=== PATIENT | female | born 1940 | race Caucasian/White ===

== ENCOUNTER 2020-11-13 22:28 | Inpatient (IN) ==
--- NOTE | 2020-11-14 00:34 | Emergency Department Note ---
HPI General Chief complaint: Weakness Stated complaint: Weakness Time Seen by Provider: 11/13/20 23:08 Source: patient and EMS Mode of arrival: EMS Limitations: no limitations History of Present Illness HPI Narrative: Narrative: Patient is a 80-year-old female who presented with chief complaint of weakness by EMS. Patient was very difficult to understand why she was here. She was unable to give me any specific reasons, that she just called 911 because she could not get out of her chair at home. She states that she was at [facility] yesterday for similar complaints but does not know what happened or why. She was discharged from the emergency department to the [place] [address] because she was refused at the retirement where she was, [facility]. Patient also states she does not want to go back there. At this time she has no other specific complaints such as fever, headache, cough, shortness of breath, chest p ain, nausea, vomiting, abdominal pain, changes in bowel movements or urinary symptoms. Patient has had issues with her incontinence, but she states this is normal for her. Due to the patient's inability to fully articulate why she is here or what issues she has been I was able to get a hold of the patient's son who was at [place] [address] as well. He states that he is concerned because she is declined s ignificantly since she was recently at [facility]. She had a cut on her leg that is being treated for chronic cellulitis, and he states that he is not confident with them taking care of her. He also states that they have kicked her out of the facility and will not take her back. Patient was brought to the [place] [address] yesterday evening by ambulance because that is where he was staying. He states that he also is homeless, and [facility]. Today he tried to get his mother up to move her since she had urinated herself and was unable to get her up. He states she has no strength in her legs and is unable to ambulate even a few steps. He is concerned that when he is homeless tomorrow he will be unable to care for her at all because she cannot ambulate or move anywhere. They called 911 this evening because he did not know what else to do and had no place to put her. Related Data Home Medications Medication Instructions Recorded Confirmed atorvastatin 40 mg tablet 40 mg PO QHS 10/02/19 05/16/20 gabapentin 100 mg capsule 100 mg PO BID 10/02/19 01/24/20 glipizide 5 mg tablet 5 mg PO QDAY 10/02/19 01/24/20 insulin lispro 100 unit/mL 10 unit SUB-Q .COMPLEX 10/02/19 05/16/20 subcutaneous solution ipratropium 0.5 mg-albuterol 3 mg 3 ml INHALATION Q6H PRN 10/02/19 05/16/20 (2.5 mg base)/3 mL nebulization soln lisinopril 10 mg tablet 10 mg PO QDAY 10/02/19 05/16/20 melatonin 3 mg tablet 3 mg PO HS PRN 10/02/19 05/16/20 metformin 1,000 mg tablet,extended 1,000 mg PO QDAY 10/02/19 05/16/20 release 24hr methadone 10 mg tablet 10 mg PO BID tab 10/02/19 01/24/20 potassium chloride 10 mEq 20 meq PO BID 10/02/19 05/16/20 capsule,extended release diphenhydramine HCl 25 mg capsule See Rx Instructions PO .COMPLEX 10/08/19 01/24/20 glipizide 10 mg tablet, extended See Rx Instructions PO .COMPLEX 10/08/19 01/24/20 release 24 hr loperamide 2 mg tablet See Rx Instructions PO .COMPLEX PRN 10/08/19 01/24/20 methadone 10 mg tablet See Rx Instructions PO Q6H 10/08/19 01/24/20 multivitamin 1 tab PO DAILY 10/08/19 05/16/20 naloxone 4 mg/actuation nasal spray See Rx Instructions INTRANASAL Q2M 10/08/19 01/24/20 oxygen 1 dose NOTAPPLIC PRN PRN 10/08/19 01/24/20 Jardiance 10 mg PO DAILY 10/30/19 01/24/20 docusate sodium 100 mg PO DAILY 10/30/19 05/16/20 acetaminophen 500 mg tablet PO Q6HP PRN 01/22/20 01/24/20 alprazolam 0.5 mg tablet 0.5 mg PO TID 01/22/20 01/24/20 aspirin 81 mg tablet,delayed 81 mg PO QDAY 01/22/20 05/16/20 release baclofen 10 mg tablet 10 mg PO TID tab 01/22/20 05/16/20 diphenoxylate-atropine 2.5 See Rx Instructions PO QID PRN 01/22/20 01/24/20 mg-0.025 mg tablet furosemide 40 mg tablet 40 mg PO QDAY 01/22/20 05/16/20 acetaminophen-codeine 1 tab PO Q4H PRN 05/16/20 05/16/20 empagliflozin 25 mg PO QAM 05/16/20 05/16/20 metoprolol succinate 25 mg PO QDAY 05/16/20 05/16/20 ondansetron HCl [Zofran] 8 mg PO Q6H PRN 05/16/20 05/16/20 pregabalin 50 mg PO QDAY 05/16/20 05/16/20 sertraline 125 mg PO QDAY 05/16/20 05/16/20 Previous Rx's Medication Instructions Recorded alprazolam 0.5 mg PO BIDP PRN #20 tab 08/28/19 nitrofurantoin monohyd/m-cryst 100 mg PO BID #14 cap 12/31/19 [Macrobid] apixaban 5 mg PO BID #60 tab 02/20/20 levetiracetam [Keppra] 250 mg PO BID #30 tab 05/16/20 Allergies Allergy/AdvReac Type Severity Reaction Status Date / Time iodine Allergy Severe coma, Verified 02/21/20 09:53 unconsciousness/Anaphylaxis cefuroxime [From Ceftin] Allergy Intermediate Unknown Verified 02/21/20 09:53 cephalexin Allergy Intermediate Unknown Verified 02/21/20 09:53 diazepam [From Valium] Allergy Intermediate "Itchy, Verified 02/21/20 09:53 dizzy, felt horrible all over" egg Allergy Intermediate Unknown Verified 02/21/20 09:53 Penicillins Allergy Intermediate dizziness, Verified 02/21/20 09:53 itching, rash/hives shellfish derived Allergy Intermediate coma, Verified 02/21/20 09:53 unconsciousness/nausea, rash, vomiting nitrofurantoin Allergy Mild Other Verified 02/21/20 09:53 [From Macrobid] Sulfa (Sulfonamide Allergy Mild Rash Verified 02/21/20 09:53 Antibiotics) Tetanus Vaccines and Toxoid Allergy Unknown Unknown Verified 02/21/20 09:53 Flu virus vaccine Allergy Intermediate Unknown Uncoded 01/22/20 15:39 Seafood Allergy Unknown Unknown Uncoded 10/23/19 14:54 Review of Systems ROS ROS Narrative: Narrative: All systems ED: reviewed and negative except as stated. PFS Narrative Patient History Narrative: Narrative: Medical/Surgical/Family History All Active Problems (Updated 11/14/20 @ 01:36 by Julien Berkowitz DO) Chest pain (Acute) CHF (congestive heart failure) (Acute) Atrial fibrillation with rapid ventricular response (Acute) Abdominal pain (Acute) Hypertension, essential (Acute) Localized edema (Acute) Complicated urinary tract infection (Acute) Dizziness (Acute) Falls frequently (Acute) Adult failure to thrive (Acute) Myoclonus (Acute) Weakness (Acute) Inability to walk (Acute) Homelessness (Acute) History of dilatation and curettage (Chronic) Obstructive sleep apnea (Chronic) Type 2 diabetes mellitus (Chronic) Retinitis pigmentosa (Chronic) Lymphedema (Chronic) Deep venous thrombosis (Chronic) Chronic back pain (Chronic) Acquired lymphedema of leg (Acute) Palpitations (Acute) Atrial fibrillation (Acute) Anxiety (Acute) Withdrawal complaint (Acute) Acute UTI (Acute) Chest pain (Acute) Atrial fibrillation with RVR (Acute) Chest pain (Acute) Anxiety (Acute) Pneumonia (Acute) Pneumonia, unspecified organism (Chronic) Acute respiratory failure with hypoxia (Chronic) Low back pain (Chronic) 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) Acute on chronic diastolic (congestive) heart failure (Chronic) Paroxysmal atrial fibrillation (Chronic) Type 2 diabetes mellitus without complication (Chronic) Acute embolism and thrombosis of unspecified deep veins of right lower extremity (Chronic) Lymphedema, not elsewhere classified (Chronic) Morbid (severe) obesity due to excess calories (Chronic) Legal blindness, 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) Generalized anxiety disorder (Chronic) Hyperlipidemia, unspecified (Chronic) Body mass index (BMI) 45.0-49.9, adult (Chronic) Tachycardia, unspecified (Chronic) correction (current) use of insulin (Chronic) Other muscle spasm (Chronic) SOB (shortness of breath) (Chronic) Deep vein thrombosis (DVT) of left lower extremity (Chronic) Bronchitis (Chronic) History of tobacco use (Chronic) Pigmentary retinal dystrophy (Chronic) COPD (chronic obstructive pulmonary disease) (Chronic) Other personal history of psychological trauma, not elsewhere classified (Chronic) Hypertension (Chronic) Unspecified asthma, uncomplicated (Chronic) Cardiac arrhythmia, unspecified (Chronic) Fibromyalgia (Chronic) 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) Congestive heart failure (Chronic) Personal history of other venous thrombosis and embolism (Chronic) Macular degeneration (Chronic) Chronic pain (Chronic) Medical History (Updated 11/14/20 @ 01:36 by Julien Berkowitz DO) Acute embolism and thrombosis of unspecified deep veins of right lower extremity Acute on chronic diastolic (congestive) heart failure Acute respiratory failure with hypoxia Body mass index (BMI) 45.0-49.9, adult Bronchitis Cardiac arrhythmia, unspecified Chronic back pain Chronic pain Congestive heart failure COPD (chronic obstructive pulmonary disease) Deep vein thrombosis (DVT) of left lower extremity Deep venous thrombosis Fibromyalgia Generalized anxiety disorder History of tobacco use Hyperlipidemia, unspecified Hypertension Hypertensive heart disease with heart failure Legal blindness, as defined in [place] correction (current) use of insulin Low back pain Lymphedema Lymphedema, not elsewhere classified Macular degeneration Morbid (severe) obesity due to excess calories Obstructive sleep apnea Other muscle spasm Other personal history of psychological trauma, not elsewhere classified Paroxysmal atrial fibrillation Personal history of other venous thrombosis and embolism Pigmentary retinal dystrophy Pneumonia, unspecified organism Retinitis pigmentosa SOB (shortness of breath) Tachycardia, unspecified Type 2 diabetes mellitus Type 2 diabetes mellitus with peripheral neuropathy Type 2 diabetes mellitus without complication Unspecified asthma, uncomplicated Surgical History History of appendectomy (~1966) History of cholecystectomy (~1968) History of dilatation and curettage 1965 and 1967 History of partial hysterectomy (~1969) Family History Father , age 76 Pancreatic cancer Son Alcoholism Uncle Seizures CVA (cerebral vascular accident) Family/Other Seizures Cousin Mother Alcoholism Grandfather CVA (cerebral vascular accident) Grandmother CVA (cerebral vascular accident) Social History Smoking Status: Never smoker Alcohol Intake Frequency: does not drink Substance Use: does not use Exam Narrative Narrative: Narrative: Patient is laying in bed, answering questions appropriately. She does not appear to be in acute discomfort or distress. She does not appear to be toxic or septic. 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.); Absent scleral icterus and conjunctival injection ENT ENT: Present normal oropharynx and mucous membranes moist Neck Neck: Present full ROM and trachea midline; Absent tenderness and lymphadenopathy Chest Chest: Present symmetric chest wall rise Respiratory Respiratory: Present normal lung sounds bilaterally; Absent respiratory distress, rales/crackles, wheezes, stridor and accessory muscle use Cardiovascular Cardiovascular: Present regular rate and normal rhythm; Absent systolic murmur and diastolic murmur Adbominal Abdominal: Present soft; Absent tenderness, guarding, rebound, rigidity and mass Extremities Extremities: Absent pedal edema, pretibial edema and calf tenderness Back Back: Absent CVA tenderness (R), CVA tenderness (L) and spinous process tenderness Neurological Neurological: Present alert, oriented X3, CN II-XII intact and motor sensory deficit (Chronic weakness noted to left side. Patient states this is unchanged.) Psychiatric Psychiatric: Present normal affect and normal mood Skin Skin: Present warm (WNL) and dry Course Vital Signs Vital signs: Vital Signs Temperature 97.7 F 11/13/20 22:29 Pulse Rate 108 H 11/13/20 22:29 Respiratory Rate 18 11/13/20 22:29 Blood Pressure 102/90 11/13/20 22:29 Pulse Oximetry (%) 93 11/13/20 22:29 Temperature 97.7 F 11/13/20 22:29 Pulse Rate 114 H 11/14/20 01:01 Respiratory Rate 18 11/13/20 22:29 Blood Pressure 104/92 11/14/20 01:31 Pulse Oximetry (%) 92 11/14/20 01:01 [facility] MDM Narrative Medical decision making narrative: Narrative: Patient is a 72-year-old female presented with chief complaint of weakness. At this time patient is very weak, and unable to get up at the bedside under her own power or without significant help. She obviously is unable to take care of her self, which is likely why she was at [facility] in the first place. Unfortunate this time it does not appear that she has a place that she can go her family members that can help take care of her. The long discussion with her son made it very clear that he was unable to care for her since he was also homeless and did not have a place that he could help put her to care for her. Given her weakness and inability to care for self, I do feel that she would be nefit from admission the hospital to likely have PT OT eval and case management work on potential placement for her. Patient is agreeable to the plan at this time and has no further concerns or questions Lab Data Result diagrams: 11/14/20 00:35 Labs: Lab Results 11/14/20 11/14/20 11/14/20 Range/Units 00:35 00:35 00:35 WBC 9.3 (4.5-11.0) K/mcL RBC 4.46 (4.00-5.20) M/mcL Hgb 13.0 (12.0-15.0) g/dL Hct 40.4 (36.0-48.0) % POC Hct 38 (36-48) % MCV 90.6 (80.0-100.0) fL MCH 29.1 (26.0-34.0) pg MCHC 32.2 (31.0-36.0) g/dL RDW 13.9 (11.5-14.5) % Plt Count 206 (140-440) K/mcL MPV 11.5 H (7.4-10.4) fL Neut % (Auto) 76.5 (38.0-78.0) % Lymph % (Auto) 16.3 (15.0-49.0) % [place] % (Auto) 6.6 (1.0-12.0) % Eos % (Auto) 0.3 (0.0-7.0) % Baso % (Auto) 0.3 (0.0-2.0) % Lymph # (Auto) 1.52 (1.50-4.80) K/mcL [place] # (Auto) 0.61 (0.10-0.90) K/mcL Eos # (Auto) 0.03 (0.00-0.70) K/mcL Baso # (Auto) 0.03 (0.00-0.20) K/mcL Absolute Neutrophils 7.12 (1.80-8.00) K/mcL POC Sodium 146 H (133-145) mEq/L POC Potassium 4.4 (3.3-5.1) mEql/L POC Chloride 101 (96-108) mEq/L POC Total CO2 31 H (22-30) mmol/L POC BUN 30 H (6-20) mg/dL POC Creatinine 1.1 (0.6-1.2) mg/dL POC Glucose 105 (70-105) mg/dL POC WB Ioniz Calcium 1.19 (1.16-1.32) mmEq/L Troponin T < 0.01 (<0.03) ng/mL Discharge Plan Patient/Caregiver Discharge Instructions Pt seen by ALIGNING INSPECTOR/PA only: No Clinical Impression: Weakness, Inability to walk, Homelessness Patient Disposition: Xfer As Inpt ([facility]) Follow up with: Cindy Quiroz PA-C [Primary Care Provider] - Prescriptions: No Action atorvastatin 40 mg tablet 40 mg PO QHS RF: 0 gabapentin 100 mg capsule 100 mg PO BID RF: 0 glipizide 5 mg tablet 5 mg PO QDAY RF: 0 ipratropium-albuterol 0.5 mg-3 mg(2.5 mg base)/3 mL solution for nebulization 3 ml INHALATION Q6H PRN (Reason: shortness of breath) RF: 0 lisinopril 10 mg tablet 10 mg PO QDAY RF: 0 melatonin 3 mg tablet 3 mg PO HS PRN (Reason: Sleep) RF: 0 metformin 1,000 mg tablet extended release 24hr 1,000 mg PO QDAY RF: 0 methadone 10 mg tablet 10 mg PO BID RF: 0 potassium chloride 10 mEq capsule, extended release 20 meq PO BID RF: 0 insulin lispro [Humalog U-100 Insulin] 100 unit/mL solution 10 unit SUB-Q .COMPLEX RF: 0 furosemide 40 mg tablet 40 mg PO QDAY RF: 0 diphenhydramine HCl 25 mg capsule See Rx Instructions PO .COMPLEX RF: 0 glipizide 10 mg tablet extended release 24hr See Rx Instructions PO .COMPLEX RF: 0 loperamide 2 mg tablet See Rx Instructions PO .COMPLEX PRN (Reason: Diarrhea) RF: 0 methadone 10 mg tablet See Rx Instructions PO Q6H RF: 0 multivitamin Tablet 1 tab PO DAILY RF: 0 Narcan 4 mg/actuation spray,non-aerosol See Rx Instructions INTRANASAL Q2M RF: 0 oxygen 1 dose NOTAPPLIC PRN PRN (Reason: Shortness Of Breath) RF: 0 baclofen 10 mg tablet 10 mg PO TID RF: 0 alprazolam 0.5 mg tablet 0.5 mg PO TID RF: 0 aspirin [Ecotrin Low Strength] 81 mg tablet,delayed release (DR/EC) 81 mg PO QDAY RF: 0 diphenoxylate-atropine [Lomotil] 2.5-0.025 mg tablet See Rx Instructions PO QID PRNRF: 0 acetaminophen [Tylenol Extra Strength] 500 mg tablet PO Q6HP PRN (Reason: Pain) RF: 0 alprazolam 0.5 MG tablet 0.5 mg PO BIDP PRN (Reason: Anxiety) Qty: 20 RF: 0 Jardiance 10 mg PO DAILY RF: 0 docusate sodium 100 MG capsule 100 mg PO DAILY RF: 0 nitrofurantoin monohyd/m-cryst [Macrobid] 100 mg capsule 100 mg PO BID Qty: 14 RF: 0 apixaban 5 mg tablet 5 mg PO BID Qty: 60 RF: 0 sertraline 100 mg Tablet 125 mg PO QDAY RF: 0 ondansetron HCl [Zofran] 4 mg Tablet 8 mg PO Q6H PRN (Reason: Nausea) RF: 0 acetaminophen-codeine 300-60 mg Tablet 1 tab PO Q4H PRN (Reason: Pain) RF: 0 pregabalin 50 mg Capsule 50 mg PO QDAY RF: 0 empagliflozin 25 mg Tablet 25 mg PO QAM RF: 0 metoprolol succinate 25 mg Capsule,Sprinkle,Er 24hr 25 mg PO QDAY RF: 0 levetiracetam [Keppra] 250 mg tablet 250 mg PO BID Qty: 30 RF: 0
[2020-11-14 00:52] LABS: POC Blood Urea Nitrogen 30 mg/dL (6-20); POC CO2 31 mmol/L (22-30); POC Calcium, Ionized 1.19 mmEq/L (1.16-1.32); POC Chloride 101 mEq/L (96-108); POC Creatinine 1.1 mg/dL (0.6-1.2); POC Glucose, Random 105 mg/dL (70-105); POC Hematocrit 38 % (36-48); POC Potassium 4.4 mEql/L (3.3-5.1); POC Sodium 146 mEq/L (133-145)
[2020-11-14 01:10] LABS: Basophils # (Auto) 0.03 K/mcL (0.00-0.20); Basophils % (Auto) 0.3 % (0.0-2.0); Eosinophils # (Auto) 0.03 K/mcL (0.00-0.70); Eosinophils % (Auto) 0.3 % (0.0-7.0); Hematocrit 40.4 % (36.0-48.0); Lymphocytes # (Auto) 1.52 K/mcL (1.50-4.80); Lymphocytes % (Auto) 16.3 % (15.0-49.0); Mean Cell Volume 90.6 fL (80.0-100.0); Mean Corpuscular HGB Conc 32.2 g/dL (31.0-36.0); Mean Platelet Volume 11.5 fL (7.4-10.4); Monocytes # (Auto) 0.61 K/mcL (0.10-0.90); Monocytes % (Auto) 6.6 % (1.0-12.0); Neutrophils % (Auto) 76.5 % (38.0-78.0); Platelet Count 206 K/mcL (140-440); RBC 4.46 M/mcL (4.00-5.20); Red Cell Distribution Width 13.9 % (11.5-14.5); WBC 9.3 K/mcL (4.5-11.0)
[2020-11-14] MEDS ORDERED: ACETAMINOPHEN 325 MG TABLET PO PRN (02:01)
[2020-11-14] MEDS ORDERED: ONDANSETRON 4 MG/2 ML VIAL IV PRN ×2 (02:01→11:04)
--- NOTE | 2020-11-14 04:57 | XRay Report ---
CLINICAL INFORMATION: weakness COMPARISON: 05/16/2020 FINDINGS: Moderate cardiomegaly is unchanged. Mediastinum and pulmonary vessels are normal. Mild bibasilar scarring and/or atelectasis show slight progression IMPRESSION: Stable cardiomegaly. Minor bibasilar scarring and/or atelectasis Interpreted and Authenticated by: Zak Mcnally 11/14/20
[2020-11-14] MEDS ORDERED: 0.9 % SODIUM CHLORIDE 10 ML SYRINGE IV SCH (06:00)
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
[2020-11-14] MEDS ORDERED: DEXTROSE 31 GM ORAL.SUSP PO PRN (11:04)
[2020-11-14] MEDS ORDERED: POTASSIUM CHLORIDE 20 MEQ TABLET PO PRN ×2 (11:04)
[2020-11-14] MEDS ORDERED: LACTULOSE 20 GM/30 ML ORAL.SOL PO PRN (11:04)
[2020-11-14] MEDS ORDERED: IPRATROPIUM/ALBUTEROL 3 ML AMPUL.NEB NEB PRN (11:04)
[2020-11-14] MEDS ORDERED: SENNOSIDES 1 TABLET PO PRN (11:04)
[2020-11-14] MEDS ORDERED: POTASSIUM CHLORIDE 40 MEQ in DEXTROSE 5% IN WATER 500 ML IV PRN (11:04)
[2020-11-14] MEDS ORDERED: METOCLOPRAMIDE 10 MG/2 ML VIAL IV PRN (11:04)
[2020-11-14] MEDS ORDERED: DEXTROSE 50% 50 ML VIAL IV PRN (11:04)
[2020-11-14] MEDS ORDERED: MAGNESIUM SULFATE 2 GM/50 ML BAG IV PRN (11:04)
[2020-11-14 11:26] LABS: ALT/SGPT 12 U/L (<40); AST/SGOT 21 U/L (<32); Albumin 3.5 gm/dL (3.2-5.2); Albumin/Globulin Ratio 1.1 (1.0-2.3); Alkaline Phosphatase 111 U/L (39-117); Bilirubin,Direct < 0.2 mg/dL (0-0.3); Bilirubin,Total 0.3 mg/dL (0.1-1.0); Blood Urea Nitrogen 31 mg/dL (8-23); Calcium 9.7 mg/dL (8.6-10.4); Carbon Dioxide 30 mmol/L (22-30); Chloride 104 mmol/L (96-108); Globulin 3.3 gm/dL (2.2-3.7); Glomerular Filtration Rate 61; Glucose 100 mg/dL (70-105); Lactate Dehydrogenase 185 U/L (135-225); Phosphorous 3.6 mg/dL (2.5-4.5); Triglycerides 67 mg/dL (<150); Uric Acid 8.9 mg/dL (2.5-8.0)
[2020-11-14 11:58] LABS: Appearance,Urine HAZY (Clear); Bacteria,Urine FEW /hpf (0); Bilirubin,Urine Negative (Negative); Color,Urine YELLOW; Culture Indicated,Urine yes; Glucose,Urine (UA) >=500 mg/dL (Negative); Ketones,Urine 5 mg/dL (Negative); Leukocyte Esterase,Urine 75 /ug (Negative); Mucus,Urine FEW /hpf; Nitrate,Urine POS (Negative); Protein,Urine Negative (Negative); Specific Gravity,Urine 1.021 (1.000-1.035); Urine Budding Yeast FEW /hpf; Urine Hyaline Cast 1 /lph (0-2); Urine RBC 3 /hpf (0-3); Urine Squamous Epithelial Cell < 1 /hpf (0-4); Urine WBC 50 /hpf (0-4); Urobilinogen,Urine Negative
[2020-11-14] MEDS ORDERED: cefTRIAXone 1 GM VIAL IV SCH (12:30)
[2020-11-14] MEDS: LEVOFLOXACIN 750 MG/150 ML BAG IV SCH (13:35)
[2020-11-14] MEDS: INSULIN LISPRO 1 UNIT/0.01 ML UNIT SQ SCH ×3 (13:35→20:58)
[2020-11-14] MEDS: 0.45 % SODIUM CHLORIDE 1,000 ML IV SCH (13:37)
[2020-11-14] MEDS: ACETAMINOPHEN 325 MG TABLET PO PRN (13:39)
[2020-11-14] MEDS: METOPROLOL TARTRATE 5 MG/5 ML VIAL IV PRN ×2 (17:05→22:10)
[2020-11-14] MEDS: 0.9 % SODIUM CHLORIDE 10 ML SYRINGE IV SCH ×2 (17:05→22:15)
--- NOTE | 2020-11-14 18:25 | EKG ---
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 Measurements Intervals [place] Rate: 115 P: RI: QRS: 32 QRSD: 71 T: QT: 327 QTc: 453 Interpretive Statements Atrial flutter with predominant 2:1 AV block Low voltage, extremity and precordial leads Anteroseptal infarct, old Repol abnrm suggests ischemia, diffuse leads NO PRIOR TRACING FOR COMPARISON ABNORMAL TRACING Electronically Signed On 11-14-2020 18:24:58 PDT by Fredi Calixto M.D. /store/[email or web address]/[id number]
--- NOTE | 2020-11-14 18:44 | EKG ---
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 Measurements Intervals [place] Rate: 115 P: 267 MN: 258 QRS: 21 QRSD: 70 T: QT: 340 QTc: 471 Interpretive Statements Sinus or ectopic atrial tachycardia Prolonged MN interval Low voltage, extremity leads Anteroseptal infarct, old ST depr, consider ischemia, inferior leads Since previous ECG of 11-14-2020, 0047, SUPRAVENTRICULAR TACHYCARDIA ABNORMAL ECG Electronically Signed On 11-14-2020 18:44:32 PDT by Fredi Calixto M.D. /store/[email or web address]/[id number]
[2020-11-14] MEDS ORDERED: DIPHENOXYLATE HCL/ATROPINE 1 TABLET PO PRN (19:48)
[2020-11-14] MEDS ORDERED: ALPRAZolam 0.5 MG TABLET PO PRN ×2 (19:48→21:00)
[2020-11-14] MEDS ORDERED: PROMETHAZINE 25 MG/ML VIAL IV PRN (20:08)
[2020-11-14] MEDS: METHADONE 5 MG TABLET PO SCH (20:15)
[2020-11-14] MEDS: PREGABALIN 25 MG CAPSULE PO SCH (20:50)
[2020-11-14] MEDS: BACLOFEN 10 MG TABLET PO SCH (20:50)
[2020-11-14] MEDS: APIXABAN 5 MG TABLET PO SCH (20:50)
[2020-11-14] MEDS: GABAPENTIN 100 MG CAPSULE PO SCH (20:51)
[2020-11-14] MEDS: levETIRAcetam 500 MG TABLET PO SCH (20:51)
[2020-11-14] MEDS ORDERED: traZODone HCL 50 MG TABLET PO SCH (21:00)
[2020-11-14] MEDS ORDERED: MELATONIN 3 MG TABLET PO PRN (21:00)
[2020-11-14] MEDS ORDERED: ATORVASTATIN 40 MG TABLET PO SCH (21:00)
[2020-11-14] MEDS: DOCUSATE SODIUM 100 MG CAPSULE PO SCH (21:03)
[2020-11-15] MEDS: 0.45 % SODIUM CHLORIDE 1,000 ML IV SCH (00:06)
[2020-11-15] MEDS: ACETAMINOPHEN 325 MG TABLET PO PRN (01:18)
[2020-11-15] MEDS: METOPROLOL TARTRATE 5 MG/5 ML VIAL IV PRN (04:50)
[2020-11-15 06:42] LABS: Basophils # (Auto) 0.03 K/mcL (0.00-0.20); Basophils % (Auto) 0.3 % (0.0-2.0); Eosinophils # (Auto) 0.13 K/mcL (0.00-0.70); Eosinophils % (Auto) 1.4 % (0.0-7.0); Hematocrit 33.4 % (36.0-48.0); Hemoglobin 10.7 g/dL (12.0-15.0); Lymphocytes # (Auto) 2.34 K/mcL (1.50-4.80); Lymphocytes % (Auto) 24.5 % (15.0-49.0); Mean Cell Volume 90.3 fL (80.0-100.0); Mean Platelet Volume 11.8 fL (7.4-10.4); Monocytes # (Auto) 0.86 K/mcL (0.10-0.90); Neutrophils % (Auto) 64.8 % (38.0-78.0); Platelet Count 186 K/mcL (140-440); Red Cell Distribution Width 14.1 % (11.5-14.5); WBC 9.5 K/mcL (4.5-11.0)
[2020-11-15 07:06] LABS: ALT/SGPT 13 U/L (<40); AST/SGOT 23 U/L (<32); Albumin/Globulin Ratio 1.2 (1.0-2.3); Alkaline Phosphatase 87 U/L (39-117); Bilirubin,Direct < 0.2 mg/dL (0-0.3); Bilirubin,Total 0.3 mg/dL (0.1-1.0); Blood Urea Nitrogen 28 mg/dL (8-23); Calcium 8.3 mg/dL (8.6-10.4); Carbon Dioxide 29 mmol/L (22-30); Chloride 103 mmol/L (96-108); Globulin 2.5 gm/dL (2.2-3.7); Glomerular Filtration Rate 61; Glucose 119 mg/dL (70-105); Lactate Dehydrogenase 133 U/L (135-225); Phosphorous 3.1 mg/dL (2.5-4.5); Triglycerides 87 mg/dL (<150); Uric Acid 7.9 mg/dL (2.5-8.0)
--- NOTE | 2020-11-15 07:25 | Internal Med Progress Note ---
SUBJECTIVE Subjective Patient information: Note initiated : 11/15/20 at 7:20 am Service Date, if different from initiated Date: [] Patient: Alexa Rai a 80 y/o F admitted on 11/14/20 for Weakness. Chief Complaint: [] Interval history: History of present illness: Ms. Rai is a 80 year old F patient was recently at [facility] for cellulitis to the leg discharged the beginning of October. She was at [facility] prior to that admission but [facility] efused her and patient was discharged to [facility] 6. Patient says she has been at [facility] since last February. She is essentially wheelchair-bound for the past couple years she states she can ambulate a little bit with a walker. She was in the motel with her son who is homeless who will be kicked out of the motel today and he was worried about his mother because she cannot get up she just sits in her own urine she cannot take care of her self. She is unable to care for herself and her son who is homeless has no place to care for her. Patient has some nausea but no other complaints. She does have history atrial fibrillation and in the ED she did go to heart rate of 115. Rwigb-qw-[id number] sodium was 146, chemistry showed volume depletion 11/15 Patient doing well. Feels better. Urine culture with gram-negative bacillus. Heart rate improved. Electrolytes improved. Vaginal nausea but no other complaints. Review of Systems: denies headache/fever/chills/vomiting/chest or abdominal pain/ cough/dyspnea/diarrhea. Otherwise see above. Constitutional Vitals: Vital Signs Temp Pulse Resp BP Pulse Ox 97.8 F 94 H 18 107/56 96 11/15/20 04:01 11/15/20 04:01 11/15/20 04:01 11/15/20 04:01 11/15/20 04:01 Period Temp Pulse Resp BP Sys/Jansen Pulse Ox Last 24 Hr 97.8 F-98.9 F 90-120 11-18 105-141/56-80 89-100 Intake and Output 11/14/20 11/15/20 11/15/20 21:59 05:59 13:59 Intake Total 150 1480 Output Total 0 275 Balance 150 1205 Weight 102.92 kg Intake & Output: Intake & Output 11/14/20 11/15/2021 21:59 05:59 13:59 Intake Total 150 1480 Output Total 0 275 Balance 150 1205 Weight 102.92 kg Intake: IV 150 1000 Sodium Chloride 0.45% 1,000 ml 1000 @ 100 mls/hr IV .Q10H ROMI Rx#: [id number] Oral 0 480 Output: Void Amount 0 275 Other: Meal Dinner Yoghurt, milk et tuna salad Percent of Meal Consumed Refused 100% Feeding Ability Assist with Tray Set Up Independent Urine Appearance Cloudy Clear Urine Color Tea Colored Dark Yellow Urine Odor Normal Stool Size Small Stool Color Brown Stool Consistency Loose # Voids 1 # Bowel Movements 1 Exam: General: Alert, Awake, No acute Distress, obese Eyes/N/T: EOMI, Head/Neck: neck supple, CV: RRR, No murmurs, Pulm: Clear b/l, no wheezing/rhonchi/rales Abd: soft, nontender, +BS x4 Ext: no clubbing/cyanosis, mild b/l LE edema Neuro: Alert, no focal deficits, moves all extremities, Skin: warm/dry OBJ DATA Labs CBC & Chem 7: 11/15/20 05:17 11/15/20 05:17 Labs: Abnormal Lab Results 11/15/20 11/15/20 11/14/20 05:17 05:17 11:07 RBC 3.70 L Hgb 10.7 L Hct 33.4 L MPV 11.8 H POC Sodium POC Total CO2 Anion Gap 6.0 L POC BUN BUN 28 H Glucose 119 H Uric Acid Calcium 8.3 L Lactate Dehydrogenase 133 L Total Protein 5.5 L Albumin 3.0 L Urine Appearance Hazy A Urine Glucose (UA) >=500 A Urine Ketones 5 A Urine Nitrate Pos A Ur Leukocyte Esterase 75 A Urine WBC 50 H Urine Bacteria Few A Urine Mucus Few A Urine Yeast (Budding) Few A 11/14/20 11/14/20 11/14/20 00:35 00:35 00:35 RBC Hgb Hct MPV 11.5 H POC Sodium 146 H POC Total CO2 31 H Anion Gap POC BUN 30 H BUN 31 H Glucose Uric Acid 8.9 H Calcium Lactate Dehydrogenase Total Protein Albumin Urine Appearance Urine Glucose (UA) Urine Ketones Urine Nitrate Ur Leukocyte Esterase Urine WBC Urine Bacteria Urine Mucus Urine Yeast (Budding) Meds: Medications Acetaminophen (Acetaminophen 325 Mg Tablet) 650 mg PO Q6HP PRN PRN Reason: PAIN/FEVER > 101 Last Admin: 11/15/20 01:18 Dose: 650 mg Documented by: Albuterol/Ipratropium (Ipratropium/Albuterol 3 Ml Ampul.Neb) 3 ml NEB Q4HP PRN PRN Reason: Shortness Of Breath Alprazolam (Alprazolam 0.5 Mg Tablet) 0.5 mg PO TIDP PRN PRN Reason: Anxiety Last Admin: 11/15/20 01:18 Dose: 0.5 mg Documented by: Apixaban (Apixaban 5 Mg Tablet) 5 mg PO BID [facility] Last Admin: 11/14/20 20:50 Dose: 5 mg Documented by: Aspirin (Aspirin 81 Mg Tab.Chew) 81 mg PO DAILY [facility] Atorvastatin Calcium (Atorvastatin 40 Mg Tablet) 40 mg PO QHS [facility] Last Admin: 11/14/20 20:51 Dose: 40 mg Documented by: Baclofen (Baclofen 10 Mg Tablet) 10 mg PO TID [facility] Last Admin: 11/14/20 20:50 Dose: 10 mg Documented by: Dextrose (Dextrose 50% 50 Ml Vial) 0 ml IV UD PRN PRN Reason: Hypoglycemia Diagnostic Test (Pha) (Accu-Chek 1 Each Strip) 1 each FS ACHS [facility] Last Admin: 11/14/20 20:55 Dose: 1 each Documented by: Diphenoxylate HCl/Atropine (Diphenoxylate Hcl/Atropine 1 Tablet) 1 tab PO QIDP PRN PRN Reason: Wheezing Docusate Sodium (Docusate Sodium 100 Mg Capsule) 100 mg PO BID [facility] Last Admin: 11/14/20 21:03 Dose: Not Given Documented by: Gabapentin (Gabapentin 100 Mg Capsule) 100 mg PO BID [facility] Last Admin: 11/14/20 20:51 Dose: 100 mg Documented by: Glucose (Dextrose 31 Gm Oral.Susp) 15 gm PO PRN PRN PRN Reason: Hypoglycemia Potassium Chloride 40 meq/ (Dextrose) 520 mls @ 130 mls/hr IV UD PRN PRN Reason: Potassium < 3 Magnesium Sulfate (Magnesium Sulfate) 2 gm in 50 mls @ 50 mls/hr IV UD PRN PRN Reason: Magnesium </= 1.6 Levofloxacin (Levaquin) 750 mg in 150 mls @ 100 mls/hr IV DAILY [facility] Last Infusion: 11/14/20 15:05 Dose: Infused Documented by: Insulin Human Lispro (Insulin Lispro 1 Unit/0.01 Ml Unit) [address] [facility]; Protocol Last Admin: 11/14/20 20:58 Dose: Not Given Documented by: Lactulose (Lactulose 20 Gm/30 Ml Oral.Stefany) 20 gm PO DAILYP PRN PRN Reason: Constipation Levetiracetam (Levetiracetam 500 Mg Tablet) 250 mg PO BID [facility] Last Admin: 11/14/20 20:51 Dose: 250 mg Documented by: Lisinopril (Lisinopril 10 Mg Tablet) 10 mg PO QDAY [facility] Meclizine HCl (Meclizine 25 Mg Tablet) 25 mg PO DAILY [facility] Melatonin (Melatonin 3 Mg Tablet) 3 mg PO HSP PRN PRN Reason: Sleep Last Admin: 11/14/20 22:10 Dose: 3 mg Documented by: Methadone HCl (Methadone 5 Mg Tablet) 10 mg PO BID [facility] Last Admin: 11/14/20 20:15 Dose: 10 mg Documented by: Metoclopramide HCl (Metoclopramide 10 Mg/2 Ml Vial) 10 mg IV Q6HP PRN PRN Reason: Nausea And Vomiting Last Admin: 11/14/20 17:05 Dose: 10 mg Documented by: Metoprolol Succinate (Metoprolol Succinate 25 Mg Tab.Xl.24h) 25 mg PO DAILY [facility] Metoprolol Tartrate (Metoprolol Tartrate 5 Mg/5 Ml Vial) 5 mg IV Q2HP PRN PRN Reason: Tachyarrhythmias HR>110 Last Admin: 11/15/20 04:50 Dose: 5 mg Documented by: (Empagliflozin 25 Mg (Tablet)) 1 dose PO DAILY [facility] Potassium Chloride (Potassium Chloride 20 Meq Tablet) 40 meq PO UD PRN PRN Reason: Potssium is 3-3.5 Potassium Chloride (Potassium Chloride 20 Meq Tablet) 40 meq PO UD PRN PRN Reason: Potassium < 3 Pregabalin (Pregabalin 25 Mg Capsule) 50 mg PO TID [facility] Last Admin: 11/14/20 20:50 Dose: 50 mg Documented by: Promethazine HCl (Promethazine 25 Mg/Ml Vial) 12.5 mg IV Q6HP PRN PRN Reason: Nausea And Vomiting Senna (Sennosides 1 Tablet) 2 tab PO DAILYP PRN PRN Reason: Constipation Sertraline HCl (Sertraline 50 Mg Tablet) 125 mg PO DAILY [facility] Sodium Chloride (0.9 % Sodium Chloride 10 Ml Syringe) 10 ml IV Q8 [facility] Last Admin: 11/14/20 22:15 Dose: Not Given Documented by: Tramadol HCl (Tramadol 50 Mg Tablet) 50 mg PO DAILYP PRN; Protocol PRN Reason: Pain Trazodone HCl (Trazodone Hcl 50 Mg Tablet) 25 mg PO HS [facility] Last Admin: 11/14/20 20:51 Dose: 25 mg Documented by: A/P Narrative A/P Narrative: A: *Generalized weakness/deconditioning/inability to care for self: -essentially wheelchair bound for past year *PAFib/flutter w/rvr: *Hypernatremia: resolved *Dehydration/Volume depletion: improved *UTI (GNB): *DM: *HTN: *LENARD: *Chronic lymphedema/venous stasis skin changes: *Anxiety/depression: *Obesity: *h/o Sz: on keppra *Recent LLE cellulitis treated at [facility]: P: -IVF today -Continue home BB(increased)/ACEI(decreased) -hold lasix for now -cont other home meds -Levaquin pending UC -PT/OT -Home CPAP -SSI -CM for placement -ppx: apixaban full code Time Spent With Patient Time: Total time spent is greater than 50% in coordination of care (as documented) at patient's floor/unit and/or counseling patient: QUALITY VTE Deep Vein Thrombosis/Pulmonary Embolism Present on Admission: No
[2020-11-15] MEDS ORDERED: 0.9 % SODIUM CHLORIDE 500 ML IV SCH (07:30)
[2020-11-15] MEDS: 0.9 % SODIUM CHLORIDE 10 ML SYRINGE IV SCH ×3 (08:57→20:00)
[2020-11-15] MEDS: INSULIN LISPRO 1 UNIT/0.01 ML UNIT SQ SCH ×4 (08:57→20:43)
[2020-11-15] MEDS: DOCUSATE SODIUM 100 MG CAPSULE PO SCH (08:58)
[2020-11-15] MEDS ORDERED: MECLIZINE 25 MG TABLET PO SCH (09:00)
[2020-11-15] MEDS ORDERED: LISINOPRIL 5 MG TABLET PO SCH (09:00)
[2020-11-15] MEDS ORDERED: traMADol 50 MG TABLET PO PRN (09:00)
[2020-11-15] MEDS ORDERED: METOPROLOL SUCCINATE 25 MG TAB.XL.24H PO SCH (09:00)
[2020-11-15] MEDS ORDERED: EMPAGLIFLOZIN 25 MG PO SCH (09:00)
[2020-11-15] MEDS ORDERED: LISINOPRIL 10 MG TABLET PO SCH (09:00)
[2020-11-15] MEDS ORDERED: METOPROLOL SUCCINATE 50 MG TAB.XL.24H PO SCH (09:00)
[2020-11-15] MEDS ORDERED: ASPIRIN 81 MG TAB.CHEW PO SCH (09:00)
[2020-11-15] MEDS ORDERED: SERTRALINE 50 MG TABLET PO SCH (09:00)
[2020-11-15] MEDS: LEVOFLOXACIN 750 MG/150 ML BAG IV SCH (09:09)
[2020-11-15] MEDS: GABAPENTIN 100 MG CAPSULE PO SCH ×2 (09:10→20:45)
[2020-11-15] MEDS: PREGABALIN 25 MG CAPSULE PO SCH ×3 (09:10→20:44)
[2020-11-15] MEDS: METHADONE 5 MG TABLET PO SCH ×2 (09:10→20:44)
[2020-11-15] MEDS: BACLOFEN 10 MG TABLET PO SCH ×3 (09:10→20:46)
[2020-11-15] MEDS: levETIRAcetam 500 MG TABLET PO SCH ×2 (09:11→20:46)
[2020-11-15] MEDS: APIXABAN 5 MG TABLET PO SCH ×2 (09:11→20:46)
--- NOTE | 2020-11-15 11:26 | Discharge Summary ---
Discharge Provider Provider Patient information: Note initiated : 11/15/20 at 11:25 am Service Date, if different from initiated Date: [] Patient: Alexa Rai 80 y/o F admitted on 11/14/20 for Weakness. Chief Complaint: [] Date of admission: 11/14/20 12:58 Primary care physician: Cindy Quiroz PA-C Consults: 11/14/20 Consult to Physician [CONS] Stat Comment: weakness, inability to walk Consulting Provider: Jarod Rapp Reason For Exam: Physician to Consult Discharge Meds Discharge Medications Home Medications atorvastatin 40 mg tablet 40 mg PO QHS 10/02/19 [History Confirmed 11/14/20 Last Taken Unknown] gabapentin 100 mg capsule 100 mg PO BID 10/02/19 [History Confirmed 11/14/20 Last Taken Unknown] glipizide 5 mg tablet 5 mg PO QDAY 10/02/19 [History Confirmed 11/14/20 Last Taken Unknown] insulin lispro 100 unit/mL subcutaneous solution 10 unit SUB-Q .COMPLEX 10/02/19 [History Confirmed 11/14/20 Last Taken Unknown] ipratropium 0.5 mg-albuterol 3 mg (2.5 mg base)/3 mL nebulization soln 3 ml INHALATION Q6H PRN 10/02/19 [History Confirmed 11/14/20 Last Taken Unknown] melatonin 3 mg tablet 3 mg PO HS PRN 10/02/19 [History Confirmed 11/14/20 Last Taken Unknown] metformin 1,000 mg tablet,extended release 24hr 1,000 mg PO QDAY 10/02/19 [History Confirmed 11/14/20 Last Taken Unknown] potassium chloride 10 mEq capsule,extended release 20 meq PO BID 10/02/19 [History Confirmed 11/14/20 Last Taken Unknown] loperamide 2 mg tablet See Rx Instructions PO .COMPLEX PRN 10/08/19 [History Confirmed 11/14/20 Last Taken Unknown] methadone 10 mg tablet See Rx Instructions PO Q6H 10/08/19 [History Confirmed 11/14/20 Last Taken Unknown] multivitamin 1 tab PO DAILY 10/08/19 [History Confirmed 11/14/20 Last Taken Unknown] naloxone 4 mg/actuation nasal spray See Rx Instructions INTRANASAL Q2M 10/08/19 [History Confirmed 11/14/20 Last Taken Unknown] oxygen 1 dose NOTAPPLIC PRN PRN 10/08/19 [History Confirmed 11/14/20 Last Taken Unknown] Jardiance 10 mg PO DAILY 10/30/19 [History Confirmed 11/14/20 Last Taken Unknown] docusate sodium 100 mg PO DAILY 10/30/19 [History Confirmed 11/14/20 Last Taken Unknown] acetaminophen 500 mg tablet 650 mg PO Q6HP PRN 01/22/20 [History Confirmed 11/14/20 Last Taken Unknown] aspirin 81 mg tablet,delayed release 81 mg PO QDAY 01/22/20 [History Confirmed 11/14/20 Last Taken Unknown] baclofen 10 mg tablet 10 mg PO TID tab 01/22/20 [History Confirmed 11/14/20 Last Taken Unknown] diphenoxylate-atropine 2.5 mg-0.025 mg tablet See Rx Instructions PO QID PRN 01/22/20 [History Confirmed 11/14/20 Last Taken Unknown] furosemide 40 mg tablet 40 mg PO QDAY 01/22/20 [History Confirmed 11/14/20 Last Taken Unknown] apixaban 5 mg PO BID #60 tab 02/20/20 [Rx Confirmed 11/14/20 Last Taken Unknown] acetaminophen-codeine 1 tab PO Q4H PRN 05/16/20 [History Confirmed 11/14/20 Last Taken Unknown] empagliflozin 25 mg PO QAM 05/16/20 [History Confirmed 11/14/20 Last Taken Unknown] levetiracetam [Keppra] 250 mg PO BID #30 tab 05/16/20 [Rx Confirmed 11/14/20 Last Taken Unknown] ondansetron HCl [Zofran] 8 mg PO Q6H PRN 05/16/20 [History Confirmed 11/14/20 Last Taken Unknown] pregabalin 50 mg PO TID 05/16/20 [History Confirmed 11/14/20 Last Taken Unknown] sertraline 125 mg PO QDAY 05/16/20 [History Confirmed 11/14/20 Last Taken Unknown] meclizine 25 mg PO DAILY 11/14/20 [History Confirmed 11/14/20 Last Taken Unknown] polyethylene glycol 3350 [Miralax] 17 g PO QDAY 11/14/20 [History Confirmed 11/14/20 Last Taken Unknown] tramadol 50 mg PO QDAY 11/14/20 [History Confirmed 11/14/20 Last Taken Unknown] trazodone 25 mg PO HS 11/14/20 [History Confirmed 11/14/20 Last Taken Unknown] alprazolam 0.5 mg PO TIDP PRN #1 tab 11/15/20 [Rx Last Taken Unknown] lisinopril 5 mg PO DAILY #1 tab 11/15/20 [Rx Last Taken Unknown] metoprolol succinate 50 mg PO DAILY #30 tab 11/15/20 [Rx Last Taken Unknown] COURSE Hospital Course Hospital course: Interval history: History of present illness: Ms. Rai is a 80 year old F patient was recently at [facility] for cellulitis to the leg discharged the beginning of October. She was at [facility] prior to that admission but [facility] refused her and [facility] was [facility]. [facility]. She is essentially wheelchair-bound for the past couple years she states she can ambulate a little bit with a walker. She was in the motel with her son who is homeless who will be kicked out of the motel today and he was worried about his mother because she cannot get up she just sits in her own urine she cannot take care of her self. She is unable to care for herself and her son who is homeless has no place to care for her. Patient has some nausea but no other complaints. She does have history atrial fibrillation and in the ED she did go to heart rate of 115. Kulon-yb-zslu sodium was 146, chemistry showed volume depletion 11/15 Patient doing well. Feels better. Urine culture with gram-negative bacillus. Heart rate improved. Electrolytes improved. Vaginal nausea but no other complaints. A: *Generalized weakness/deconditioning/inability to care for self: -essentially wheelchair bound for past year *PAFib/flutter w/rvr: *Hypernatremia: resolved *Dehydration/Volume depletion: improved *UTI (GNB): *DM: *HTN: *LENARD: *Chronic lymphedema/venous stasis skin changes: *Anxiety/depression: *Obesity: *h/o Sz: on keppra *Recent LLE cellulitis treated at [facility]: Discharge diagnosis: Generalized weakness deconditioning inability to care for self A. fib with Secondary discharge diagnosis: Hyponatremia dehydration UTI diabetes hypertension LENARD lymphedema anxiety depression obesity history of seizure disorder Time Spent with Patient Time attestation: Total time spent providing and/or coordinating discharge services: Time spent: Greater than 30 minutes EXAM Constitutional Vitals: Temp Pulse Resp BP Pulse Ox 97.4 F 79 16 132/68 97 11/15/20 08:11 11/15/20 08:11 11/15/20 08:11 11/15/20 08:11 11/15/20 08:11 Discharge Data Data Completed and Pending Labs on day of discharge: Labs from last 24 hours 11/15/20 11/15/20 11/14/20 05:17 05:17 11:07 WBC 9.5 RBC 3.70 L Hgb 10.7 L Hct 33.4 L MCV 90.3 MCH 28.9 MCHC 32.0 RDW 14.1 Plt Count 186 MPV 11.8 H Neut % (Auto) 64.8 Lymph % (Auto) 24.5 [place] % (Auto) 9.0 Eos % (Auto) 1.4 Baso % (Auto) 0.3 Lymph # (Auto) 2.34 [place] # (Auto) 0.86 Eos # (Auto) 0.13 Baso # (Auto) 0.03 Absolute Neutrophils 6.18 Sodium 138 Potassium 3.8 Chloride 103 Carbon Dioxide 29 Anion Gap 6.0 L BUN 28 H Creatinine 0.9 GFR Calculation 61 Glucose 119 H Uric Acid 7.9 Calcium 8.3 L Phosphorus 3.1 Magnesium 1.7 Total Bilirubin 0.3 Direct Bilirubin < 0.2 GGT 16 AST 23 ALT 13 Alkaline Phosphatase 87 Lactate Dehydrogenase 133 L Total Protein 5.5 L Albumin 3.0 L Globulin 2.5 Albumin/Globulin Ratio 1.2 Triglycerides 87 TSH Urine Color Yellow Urine Appearance Hazy A Urine pH 5.0 Ur Specific Star 1.021 Urine Protein Negative Urine Glucose (UA) >=500 A Urine Ketones 5 A Urine Occult Blood 0.20 Urine Nitrate Pos A Urine Bilirubin Negative Urine Urobilinogen Negative Ur Leukocyte Esterase 75 A Urine RBC 3 Urine WBC 50 H Ur Squamous Epith Cells < 1 Urine Bacteria Few A Hyaline Casts 1 Urine Mucus Few A Urine Yeast (Budding) Few A Ur Culture Indicated? yes 11/14/20 11/14/20 00:35 00:35 WBC RBC Hgb Hct MCV MCH MCHC RDW Plt Count MPV Neut % (Auto) Lymph % (Auto) [place] % (Auto) Eos % (Auto) Baso % (Auto) Lymph # (Auto) [place] # (Auto) Eos # (Auto) Baso # (Auto) Absolute Neutrophils Sodium 145 Potassium 4.4 Chloride 104 Carbon Dioxide 30 Anion Gap 11.0 BUN 31 H Creatinine 0.9 GFR Calculation 61 Glucose 100 Uric Acid 8.9 H Calcium 9.7 Phosphorus 3.6 Magnesium 2.2 Total Bilirubin 0.3 Direct Bilirubin < 0.2 GGT 20 AST 21 ALT 12 Alkaline Phosphatase 111 Lactate Dehydrogenase 185 Total Protein 6.8 Albumin 3.5 Globulin 3.3 Albumin/Globulin Ratio 1.1 Triglycerides 67 TSH 1.39 Urine Color Urine Appearance Urine pH Ur Specific Star Urine Protein Urine Glucose (UA) Urine Ketones Urine Occult Blood Urine Nitrate Urine Bilirubin Urine Urobilinogen Ur Leukocyte Esterase Urine RBC Urine WBC Ur Squamous Epith Cells Urine Bacteria Hyaline Casts Urine Mucus Urine Yeast (Budding) Ur Culture Indicated? Preliminary micro results at discharge 11/14/20 11:06 Urine Culture - Preliminary Urine - Random Gram negative bacillus Discharge Plan Patient/Caregiver Discharge Instructions Activity: increase activity as tolerated Diet: Consistent Carbohydrate Prescriptions: New metoprolol succinate 50 mg Tablet Extended Release 24 Hr 50 mg PO DAILY Qty: 30 RF: 0 lisinopril 5 mg Tablet 5 mg PO DAILY Qty: 1 RF: 0 Continued atorvastatin 40 mg tablet 40 mg PO QHS RF: 0 gabapentin 100 mg capsule 100 mg PO BID RF: 0 glipizide 5 mg tablet 5 mg PO QDAY RF: 0 ipratropium-albuterol 0.5 mg-3 mg(2.5 mg base)/3 mL solution for nebulization 3 ml INHALATION Q6H PRN (Reason: shortness of breath) RF: 0 melatonin 3 mg tablet 3 mg PO HS PRN (Reason: Sleep) RF: 0 metformin 1,000 mg tablet extended release 24hr 1,000 mg PO QDAY RF: 0 potassium chloride 10 mEq capsule, extended release 20 meq PO BID RF: 0 insulin lispro [Humalog U-100 Insulin] 100 unit/mL solution 10 unit SUB-Q .COMPLEX RF: 0 furosemide 40 mg tablet 40 mg PO QDAY RF: 0 loperamide 2 mg tablet See Rx Instructions PO .COMPLEX PRN (Reason: Diarrhea) RF: 0 methadone 10 mg tablet See Rx Instructions PO Q6H RF: 0 multivitamin Tablet 1 tab PO DAILY RF: 0 Narcan 4 mg/actuation spray,non-aerosol See Rx Instructions INTRANASAL Q2M RF: 0 oxygen 1 dose NOTAPPLIC PRN PRN (Reason: Shortness Of Breath) RF: 0 baclofen 10 mg tablet 10 mg PO TID RF: 0 aspirin [Ecotrin Low Strength] 81 mg tablet,delayed release (DR/EC) 81 mg PO QDAY RF: 0 diphenoxylate-atropine [Lomotil] 2.5-0.025 mg tablet See Rx Instructions PO QID PRN (Reason: Wheezing) RF: 0 acetaminophen [Tylenol Extra Strength] 500 mg tablet 650 mg PO Q6HP PRN (Reason: Pain) RF: 0 Jardiance 10 mg PO DAILY RF: 0 docusate sodium 100 MG capsule 100 mg PO DAILY RF: 0 apixaban 5 mg tablet 5 mg PO BID Qty: 60 RF: 0 sertraline 100 mg Tablet 125 mg PO QDAY RF: 0 ondansetron HCl [Zofran] 4 mg Tablet 8 mg PO Q6H PRN (Reason: Nausea) RF: 0 acetaminophen-codeine 300-60 mg Tablet 1 tab PO Q4H PRN (Reason: Pain) RF: 0 pregabalin 50 mg Capsule 50 mg PO TID RF: 0 empagliflozin 25 mg Tablet 25 mg PO QAM RF: 0 levetiracetam [Keppra] 250 mg tablet 250 mg PO BID Qty: 30 RF: 0 polyethylene glycol 3350 [Miralax] 17 gram Powder In Packet 17 g PO QDAY RF: 0 trazodone 50 mg tablet 25 mg PO HS RF: 0 meclizine 25 mg tablet 25 mg PO DAILY RF: 0 tramadol 50 mg Tablet 50 mg PO QDAY RF: 0 Changed alprazolam 0.5 mg tablet 0.5 mg PO TIDP PRN (Reason: anxiety) Qty: 1 RF: 0 Discontinued lisinopril 10 mg tablet 10 mg PO QDAY RF: 0 methadone 10 mg tablet 10 mg PO BID RF: 0 diphenhydramine HCl 25 mg capsule See Rx Instructions PO .COMPLEX RF: 0 glipizide 10 mg tablet extended release 24hr See Rx Instructions PO .COMPLEX RF: 0 alprazolam 0.5 MG tablet 0.5 mg PO BIDP PRN (Reason: Anxiety) Qty: 20 RF: 0 nitrofurantoin monohyd/m-cryst [Macrobid] 100 mg capsule 100 mg PO BID Qty: 14 RF: 0 metoprolol succinate 25 mg Capsule,Sprinkle,Er 24hr 25 mg PO QDAY RF: 0 Follow Up Plan Follow up with: Cindy Quiroz PA-C [Primary Care Provider] - Patient Disposition: Xfer SNF Prognosis: Undetermined Rehab Potential: Fair I certify that the patient requires SNF services: Yes Overall status at discharge: patient is progressing back to baseline QUALITY VTE Deep Vein Thrombosis/Pulmonary Embolism Present on Admission: No
[2020-11-15] MEDS ORDERED: METOPROLOL TARTRATE 5 MG/5 ML VIAL IV PRN (17:40)
[2020-11-15] MEDS ORDERED: POTASSIUM CHLORIDE 40 MEQ in DEXTROSE 5% IN WATER 500 ML IV PRN (17:40)
[2020-11-15] MEDS ORDERED: IPRATROPIUM/ALBUTEROL 3 ML AMPUL.NEB NEB PRN (17:40)
[2020-11-15] MEDS ORDERED: DEXTROSE 31 GM ORAL.SUSP PO PRN (17:40)
[2020-11-15] MEDS ORDERED: METOCLOPRAMIDE 10 MG/2 ML VIAL IV PRN (17:40)
[2020-11-15] MEDS ORDERED: PROMETHAZINE 25 MG/ML VIAL IV PRN (17:40)
[2020-11-15] MEDS ORDERED: MAGNESIUM SULFATE 2 GM/50 ML BAG IV PRN (17:40)
[2020-11-15] MEDS ORDERED: POTASSIUM CHLORIDE 20 MEQ TABLET PO PRN ×2 (17:40)
[2020-11-15] MEDS ORDERED: DIPHENOXYLATE HCL/ATROPINE 1 TABLET PO PRN (17:40)
[2020-11-15] MEDS: MELATONIN 3 MG TABLET PO SCH (20:44)
[2020-11-15] MEDS: ATORVASTATIN 40 MG TABLET PO SCH (20:45)
[2020-11-15] MEDS: diphenhydrAMINE 25 MG CAPSULE PO SCH (20:45)
[2020-11-15] MEDS: traZODone HCL 50 MG TABLET PO SCH (20:46)
[2020-11-15] MEDS ORDERED: MELATONIN 3 MG TABLET PO SCH (21:00)
[2020-11-15] MEDS ORDERED: DOCUSATE SODIUM 100 MG CAPSULE PO SCH (21:00)
[2020-11-15] MEDS ORDERED: diphenhydrAMINE 25 MG CAPSULE PO SCH (21:00)
[2020-11-16] MEDS: ACETAMINOPHEN 325 MG TABLET PO PRN ×2 (03:39→10:34)
[2020-11-16] MEDS: 0.9 % SODIUM CHLORIDE 10 ML SYRINGE IV SCH ×4 (03:46→21:15)
--- NOTE | 2020-11-16 07:07 | Internal Med Progress Note ---
SUBJECTIVE Subjective Patient information: Note initiated : 11/16/20 at 7:06 am Service Date, if different from initiated Date: [] Patient: Alexa Rai a 80 y/o F admitted on 11/14/20 for Weakness. Chief Complaint: [] Interval history: History of present illness: Ms. Rai is a 80 year old F patient was recently at [facility] for cellulitis to the leg discharged the beginning of October. She was at [email or web address] prior to that admission but [facility] efused her and patient was discharged to [facility]. Patient says she has been at [facility] since last February. She is essentially wheelchair-bound for the past couple years she states she can ambulate a little bit with a walker. She was in the motel with her son who is homeless who will be kicked out of the motel today and he was worried about his mother because she cannot get up she just sits in her own urine she cannot take care of her self. She is unable to care for herself and her son who is homeless has no place to care for her. Patient has some nausea but no other complaints. She does have history atrial fibrillation and in the ED she did go to heart rate of 115. Nnvje-xb-vxii sodium was 146, chemistry showed volume depletion 11/15 Patient doing well. Feels better. Urine culture with gram-negative bacillus. Heart rate improved. Electrolytes improved. Vaginal nausea but no other complaints. 11/16 No new complaints. Pending final urine culture. Placement being worked out with case management.. Review of Systems: denies headache/fever/chills/vomiting/chest or abdominal pain/cough/dyspnea/diarrhea. Otherwise see above. Constitutional Vitals: Vital Signs Temp Pulse Resp BP Pulse Ox 97.1 F 72 17 95/57 93 11/16/20 03:44 11/16/20 03:44 11/16/20 03:44 11/16/20 03:44 11/16/20 03:44 Period Temp Pulse Resp BP Sys/Jansen Pulse Ox Last 24 Hr 97.1 F-98.8 F 60-114 13- 95-132/47-112 91-99 Intake and Output 11/15/20 11/16/20 11/16/20 21:59 05:59 13:59 Intake Total 1370 240 Output Total 250 876 Balance 1120 -636 Weight 109.724 kg Intake & Output: Intake & Output 11/15/20 11/16/20 11/16/20 21:59 05:59 13:59 Intake Total 1370 240 Output Total 250 876 Balance 1120 -636 Weight 109.724 kg Intake: IV 650 Sodium Chloride 0.9% 500 ml @ 500 84 mls/hr IV .Q5H58M ROMI Rx#: [id number] Oral 720 240 Output: Void Amount 250 875 # of times incontinent of urine 1 Other: Meal Dinner Percent of Meal Consumed 100% Urine Appearance Clear Clear Urine Color Dark Yellow Bright Yellow # Voids 1 Exam: General: Alert, Awake, No acute Distress, obese Eyes/N/T: EOMI, Head/Neck: neck supple, CV: RRR, No murmurs, Pulm: Clear b/l, no wheezing/rhonchi/rales Abd: soft, nontender, +BS x4 Ext: no clubbing/cyanosis, mild b/l LE edema Neuro: Alert, no focal deficits, moves all extremities, Skin: warm/dry OBJ DATA Labs CBC & Chem 7: 11/15/20 05:17 11/15/20 05:17 Labs: Abnormal Lab Results 11/15/20 11/15/20 11/14/20 05:17 05:17 11:07 RBC 3.70 L Hgb 10.7 L Hct 33.4 L MPV 11.8 H POC Sodium POC Total CO2 Anion Gap 6.0 L POC BUN BUN 28 H Glucose 119 H Uric Acid Calcium 8.3 L Lactate Dehydrogenase 133 L Total Protein 5.5 L Albumin 3.0 L Urine Appearance Hazy A Urine Glucose (UA) >=500 A Urine Ketones 5 A Urine Nitrate Pos A Ur Leukocyte Esterase 75 A Urine WBC 50 H Urine Bacteria Few A Urine Mucus Few A Urine Yeast (Budding) Few A 11/14/20 11/14/20 11/14/20 00:35 00:35 00:35 RBC Hgb Hct MPV 11.5 H POC Sodium 146 H POC Total CO2 31 H Anion Gap POC BUN 30 H BUN 31 H Glucose Uric Acid 8.9 H Calcium Lactate Dehydrogenase Total Protein Albumin Urine Appearance Urine Glucose (UA) Urine Ketones Urine Nitrate Ur Leukocyte Esterase Urine WBC Urine Bacteria Urine Mucus Urine Yeast (Budding) Meds: Medications Acetaminophen (Acetaminophen 325 Mg Tablet) 650 mg PO Q6HP PRN PRN Reason: PAIN/FEVER > 101 Last Admin: 11/16/20 03:39 Dose: 650 mg Documented by: Albuterol/Ipratropium (Ipratropium/Albuterol 3 Ml Ampul.Neb) 3 ml NEB Q4HP PRN PRN Reason: Shortness Of Breath Alprazolam (Alprazolam 0.5 Mg Tablet) 0.5 mg PO TIDP PRN PRN Reason: Anxiety Apixaban (Apixaban 5 Mg Tablet) 5 mg PO BID [facility] Last Admin: 11/15/20 20:46 Dose: 5 mg Documented by: Aspirin (Aspirin 81 Mg Tab.Chew) 81 mg PO DAILY [facility] Atorvastatin Calcium (Atorvastatin 40 Mg Tablet) 40 mg PO QHS [facility] Last Admin: 11/15/20 20:45 Dose: 40 mg Documented by: Baclofen (Baclofen 10 Mg Tablet) 10 mg PO TID [facility] Last Admin: 11/15/20 20:46 Dose: 10 mg Documented by: Dextrose (Dextrose 50% 50 Ml Vial) 0 ml IV UD PRN PRN Reason: Hypoglycemia Diagnostic Test (Pha) (Accu-Chek 1 Each Strip) 1 each FS ACHS [facility] Last Admin: 11/15/20 20:20 Dose: 1 each Documented by: Diphenhydramine HCl (Diphenhydramine 25 Mg Capsule) 25 mg PO HS [facility] Last Admin: 11/15/20 20:45 Dose: 25 mg Documented by: Diphenoxylate HCl/Atropine (Diphenoxylate Hcl/Atropine 1 Tablet) 1 tab PO QIDP PRN PRN Reason: Wheezing Docusate Sodium (Docusate Sodium 100 Mg Capsule) 100 mg PO BID [facility] Last Admin: 11/15/20 20:53 Dose: Not Given Documented by: Gabapentin (Gabapentin 100 Mg Capsule) 100 mg PO BID [facility] Last Admin: 11/15/20 20:45 Dose: 100 mg Documented by: Glucose (Dextrose 31 Gm Oral.Susp) 15 gm PO PRN PRN PRN Reason: Hypoglycemia Levofloxacin (Levaquin) 750 mg in 150 mls @ 100 mls/hr IV DAILY [facility] Magnesium Sulfate (Magnesium Sulfate) 2 gm in 50 mls @ 50 mls/hr IV UD PRN PRN Reason: Magnesium </= 1.6 Potassium Chloride 40 meq/ (Dextrose) 520 mls @ 130 mls/hr IV UD PRN PRN Reason: Potassium < 3 Insulin Human Lispro (Insulin Lispro 1 Unit/0.01 Ml Unit) 0 unit SQ ACHS [facility]; Protocol Last Admin: 11/15/20 20:43 Dose: Not Given Documented by: Lactulose (Lactulose 20 Gm/30 Ml Oral.Stefany) 20 gm PO DAILYP PRN PRN Reason: Constipation Levetiracetam (Levetiracetam 500 Mg Tablet) 250 mg PO BID [facility] Last Admin: 11/15/20 20:46 Dose: 250 mg Documented by: Lisinopril (Lisinopril 5 Mg Tablet) 5 mg PO DAILY [facility] Meclizine HCl (Meclizine 25 Mg Tablet) 25 mg PO DAILY [facility] Melatonin (Melatonin 3 Mg Tablet) 3 mg PO QHS [facility] Last Admin: 11/15/20 20:44 Dose: 3 mg Documented by: Methadone HCl (Methadone 5 Mg Tablet) 10 mg PO BID [facility] Last Admin: 11/15/20 20:44 Dose: 10 mg Documented by: Metoclopramide HCl (Metoclopramide 10 Mg/2 Ml Vial) 10 mg IV Q6HP PRN PRN Reason: Nausea And Vomiting Metoprolol Succinate (Metoprolol Succinate 50 Mg Tab.Xl.24h) 50 mg PO DAILY [facility] Metoprolol Tartrate (Metoprolol Tartrate 5 Mg/5 Ml Vial) 5 mg IV Q2HP PRN PRN Reason: Tachyarrhythmias HR>110 Empagliflozin 25 Mg (Tablet) 1 dose PO DAILY [facility] Potassium Chloride (Potassium Chloride 20 Meq Tablet) 40 meq PO UD PRN PRN Reason: Potssium is 3-3.5 Potassium Chloride (Potassium Chloride 20 Meq Tablet) 40 meq PO UD PRN PRN Reason: Potassium < 3 Pregabalin (Pregabalin 25 Mg Capsule) 50 mg PO TID [facility] Last Admin: 11/15/20 20:44 Dose: 50 mg Documented by: Promethazine HCl (Promethazine 25 Mg/Ml Vial) 12.5 mg IV Q6HP PRN PRN Reason: Nausea And Vomiting Senna (Sennosides 1 Tablet) 2 tab PO DAILYP PRN PRN Reason: Constipation Sertraline HCl (Sertraline 50 Mg Tablet) 125 mg PO DAILY [facility] Sodium Chloride (0.9 % Sodium Chloride 10 Ml Syringe) 10 ml IV Q8 [facility] Last Admin: 11/16/20 03:46 Dose: 10 ml Documented by: Tramadol HCl (Tramadol 50 Mg Tablet) 50 mg PO DAILYP PRN; Protocol PRN Reason: Pain Trazodone HCl (Trazodone Hcl 50 Mg Tablet) 25 mg PO HS [facility] Last Admin: 11/15/20 20:46 Dose: 25 mg Documented by: A/P Narrative A/P Narrative: A: *Generalized weakness/deconditioning/inability to care for self: -essentially wheelchair bound for past year *PAFib/flutter w/rvr: controlled *Hypernatremia: resolved *Dehydration/Volume depletion: improved *UTI (GNB): *DM: *HTN: *LENARD: *Chronic lymphedema/venous stasis skin changes: *Anxiety/depression: *Obesity: *h/o Sz: on keppra *Recent LLE cellulitis treated at [facility]: P: -Levaquin pending UC -Continue home BB(increased)/ACEI(decreased) -hold lasix for now -cont other home meds -PT/OT -Home CPAP -SSI -CM for placement -ppx: apixaban full code Time Spent With Patient Time: Total time spent is greater than 50% in coordination of care (as documented) at patient's floor/unit and/or counseling patient: QUALITY VTE Deep Vein Thrombosis/Pulmonary Embolism Present on Admission: No
[2020-11-16] MEDS: INSULIN LISPRO 1 UNIT/0.01 ML UNIT SQ SCH ×4 (07:43→21:11)
[2020-11-16] MEDS: METOPROLOL SUCCINATE 50 MG TAB.XL.24H PO SCH (08:07)
[2020-11-16] MEDS: GABAPENTIN 100 MG CAPSULE PO SCH ×2 (08:07→21:01)
[2020-11-16] MEDS: MECLIZINE 25 MG TABLET PO SCH (08:07)
[2020-11-16] MEDS: ASPIRIN 81 MG TAB.CHEW PO SCH (08:07)
[2020-11-16] MEDS: SERTRALINE 50 MG TABLET PO SCH (08:07)
[2020-11-16] MEDS: METHADONE 5 MG TABLET PO SCH ×2 (08:08→21:00)
[2020-11-16] MEDS: BACLOFEN 10 MG TABLET PO SCH ×3 (08:09→21:01)
[2020-11-16] MEDS: levETIRAcetam 500 MG TABLET PO SCH ×2 (08:09→21:01)
[2020-11-16] MEDS: PREGABALIN 25 MG CAPSULE PO SCH ×3 (08:09→21:01)
[2020-11-16] MEDS: APIXABAN 5 MG TABLET PO SCH ×2 (08:10→21:00)
[2020-11-16] MEDS: LISINOPRIL 5 MG TABLET PO SCH (08:10)
[2020-11-16] MEDS: LEVOFLOXACIN 750 MG/150 ML BAG IV SCH (08:10)
[2020-11-16] MEDS: EMPAGLIFLOZIN 25 MG TABLET PO SCH (08:32)
[2020-11-16] MEDS: traMADol 50 MG TABLET PO PRN (11:34)
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
[2020-11-16] MEDS: ATORVASTATIN 40 MG TABLET PO SCH (21:00)
[2020-11-16] MEDS: MELATONIN 3 MG TABLET PO SCH (21:01)
[2020-11-16] MEDS: traZODone HCL 50 MG TABLET PO SCH (21:02)
[2020-11-16] MEDS: diphenhydrAMINE 25 MG CAPSULE PO SCH (21:03)
[2020-11-17] MEDS: ACETAMINOPHEN 325 MG TABLET PO PRN ×2 (01:28→17:22)
[2020-11-17] MEDS: ALPRAZolam 0.5 MG TABLET PO PRN ×2 (01:32→15:23)
[2020-11-17] MEDS: 0.9 % SODIUM CHLORIDE 10 ML SYRINGE IV SCH ×3 (04:25→21:00)
[2020-11-17] MEDS: INSULIN LISPRO 1 UNIT/0.01 ML UNIT SQ SCH ×4 (08:13→20:51)
[2020-11-17] MEDS: LEVOFLOXACIN 750 MG/150 ML BAG IV SCH (08:16)
[2020-11-17] MEDS: SERTRALINE 50 MG TABLET PO SCH (08:17)
[2020-11-17] MEDS: APIXABAN 5 MG TABLET PO SCH ×2 (08:19→20:51)
[2020-11-17] MEDS: METHADONE 5 MG TABLET PO SCH ×2 (08:19→20:49)
[2020-11-17] MEDS: GABAPENTIN 100 MG CAPSULE PO SCH ×2 (08:20→20:44)
[2020-11-17] MEDS: PREGABALIN 25 MG CAPSULE PO SCH ×3 (08:20→20:51)
[2020-11-17] MEDS: MECLIZINE 25 MG TABLET PO SCH (08:20)
[2020-11-17] MEDS: BACLOFEN 10 MG TABLET PO SCH ×3 (08:21→20:51)
[2020-11-17] MEDS: ASPIRIN 81 MG TAB.CHEW PO SCH (08:21)
[2020-11-17] MEDS: levETIRAcetam 500 MG TABLET PO SCH ×2 (08:21→20:48)
[2020-11-17] MEDS: LISINOPRIL 5 MG TABLET PO SCH (08:27)
[2020-11-17] MEDS: METOPROLOL SUCCINATE 50 MG TAB.XL.24H PO SCH (08:27)
[2020-11-17] MEDS: EMPAGLIFLOZIN 25 MG TABLET PO SCH (08:47)
[2020-11-17] MEDS: traMADol 50 MG TABLET PO PRN (10:25)
--- NOTE | 2020-11-17 15:15 | Internal Med Progress Note ---
SUBJECTIVE Subjective Patient information: Note initiated : 11/17/20 at 3:08 pm Service Date, if different from initiated Date: Patient: Alexa Rai 80 y/o F admitted on 11/14/20 for Weakness. Chief Complaint: Leg edema , Redness Interval history: Pt is feeling well. No overnight issues. Comfortable. Constitutional Vitals: Vital Signs Temp Pulse Resp BP Pulse Ox 97.4 F 86 14 96/64 93 11/17/20 12:14 11/17/20 08:26 11/17/20 12:29 11/17/20 12:14 11/17/20 12:00 Period Temp Pulse Resp BP Sys/Jansen Pulse Ox Last 24 Hr 96.0 F-97.6 F 54-113 9-18 71-114/47-86 93-99 Intake and Output 11/17/20 11/17/20 11/17/20 05:59 13:59 21:59 Intake Total 240 150 200 Output Total 0 1 Balance 240 149 200 Intake & Output: Intake & Output 11/17/20 11/17/20 11/17/20 05:59 13:59 21:59 Intake Total 240 150 200 Output Total 0 1 Balance 240 149 200 Intake: IV 150 Oral 240 200 Output: Void Amount 0 # of times incontinent of urine 1 Other: Meal Breakfast Lunch Percent of Meal Consumed 75% 75% Urine Odor Normal # Voids 0 Additional findings Additional findings: General: Morbidly obese female with BMI 43 in no distress. Eyes/N/T: EOMI, Head/Neck: neck supple, CV: RRR, No murmurs, 1+ LE Edema. Pulm: Clear b/l, no wheezing/rhonchi/rales Abd: soft, nontender, +BS x4 Ext: no clubbing/cyanosis, mild b/l LE edema Neuro: Alert, no focal deficits, moves all extremities, OBJ DATA Labs CBC & Chem 7: 11/15/20 05:17 11/15/20 05:17 Labs: Abnormal Lab Results 11/15/20 11/15/20 05:17 05:17 RBC 3.70 L Hgb 10.7 L Hct 33.4 L MPV 11.8 H Anion Gap 6.0 L BUN 28 H Glucose 119 H Calcium 8.3 L Lactate Dehydrogenase 133 L Total Protein 5.5 L Albumin 3.0 L Meds: Medications Acetaminophen (Acetaminophen 325 Mg Tablet) 650 mg PO Q6HP PRN PRN Reason: PAIN/FEVER > 101 Last Admin: 11/17/20 01:28 Dose: 650 mg Documented by: Albuterol/Ipratropium (Ipratropium/Albuterol 3 Ml Ampul.Neb) 3 ml NEB Q4HP PRN PRN Reason: Shortness Of Breath Alprazolam (Alprazolam 0.5 Mg Tablet) 0.5 mg PO TIDP PRN PRN Reason: Anxiety Last Admin: 11/17/20 01:32 Dose: 0.5 mg Documented by: Apixaban (Apixaban 5 Mg Tablet) 5 mg PO BID [facility] Last Admin: 11/17/20 08:19 Dose: 5 mg Documented by: Aspirin (Aspirin 81 Mg Tab.Chew) 81 mg PO DAILY [facility] Last Admin: 11/17/20 08:21 Dose: 81 mg Documented by: Atorvastatin Calcium (Atorvastatin 40 Mg Tablet) 40 mg PO QHS [facility] Last Admin: 11/16/20 21:00 Dose: 40 mg Documented by: Baclofen (Baclofen 10 Mg Tablet) 10 mg PO TID [facility] Last Admin: 11/17/20 08:21 Dose: 10 mg Documented by: Dextrose (Dextrose 50% 50 Ml Vial) 0 ml IV UD PRN PRN Reason: Hypoglycemia Diagnostic Test (Pha) (Accu-Chek 1 Each Strip) 1 each FS ACHS [facility] Last Admin: 11/17/20 11:39 Dose: 1 each Documented by: Diphenhydramine HCl (Diphenhydramine 25 Mg Capsule) 25 mg PO HS [facility] Last Admin: 11/16/20 21:03 Dose: 25 mg Documented by: Diphenoxylate HCl/Atropine (Diphenoxylate Hcl/Atropine 1 Tablet) 1 tab PO QIDP PRN PRN Reason: Wheezing Gabapentin (Gabapentin 100 Mg Capsule) 100 mg PO BID [facility] Last Admin: 11/17/20 08:20 Dose: 100 mg Documented by: Glucose (Dextrose 31 Gm Oral.Susp) 15 gm PO PRN PRN PRN Reason: Hypoglycemia Levofloxacin (Levaquin) 750 mg in 150 mls @ 100 mls/hr IV DAILY [facility] Last Infusion: 11/17/20 10:08 Dose: Infused Documented by: Magnesium Sulfate (Magnesium Sulfate) 2 gm in 50 mls @ 50 mls/hr IV UD PRN PRN Reason: Magnesium </= 1.6 Potassium Chloride 40 meq/ (Dextrose) 520 mls @ 130 mls/hr IV UD PRN PRN Reason: Potassium < 3 Insulin Human Lispro (Insulin Lispro 1 Unit/0.01 Ml Unit) 0 unit SQ ACHS ROMI; P rotocol Last Admin: 11/17/20 11:49 Dose: 2 units Documented by: Lactulose (Lactulose 20 Gm/30 Ml Oral.Stefany) 20 gm PO DAILYP PRN PRN Reason: Constipation Levetiracetam (Levetiracetam 500 Mg Tablet) 250 mg PO BID [facility] Last Admin: 11/17/20 08:21 Dose: 250 mg Documented by: Lisinopril (Lisinopril 5 Mg Tablet) 5 mg PO DAILY [facility] Last Admin: 11/17/20 08:27 Dose: 5 mg Documented by: Meclizine HCl (Meclizine 25 Mg Tablet) 25 mg PO DAILY [facility] Last Admin: 11/17/20 08:20 Dose: 25 mg Documented by: Melatonin (Melatonin 3 Mg Tablet) 3 mg PO QHS [facility] Last Admin: 11/16/20 21:01 Dose: 3 mg Documented by: Methadone HCl (Methadone 5 Mg Tablet) 10 mg PO BID [facility] Last Admin: 11/17/20 08:19 Dose: 10 mg Documented by: Metoclopramide HCl (Metoclopramide 10 Mg/2 Ml Vial) 10 mg IV Q6HP PRN PRN Reason: Nausea And Vomiting Metoprolol Succinate (Metoprolol Succinate 50 Mg Tab.Xl.24h) 50 mg PO DAILY [facility] Last Admin: 11/17/20 08:27 Dose: 50 mg Documented by: Metoprolol Tartrate (Metoprolol Tartrate 5 Mg/5 Ml Vial) 5 mg IV Q2HP PRN PRN Reason: Tachyarrhythmias HR>110 Empagliflozin 25 Mg (Tablet) 1 dose PO DAILY [facility] Last Admin: 11/17/20 08:47 Dose: Not Given Documented by: Potassium Chloride (Potassium Chloride 20 Meq Tablet) 40 meq PO UD PRN PRN Reason: Potssium is 3-3.5 Potassium Chloride (Potassium Chloride 20 Meq Tablet) 40 meq PO UD PRN PRN Reason: Potassium < 3 Pregabalin (Pregabalin 25 Mg Capsule) 50 mg PO TID [facility] Last Admin: 11/17/20 08:20 Dose: 50 mg Documented by: Promethazine HCl (Promethazine 25 Mg/Ml Vial) 12.5 mg IV Q6HP PRN PRN Reason: Nausea And Vomiting Senna (Sennosides 1 Tablet) 2 tab PO DAILYP PRN PRN Reason: Constipation Sertraline HCl (Sertraline 50 Mg Tablet) 125 mg PO DAILY [facility] Last Admin: 11/17/20 08:17 Dose: 125 mg Documented by: Sodium Chloride (0.9 % Sodium Chloride 10 Ml Syringe) 10 ml IV Q8 [facility] Last Admin: 11/17/20 04:25 Dose: 10 ml Documented by: Tramadol HCl (Tramadol 50 Mg Tablet) 50 mg PO DAILYP PRN; Protocol PRN Reason: Pain Last Admin: 11/17/20 10:25 Dose: 50 mg Documented by: Trazodone HCl (Trazodone Hcl 50 Mg Tablet) 25 mg PO HS [facility] Last Admin: 11/16/20 21:02 Dose: 25 mg Documented by: A/P Narrative A/P Narrative: 80 year old F patient was recently at [facility] for cellulitis to the leg discharged the beginning of October. She was at [facility] prior to that admission but [facility] refused her and patient was discharged to [place] [id number]. # Generalized weakness/deconditioning/inability to care for self: - Pt is wheelchair bound for past year # Hypernatremia: resolved # UTI with ESBL E.Coli - Dc Levaquin. Start Cefoxitin 1g IV q8h - Contact isolation. # DM: Cont SSI #HTN: -Continue home BB(increased)/ACEI(decreased) #LENARD: Home CPAP #Chronic lymphedema/venous stasis skin changes: #Anxiety/depression: #Obesity: # H/o Sz: on keppra # Recent LLE cellulitis treated at [facility]: Dispo. CM for placement - DVT PPX Apixaban full code Time Spent With Patient Time: Total time spent is greater than 50% in coordination of care (as documented) at patient's floor/unit and/or counseling patient: QUALITY VTE Deep Vein Thrombosis/Pulmonary Embolism Present on Admission: No
--- NOTE | 2020-11-17 15:36 | General Surgery Progress Note ---
SUBJECTIVE Subjective Patient information: Note initiated : 11/17/20 at 3:32 pm Service Date, if different from initiated Date: [] Patient: Alexa Rai 80 y/o F admitted on 11/14/20 for Weakness. Chief Complaint: [] Constitutional Vitals: Vital Signs Temp Pulse Resp BP Pulse Ox 97.4 F 86 14 96/64 93 11/17/20 12:14 11/17/20 08:26 11/17/20 12:29 11/17/20 12:14 11/17/20 12:00 Period Temp Pulse Resp BP Sys/Jansen Pulse Ox Last 24 Hr 96.0 F-97.6 F 54-113 9-18 71-114/47-86 93-99 Intake and Output 11/17/20 11/17/20 11/17/20 05:59 13:59 21:59 Intake Total 240 150 200 Output Total 0 1 Balance 240 149 200 Intake & Output: Intake & Output 11/17/20 11/17/20 11/17/20 05:59 13:59 21:59 Intake Total 240 150 200 Output Total 0 1 Balance 240 149 200 Intake: IV 150 Oral 240 200 Output: Void Amount 0 # of times incontinent of urine 1 Other: Meal Breakfast Lunch Percent of Meal Consumed 75% 75% Urine Odor Normal # Voids 0 Exam: AVSS No interval changes in clinical examination. No changes in wounds both feet and lymphedema of legs. Awaits placement . A/P Narrative A/P Narrative: Assessment: Status quo. Progress reviewed with Dr. Cesar Davila MD. Hospitalist Physician. Plan: Will check wound with Grace JARA In Patient wound care nurse in AM. Time Spent With Patient Time: Total time spent is greater than 50% in coordination of care (as documented) at patient's floor/unit and/or counseling patient: Total time spent with greater than 50% in coordination of care (as documented) at patient's floor/unit and/or counseling patient:: less than 15 minutes
[2020-11-17] MEDS: ERTAPENEM 1 GM in 0.9 % SODIUM CHLORIDE 50 ML IV SCH (16:40)
[2020-11-17] MEDS: ATORVASTATIN 40 MG TABLET PO SCH (20:44)
[2020-11-17] MEDS: diphenhydrAMINE 25 MG CAPSULE PO SCH (20:44)
[2020-11-17] MEDS: traZODone HCL 50 MG TABLET PO SCH (20:52)
[2020-11-17] MEDS: MELATONIN 3 MG TABLET PO SCH (20:52)
[2020-11-18] MEDS: 0.9 % SODIUM CHLORIDE 10 ML SYRINGE IV SCH ×3 (05:54→20:44)
[2020-11-18] MEDS: INSULIN LISPRO 1 UNIT/0.01 ML UNIT SQ SCH ×4 (07:18→20:44)
[2020-11-18 07:24] LABS: ALT/SGPT 11 U/L (<40); AST/SGOT 16 U/L (<32); Albumin 2.9 gm/dL (3.2-5.2); Albumin/Globulin Ratio 1.1 (1.0-2.3); Alkaline Phosphatase 78 U/L (39-117); Bilirubin,Total 0.2 mg/dL (0.1-1.0); Blood Urea Nitrogen 30 mg/dL (8-23); Calcium 8.6 mg/dL (8.6-10.4); Carbon Dioxide 26 mmol/L (22-30); Chloride 104 mmol/L (96-108); Globulin 2.6 gm/dL (2.2-3.7); Glomerular Filtration Rate 61; Glucose 125 mg/dL (70-105)
[2020-11-18] MEDS: ASPIRIN 81 MG TAB.CHEW PO SCH (09:30)
[2020-11-18] MEDS: METOPROLOL SUCCINATE 50 MG TAB.XL.24H PO SCH (09:30)
[2020-11-18] MEDS: GABAPENTIN 100 MG CAPSULE PO SCH ×2 (09:30→20:42)
[2020-11-18] MEDS: BACLOFEN 10 MG TABLET PO SCH ×3 (09:31→20:43)
[2020-11-18] MEDS: APIXABAN 5 MG TABLET PO SCH ×2 (09:31→20:42)
--- NOTE | 2020-11-18 09:31 | General Surgery Progress Note ---
SUBJECTIVE Subjective Patient information: Note initiated : 11/18/20 at 9:26 am Service Date, if different from initiated Date: [] Patient: Alexa Rai 80 y/o F admitted on 11/14/20 for Weakness. Chief Complaint: [] Additional PMFSH (Level 3 Only): Patient seen with Grace JARA. In Patient wound care nurse. Examined both legs and feet. Constitutional Vitals: Vital Signs Temp Pulse Resp BP Pulse Ox 96.9 F L 77 19 106/77 99 11/18/20 08:11 11/18/20 09:17 11/18/20 09:17 11/18/20 08:11 11/18/20 09:17 Period Temp Pulse Resp BP Sys/Jansen Pulse Ox Last 24 Hr 96.9 F-97.6 F 65-77 9-19 71-115/47-77 93-99 Intake and Output 11/17/20 11/18/20 11/18/20 21:59 05:59 13:59 Intake Total 930 0 Output Total 325 0 Balance 605 0 Weight 242 lb 4.8 oz Intake & Output: Intake & Output 11/17/20 11/18/20 11/18/20 21:59 05:59 13:59 Intake Total 930 0 Output Total 325 0 Balance 605 0 Weight 242 lb 4.8 oz Intake: IV 50 INVanz 1 GM In Sodium Chloride 50 0.9% 50 ml @ 100 mls/hr IV Q24H [facility] Rx#:[id number] Oral 880 0 Output: Void Amount 325 0 Other: Meal Dinner Percent of Meal Consumed 100% Feeding Ability Independent Urine Appearance Clear Urine Color Bright Yellow Urine Odor Normal Exam: No changes in ANY. Lymphedema of both LE Dry area of Dermatitis both dorsal feet over great toe. IMPROVED. Onychomycosis of toenails. A/P Narrative A/P Narrative: Assessment: Uneventful night. No interval changes / developments. Plan: Conservative management for Lymphedema ( Compression with Comperm ) Skin moisturization Awaits placement per CM or SW. Nothing more to add at this time. Will see again PRN, while she is still in hospital. F/U at wound care center in 2 weeks, . Time Spent With Patient Time: Total time spent is greater than 50% in coordination of care (as documented) at patient's floor/unit and/or counseling patient: Total time spent with greater than 50% in coordination of care (as documented) at patient's floor/unit and/or counseling patient:: 15 - 24 minutes
[2020-11-18] MEDS: LISINOPRIL 5 MG TABLET PO SCH (09:32)
[2020-11-18] MEDS: SERTRALINE 50 MG TABLET PO SCH (09:32)
[2020-11-18] MEDS: MECLIZINE 25 MG TABLET PO SCH (09:32)
[2020-11-18] MEDS: PREGABALIN 25 MG CAPSULE PO SCH ×3 (09:33→20:42)
[2020-11-18] MEDS: levETIRAcetam 500 MG TABLET PO SCH ×2 (09:33→20:41)
[2020-11-18] MEDS: METHADONE 5 MG TABLET PO SCH ×2 (09:33→20:41)
[2020-11-18] MEDS: EMPAGLIFLOZIN 25 MG TABLET PO SCH (09:34)
[2020-11-18] MEDS: ERTAPENEM 1 GM in 0.9 % SODIUM CHLORIDE 50 ML IV SCH (09:46)
--- NOTE | 2020-11-18 12:01 | Internal Med Progress Note ---
SUBJECTIVE Subjective Patient information: Note initiated : 11/18/20 at 11:59 am Service Date, if different from initiated Date: [] Patient: Alexa Rai 80 y/o F admitted on 11/14/20 for Weakness. Chief Complaint: Leg pain Interval history: Pt c/o back pain but seems comfortable and sleeping. No overnight issues. Comfortable. Constitutional Vitals: Vital Signs Temp Pulse Resp BP Pulse Ox 96.9 F L 77 19 106/77 99 11/18/20 08:11 11/18/20 09:17 11/18/20 09:17 11/18/20 08:11 11/18/20 09:17 Period Temp Pulse Resp BP Sys/Jansen Pulse Ox Last 24 Hr 96.9 F-97.6 F 65-77 9-19 71-115/47-77 93-99 Intake and Output 11/17/20 11/18/20 11/18/20 21:59 05:59 13:59 Intake Total 930 0 50 Output Total 325 0 1 Balance 605 0 49 Weight 109.905 kg Intake & Output: Intake & Output 11/17/20 11/18/20 11/18/20 21:59 05:59 13:59 Intake Total 930 0 50 Output Total 325 0 1 Balance 605 0 49 Weight 109.905 kg Intake: IV 50 50 INVanz 1 GM In Sodium Chloride 50 50 0.9% 50 ml @ 100 mls/hr IV Q24H [facility] Rx#:[id number] Oral 880 0 Output: Void Amount 325 0 # of times incontinent of urine 1 Other: Meal Dinner Percent of Meal Consumed 100% Feeding Ability Independent Urine Appearance Clear Urine Color Bright Yellow Urine Odor Normal # Voids 1 Exam: General: Alert, Awake, No acute Distress, obese, chronically ill appearing. BMI 43 Eyes/N/T: EOMI, Head/Neck: neck supple, No JVD CV: RRR, No murmurs, Pulm: Clear b/l, no wheezing/rhonchi/rales Abd: soft, nontender, +BS x4 Ext: no clubbing/cyanosis, 1+ B/L LE edema Neuro: Alert, no focal deficits, moves all extremities, Skin: warm/dry OBJ DATA Labs CBC & Chem 7: 11/15/20 05:17 11/18/20 05:13 Labs: Abnormal Lab Results 11/18/20 05:13 BUN 30 H Glucose 125 H Total Protein 5.5 L Albumin 2.9 L Meds: Medications Acetaminophen (Acetaminophen 325 Mg Tablet) 650 mg PO Q6HP PRN PRN Reason: PAIN/FEVER > 101 Last Admin: 11/17/20 17:22 Dose: 650 mg Documented by: Albuterol/Ipratropium (Ipratropium/Albuterol 3 Ml Ampul.Neb) 3 ml NEB Q4HP PRN PRN Reason: Shortness Of Breath Alprazolam (Alprazolam 0.5 Mg Tablet) 0.5 mg PO TIDP PRN PRN Reason: Anxiety Last Admin: 11/17/20 15:23 Dose: 0.5 mg Documented by: Apixaban (Apixaban 5 Mg Tablet) 5 mg PO BID [facility] Last Admin: 11/18/20 09:31 Dose: 5 mg Documented by: Aspirin (Aspirin 81 Mg Tab.Chew) 81 mg PO DAILY [facility] Last Admin: 11/18/20 09:30 Dose: 81 mg Documented by: Atorvastatin Calcium (Atorvastatin 40 Mg Tablet) 40 mg PO QHS [facility] Last Admin: 11/17/20 20:44 Dose: 40 mg Documented by: Baclofen (Baclofen 10 Mg Tablet) 10 mg PO TID [facility] Last Admin: 11/18/20 09:31 Dose: 10 mg Documented by: Dextrose (Dextrose 50% 50 Ml Vial) 0 ml IV UD PRN PRN Reason: Hypoglycemia Diagnostic Test (Pha) (Accu-Chek 1 Each Strip) 1 each FS ACHS [facility] Last Admin: 11/18/20 11:17 Dose: 1 each Documented by: Diphenhydramine HCl (Diphenhydramine 25 Mg Capsule) 25 mg PO HS [facility] Last Admin: 11/17/20 20:44 Dose: 25 mg Documented by: Diphenoxylate HCl/Atropine (Diphenoxylate Hcl/Atropine 1 Tablet) 1 tab PO QIDP PRN PRN Reason: Wheezing Gabapentin (Gabapentin 100 Mg Capsule) 100 mg PO BID [facility] Last Admin: 11/18/20 09:30 Dose: 100 mg Documented by: Glucose (Dextrose 31 Gm Oral.Susp) 15 gm PO PRN PRN PRN Reason: Hypoglycemia Magnesium Sulfate (Magnesium Sulfate) 2 gm in 50 mls @ 50 mls/hr IV UD PRN PRN Reason: Magnesium </= 1.6 Potassium Chloride 40 meq/ (Dextrose) 520 mls @ 130 mls/hr IV UD PRN PRN Reason: Potassium < 3 Ertapenem 1 gm/ Sodium (Chloride) 50 mls @ 100 mls/hr IV Q24H [facility]; Protocol Last Infusion: 11/18/20 10:16 Dose: Infused Documented by: Insulin Human Lispro (Insulin Lispro 1 Unit/0.01 Ml Unit) 0 unit SQ ACHS [facility]; Protocol Last Admin: 11/18/20 11:25 Dose: 2 units Documented by: Lactulose (Lactulose 20 Gm/30 Ml Oral.Stefany) 20 gm PO DAILYP PRN PRN Reason: Constipation Levetiracetam (Levetiracetam 500 Mg Tablet) 250 mg PO BID [facility] Last Admin: 11/18/20 09:33 Dose: 250 mg Documented by: Lisinopril (Lisinopril 5 Mg Tablet) 5 mg PO DAILY [facility] Last Admin: 11/18/20 09:32 Dose: 5 mg Documented by: Meclizine HCl (Meclizine 25 Mg Tablet) 25 mg PO DAILY [facility] Last Admin: 11/18/20 09:32 Dose: 25 mg Documented by: Melatonin (Melatonin 3 Mg Tablet) 3 mg PO QHS [facility] Last Admin: 11/17/20 20:52 Dose: Not Given Documented by: Methadone HCl (Methadone 5 Mg Tablet) 10 mg PO BID [facility] Last Admin: 11/18/20 09:33 Dose: 10 mg Documented by: Metoclopramide HCl (Metoclopramide 10 Mg/2 Ml Vial) 10 mg IV Q6HP PRN PRN Reason: Nausea And Vomiting Metoprolol Succinate (Metoprolol Succinate 50 Mg Tab.Xl.24h) 50 mg PO DAILY [facility] Last Admin: 11/18/20 09:30 Dose: 50 mg Documented by: Metoprolol Tartrate (Metoprolol Tartrate 5 Mg/5 Ml Vial) 5 mg IV Q2HP PRN PRN Reason: Tachyarrhythmias HR>110 Empagliflozin 25 Mg (Tablet) 1 dose PO DAILY [facility] Last Admin: 11/18/20 09:34 Dose: Not Given Documented by: Potassium Chloride (Potassium Chloride 20 Meq Tablet) 40 meq PO UD PRN PRN Reason: Potssium is 3-3.5 Potassium Chloride (Potassium Chloride 20 Meq Tablet) 40 meq PO UD PRN PRN Reason: Potassium < 3 Pregabalin (Pregabalin 25 Mg Capsule) 50 mg PO TID [facility] Last Admin: 11/18/20 09:33 Dose: 50 mg Documented by: Promethazine HCl (Promethazine 25 Mg/Ml Vial) 12.5 mg IV Q6HP PRN PRN Reason: Nausea And Vomiting Senna (Sennosides 1 Tablet) 2 tab PO DAILYP PRN PRN Reason: Constipation Sertraline HCl (Sertraline 50 Mg Tablet) 125 mg PO DAILY [facility] Last Admin: 11/18/20 09:32 Dose: 125 mg Documented by: Sodium Chloride (0.9 % Sodium Chloride 10 Ml Syringe) 10 ml IV Q8 [facility] Last Admin: 11/18/20 05:54 Dose: 10 ml Documented by: Tramadol HCl (Tramadol 50 Mg Tablet) 50 mg PO DAILYP PRN; Protocol PRN Reason: Pain Last Admin: 11/17/20 10:25 Dose: 50 mg Documented by: Trazodone HCl (Trazodone Hcl 50 Mg Tablet) 25 mg PO HS [facility] Last Admin: 11/17/20 20:52 Dose: Not Given Documented by: A/P Narrative A/P Narrative: 80 year old F patient was recently at [facility] for cellulitis to the leg discharged the beginning of October. She was at [facility] prior to that admission but crested refused her and patient was discharged to [facility] 6. # UTI with ESBL E.Coli - Dced Levaquin. Started Ertapenem 11/17. Rx total of 5 days. - Contact isolation. # Generalized weakness/deconditioning/inability to care for self: - Pt is wheelchair bound for past year # Hypernatremia: resolved # DM: Cont SSI, Metformin/Glipizide #HTN: -Continue home BB increased)/ACEI(decreased) #LENARD: Home CPAP #Chronic lymphedema/Venous stasis skin changes: #Anxiety/depression: #Obesity: BMI 43 # H/o Sz: on Keppra # Recent LLE cellulitis treated at [facility]: Dispo. CM for placement - DVT PPX Apixaban full code Dispo. Can Dc to SNF in am. Time Spent With Patient Time: Total time spent is greater than 50% in coordination of care (as documented) at patient's floor/unit and/or counseling patient: QUALITY VTE Deep Vein Thrombosis/Pulmonary Embolism Present on Admission: No
[2020-11-18] MEDS: ATORVASTATIN 40 MG TABLET PO SCH (20:43)
[2020-11-18] MEDS: diphenhydrAMINE 25 MG CAPSULE PO SCH (20:43)
[2020-11-18] MEDS: MELATONIN 3 MG TABLET PO SCH (20:43)
[2020-11-18] MEDS: traZODone HCL 50 MG TABLET PO SCH (20:44)
[2020-11-19] MEDS: 0.9 % SODIUM CHLORIDE 10 ML SYRINGE IV SCH ×3 (06:01→20:19)
[2020-11-19] MEDS: INSULIN LISPRO 1 UNIT/0.01 ML UNIT SQ SCH ×4 (07:46→20:23)
[2020-11-19] MEDS: MECLIZINE 25 MG TABLET PO SCH (09:11)
[2020-11-19] MEDS: SERTRALINE 50 MG TABLET PO SCH (09:11)
[2020-11-19] MEDS: LISINOPRIL 5 MG TABLET PO SCH (09:11)
[2020-11-19] MEDS: levETIRAcetam 500 MG TABLET PO SCH ×2 (09:11→20:17)
[2020-11-19] MEDS: APIXABAN 5 MG TABLET PO SCH ×2 (09:11→20:19)
[2020-11-19] MEDS: GABAPENTIN 100 MG CAPSULE PO SCH ×2 (09:11→20:19)
[2020-11-19] MEDS: METHADONE 5 MG TABLET PO SCH ×2 (09:12→20:18)
[2020-11-19] MEDS: PREGABALIN 25 MG CAPSULE PO SCH ×3 (09:12→20:18)
[2020-11-19] MEDS: BACLOFEN 10 MG TABLET PO SCH ×3 (09:12→20:16)
[2020-11-19] MEDS: ASPIRIN 81 MG TAB.CHEW PO SCH (09:12)
[2020-11-19] MEDS: METOPROLOL SUCCINATE 50 MG TAB.XL.24H PO SCH (09:12)
[2020-11-19] MEDS: EMPAGLIFLOZIN 25 MG TABLET PO SCH (09:13)
[2020-11-19] MEDS: ERTAPENEM 1 GM in 0.9 % SODIUM CHLORIDE 50 ML IV SCH (09:16)
--- NOTE | 2020-11-19 14:24 | Internal Med Progress Note ---
SUBJECTIVE Subjective Patient information: Note initiated : 11/19/20 at 2:21 pm Service Date, if different from initiated Date: [] Patient: Alexa Rai 80 y/o F admitted on 11/14/20 for Weakness. Chief Complaint: Principal diagnosis: ESBL E.Coli UTI Interval history: The patient remained hemodynamically stable. She denies nausea vomiting chest pain shortness of breath. She is still complaining of low back pain. Constitutional Vitals: Vital Signs Temp Pulse Resp BP Pulse Ox 98.0 F 75 12 113/63 99 11/19/20 11:45 11/19/20 11:45 11/19/20 11:45 11/19/20 11:45 11/19/20 12:00 Period Temp Pulse Resp BP Sys/Jansen Pulse Ox Last 24 Hr 96.8 F-98.4 F 74-81 12-18 111-142/55-74 92-99 Intake and Output 11/19/20 11/19/20 11/19/20 05:59 13:59 21:59 Intake Total 50 290 Output Total 250 600 Balance -200 -310 Intake & Output: Intake & Output 11/19/20 11/19/20 11/19/20 05:59 13:59 21:59 Intake Total 50 290 Output Total 250 600 Balance -200 -310 Intake: IV 50 INVanz 1 GM In Sodium Chloride 50 0.9% 50 ml @ 100 mls/hr IV Q24H [facility] Rx#:[id number] Oral 50 240 Output: Urine Catheter Amount 250 600 Void Amount 0 Other: Meal Breakfast Percent of Meal Consumed 75% Feeding Ability Assist with Tray Set Up Urine Appearance Clear Cloudy Urine Color Straw Bright Yellow Exam: General: Alert, Awake, No acute Distress, obese, chronically ill appearing. BMI 43 Eyes/N/T: EOMI, Head/Neck: neck supple, No JVD CV: RRR, No murmurs, no JVD Pulm: Clear b/l, no wheezing/rhonchi/rales Abd: soft, nontender, +BS x4 Ext: no clubbing/cyanosis, 1+ B/L LE edema Neuro: Alert, no focal deficits, moves all extremities, Skin: warm/dry OBJ DATA Labs CBC & Chem 7: 11/15/20 05:17 11/18/20 05:13 Labs: Abnormal Lab Results 11/18/20 05:13 BUN 30 H Glucose 125 H Total Protein 5.5 L Albumin 2.9 L Meds: Medications Acetaminophen (Acetaminophen 325 Mg Tablet) 650 mg PO Q6HP PRN PRN Reason: PAIN/FEVER > 101 Last Admin: 11/17/20 17:22 Dose: 650 mg Documented by: Albuterol/Ipratropium (Ipratropium/Albuterol 3 Ml Ampul.Neb) 3 ml NEB Q4HP PRN PRN Reason: Shortness Of Breath Alprazolam (Alprazolam 0.5 Mg Tablet) 0.5 mg PO TIDP PRN PRN Reason: Anxiety Last Admin: 11/17/20 15:23 Dose: 0.5 mg Documented by: Apixaban (Apixaban 5 Mg Tablet) 5 mg PO BID [facility] Last Admin: 11/19/20 09:11 Dose: 5 mg Documented by: Aspirin (Aspirin 81 Mg Tab.Chew) 81 mg PO DAILY [facility] Last Admin: 11/19/20 09:12 Dose: 81 mg Documented by: Atorvastatin Calcium (Atorvastatin 40 Mg Tablet) 40 mg PO QHS [facility] Last Admin: 11/18/20 20:43 Dose: 40 mg Documented by: Baclofen (Baclofen 10 Mg Tablet) 10 mg PO TID [facility] Last Admin: 11/19/20 09:12 Dose: 10 mg Documented by: Dextrose (Dextrose 50% 50 Ml Vial) 0 ml IV UD PRN PRN Reason: Hypoglycemia Diagnostic Test (Pha) (Accu-Chek 1 Each Strip) 1 each FS ACHS [facility] Last Admin: 11/19/20 11:53 Dose: 1 each Documented by: Diphenhydramine HCl (Diphenhydramine 25 Mg Capsule) 25 mg PO HS [facility] Last Admin: 11/18/20 20:43 Dose: 25 mg Documented by: Diphenoxylate HCl/Atropine (Diphenoxylate Hcl/Atropine 1 Tablet) 1 tab PO QIDP PRN PRN Reason: Wheezing Gabapentin (Gabapentin 100 Mg Capsule) 100 mg PO BID [facility] Last Admin: 11/19/20 09:11 Dose: 100 mg Documented by: Glucose (Dextrose 31 Gm Oral.Susp) 15 gm PO PRN PRN PRN Reason: Hypoglycemia Magnesium Sulfate (Magnesium Sulfate) 2 gm in 50 mls @ 50 mls/hr IV UD PRN PRN Reason: Magnesium </= 1.6 Potassium Chloride 40 meq/ (Dextrose) 520 mls @ 130 mls/hr IV UD PRN PRN Reason: Potassium < 3 Ertapenem 1 gm/ Sodium (Chloride) 50 mls @ 100 mls/hr IV Q24H [facility]; Protocol Last Infusion: 11/19/20 09:50 Dose: Infused Documented by: Insulin Human Lispro (Insulin Lispro 1 Unit/0.01 Ml Unit) 0 unit SQ ACHS [facility]; Protocol Last Admin: 11/19/20 11:53 Dose: Not Given Documented by: Lactulose (Lactulose 20 Gm/30 Ml Oral.Stefany) 20 gm PO DAILYP PRN PRN Reason: Constipation Levetiracetam (Levetiracetam 500 Mg Tablet) 250 mg PO BID [facility] Last Admin: 11/19/20 09:11 Dose: 250 mg Documented by: Lisinopril (Lisinopril 5 Mg Tablet) 5 mg PO DAILY [facility] Last Admin: 11/19/20 09:11 Dose: 5 mg Documented by: Meclizine HCl (Meclizine 25 Mg Tablet) 25 mg PO DAILY [facility] Last Admin: 11/19/20 09:11 Dose: 25 mg Documented by: Melatonin (Melatonin 3 Mg Tablet) 3 mg PO QHS [facility] Last Admin: 11/18/20 20:43 Dose: Not Given Documented by: Methadone HCl (Methadone 5 Mg Tablet) 10 mg PO BID [facility] Last Admin: 11/19/20 09:12 Dose: 10 mg Documented by: Metoclopramide HCl (Metoclopramide 10 Mg/2 Ml Vial) 10 mg IV Q6HP PRN PRN Reason: Nausea And Vomiting Metoprolol Succinate (Metoprolol Succinate 50 Mg Tab.Xl.24h) 50 mg PO DAILY [facility] Last Admin: 11/19/20 09:12 Dose: 50 mg Documented by: Metoprolol Tartrate (Metoprolol Tartrate 5 Mg/5 Ml Vial) 5 mg IV Q2HP PRN PRN Reason: Tachyarrhythmias HR>110 Empagliflozin 25 Mg (Tablet) 1 dose PO DAILY [facility] Last Admin: 11/19/20 09:13 Dose: Not Given Documented by: Potassium Chloride (Potassium Chloride 20 Meq Tablet) 40 meq PO UD PRN PRN Reason: Potssium is 3-3.5 Potassium Chloride (Potassium Chloride 20 Meq Tablet) 40 meq PO UD PRN PRN Reason: Potassium < 3 Pregabalin (Pregabalin 25 Mg Capsule) 50 mg PO TID [facility] Last Admin: 11/19/20 09:12 Dose: 50 mg Documented by: Promethazine HCl (Promethazine 25 Mg/Ml Vial) 12.5 mg IV Q6HP PRN PRN Reason: Nausea And Vomiting Senna (Sennosides 1 Tablet) 2 tab PO DAILYP PRN PRN Reason: Constipation Sertraline HCl (Sertraline 50 Mg Tablet) 125 mg PO DAILY [facility] Last Admin: 11/19/20 09:11 Dose: 125 mg Documented by: Sodium Chloride (0.9 % Sodium Chloride 10 Ml Syringe) 10 ml IV Q8 [facility] Last Admin: 11/19/20 06:01 Dose: Not Given Documented by: Tramadol HCl (Tramadol 50 Mg Tablet) 50 mg PO DAILYP PRN; Protocol PRN Reason: Pain Last Admin: 11/17/20 10:25 Dose: 50 mg Documented by: Trazodone HCl (Trazodone Hcl 50 Mg Tablet) 25 mg PO HS [facility] Last Admin: 11/18/20 20:44 Dose: Not Given Documented by: A/P Narrative A/P Narrative: 80 year old F patient was recently at [facility] for cellulitis to the leg discharged the beginning of October. She was at [facility] prior to that admission but crested refused her and patient was discharged to [facility] 6. # UTI with ESBL E.Coli - Dced Levaquin. Started Ertapenem 11/17. Rx total of 5 days. - Contact isolation. # Generalized weakness/deconditioning/inability to care for self: - Pt is wheelchair bound for past year # Hypernatremia: resolved # DM: Cont SSI, Metformin/Glipizide #HTN: -Continue home BB increased)/ACEI(decreased) #LENARD: Home CPAP #Chronic lymphedema/Venous stasis skin changes: #Anxiety/depression: #Obesity: BMI 43 # H/o Sz: on Keppra # Recent LLE cellulitis treated at [facility]: Dispo. CM for placement. Note that patient is wheelchair-bound. - DVT PPX Apixaban full code Dispo. Pending completion of IV antibiotic. Patient can be discharged to SNF if they can give IV Invanz.. Time Spent With Patient Time: Total time spent is greater than 50% in coordination of care (as documented) at patient's floor/unit and/or counseling patient: QUALITY VTE Deep Vein Thrombosis/Pulmonary Embolism Present on Admission: No
[2020-11-19] MEDS: diphenhydrAMINE 25 MG CAPSULE PO SCH (20:17)
[2020-11-19] MEDS: traZODone HCL 50 MG TABLET PO SCH (20:17)
[2020-11-19] MEDS: ATORVASTATIN 40 MG TABLET PO SCH (20:18)
[2020-11-19] MEDS: MELATONIN 3 MG TABLET PO SCH (20:19)
[2020-11-20] MEDS: 0.9 % SODIUM CHLORIDE 10 ML SYRINGE IV SCH ×3 (06:31→21:00)
[2020-11-20] MEDS: METHADONE 5 MG TABLET PO SCH ×2 (08:49→23:10)
[2020-11-20] MEDS: SERTRALINE 50 MG TABLET PO SCH (08:49)
[2020-11-20] MEDS: PREGABALIN 25 MG CAPSULE PO SCH ×3 (08:50→23:11)
[2020-11-20] MEDS: METOPROLOL SUCCINATE 50 MG TAB.XL.24H PO SCH (08:50)
[2020-11-20] MEDS: GABAPENTIN 100 MG CAPSULE PO SCH ×2 (08:51→23:11)
[2020-11-20] MEDS: APIXABAN 5 MG TABLET PO SCH ×2 (08:51→23:11)
[2020-11-20] MEDS: levETIRAcetam 500 MG TABLET PO SCH ×2 (08:51→23:12)
[2020-11-20] MEDS: MECLIZINE 25 MG TABLET PO SCH (08:51)
[2020-11-20] MEDS: BACLOFEN 10 MG TABLET PO SCH ×3 (08:51→23:11)
[2020-11-20] MEDS: LISINOPRIL 5 MG TABLET PO SCH (08:52)
[2020-11-20] MEDS: INSULIN LISPRO 1 UNIT/0.01 ML UNIT SQ SCH ×4 (08:52→23:12)
[2020-11-20] MEDS: EMPAGLIFLOZIN 25 MG TABLET PO SCH (08:52)
[2020-11-20] MEDS: ASPIRIN 81 MG TAB.CHEW PO SCH (09:45)
--- NOTE | 2020-11-20 11:12 | Internal Med Progress Note ---
SUBJECTIVE Subjective Patient information: Note initiated : 11/20/20 at 11:10 am Service Date, if different from initiated Date: Patient: Alexa Rai 80 y/o F admitted on 11/14/20 for Weakness. Chief Complaint: Leg Edema, Cellulitis. Principal diagnosis: ESBL E.Coli UTI Interval history: Patient is feeling well. She still complaining of pain even though she is sleeping comfortably. No overnight issues. Constitutional Vitals: Vital Signs Temp Pulse Resp BP Pulse Ox 97.4 F 75 14 96/54 97 11/20/20 07:20 11/20/20 07:20 11/20/20 07:20 11/20/20 07:20 11/20/20 07:20 Period Temp Pulse Resp BP Sys/Jansen Pulse Ox Last 24 Hr 96.6 F-98.4 F 75-92 12-18 81-123/54-68 90-99 Intake and Output 11/19/20 11/20/20 11/20/20 21:59 05:59 13:59 Intake Total 840 365 240 Output Total 76 400 Balance 764 -35 240 Weight 109.905 kg Intake & Output: Intake & Output 11/19/20 11/20/20 11/20/20 21:59 05:59 13:59 Intake Total 840 365 240 Output Total 76 400 Balance 764 -35 240 Weight 109.905 kg Intake: Oral 840 365 240 Output: Urine Catheter Amount 400 Void Amount 75 # of times incontinent of urine 1 Other: Meal Dinner Breakfast Percent of Meal Consumed 50% 75% Feeding Ability Assist with Tray Set Up Independent Urine Appearance Hematuria Sediment Small Blood Clots Urine Color Bright Yellow Dark Yellow Exam: General: Alert, Awake, No acute Distress, obese with BMI 43,, chronically ill appearing Eyes/N/T: EOMI, Head/Neck: neck supple, No JVD CV: RRR, No murmurs, no JVD Pulm: Clear b/l, no wheezing/rhonchi/rales Abd: soft, nontender, +BS x4 Ext: no clubbing/cyanosis, 1+ B/L LE edema Neuro: Alert, no focal deficits, moves all extremities, Skin: warm/dry OBJ DATA Labs CBC & Chem 7: 11/15/20 05:17 11/18/20 05:13 Labs: Abnormal Lab Results 11/18/20 05:13 BUN 30 H Glucose 125 H Total Protein 5.5 L Albumin 2.9 L Meds: Medications Acetaminophen (Acetaminophen 325 Mg Tablet) 650 mg PO Q6HP PRN PRN Reason: PAIN/FEVER > 101 Last Admin: 11/17/20 17:22 Dose: 650 mg Documented by: Albuterol/Ipratropium (Ipratropium/Albuterol 3 Ml Ampul.Neb) 3 ml NEB Q4HP PRN PRN Reason: Shortness Of Breath Alprazolam (Alprazolam 0.5 Mg Tablet) 0.5 mg PO TIDP PRN PRN Reason: Anxiety Last Admin: 11/17/20 15:23 Dose: 0.5 mg Documented by: Apixaban (Apixaban 5 Mg Tablet) 5 mg PO BID [facility] Last Admin: 11/20/20 08:51 Dose: 5 mg Documented by: Aspirin (Aspirin 81 Mg Tab.Chew) 81 mg PO DAILY [facility] Last Admin: 11/20/20 09:45 Dose: Not Given Documented by: Atorvastatin Calcium (Atorvastatin 40 Mg Tablet) 40 mg PO QHS [facility] Last Admin: 11/19/20 20:18 Dose: 40 mg Documented by: Baclofen (Baclofen 10 Mg Tablet) 10 mg PO TID [facility] Last Admin: 11/20/20 08:51 Dose: 10 mg Documented by: Dextrose (Dextrose 50% 50 Ml Vial) 0 ml IV UD PRN PRN Reason: Hypoglycemia Diagnostic Test (Pha) (Accu-Chek 1 Each Strip) 1 each FS ACHS [facility] Last Admin: 11/20/20 08:52 Dose: 1 each Documented by: Diphenhydramine HCl (Diphenhydramine 25 Mg Capsule) 25 mg PO HS [facility] Last Admin: 11/19/20 20:17 Dose: 25 mg Documented by: Diphenoxylate HCl/Atropine (Diphenoxylate Hcl/Atropine 1 Tablet) 1 tab PO QIDP PRN PRN Reason: Wheezing Gabapentin (Gabapentin 100 Mg Capsule) 100 mg PO BID [facility] Last Admin: 11/20/20 08:51 Dose: 100 mg Documented by: Glucose (Dextrose 31 Gm Oral.Susp) 15 gm PO PRN PRN PRN Reason: Hypoglycemia Magnesium Sulfate (Magnesium Sulfate) 2 gm in 50 mls @ 50 mls/hr IV UD PRN PRN Reason: Magnesium </= 1.6 Potassium Chloride 40 meq/ (Dextrose) 520 mls @ 130 mls/hr IV UD PRN PRN Reason: Potassium < 3 Ertapenem 1 gm/ Sodium (Chloride) 50 mls @ 100 mls/hr IV Q24H [facility]; Protocol Last Infusion: 11/19/20 09:50 Dose: Infused Documented by: Insulin Human Lispro (Insulin Lispro 1 Unit/0.01 Ml Unit) 0 unit SQ ACHS [facility]; Protocol Last Admin: 11/20/20 08:52 Dose: Not Given Documented by: Lactulose (Lactulose 20 Gm/30 Ml Oral.Stefany) 20 gm PO DAILYP PRN PRN Reason: Constipation Levetiracetam (Levetiracetam 500 Mg Tablet) 250 mg PO BID [facility] Last Admin: 11/20/20 08:51 Dose: 250 mg Documented by: Lisinopril (Lisinopril 5 Mg Tablet) 5 mg PO DAILY [facility] Last Admin: 11/20/20 08:52 Dose: 5 mg Documented by: Meclizine HCl (Meclizine 25 Mg Tablet) 25 mg PO DAILY [facility] Last Admin: 11/20/20 08:51 Dose: 25 mg Documented by: Melatonin (Melatonin 3 Mg Tablet) 3 mg PO QHS [facility] Last Admin: 11/19/20 20:19 Dose: 3 mg Documented by: Methadone HCl (Methadone 5 Mg Tablet) 10 mg PO BID [facility] Last Admin: 11/20/20 08:49 Dose: 10 mg Documented by: Metoclopramide HCl (Metoclopramide 10 Mg/2 Ml Vial) 10 mg IV Q6HP PRN PRN Reason: Nausea And Vomiting Metoprolol Succinate (Metoprolol Succinate 50 Mg Tab.Xl.24h) 50 mg PO DAILY [facility] Last Admin: 11/20/20 08:50 Dose: 50 mg Documented by: Metoprolol Tartrate (Metoprolol Tartrate 5 Mg/5 Ml Vial) 5 mg IV Q2HP PRN PRN Reason: Tachyarrhythmias HR>110 Empagliflozin 25 Mg (Tablet) 1 dose PO DAILY [facility] Last Admin: 11/20/20 08:52 Dose: Not Given Documented by: Potassium Chloride (Potassium Chloride 20 Meq Tablet) 40 meq PO UD PRN PRN Reason: Potssium is 3-3.5 Potassium Chloride (Potassium Chloride 20 Meq Tablet) 40 meq PO UD PRN PRN Reason: Potassium < 3 Pregabalin (Pregabalin 25 Mg Capsule) 50 mg PO TID [facility] Last Admin: 11/20/20 08:50 Dose: 50 mg Documented by: Promethazine HCl (Promethazine 25 Mg/Ml Vial) 12.5 mg IV Q6HP PRN PRN Reason: Nausea And Vomiting Senna (Sennosides 1 Tablet) 2 tab PO DAILYP PRN PRN Reason: Constipation Sertraline HCl (Sertraline 50 Mg Tablet) 125 mg PO DAILY [facility] Last Admin: 11/20/20 08:49 Dose: 125 mg Documented by: Sodium Chloride (0.9 % Sodium Chloride 10 Ml Syringe) 10 ml IV Q8 [facility] Last Admin: 11/20/20 06:31 Dose: Not Given Documented by: Tramadol HCl (Tramadol 50 Mg Tablet) 50 mg PO DAILYP PRN; Protocol PRN Reason: Pain Last Admin: 11/17/20 10:25 Dose: 50 mg Documented by: Trazodone HCl (Trazodone Hcl 50 Mg Tablet) 25 mg PO HS [facility] Last Admin: 11/19/20 20:17 Dose: 25 mg Documented by: A/P Narrative A/P Narrative: 80 year old F patient was recently at [facility] for cellulitis to the leg discharged the beginning of October. She was at [facility] prior to that admission but crested refused her and patient was discharged to [facility] 6. # UTI with ESBL E.Coli - Dced Levaquin. Started Ertapenem 11/17. Rx total of 5 days. - Contact isolation. # Generalized weakness/deconditioning/inability to care for self: - Pt is wheelchair bound for past year # Hypernatremia: resolved # DM: Cont SSI, resume home Metformin/Glipizide and Jardiance #HTN: -Continue home BB increased)/ACEI(decreased) #LENARD: Home CPAP #Chronic lymphedema/Venous stasis skin changes: Resume home Lasix/KCl #Anxiety/depression: #Obesity: BMI 43 # H/o Sz: on Keppra # Recent LLE cellulitis treated at [facility]: #Chronic pain. Resumed home methadone/tramadol Dispo. CM for placement. Note that patient is wheelchair-bound. - DVT PPX Apixaban full code Dispo. Pending completion of IV antibiotic. Patient can be discharged to SNF 11/21/20 when she completed 5 days of Invanz. Time Spent With Patient Time: Total time spent is greater than 50% in coordination of care (as documented) at patient's floor/unit and/or counseling patient: QUALITY VTE Deep Vein Thrombosis/Pulmonary Embolism Present on Admission: No
[2020-11-20] MEDS: ERTAPENEM 1 GM in 0.9 % SODIUM CHLORIDE 50 ML IV SCH (11:34)
[2020-11-20] MEDS: MELATONIN 3 MG TABLET PO SCH (21:00)
[2020-11-20] MEDS: diphenhydrAMINE 25 MG CAPSULE PO SCH (23:10)
[2020-11-20] MEDS: ATORVASTATIN 40 MG TABLET PO SCH (23:10)
[2020-11-20] MEDS: traZODone HCL 50 MG TABLET PO SCH (23:11)
[2020-11-21] MEDS: 0.9 % SODIUM CHLORIDE 10 ML SYRINGE IV SCH ×3 (05:33→22:58)
[2020-11-21] MEDS: INSULIN LISPRO 1 UNIT/0.01 ML UNIT SQ SCH ×4 (07:13→22:45)
[2020-11-21] MEDS: METHADONE 5 MG TABLET PO SCH ×2 (08:35→22:44)
[2020-11-21] MEDS: GABAPENTIN 100 MG CAPSULE PO SCH ×2 (08:35→21:50)
[2020-11-21] MEDS: POTASSIUM CHLORIDE 10 MEQ TABLET PO SCH (08:36)
[2020-11-21] MEDS: metFORMIN 500 MG TAB.XL.24H PO SCH (08:36)
[2020-11-21] MEDS: MECLIZINE 25 MG TABLET PO SCH (08:36)
[2020-11-21] MEDS: LISINOPRIL 5 MG TABLET PO SCH (08:36)
[2020-11-21] MEDS: levETIRAcetam 500 MG TABLET PO SCH ×2 (08:39→21:49)
[2020-11-21] MEDS: glipiZIDE 5 MG TABLET PO SCH (08:39)
[2020-11-21] MEDS: PREGABALIN 25 MG CAPSULE PO SCH ×3 (08:39→21:50)
[2020-11-21] MEDS: ASPIRIN 81 MG TAB.CHEW PO SCH (08:39)
[2020-11-21] MEDS: APIXABAN 5 MG TABLET PO SCH ×2 (08:39→21:50)
[2020-11-21] MEDS: BACLOFEN 10 MG TABLET PO SCH ×3 (08:39→23:12)
[2020-11-21] MEDS: METOPROLOL SUCCINATE 50 MG TAB.XL.24H PO SCH (08:39)
[2020-11-21] MEDS: SERTRALINE 50 MG TABLET PO SCH (08:40)
[2020-11-21] MEDS: ERTAPENEM 1 GM in 0.9 % SODIUM CHLORIDE 50 ML IV SCH (08:40)
[2020-11-21] MEDS: FUROSEMIDE 40 MG TABLET PO SCH (08:40)
[2020-11-21] MEDS: EMPAGLIFLOZIN 25 MG TABLET PO SCH (09:11)
--- NOTE | 2020-11-21 11:37 | Internal Med Progress Note ---
SUBJECTIVE Subjective Patient information: Note initiated : 11/21/20 at 11:34 am Service Date, if different from initiated Date: Patient: Alexa Rai 80 y/o F admitted on 11/14/20 for Weakness. Chief Complaint: Weakness, leg swelling Principal diagnosis: ESBL E.Coli UTI Interval history: No new issue. Patient is comfortable working with physical therapy Constitutional Vitals: Vital Signs Temp Pulse Resp BP Pulse Ox 96.5 F L 84 16 90/54 90 11/21/20 07:08 11/21/20 07:08 11/21/20 07:08 11/21/20 07:08 11/21/20 07:08 Period Temp Pulse Resp BP Sys/Jansen Pulse Ox Last 24 Hr 96.5 F-97.9 F 71-84 14-16 85-100/54-62 90-96 Intake and Output 11/20/20 11/21/20 11/21/20 21:59 05:59 13:59 Intake Total 480 100 50 Output Total 300 300 Balance 480 -200 -250 Weight 109.905 kg Intake & Output: Intake & Output 11/20/20 11/21/20 11/21/20 21:59 05:59 13:59 Intake Total 480 100 50 Output Total 300 300 Balance 480 -200 -250 Weight 109.905 kg Intake: IV 50 INVanz 1 GM In Sodium Chloride 50 0.9% 50 ml @ 100 mls/hr IV Q24H [facility] Rx#:[id number] Oral 480 100 0 Output: Urine Catheter Amount 300 Void Amount 300 Other: Meal Breakfast Percent of Meal Consumed 100% Feeding Ability Assist with Tray Set Up Urine Appearance Clear Clear Urine Color Dark Yellow Dark Yellow Dark Yellow # Voids 1 Exam: General: Alert, Awake, No acute Distress, obese with BMI 43,, chronically ill appearing Eyes/N/T: EOMI, Head/Neck: neck supple, No JVD CV: RRR, No murmurs, no JVD Pulm: Clear b/l, no wheezing/rhonchi/rales Abd: soft, nontender, +BS x4 Ext: no clubbing/cyanosis, 1+ B/L LE edema. Lower extremity weakness 2/5 symme tric bilaterally Neuro: Alert, no focal deficits, moves all extremities, Skin: warm/dry OBJ DATA Labs CBC & Chem 7: 11/15/20 05:17 06/30/21 05:13 Meds: Medications Acetaminophen (Acetaminophen 325 Mg Tablet) 650 mg PO Q6HP PRN PRN Reason: PAIN/FEVER > 101 Last Admin: 11/17/20 17:22 Dose: 650 mg Documented by: Albuterol/Ipratropium (Ipratropium/Albuterol 3 Ml Ampul.Neb) 3 ml NEB Q4HP PRN PRN Reason: Shortness Of Breath Alprazolam (Alprazolam 0.5 Mg Tablet) 0.5 mg PO TIDP PRN PRN Reason: Anxiety Last Admin: 11/17/20 15:23 Dose: 0.5 mg Documented by: Apixaban (Apixaban 5 Mg Tablet) 5 mg PO BID [facility] Last Admin: 11/21/20 08:39 Dose: 5 mg Documented by: Aspirin (Aspirin 81 Mg Tab.Chew) 81 mg PO DAILY [facility] Last Admin: 11/21/20 08:39 Dose: 81 mg Documented by: Atorvastatin Calcium (Atorvastatin 40 Mg Tablet) 40 mg PO QHS [facility] Last Admin: 11/20/20 23:10 Dose: 40 mg Documented by: Baclofen (Baclofen 10 Mg Tablet) 10 mg PO TID [facility] Last Admin: 11/21/20 08:39 Dose: 10 mg Documented by: Dextrose (Dextrose 50% 50 Ml Vial) 0 ml IV UD PRN PRN Reason: Hypoglycemia Diagnostic Test (Pha) (Accu-Chek 1 Each Strip) 1 each FS ACHS [facility] Last Admin: 11/21/20 11:11 Dose: 1 each Documented by: Diphenhydramine HCl (Diphenhydramine 25 Mg Capsule) 25 mg PO HS [facility] Last Admin: 11/20/20 23:10 Dose: 25 mg Documented by: Diphenoxylate HCl/Atropine (Diphenoxylate Hcl/Atropine 1 Tablet) 1 tab PO QIDP PRN PRN Reason: Wheezing Furosemide (Furosemide 40 Mg Tablet) 40 mg PO QDAY [facility] Last Admin: 11/21/20 08:40 Dose: 40 mg Documented by: Gabapentin (Gabapentin 100 Mg Capsule) 100 mg PO BID [facility] Last Admin: 11/21/20 08:35 Dose: 100 mg Documented by: Glipizide (Glipizide 5 Mg Tablet) 5 mg PO QDAY [facility] Last Admin: 11/21/20 08:39 Dose: 5 mg Documented by: Glucose (Dextrose 31 Gm Oral.Susp) 15 gm PO PRN PRN PRN Reason: Hypoglycemia Magnesium Sulfate (Magnesium Sulfate) 2 gm in 50 mls @ 50 mls/hr IV UD PRN PRN Reason: Magnesium </= 1.6 Potassium Chloride 40 meq/ (Dextrose) 520 mls @ 130 mls/hr IV UD PRN PRN Reason: Potassium < 3 Ertapenem 1 gm/ Sodium (Chloride) 50 mls @ 100 mls/hr IV Q24H [facility]; Protocol Last Infusion: 11/21/20 09:11 Dose: Infused Documented by: Insulin Human Lispro (Insulin Lispro 1 Unit/0.01 Ml Unit) 0 unit SQ ACHS [facility]; Protocol Last Admin: 11/21/20 11:14 Dose: Not Given Documented by: Lactulose (Lactulose 20 Gm/30 Ml Oral.Stefany) 20 gm PO DAILYP PRN PRN Reason: Constipation Levetiracetam (Levetiracetam 500 Mg Tablet) 250 mg PO BID [facility] Last Admin: 11/21/20 08:39 Dose: 250 mg Documented by: Lisinopril (Lisinopril 5 Mg Tablet) 2.5 mg PO DAILY [facility] Meclizine HCl (Meclizine 25 Mg Tablet) 25 mg PO DAILY [facility] Last Admin: 11/21/20 08:36 Dose: 25 mg Documented by: Melatonin (Melatonin 3 Mg Tablet) 3 mg PO QHS [facility] Last Admin: 11/20/20 21:00 Dose: Not Given Documented by: Metformin HCl (Metformin 500 Mg Tab.Xl.24h) 1,000 mg PO [facility] Last Admin: 11/21/20 08:36 Dose: 1,000 mg Documented by: Methadone HCl (Methadone 5 Mg Tablet) 10 mg PO BID [facility] Last Admin: 11/21/20 08:35 Dose: 10 mg Documented by: Metoclopramide HCl (Metoclopramide 10 Mg/2 Ml Vial) 10 mg IV Q6HP PRN PRN Reason: Nausea And Vomiting Metoprolol Succinate (Metoprolol Succinate 50 Mg Tab.Xl.24h) 25 mg PO DAILY [facility] Empagliflozin 25 Mg (Tablet) 1 dose PO DAILY [facility] Last Admin: 11/21/20 09:11 Dose: Not Given Documented by: Empagliflozin [ (Jardiance] 10 Mg Tab) 1 dose PO DAILY [facility] Last Admin: 11/21/20 09:11 Dose: Not Given Documented by: Potassium Chloride (Potassium Chloride 20 Meq Tablet) 40 meq PO UD PRN PRN Reason: Potssium is 3-3.5 Potassium Chloride (Potassium Chloride 20 Meq Tablet) 40 meq PO UD PRN PRN Reason: Potassium < 3 Potassium Chloride (Potassium Chloride 10 Meq Tablet) 20 meq PO QAMCC [facility] Last Admin: 11/21/20 08:36 Dose: 20 meq Documented by: Pregabalin (Pregabalin 25 Mg Capsule) 50 mg PO TID [facility] Last Admin: 11/21/20 08:39 Dose: 50 mg Documented by: Promethazine HCl (Promethazine 25 Mg/Ml Vial) 12.5 mg IV Q6HP PRN PRN Reason: Nausea And Vomiting Senna (Sennosides 1 Tablet) 2 tab PO DAILYP PRN PRN Reason: Constipation Sertraline HCl (Sertraline 50 Mg Tablet) 125 mg PO DAILY [facility] Last Admin: 11/21/20 08:40 Dose: 125 mg Documented by: Sodium Chloride (0.9 % Sodium Chloride 10 Ml Syringe) 10 ml IV Q8 [facility] Last Admin: 11/21/20 05:33 Dose: Not Given Documented by: Tramadol HCl (Tramadol 50 Mg Tablet) 50 mg PO DAILYP PRN; Protocol PRN Reason: Pain Last Admin: 11/17/20 10:25 Dose: 50 mg Documented by: Trazodone HCl (Trazodone Hcl 50 Mg Tablet) 25 mg PO HS [facility] Last Admin: 11/20/20 23:11 Dose: 25 mg Documented by: A/P Narrative A/P Narrative: 80 year old F patient was recently at [facility] for cellulitis to the leg discharged the beginning of October. She was at [facility] prior to that admission but [facility] refused her and patient was discharged to [facility]. # UTI with ESBL E.Coli - Dced Levaquin. Started Ertapenem 11/17-11/21. Rx total of 5 days. - Contact isolation. # Generalized weakness/deconditioning/inability to care for self: - Pt is wheelchair bound for past year # Hypernatremia: resolved # DM: Cont SSI, resume home Metformin/Glipizide and Jardiance #HTN: Decrease dose of Metoprolol 25mg from 50mg and Lisinopril 5mg from 2.5mg due to Low BP #LENARD: Home CPAP #Chronic lymphedema/Venous stasis skin changes: Resume home Lasix/KCl #Anxiety/depression: #Obesity: BMI 43 # H/o Sz: on Keppra # Recent LLE cellulitis treated at [facility]: #Chronic pain. Resumed home methadone/tramadol Dispo. CM for placement. Note that patient is wheelchair-bound. - DVT PPX Apixaban full code Dispo. Pending SNF. Ready. Time Spent With Patient Time: Total time spent is greater than 50% in coordination of care (as documented) at patient's floor/unit and/or counseling patient: QUALITY VTE Deep Vein Thrombosis/Pulmonary Embolism Present on Admission: No
[2020-11-21] MEDS: SENNOSIDES 1 TABLET PO PRN (17:44)
[2020-11-21] MEDS: ATORVASTATIN 40 MG TABLET PO SCH (21:50)
[2020-11-21] MEDS: diphenhydrAMINE 25 MG CAPSULE PO SCH (21:50)
[2020-11-21] MEDS: traZODone HCL 50 MG TABLET PO SCH (22:44)
[2020-11-21] MEDS: MELATONIN 3 MG TABLET PO SCH (22:45)
[2020-11-21] MEDS: DEXTROSE 50% 50 ML VIAL IV PRN (22:54)
[2020-11-22] MEDS: 0.9 % SODIUM CHLORIDE 10 ML SYRINGE IV SCH ×3 (06:42→21:24)
[2020-11-22 06:47] LABS: Basophils # (Auto) 0.02 K/mcL (0.00-0.20); Basophils % (Auto) 0.2 % (0.0-2.0); Eosinophils # (Auto) 0.28 K/mcL (0.00-0.70); Eosinophils % (Auto) 2.7 % (0.0-7.0); Hematocrit 34.9 % (36.0-48.0); Hemoglobin 10.9 g/dL (12.0-15.0); Lymphocytes # (Auto) 1.88 K/mcL (1.50-4.80); Lymphocytes % (Auto) 17.8 % (15.0-49.0); Mean Cell Volume 90.4 fL (80.0-100.0); Mean Corpuscular HGB Conc 31.2 g/dL (31.0-36.0); Mean Platelet Volume 11.8 fL (7.4-10.4); Monocytes # (Auto) 1.24 K/mcL (0.10-0.90); Monocytes % (Auto) 11.8 % (1.0-12.0); Neutrophils % (Auto) 67.5 % (38.0-78.0); Platelet Count 171 K/mcL (140-440); RBC 3.86 M/mcL (4.00-5.20); Red Cell Distribution Width 13.9 % (11.5-14.5); WBC 10.5 K/mcL (4.5-11.0)
[2020-11-22] MEDS: INSULIN LISPRO 1 UNIT/0.01 ML UNIT SQ SCH ×4 (07:19→21:11)
[2020-11-22 07:24] LABS: Blood Urea Nitrogen 17 mg/dL (8-23); Calcium 9.1 mg/dL (8.6-10.4); Carbon Dioxide 31 mmol/L (22-30); Chloride 100 mmol/L (96-108); Glomerular Filtration Rate 83; Glucose 103 mg/dL (70-105)
[2020-11-22] MEDS: FUROSEMIDE 40 MG TABLET PO SCH (08:36)
[2020-11-22] MEDS: MECLIZINE 25 MG TABLET PO SCH (08:36)
[2020-11-22] MEDS: APIXABAN 5 MG TABLET PO SCH ×2 (08:36→21:22)
[2020-11-22] MEDS: PREGABALIN 25 MG CAPSULE PO SCH ×3 (08:36→21:22)
[2020-11-22] MEDS: glipiZIDE 5 MG TABLET PO SCH (08:36)
[2020-11-22] MEDS: BACLOFEN 10 MG TABLET PO SCH ×3 (08:36→21:21)
[2020-11-22] MEDS: POTASSIUM CHLORIDE 10 MEQ TABLET PO SCH (08:36)
[2020-11-22] MEDS: ASPIRIN 81 MG TAB.CHEW PO SCH (08:36)
[2020-11-22] MEDS: metFORMIN 500 MG TAB.XL.24H PO SCH (08:36)
[2020-11-22] MEDS: levETIRAcetam 500 MG TABLET PO SCH ×2 (08:37→21:21)
[2020-11-22] MEDS: METHADONE 5 MG TABLET PO SCH ×2 (08:37→21:22)
[2020-11-22] MEDS: SERTRALINE 50 MG TABLET PO SCH (08:37)
[2020-11-22] MEDS: GABAPENTIN 100 MG CAPSULE PO SCH ×2 (08:37→21:22)
[2020-11-22] MEDS: EMPAGLIFLOZIN 25 MG TABLET PO SCH (08:49)
[2020-11-22] MEDS ORDERED: LISINOPRIL 5 MG TABLET PO SCH (09:00)
[2020-11-22] MEDS ORDERED: METOPROLOL SUCCINATE 25 MG TAB.XL.24H PO SCH (09:00)
[2020-11-22] MEDS: ERTAPENEM 1 GM in 0.9 % SODIUM CHLORIDE 50 ML IV SCH (11:27)
[2020-11-22] MEDS: SENNOSIDES 1 TABLET PO PRN (14:21)
[2020-11-22] MEDS: LACTULOSE 20 GM/30 ML ORAL.SOL PO PRN (14:21)
--- NOTE | 2020-11-22 15:46 | Internal Med Progress Note ---
SUBJECTIVE Subjective Patient information: Note initiated : 11/22/20 at 3:45 pm Service Date, if different from initiated Date: Patient: Alexa Rai 80 y/o F admitted on 11/14/20 for Weakness. Chief Complaint: Weakness Principal diagnosis: ESBL E.Coli UTI Interval history: No new issue. Patient is comfortable working with physical therapy Constitutional Vitals: Vital Signs Temp Pulse Resp BP Pulse Ox 96.9 F L 79 20 92/57 94 11/22/20 11:55 11/22/20 11:55 11/22/20 11:55 11/22/20 11:55 11/22/20 11:55 Period Temp Pulse Resp BP Sys/Jansen Pulse Ox Last 24 Hr 96.4 F-96.9 F 71-98 16-20 76-95/50-73 90-96 Intake and Output 11/22/20 11/22/20 11/22/20 05:59 13:59 21:59 Intake Total 400 Output Total 601 1 Balance -201 -1 Intake & Output: Intake & Output 11/22/20 11/22/20 11/22/20 05:59 13:59 21:59 Intake Total 400 Output Total 601 1 Balance -201 -1 Intake: Oral 400 Output: Void Amount 600 # of times incontinent of urine 1 1 Other: Meal fruit cup Breakfast Lunch Percent of Meal Consumed 100% 25% 75% Feeding Ability Needs Supervision Assist with Tray Set Up Independent Urine Appearance Clear Urine Color Dark Yellow Exam: General: Alert, Awake, No acute Distress, obese with BMI 43, chronically ill appearing Eyes/N/T: EOMI, Head/Neck: neck supple, No JVD CV: RRR, No murmurs, no JVD Pulm: Clear b/l, no wheezing/rhonchi/rales Abd: soft, nontender, +BS x4 Ext: no clubbing/cyanosis, 1+ B/L LE edema. Lower extremity weakness 2/5 sy mmetric bilaterally Neuro: Alert, no focal deficits, moves all extremities, Skin: warm/dry OBJ DATA Labs CBC & Chem 7: 11/22/20 05:25 11/22/20 05:25 Labs: Abnormal Lab Results 11/22/20 11/22/20 05:25 05:25 RBC 3.86 L Hgb 10.9 L Hct 34.9 L MPV 11.8 H [place] # (Auto) 1.24 H Carbon Dioxide 31 H Meds: Medications Acetaminophen (Acetaminophen 325 Mg Tablet) 650 mg PO Q6HP PRN PRN Reason: PAIN/FEVER > 101 Last Admin: 11/17/20 17:22 Dose: 650 mg Documented by: Albuterol/Ipratropium (Ipratropium/Albuterol 3 Ml Ampul.Neb) 3 ml NEB Q4HP PRN PRN Reason: Shortness Of Breath Alprazolam (Alprazolam 0.5 Mg Tablet) 0.5 mg PO TIDP PRN PRN Reason: Anxiety Last Admin: 11/17/20 15:23 Dose: 0.5 mg Documented by: Apixaban (Apixaban 5 Mg Tablet) 5 mg PO BID [facility] Last Admin: 11/22/20 08:36 Dose: 5 mg Documented by: Aspirin (Aspirin 81 Mg Tab.Chew) 81 mg PO DAILY [facility] Last Admin: 11/22/20 08:36 Dose: 81 mg Documented by: Atorvastatin Calcium (Atorvastatin 40 Mg Tablet) 40 mg PO QHS [facility] Last Admin: 11/21/20 21:50 Dose: 40 mg Documented by: Baclofen (Baclofen 10 Mg Tablet) 10 mg PO TID [facility] Last Admin: 11/22/20 14:36 Dose: Not Given Documented by: Dextrose (Dextrose 50% 50 Ml Vial) 0 ml IV UD PRN PRN Reason: Hypoglycemia Last Admin: 11/21/20 22:54 Dose: 25 ml Documented by: Diagnostic Test (Pha) (Accu-Chek 1 Each Strip) 1 each FS ACHS [facility] Last Admin: 11/22/20 12:02 Dose: 1 each Documented by: Diphenhydramine HCl (Diphenhydramine 25 Mg Capsule) 25 mg PO HS [facility] Last Admin: 11/21/20 21:50 Dose: 25 mg Documented by: Diphenoxylate HCl/Atropine (Diphenoxylate Hcl/Atropine 1 Tablet) 1 tab PO QIDP PRN PRN Reason: Wheezing Furosemide (Furosemide 40 Mg Tablet) 20 mg PO QDAY [facility] Gabapentin (Gabapentin 100 Mg Capsule) 100 mg PO BID [facility] Last Admin: 11/22/20 08:37 Dose: 100 mg Documented by: Glipizide (Glipizide 5 Mg Tablet) 5 mg PO QDAY [facility] Last Admin: 11/22/20 08:36 Dose: 5 mg Documented by: Glucose (Dextrose 31 Gm Oral.Susp) 15 gm PO PRN PRN PRN Reason: Hypoglycemia Magnesium Sulfate (Magnesium Sulfate) 2 gm in 50 mls @ 50 mls/hr IV UD PRN PRN Reason: Magnesium </= 1.6 Potassium Chloride 40 meq/ (Dextrose) 520 mls @ 130 mls/hr IV UD PRN PRN Reason: Potassium < 3 Insulin Human Lispro (Insulin Lispro 1 Unit/0.01 Ml Unit) 0 unit SQ ACHS [facility]; Protocol Last Admin: 11/22/20 12:03 Dose: Not Given Documented by: Lactulose (Lactulose 20 Gm/30 Ml Oral.Stefany) 20 gm PO DAILYP PRN PRN Reason: Constipation Last Admin: 11/22/20 14:21 Dose: 20 gm Documented by: Levetiracetam (Levetiracetam 500 Mg Tablet) 250 mg PO BID [facility] Last Admin: 11/22/20 08:37 Dose: 250 mg Documented by: Meclizine HCl (Meclizine 25 Mg Tablet) 25 mg PO DAILY [facility] Last Admin: 11/22/20 08:36 Dose: 25 mg Documented by: Melatonin (Melatonin 3 Mg Tablet) 3 mg PO QHS [facility] Last Admin: 11/21/20 22:45 Dose: Not Given Documented by: Metformin HCl (Metformin 500 Mg Tab.Xl.24h) 1,000 mg PO [facility] Last Admin: 11/22/20 08:36 Dose: 1,000 mg Documented by: Methadone HCl (Methadone 5 Mg Tablet) 10 mg PO BID [facility] Last Admin: 11/22/20 08:37 Dose: 10 mg Documented by: Metoclopramide HCl (Metoclopramide 10 Mg/2 Ml Vial) 10 mg IV Q6HP PRN PRN Reason: Nausea And Vomiting Metoprolol Succinate (Metoprolol Succinate 25 Mg Tab.Xl.24h) 12.5 mg PO DAILY [facility] Empagliflozin 25 Mg (Tablet) 1 dose PO DAILY [facility] Last Admin: 11/22/20 08:49 Dose: Not Given Documented by: Empagliflozin [ (Jardiance] 10 Mg Tab) 1 dose PO DAILY [facility] Last Admin: 11/22/20 08:49 Dose: Not Given Documented by: Potassium Chloride (Potassium Chloride 20 Meq Tablet) 40 meq PO UD PRN PRN Reason: Potssium is 3-3.5 Potassium Chloride (Potassium Chloride 20 Meq Tablet) 40 meq PO UD PRN PRN Reason: Potassium < 3 Potassium Chloride (Potassium Chloride 10 Meq Tablet) 20 meq PO QAMCC [facility] Last Admin: 11/22/20 08:36 Dose: 20 meq Documented by: Pregabalin (Pregabalin 25 Mg Capsule) 50 mg PO TID [facility] Last Admin: 11/22/20 14:37 Dose: Not Given Documented by: Promethazine HCl (Promethazine 25 Mg/Ml Vial) 12.5 mg IV Q6HP PRN PRN Reason: Nausea And Vomiting Senna (Sennosides 1 Tablet) 2 tab PO DAILYP PRN PRN Reason: Constipation Last Admin: 11/22/20 14:21 Dose: 2 tab Documented by: Sertraline HCl (Sertraline 50 Mg Tablet) 125 mg PO DAILY [facility] Last Admin: 11/22/20 08:37 Dose: 125 mg Documented by: Sodium Chloride (0.9 % Sodium Chloride 10 Ml Syringe) 10 ml IV Q8 [facility] Last Admin: 11/22/20 12:03 Dose: 10 ml Documented by: Tramadol HCl (Tramadol 50 Mg Tablet) 50 mg PO DAILYP PRN; Protocol PRN Reason: Pain Last Admin: 11/17/20 10:25 Dose: 50 mg Documented by: Trazodone HCl (Trazodone Hcl 50 Mg Tablet) 25 mg PO HS [facility] Last Admin: 11/21/20 22:44 Dose: Not Given Documented by: A/P Narrative A/P Narrative: 80 year old F patient was recently at [facility] for cellulitis to the leg discharged the beginning of October. She was at [facility] prior to that admission but [facility] refused her and patient was discharged to [facility] 6. # UTI with ESBL E.Coli - Dced Levaquin. Started Ertapenem 11/17-11/21. Rxed for total of 5 days. - Contact isolation. # Generalized weakness/deconditioning/inability to care for self: - Pt is wheelchair bound for past year # Hypernatremia: resolved # DM II. Low BS. Change Glipizid to 2.5 daily from 5mg. Cont SSI & home Metformin and Jardiance #HTN: Low BP. Decreased dose of Metoprolol 12.5 from from 50mg and Dced Lisinopril 5mg #LENARD: Home CPAP #Chronic lymphedema/Venous stasis skin changes: Resume home Lasix/KCl #Anxiety/depression: #Obesity: BMI 43 # H/o Sz: on Keppra # Recent LLE cellulitis treated at [facility]: #Chronic pain. Resumed home methadone/tramadol Dispo. CM for placement. Note that patient is wheelchair-bound. - DVT PPX Apixaban full code Dispo. Pending SNF. Ready. Time Spent With Patient Time: Total time spent is greater than 50% in coordination of care (as documented) at patient's floor/unit and/or counseling patient: QUALITY VTE Deep Vein Thrombosis/Pulmonary Embolism Present on Admission: No
[2020-11-22] MEDS: DEXTROSE 50% 50 ML VIAL IV PRN (16:57)
[2020-11-22] MEDS: ATORVASTATIN 40 MG TABLET PO SCH (21:21)
[2020-11-22] MEDS: traZODone HCL 50 MG TABLET PO SCH (21:24)
[2020-11-22] MEDS: MELATONIN 3 MG TABLET PO SCH (21:24)
[2020-11-22] MEDS: diphenhydrAMINE 25 MG CAPSULE PO SCH (21:24)
[2020-11-23] MEDS: 0.9 % SODIUM CHLORIDE 10 ML SYRINGE IV SCH ×3 (05:19→20:31)
[2020-11-23] MEDS: INSULIN LISPRO 1 UNIT/0.01 ML UNIT SQ SCH ×4 (07:21→20:28)
[2020-11-23] MEDS: BACLOFEN 10 MG TABLET PO SCH ×2 (08:36→20:28)
[2020-11-23] MEDS: SERTRALINE 50 MG TABLET PO SCH (08:36)
[2020-11-23] MEDS: APIXABAN 5 MG TABLET PO SCH ×2 (08:36→20:24)
[2020-11-23] MEDS: metFORMIN 500 MG TAB.XL.24H PO SCH (08:36)
[2020-11-23] MEDS: GABAPENTIN 100 MG CAPSULE PO SCH ×2 (08:37→20:27)
[2020-11-23] MEDS: FUROSEMIDE 20 MG TABLET PO SCH (08:37)
[2020-11-23] MEDS: POTASSIUM CHLORIDE 10 MEQ TABLET PO SCH (08:37)
[2020-11-23] MEDS: levETIRAcetam 500 MG TABLET PO SCH ×2 (08:37→20:26)
[2020-11-23] MEDS: MECLIZINE 25 MG TABLET PO SCH (08:37)
[2020-11-23] MEDS: glipiZIDE 5 MG TABLET PO SCH (08:37)
[2020-11-23] MEDS: PREGABALIN 25 MG CAPSULE PO SCH ×2 (08:37→20:25)
[2020-11-23] MEDS: METHADONE 5 MG TABLET PO SCH ×2 (08:38→20:25)
[2020-11-23] MEDS: ASPIRIN 81 MG TAB.CHEW PO SCH (08:38)
[2020-11-23] MEDS: EMPAGLIFLOZIN 25 MG TABLET PO SCH (08:45)
[2020-11-23] MEDS: METOPROLOL SUCCINATE 25 MG TAB.XL.24H PO SCH ×2 (08:54→15:02)
[2020-11-23] MEDS: SENNOSIDES 1 TABLET PO PRN (09:26)
[2020-11-23] MEDS: LACTULOSE 20 GM/30 ML ORAL.SOL PO PRN (09:27)
[2020-11-23] MEDS ORDERED: ALPRAZolam 0.5 MG TABLET PO PRN (09:47)
--- NOTE | 2020-11-23 09:50 | Internal Med Progress Note ---
SUBJECTIVE Subjective Patient information: Note initiated : 11/23/20 at 9:47 am Service Date, if different from initiated Date: Patient: Alexa Rai 80 y/o F admitted on 11/14/20 for Weakness. Chief Complaint: Weakness Principal diagnosis: ESBL E.Coli UTI Interval history: Patient is not feeling too good today. She complained of back pain. She seems comfortable. No overnight issues Constitutional Vitals: Vital Signs Temp Pulse Resp BP Pulse Ox 98.4 F 63 18 105/59 99 11/23/20 08:00 11/23/20 08:00 11/23/20 08:00 11/23/20 08:00 11/23/20 08:00 Period Temp Pulse Resp BP Sys/Jansen Pulse Ox Last 24 Hr 96.9 F-98.4 F 63-102 16-20 92-105/52-67 85-99 Intake and Output 11/22/20 11/23/20 11/23/20 21:59 05:59 13:59 Intake Total 337 Output Total 402 1 Balance -402 336 Weight 108.363 kg Intake & Output: Intake & Output 11/22/20 11/23/20 11/23/20 21:59 05:59 13:59 Intake Total 337 Output Total 402 1 Balance -402 336 Weight 108.363 kg Intake: Oral 337 Output: Void Amount 400 # of times incontinent of urine 2 1 Other: Meal Dinner Breakfast Percent of Meal Consumed 75% 75% Feeding Ability Independent Independent Urine Appearance Clear Urine Color Pale Exam: General: Alert, Awake, No acute Distress, obese with BMI 43, chronically ill appearing Eyes/N/T: EOMI, Head/Neck: neck supple, No JVD CV: RRR, No murmurs, no JVD Pulm: Clear b/l, no wheezing/rhonchi/rales Abd: soft, nontender, +BS x4 Ext: no clubbing/cyanosis, 1+ B/L LE edema. Lower extremity weakness 2/5 symmetric bilaterally Neuro: Alert, no focal deficits, moves all extremities, Skin: warm/dry OBJ DATA Labs CBC & Chem 7: 11/22/20 05:25 11/22/20 05:25 Labs: Abnormal Lab Results 11/22/20 11/22/20 05:25 05:25 RBC 3.86 L Hgb 10.9 L Hct 34.9 L MPV 11.8 H Sullivan # (Auto) 1.24 H Carbon Dioxide 31 H Meds: Medications Acetaminophen (Acetaminophen 325 Mg Tablet) 650 mg PO Q6HP PRN PRN Reason: PAIN/FEVER > 101 Last Admin: 11/17/20 17:22 Dose: 650 mg Documented by: Albuterol/Ipratropium (Ipratropium/Albuterol 3 Ml Ampul.Neb) 3 ml NEB Q4HP PRN PRN Reason: Shortness Of Breath Alprazolam (Alprazolam 0.5 Mg Tablet) 0.5 mg PO TIDP PRN PRN Reason: Anxiety Last Admin: 11/17/20 15:23 Dose: 0.5 mg Documented by: Apixaban (Apixaban 5 Mg Tablet) 5 mg PO BID [facility] Last Admin: 11/23/20 08:36 Dose: 5 mg Documented by: Aspirin (Aspirin 81 Mg Tab.Chew) 81 mg PO DAILY [facility] Last Admin: 11/23/20 08:38 Dose: 81 mg Documented by: Atorvastatin Calcium (Atorvastatin 40 Mg Tablet) 40 mg PO QHS [facility] Last Admin: 11/22/20 21:21 Dose: 40 mg Documented by: Dextrose (Dextrose 50% 50 Ml Vial) 0 ml IV UD PRN PRN Reason: Hypoglycemia Last Admin: 11/22/20 16:57 Dose: 25 ml Documented by: Diagnostic Test (Pha) (Accu-Chek 1 Each Strip) 1 each FS ACHS [facility] Last Admin: 11/23/20 07:19 Dose: 1 each Documented by: Diphenhydramine HCl (Diphenhydramine 25 Mg Capsule) 25 mg PO HS [facility] Last Admin: 11/22/20 21:24 Dose: Not Given Documented by: Diphenoxylate HCl/Atropine (Diphenoxylate Hcl/Atropine 1 Tablet) 1 tab PO QIDP PRN PRN Reason: Wheezing Furosemide (Furosemide 20 Mg Tablet) 20 mg PO DAILY [facility] Last Admin: 11/23/20 08:37 Dose: 20 mg Documented by: Gabapentin (Gabapentin 100 Mg Capsule) 100 mg PO BID [facility] Last Admin: 11/23/20 08:37 Dose: 100 mg Documented by: Glipizide (Glipizide 5 Mg Tablet) 2.5 mg PO QAMAC [facility] Last Admin: 11/23/20 08:37 Dose: 2.5 mg Documented by: Glucose (Dextrose 31 Gm Oral.Susp) 15 gm PO PRN PRN PRN Reason: Hypoglycemia Magnesium Sulfate (Magnesium Sulfate) 2 gm in 50 mls @ 50 mls/hr IV UD PRN PRN Reason: Magnesium </= 1.6 Potassium Chloride 40 meq/ (Dextrose) 520 mls @ 130 mls/hr IV UD PRN PRN Reason: Potassium < 3 Insulin Human Lispro (Insulin Lispro 1 Unit/0.01 Ml Unit) 0 unit SQ ACHS [facility]; Protocol Last Admin: 11/23/20 07:21 Dose: Not Given Documented by: Lactulose (Lactulose 20 Gm/30 Ml Oral.Stefany) 20 gm PO DAILYP PRN PRN Reason: Constipation Last Admin: 11/23/20 09:27 Dose: 20 gm Documented by: Levetiracetam (Levetiracetam 500 Mg Tablet) 250 mg PO BID [facility] Last Admin: 11/23/20 08:37 Dose: 250 mg Documented by: Meclizine HCl (Meclizine 25 Mg Tablet) 25 mg PO DAILY [facility] Last Admin: 11/23/20 08:37 Dose: 25 mg Documented by: Melatonin (Melatonin 3 Mg Tablet) 3 mg PO QHS [facility] Last Admin: 11/22/20 21:24 Dose: Not Given Documented by: Metformin HCl (Metformin 500 Mg Tab.Xl.24h) 1,000 mg PO [facility] Last Admin: 11/23/20 08:36 Dose: 1,000 mg Documented by: Methadone HCl (Methadone 5 Mg Tablet) 10 mg PO BID [facility] Last Admin: 11/23/20 08:38 Dose: 10 mg Documented by: Metoclopramide HCl (Metoclopramide 10 Mg/2 Ml Vial) 10 mg IV Q6HP PRN PRN Reason: Nausea And Vomiting Metoprolol Succinate (Metoprolol Succinate 25 Mg Tab.Xl.24h) 12.5 mg PO DAILY [facility] Last Admin: 11/23/20 08:54 Dose: Not Given Documented by: Empagliflozin 25 Mg (Tablet) 1 dose PO DAILY [facility] Last Admin: 11/23/20 08:45 Dose: Not Given Documented by: Empagliflozin [ (Jardiance] 10 Mg Tab) 1 dose PO DAILY [facility] Last Admin: 11/23/20 08:45 Dose: Not Given Documented by: Potassium Chloride (Potassium Chloride 20 Meq Tablet) 40 meq PO UD PRN PRN Reason: Potssium is 3-3.5 Potassium Chloride (Potassium Chloride 20 Meq Tablet) 40 meq PO UD PRN PRN Reason: Potassium < 3 Potassium Chloride (Potassium Chloride 10 Meq Tablet) 20 meq PO QAMCC [facility] Last Admin: 11/23/20 08:37 Dose: 20 meq Documented by: Pregabalin (Pregabalin 25 Mg Capsule) 50 mg PO TID [facility] Last Admin: 11/23/20 08:37 Dose: 50 mg Documented by: Promethazine HCl (Promethazine 25 Mg/Ml Vial) 12.5 mg IV Q6HP PRN PRN Reason: Nausea And Vomiting Senna (Sennosides 1 Tablet) 2 tab PO DAILYP PRN PRN Reason: Constipation Last Admin: 11/23/20 09:26 Dose: 2 tab Documented by: Sertraline HCl (Sertraline 50 Mg Tablet) 125 mg PO DAILY [facility] Last Admin: 11/23/20 08:36 Dose: 125 mg Documented by: Sodium Chloride (0.9 % Sodium Chloride 10 Ml Syringe) 10 ml IV Q8 [facility] Last Admin: 11/23/20 05:19 Dose: 10 ml Documented by: Tramadol HCl (Tramadol 50 Mg Tablet) 50 mg PO DAILYP PRN; Protocol PRN Reason: Pain Last Admin: 11/17/20 10:25 Dose: 50 mg Documented by: Trazodone HCl (Trazodone Hcl 50 Mg Tablet) 25 mg PO HS [facility] Last Admin: 11/22/20 21:24 Dose: Not Given Documented by: A/P Narrative A/P Narrative: 80 year old F patient was recently at [facility] for cellulitis to the leg discharged the beginning of October. She was at [facility] prior to that admission but [facility] refused her and patient was discharged to [facility]. # UTI with ESBL E.Coli - Dced Levaquin. Started Ertapenem 11/17-11/21. Rxed for total of 5 days. - Contact isolation. # Generalized weakness/deconditioning/inability to care for self: - Pt is wheelchair bound for past year -Decrease Xanax 0.5 from TID t BID, decrease baclofen 10 mg from 3 times daily to twice daily, DC Phenergan, Dec Lyrica to 50mg bid from TID. # Hypernatremia: resolved # DM II. Low BS. Change Glipizid to 2.5 daily from 5mg. Cont SSI & home Metformin and Jardiance #HTN: Low BP. Decreased dose of Metoprolol 12.5 from from 50mg and Dced Lisinopril 5mg #LENARD: Home CPAP #Chronic lymphedema/Venous stasis skin changes: Resume home Lasix/KCl #Anxiety/depression: Cont SSRIs. #Obesity: BMI 43 # H/o Sz: Cont Keppra # Recent LLE cellulitis treated at [facility]: #Chronic pain. Resumed home methadone/tramadol. Dispo. CM for placement. Note that patient is wheelchair-bound. - DVT PPX Apixaban full code Dispo. Pending SNF. Ready. Time Spent With Patient Time: Total time spent is greater than 50% in coordination of care (as documented) at patient's floor/unit and/or counseling patient: QUALITY VTE Deep Vein Thrombosis/Pulmonary Embolism Present on Admission: No
--- NOTE | 2020-11-23 12:22 | Internal Med Progress Note ---
SUBJECTIVE Subjective Patient information: Note initiated : 11/23/20 at 12:18 pm Service Date, if different from initiated Date: [] Patient: Alexa Rai 80 y/o F admitted on 11/14/20 for Weakness. Chief Complaint: [] Principal diagnosis: ESBL E.Coli UTI Interval history: History of present illness: Ms. Rai is a 80 year old F patient was recently at [facility] for cellulitis to the leg discharged the beginning of October. She was at [facility] prior to that admission but [facility] refused her and patient was discharged to [facility]. Patient says she has been at [facility] since last February. She is essentially wheelchair-bound for the past couple years she states she can ambulate a little bit with a walker. She was in the motel with her son who is homeless who will be kicked out of the motel today and he was worried about his mother because she cannot get up she just sits in her own urine she cannot take care of her self. She is unable to care for herself and her son who is homeless has no place to care for her. Patient has some nausea but no other complaints. She does have history atrial fibrillation and in the ED she did go to heart rate of 115. [id number] sodium was 146, chemistry showed volume depletion 11/15 Patient doing well. Feels better. Urine culture with gram-negative bacillus. Heart rate improved. Electrolytes improved. Vaginal nausea but no other complaints. 11/16 No new complaints. Pending final urine culture. Placement being worked out with case management.. 11/23 Interval history: Patient is not feeling too good today. She complained of back pain. She seems comfortable. No overnight issues Review of Systems: denies headache/fever/chills/vomiting/chest or abdominal pain/cough/dyspnea/diarrhea. Otherwise see above. Constitutional Vitals: Vital Signs Temp Pulse Resp BP Pulse Ox 98.4 F 63 18 105/59 99 11/23/20 08:00 11/23/20 08:00 11/23/20 08:00 11/23/20 08:00 11/23/20 08:00 Period Temp Pulse Resp BP Sys/Jansen Pulse Ox Last 24 Hr 96.9 F-98.4 F 63-102 16-20 94-105/52-67 85-99 Intake and Output 11/22/20 11/23/20 11/23/20 21:59 05:59 13:59 Intake Total 337 Output Total 402 1 Balance -402 336 Weight 108.363 kg Intake & Output: Intake & Output 11/22/20 11/23/20 11/23/20 21:59 05:59 13:59 Intake Total 337 Output Total 402 1 Balance -402 336 Weight 108.363 kg Intake: Oral 337 Output: Void Amount 400 # of times incontinent of urine 2 1 Other: Meal Dinner Breakfast Percent of Meal Consumed 75% 75% Feeding Ability Independent Independent Urine Appearance Clear Urine Color Pale Exam: General: Alert, Awake, No acute Distress, obese Eyes/N/T: EOMI, Head/Neck: neck supple, CV: RRR, No murmurs, Pulm: Clear b/l, no wheezing/rhonchi/rales Abd: soft, nontender, +BS x4 Ext: no clubbing/cyanosis, mild b/l LE edema Neuro: Alert, no focal deficits, moves all extremities, Skin: warm/dry OBJ DATA Labs CBC & Chem 7: 11/22/20 05:25 11/22/20 05:25 Labs: Abnormal Lab Results 11/22/20 11/22/20 05:25 05:25 RBC 3.86 L Hgb 10.9 L Hct 34.9 L MPV 11.8 H Jessamine # (Auto) 1.24 H Carbon Dioxide 31 H Meds: Medications Acetaminophen (Acetaminophen 325 Mg Tablet) 650 mg PO Q6HP PRN PRN Reason: PAIN/FEVER > 101 Last Admin: 11/17/20 17:22 Dose: 650 mg Documented by: Albuterol/Ipratropium (Ipratropium/Albuterol 3 Ml Ampul.Neb) 3 ml NEB Q4HP PRN PRN Reason: Shortness Of Breath Alprazolam (Alprazolam 0.5 Mg Tablet) 0.5 mg PO Q12HP PRN PRN Reason: Anxiety Apixaban (Apixaban 5 Mg Tablet) 5 mg PO BID [facility] Last Admin: 11/23/20 08:36 Dose: 5 mg Documented by: Aspirin (Aspirin 81 Mg Tab.Chew) 81 mg PO DAILY [facility] Last Admin: 11/23/20 08:38 Dose: 81 mg Documented by: Atorvastatin Calcium (Atorvastatin 40 Mg Tablet) 40 mg PO QHS [facility] Last Admin: 11/22/20 21:21 Dose: 40 mg Documented by: Baclofen (Baclofen 10 Mg Tablet) 10 mg PO BID [facility] Dextrose (Dextrose 50% 50 Ml Vial) 0 ml IV UD PRN PRN Reason: Hypoglycemia Last Admin: 11/22/20 16:57 Dose: 25 ml Documented by: Diagnostic Test (Pha) (Accu-Chek 1 Each Strip) 1 each FS ACHS [facility] Last Admin: 11/23/20 11:37 Dose: 1 each Documented by: Diphenhydramine HCl (Diphenhydramine 25 Mg Capsule) 25 mg PO HS [facility] Last Admin: 11/22/20 21:24 Dose: Not Given Documented by: Diphenoxylate HCl/Atropine (Diphenoxylate Hcl/Atropine 1 Tablet) 1 tab PO QIDP PRN PRN Reason: Wheezing Furosemide (Furosemide 20 Mg Tablet) 20 mg PO DAILY [facility] Last Admin: 11/23/20 08:37 Dose: 20 mg Documented by: Gabapentin (Gabapentin 100 Mg Capsule) 100 mg PO BID [facility] Last Admin: 11/23/20 08:37 Dose: 100 mg Documented by: Glipizide (Glipizide 5 Mg Tablet) 2.5 mg PO QAMAC [facility] Last Admin: 11/23/20 08:37 Dose: 2.5 mg Documented by: Glucose (Dextrose 31 Gm Oral.Susp) 15 gm PO PRN PRN PRN Reason: Hypoglycemia Magnesium Sulfate (Magnesium Sulfate) 2 gm in 50 mls @ 50 mls/hr IV UD PRN PRN Reason: Magnesium </= 1.6 Potassium Chloride 40 meq/ (Dextrose) 520 mls @ 130 mls/hr IV UD PRN PRN Reason: Potassium < 3 Insulin Human Lispro (Insulin Lispro 1 Unit/0.01 Ml Unit) 0 unit SQ [facility]; Protocol Last Admin: 11/23/20 11:39 Dose: Not Given Documented by: Lactulose (Lactulose 20 Gm/30 Ml Oral.Stefany) 20 gm PO Q4H [facility] Levetiracetam (Levetiracetam 500 Mg Tablet) 250 mg PO BID [facility] Last Admin: 11/23/20 08:37 Dose: 250 mg Documented by: Meclizine HCl (Meclizine 25 Mg Tablet) 25 mg PO DAILY [facility] Last Admin: 11/23/20 08:37 Dose: 25 mg Documented by: Melatonin (Melatonin 3 Mg Tablet) 3 mg PO QHS [facility] Last Admin: 11/22/20 21:24 Dose: Not Given Documented by: Metformin HCl (Metformin 500 Mg Tab.Xl.24h) 1,000 mg PO [facility] Last Admin: 11/23/20 08:36 Dose: 1,000 mg Documented by: Methadone HCl (Methadone 5 Mg Tablet) 10 mg PO BID [facility] Last Admin: 11/23/20 08:38 Dose: 10 mg Documented by: Metoclopramide HCl (Metoclopramide 10 Mg/2 Ml Vial) 10 mg IV Q6HP PRN PRN Reason: Nausea And Vomiting Metoprolol Succinate (Metoprolol Succinate 25 Mg Tab.Xl.24h) 12.5 mg PO DAILY [facility] Last Admin: 11/23/20 08:54 Dose: Not Given Documented by: Empagliflozin 25 Mg (Tablet) 1 dose PO DAILY [facility] Last Admin: 11/23/20 08:45 Dose: Not Given Documented by: Empagliflozin [ (Jardiance] 10 Mg Tab) 1 dose PO DAILY [facility] Last Admin: 11/23/20 08:45 Dose: Not Given Documented by: Potassium Chloride (Potassium Chloride 20 Meq Tablet) 40 meq PO UD PRN PRN Reason: Potssium is 3-3.5 Potassium Chloride (Potassium Chloride 20 Meq Tablet) 40 meq PO UD PRN PRN Reason: Potassium < 3 Potassium Chloride (Potassium Chloride 10 Meq Tablet) 20 meq PO [facility] Last Admin: 11/23/20 08:37 Dose: 20 meq Documented by: Pregabalin (Pregabalin 25 Mg Capsule) 50 mg PO BID [facility] Senna (Sennosides 1 Tablet) 2 tab PO DAILYP PRN PRN Reason: Constipation Last Admin: 11/23/20 09:26 Dose: 2 tab Documented by: Sertraline HCl (Sertraline 50 Mg Tablet) 125 mg PO DAILY [facility] Last Admin: 11/23/20 08:36 Dose: 125 mg Documented by: Sodium Chloride (0.9 % Sodium Chloride 10 Ml Syringe) 10 ml IV Q8 [facility] Last Admin: 11/23/20 05:19 Dose: 10 ml Documented by: Tramadol HCl (Tramadol 50 Mg Tablet) 50 mg PO DAILYP PRN; Protocol PRN Reason: Pain Last Admin: 11/17/20 10:25 Dose: 50 mg Documented by: Trazodone HCl (Trazodone Hcl 50 Mg Tablet) 25 mg PO [facility] Last Admin: 11/22/20 21:24 Dose: Not Given Documented by: A/P Narrative A/P Narrative: A: *Generalized weakness/deconditioning/inability to care for self: -essentially wheelchair bound for past year *PAFib/flutter w/rvr: controlled *Hypernatremia: resolved *Dehydration/Volume depletion: improved *UTI (E.coli ESBL): *DM: *HTN: *LENARD: *Chronic lymphedema/venous stasis skin changes: *Anxiety/depression: *Obesity: *h/o Sz: on keppra *Recent [facility]: P: -finished abx -cont home lasix -Decreased dose of Metoprolol 12.5 from from 50mg and Dced Lisinopril 5mg -Decrease Xanax 0.5 from TID to BID -decrease baclofen 10 mg from 3 times daily to twice daily, DC Phenergan -Dec Lyrica to 50mg bid from TID. -Change Glipizide to 2.5 daily from 5mg. Cont SSI & home Metformin and Jardiance -PT/OT -Home CPAP -SSI -CM for placement -ppx: apixaban full code Time Spent With Patient Time: Total time spent is greater than 50% in coordination of care (as documented) at patient's floor/unit and/or counseling patient: QUALITY VTE Deep Vein Thrombosis/Pulmonary Embolism Present on Admission: No
[2020-11-23] MEDS: LACTULOSE 20 GM/30 ML ORAL.SOL PO SCH ×4 (12:58→23:05)
[2020-11-23] MEDS: traMADol 50 MG TABLET PO PRN (19:42)
[2020-11-23] MEDS: diphenhydrAMINE 25 MG CAPSULE PO SCH (20:24)
[2020-11-23] MEDS: ATORVASTATIN 40 MG TABLET PO SCH (20:26)
[2020-11-23] MEDS: MELATONIN 3 MG TABLET PO SCH (20:27)
[2020-11-23] MEDS: traZODone HCL 50 MG TABLET PO SCH (20:28)
[2020-11-24] MEDS: LACTULOSE 20 GM/30 ML ORAL.SOL PO SCH ×2 (03:37→07:51)
[2020-11-24] MEDS: 0.9 % SODIUM CHLORIDE 10 ML SYRINGE IV SCH ×3 (05:05→22:00)
--- NOTE | 2020-11-24 07:50 | Internal Med Progress Note ---
SUBJECTIVE Subjective Patient information: Note initiated : 11/24/20 at 7:47 am Service Date, if different from initiated Date: [] Patient: Alexa Rai a 80 y/o F admitted on 11/14/20 for Weakness. Chief Complaint: [] Principal diagnosis: ESBL E.Coli UTI Interval history: History of present illness: Ms. Rai is a 80 year old F patient was recently at [facility] for cellulitis to the leg discharged the beginning of October. She was [facility] to that [facility] but [facility] her and patient was discharged to [facility]. Patient says she has been at [facility] since last February. She is essentially wheelchair-bound for the past couple years she states she can ambulate a little bit with a walker. She was in the motel with her son who is homeless who will be kicked out of the motel today and he was worried about his mother because she cannot get up she just sits in her own urine she cannot take care of her self. She is unable to care for herself and her son who is homeless has no place to care for her. Patient has some nausea but no other complaints. She does have history atrial fibrillation and in the ED she did go to heart rate of 115. Zccom-wx-kpha sodium was 146, chemistry showed volume depletion 11/15 Patient doing well. Feels better. Urine culture with gram-negative bacillus. Heart rate improved. Electrolytes improved. Vaginal nausea but no other complaints. 11/16 No new complaints. Pending final urine culture. Placement being worked out with case management.. 11/23 Interval history: Patient is not feeling too good today. She complained of back pain. She seems comfortable. No overnight issues 11/24 No overnight event or new complaints. Review of Systems: denies headache/fever/chills/vomiting/chest or abdominal pain/cough/dyspnea/diarrhea. Otherwise see above. Constitutional Vitals: Vital Signs Temp Pulse Resp BP Pulse Ox 97.7 F 105 H 14 99/60 91 11/24/20 03:30 11/24/20 03:30 11/24/20 03:30 11/24/20 03:30 11/24/20 03:30 Period Temp Pulse Resp BP Sys/Jansen Pulse Ox Last 24 Hr 97.6 F-99.4 F 63-115 14-18 90-110/48-65 88-99 Intake and Output 11/23/20 11/24/20 11/24/20 21:59 05:59 13:59 Intake Total 420 Output Total 2 375 Balance -2 45 Weight 107.275 kg Intake & Output: Intake & Output 11/23/20 11/24/20 11/24/20 21:59 05:59 13:59 Intake Total 420 Output Total 2 375 Balance -2 45 Weight 107.275 kg Intake: Oral 420 Output: Urine Catheter Amount 375 # of times incontinent of urine 2 Other: Urine Appearance Clear Clear External Urinary Catheter Clear Urine Color Bright Yellow Bright Yellow External Urinary Catheter Bright Yellow Urine Odor Normal External Urinary Catheter Normal Exam: General: Alert, Awake, No acute Distress, obese Eyes/N/T: EOMI, Head/Neck: neck supple, CV: irreg, No murmurs, Pulm: Clear b/l, no wheezing/rhonchi/rales Abd: soft, mildly distended, tympanic BS Ext: no clubbing/cyanosis, mild b/l LE edema Neuro: Alert, no focal deficits, moves all extremities, Skin: warm/dry OBJ DATA Labs CBC & Chem 7: 11/22/20 05:25 11/22/20 05:25 Labs: Abnormal Lab Results 11/22/20 11/22/20 05:25 05:25 RBC 3.86 L Hgb 10.9 L Hct 34.9 L MPV 11.8 H Garza # (Auto) 1.24 H Carbon Dioxide 31 H Meds: Medications Acetaminophen (Acetaminophen 325 Mg Tablet) 650 mg PO Q6HP PRN PRN Reason: PAIN/FEVER > 101 Last Admin: 11/17/20 17:22 Dose: 650 mg Documented by: Albuterol/Ipratropium (Ipratropium/Albuterol 3 Ml Ampul.Neb) 3 ml NEB Q4HP PRN PRN Reason: Shortness Of Breath Alprazolam (Alprazolam 0.5 Mg Tablet) 0.5 mg PO Q12HP PRN PRN Reason: Anxiety Apixaban (Apixaban 5 Mg Tablet) 5 mg PO BID [facility] Last Admin: 11/23/20 20:24 Dose: 5 mg Documented by: Aspirin (Aspirin 81 Mg Tab.Chew) 81 mg PO DAILY [facility] Last Admin: 11/23/20 08:38 Dose: 81 mg Documented by: Atorvastatin Calcium (Atorvastatin 40 Mg Tablet) 40 mg PO QHS [facility] Last Admin: 11/23/20 20:26 Dose: 40 mg Documented by: Baclofen (Baclofen 10 Mg Tablet) 10 mg PO BID [facility] Last Admin: 11/23/20 20:28 Dose: 10 mg Documented by: Dextrose (Dextrose 50% 50 Ml Vial) 0 ml IV UD PRN PRN Reason: Hypoglycemia Last Admin: 11/22/20 16:57 Dose: 25 ml Documented by: Diagnostic Test (Pha) (Accu-Chek 1 Each Strip) 1 each FS [facility] Last Admin: 11/23/20 20:28 Dose: 1 each Documented by: Diphenhydramine HCl (Diphenhydramine 25 Mg Capsule) 25 mg PO [facility] Last Admin: 11/23/20 20:24 Dose: 25 mg Documented by: Diphenoxylate HCl/Atropine (Diphenoxylate Hcl/Atropine 1 Tablet) 1 tab PO QIDP PRN PRN Reason: Wheezing Furosemide (Furosemide 20 Mg Tablet) 20 mg PO DAILY [facility] Last Admin: 11/23/20 08:37 Dose: 20 mg Documented by: Gabapentin (Gabapentin 100 Mg Capsule) 100 mg PO BID [facility] Last Admin: 11/23/20 20:27 Dose: 100 mg Documented by: Glipizide ([facility] 5 Mg Tablet) [facility] Last Admin: 11/23/20 08:37 Dose: 2.5 mg Documented by: Glucose (Dextrose 31 Gm Oral.Susp) 15 gm PO PRN PRN PRN Reason: Hypoglycemia Magnesium Sulfate (Magnesium Sulfate) 2 gm in 50 mls @ 50 mls/hr IV UD PRN PRN Reason: Magnesium </= 1.6 Potassium Chloride 40 meq/ (Dextrose) 520 mls @ 130 mls/hr IV UD PRN PRN Reason: Potassium < 3 Insulin Human Lispro (Insulin Lispro 1 Unit/0.01 Ml Unit) 0 unit SQ [facility]; Protocol Last Admin: 11/23/20 20:28 Dose: Not Given Documented by: Lactulose (Lactulose 20 Gm/30 Ml Oral.Stefany) 20 gm PO Q4H [facility] Last Admin: 11/24/20 03:37 Dose: 20 gm Documented by: Levetiracetam (Levetiracetam 500 Mg Tablet) 250 mg PO BID [facility] Last Admin: 11/23/20 20:26 Dose: 250 mg Documented by: Meclizine HCl (Meclizine 25 Mg Tablet) 25 mg PO DAILY [facility] Last Admin: 11/23/20 08:37 Dose: 25 mg Documented by: Melatonin (Melatonin 3 Mg Tablet) 3 mg PO QHS [facility] Last Admin: 11/23/20 20:27 Dose: 3 mg Documented by: Metformin HCl (Metformin 500 Mg Tab.Xl.24h) 1,000 mg PO [facility] Last Admin: 11/23/20 08:36 Dose: 1,000 mg Documented by: Methadone HCl (Methadone 5 Mg Tablet) 10 mg PO BID [facility] Last Admin: 11/23/20 20:25 Dose: 10 mg Documented by: Metoclopramide HCl (Metoclopramide 10 Mg/2 Ml Vial) 10 mg IV Q6HP PRN PRN Reason: Nausea And Vomiting Metoprolol Succinate (Metoprolol Succinate 25 Mg Tab.Xl.24h) 12.5 mg PO DAILY [facility] Last Admin: 11/23/20 15:02 Dose: 12.5 mg Documented by: Empagliflozin 25 Mg (Tablet) 1 dose PO DAILY [facility] Last Admin: 11/23/20 08:45 Dose: Not Given Documented by: Empagliflozin [ (Jardiance] 10 Mg Tab) 1 dose PO DAILY [facility] Last Admin: 11/23/20 08:45 Dose: Not Given Documented by: Potassium Chloride (Potassium Chloride 20 Meq Tablet) 40 meq PO UD PRN PRN Reason: Potssium is 3-3.5 Potassium Chloride (Potassium Chloride 20 Meq Tablet) 40 meq PO UD PRN PRN Reason: Potassium < 3 Potassium Chloride (Potassium Chloride 10 Meq Tablet) 20 meq PO [facility] Last Admin: 11/23/20 08:37 Dose: 20 meq Documented by: Pregabalin (Pregabalin 25 Mg Capsule) 50 mg PO BID [facility] Last Admin: 11/23/20 20:25 Dose: 50 mg Documented by: Senna (Sennosides 1 Tablet) 2 tab PO DAILYP PRN PRN Reason: Constipation Last Admin: 11/23/20 09:26 Dose: 2 tab Documented by: Sertraline HCl (Sertraline 50 Mg Tablet) 125 mg PO DAILY [facility] Last Admin: 11/23/20 08:36 Dose: 125 mg Documented by: Sodium Chloride (0.9 % Sodium Chloride 10 Ml Syringe) 10 ml IV Q8 [facility] Last Admin: 11/24/20 05:05 Dose: 10 ml Documented by: Tramadol HCl (Tramadol 50 Mg Tablet) 50 mg PO DAILYP PRN; Protocol PRN Reason: Pain Last Admin: 11/23/20 19:42 Dose: 50 mg Documented by: Trazodone HCl (Trazodone Hcl 50 Mg Tablet) 25 mg PO HS [facility] Last Admin: 11/23/20 20:28 Dose: 25 mg Documented by: A/P Narrative A/P Narrative: A: *Generalized weakness/deconditioning/inability to care for self: -essentially wheelchair bound for past year *PAFib/flutter w/rvr: controlled *Hypernatremia: resolved *Dehydration/Volume depletion: improved *UTI (E.coli ESBL): *DM: *HTN: *LENARD: *Chronic lymphedema/venous stasis skin changes: *Anxiety/depression: *Obesity: *h/o Sz: on keppra *Recent LLE cellulitis treated at [facility]: *ileus vs sbo: P: -finished abx -cont home lasix -Decreased dose of Metoprolol 12.5 from from 50mg and Dced Lisinopril 5mg -Decrease Xanax 0.5 from TID to BID -decrease baclofen 10 mg from 3 times daily to twice daily, DC Phenergan -Dec Lyrica to 50mg bid from TID. -cont SSRI -Change Glipizide to 2.5 daily from 5mg. Cont SSI & home Metformin and Jardiance -axr after contrast -PT/OT -Home CPAP -SSI -CM for placement -ppx: apixaban full code Time Spent With Patient Time: Total time spent is greater than 50% in coordination of care (as documented) at patient's floor/unit and/or counseling patient: QUALITY VTE Deep Vein Thrombosis/Pulmonary Embolism Present on Admission: No
[2020-11-24] MEDS: metFORMIN 500 MG TAB.XL.24H PO SCH (07:58)
[2020-11-24] MEDS: glipiZIDE 5 MG TABLET PO SCH (07:59)
[2020-11-24] MEDS: INSULIN LISPRO 1 UNIT/0.01 ML UNIT SQ SCH ×4 (08:00→21:05)
[2020-11-24] MEDS: METHADONE 5 MG TABLET PO SCH ×2 (09:19→20:37)
[2020-11-24] MEDS: POTASSIUM CHLORIDE 10 MEQ TABLET PO SCH (09:19)
[2020-11-24] MEDS: PREGABALIN 25 MG CAPSULE PO SCH ×2 (09:19→20:37)
[2020-11-24] MEDS: FUROSEMIDE 20 MG TABLET PO SCH (09:20)
[2020-11-24] MEDS: APIXABAN 5 MG TABLET PO SCH ×2 (09:20→20:36)
[2020-11-24] MEDS: MECLIZINE 25 MG TABLET PO SCH (09:20)
[2020-11-24] MEDS: BACLOFEN 10 MG TABLET PO SCH ×2 (09:20→20:38)
[2020-11-24] MEDS: SERTRALINE 50 MG TABLET PO SCH (09:20)
[2020-11-24] MEDS: METOPROLOL SUCCINATE 25 MG TAB.XL.24H PO SCH (09:20)
[2020-11-24] MEDS: levETIRAcetam 500 MG TABLET PO SCH ×2 (09:21→20:38)
[2020-11-24] MEDS: GABAPENTIN 100 MG CAPSULE PO SCH ×2 (09:21→20:38)
--- NOTE | 2020-11-24 09:39 | XRay Report ---
HISTORY: Small bowel obstruction FINDINGS: Portable supine and upright views were obtained. There is moderate amount of air within both large and small intestine. A few loops of small intestine measure up to 4 cm in diameter. A couple air-fluid levels are present. Stomach is decompressed. No free intra-abdominal air is present. There is no apparent soft tissue mass. There are ill-defined streaky opacities in both lung bases which could be scar, atelectasis or inflammation. IMPRESSION: Nonspecific bowel pattern with this could be an ileus or an early/incomplete small bowel obstruction. Nonspecific infiltrates in both lung bases Interpreted and Authenticated by: Luis Felipe Richardson 11/24/20
[2020-11-24] MEDS: EMPAGLIFLOZIN 25 MG TABLET PO SCH (09:44)
[2020-11-24] MEDS: ATORVASTATIN 40 MG TABLET PO SCH (20:36)
[2020-11-24] MEDS: traZODone HCL 50 MG TABLET PO SCH (20:37)
[2020-11-24] MEDS: diphenhydrAMINE 25 MG CAPSULE PO SCH (20:38)
[2020-11-24] MEDS: MELATONIN 3 MG TABLET PO SCH (20:38)
[2020-11-25] MEDS: BISACODYL 10 MG SUPP.RECT PR PRN (05:38)
[2020-11-25] MEDS: 0.9 % SODIUM CHLORIDE 10 ML SYRINGE IV SCH ×3 (05:40→22:52)
[2020-11-25 07:09] LABS: Blood Urea Nitrogen 12 mg/dL (8-23); Calcium 8.2 mg/dL (8.6-10.4); Carbon Dioxide 30 mmol/L (22-30); Chloride 100 mmol/L (96-108); Glomerular Filtration Rate 87; Glucose 66 mg/dL (70-105)
[2020-11-25] MEDS: INSULIN LISPRO 1 UNIT/0.01 ML UNIT SQ SCH ×4 (07:51→22:51)
[2020-11-25] MEDS ORDERED: MINERAL OIL 1 DOSE ENEMA PR ONE (08:10)
--- NOTE | 2020-11-25 08:11 | Internal Med Progress Note ---
SUBJECTIVE Subjective Patient information: Note initiated : 11/25/20 at 8:08 am Service Date, if different from initiated Date: [] Patient: Alexa Rai a 80 y/o F admitted on 11/14/20 for Weakness. Chief Complaint: [] Principal diagnosis: ESBL E.Coli UTI Interval history: History of present illness: Ms. Rai is a 80 year old F patient was recently at [facility] for cellulitis to the leg discharged the beginning of October. She was at [facility] prior to that admission but [facility] and [facility]. Patient says she has been at [facility] since last February. She is essentially wheelchair-bound for the past couple years she states she can ambulate a little bit with a walker. She was in the motel with her son who is homeless who will be kicked out of the motel today and he was worried about his mother because she cannot get up she just sits in her own urine she cannot take care of her self. She is unable to care for herself and her son who is homeless has no place to care for her. Patient has some nausea but no other complaints. She does have history atrial fibrillation and in the ED she did go to heart rate of 115. Mkemh-gt-riji sodium was 146, chemistry showed volume depletion 11/15 Patient doing well. Feels better. Urine culture with gram-negative bacillus. Heart rate improved. Electrolytes improved. Vaginal nausea but no other complaints. 11/16 No new complaints. Pending final urine culture. Placement being worked out with case management.. 11/23 Interval history: Patient is not feeling too good today. She complained of back pain. She seems comfortable. No overnight issues 11/24 No overnight event or new complaints. pt refused oral contrast for further evaluation despite multiple attempts. She admits abdomen is uncomfortable but she is not willing to let us perform work- up to adequately evaluate and treat. 11/25 Patient had a medium sized bowel movement this morning. She seems amenable to a small bowel follow-through this morning, we will attempt to obtain. Review of Systems: denies headache/fever/chills/vomiting/chest or abdominal pain/co ugh/dyspnea/diarrhea. Otherwise see above. Constitutional Vitals: Vital Signs Temp Pulse Resp BP Pulse Ox 98.3 F 114 H 14 107/60 94 11/25/20 04:01 07/07/21 04:01 11/25/20 04:01 11/25/20 04:01 11/25/20 04:01 Period Temp Pulse Resp BP Sys/Jansen Pulse Ox Last 24 Hr 97.8 F-99.1 F 96-115 14-20 107-134/56-72 88-96 Intake and Output 11/24/20 11/25/20 11/25/20 21:59 05:59 13:59 Intake Total 500 Output Total 352 Balance 148 Weight 108.499 kg Intake & Output: Intake & Output 11/24/20 11/25/20 11/25/20 21:59 05:59 13:59 Intake Total 500 Output Total 352 Balance 148 Weight 108.499 kg Intake: Oral 500 Output: Void Amount 350 # of times incontinent of urine 2 Other: Meal Dinner Percent of Meal Consumed 75% Feeding Ability Needs Supervision Urine Appearance Clear External Urinary Catheter Clear Urine Color Bright Yellow External Urinary Catheter Bright Yellow Urine Odor Normal External Urinary Catheter Normal Exam: General: Alert, Awake, No acute Distress, obese Eyes/N/T: EOMI, Head/Neck: neck supple, CV: irreg, No murmurs, Pulm: Clear b/l, no wheezing/rhonchi/rales Abd: soft, distended, not tympanic today Ext: no clubbing/cyanosis, mild b/l LE edema Neuro: Alert, no focal deficits, moves all extremities, Skin: warm/dry OBJ DATA Labs CBC & Chem 7: 11/22/20 05:25 11/25/20 05:11 Labs: Abnormal Lab Results 11/25/20 05:11 Anion Gap 7.0 L Glucose 66 L Calcium 8.2 L Meds: Medications Acetaminophen (Acetaminophen 325 Mg Tablet) 650 mg PO Q6HP PRN PRN Reason: PAIN/FEVER > 101 Last Admin: 11/17/20 17:22 Dose: 650 mg Documented by: Albuterol/Ipratropium (Ipratropium/Albuterol 3 Ml Ampul.Neb) 3 ml NEB Q4HP PRN PRN Reason: Shortness Of Breath Alprazolam (Alprazolam 0.5 Mg Tablet) 0.5 mg PO Q12HP PRN PRN Reason: Anxiety Apixaban (Apixaban 5 Mg Tablet) 5 mg PO BID [facility] Last Admin: 11/24/20 20:36 Dose: 5 mg Documented by: Atorvastatin Calcium (Atorvastatin 40 Mg Tablet) 40 mg PO QHS [facility] Last Admin: 11/24/20 20:36 Dose: 40 mg Documented by: Baclofen (Baclofen 10 Mg Tablet) 10 mg PO BID [facility] Last Admin: 11/24/20 20:38 Dose: 10 mg Documented by: Bisacodyl (Bisacodyl 10 Mg Supp.Rect) 10 mg NC Q2-3DAYS PRN PRN Reason: Constipation Last Admin: 11/25/20 05:38 Dose: 10 mg Documented by: Dextrose (Dextrose 50% 50 Ml Vial) 0 ml IV UD PRN PRN Reason: Hypoglycemia Last Admin: 11/22/20 16:57 Dose: 25 ml Documented by: Diagnostic Test (Pha) (Accu-Chek 1 Each Strip) 1 each FS [facility] Last Admin: 11/25/20 07:51 Dose: 1 each Documented by: Diphenhydramine HCl (Diphenhydramine 25 Mg Capsule) 25 mg PO [facility] Last Admin: 11/24/20 20:38 Dose: 25 mg Documented by: Diphenoxylate HCl/Atropine (Diphenoxylate Hcl/Atropine 1 Tablet) 1 tab PO QIDP PRN PRN Reason: Wheezing Furosemide (Furosemide 20 Mg Tablet) 20 mg PO DAILY [facility] Last Admin: 11/24/20 09:20 Dose: 20 mg Documented by: Gabapentin (Gabapentin 100 Mg Capsule) 100 mg PO BID [facility] Last Admin: 11/24/20 20:38 Dose: 100 mg Documented by: Glipizide (Glipizide 5 Mg Tablet) 2.5 mg PO QAMAC [facility] Last Admin: 11/24/20 07:59 Dose: 2.5 mg Documented by: Glucose (Dextrose 31 Gm Oral.Susp) 15 gm PO PRN PRN PRN Reason: Hypoglycemia Magnesium Sulfate (Magnesium Sulfate) 2 gm in 50 mls @ 50 mls/hr IV UD PRN PRN Reason: Magnesium </= 1.6 Potassium Chloride 40 meq/ (Dextrose) 520 mls @ 130 mls/hr IV UD PRN PRN Reason: Potassium < 3 Insulin Human Lispro (Insulin Lispro 1 Unit/0.01 Ml Unit) 0 unit SQ [facility]; Protocol Last Admin: 11/25/20 07:51 Dose: Not Given Documented by: Levetiracetam (Levetiracetam 500 Mg Tablet) 250 mg PO BID [facility] Last Admin: 11/24/20 20:38 Dose: 250 mg Documented by: Meclizine HCl (Meclizine 25 Mg Tablet) 25 mg PO DAILY [facility] Last Admin: 11/24/20 09:20 Dose: 25 mg Documented by: Melatonin (Melatonin 3 Mg Tablet) 3 mg PO QHS [facility] Last Admin: 11/24/20 20:38 Dose: 3 mg Documented by: Metformin HCl (Metformin 500 Mg Tab.Xl.24h) 1,000 mg PO [facility] Last Admin: 11/24/20 07:58 Dose: 1,000 mg Documented by: Methadone HCl (Methadone 5 Mg Tablet) 10 mg PO BID [facility] Last Admin: 11/24/20 20:37 Dose: 10 mg Documented by: Metoclopramide HCl (Metoclopramide 10 Mg/2 Ml Vial) 10 mg IV Q6HP PRN PRN Reason: Nausea And Vomiting Metoprolol Succinate (Metoprolol Succinate 25 Mg Tab.Xl.24h) 12.5 mg PO DAILY [facility] Last Admin: 11/24/20 09:20 Dose: 12.5 mg Documented by: Empagliflozin 25 Mg (Tablet) 1 dose PO DAILY [facility] Last Admin: 11/24/20 09:44 Dose: Not Given Documented by: Empagliflozin [ (Jardiance] 10 Mg Tab) 1 dose PO DAILY [facility] Last Admin: 11/24/20 09:44 Dose: Not Given Documented by: Potassium Chloride (Potassium Chloride 20 Meq Tablet) 40 meq PO UD PRN PRN Reason: Potssium is 3-3.5 Potassium Chloride (Potassium Chloride 20 Meq Tablet) 40 meq PO UD PRN PRN Reason: Potassium < 3 Potassium Chloride (Potassium Chloride 10 Meq Tablet) 20 meq PO [facility] Last Admin: 11/24/20 09:19 Dose: 20 meq Documented by: Pregabalin (Pregabalin 25 Mg Capsule) 50 mg PO BID [facility] Last Admin: 11/24/20 20:37 Dose: 50 mg Documented by: Senna (Sennosides 1 Tablet) 2 tab PO DAILYP PRN PRN Reason: Constipation Last Admin: 11/23/20 09:26 Dose: 2 tab Documented by: Sertraline HCl (Sertraline 50 Mg Tablet) 125 mg PO DAILY [facility] Last Admin: 11/24/20 09:20 Dose: 125 mg Documented by: Sodium Chloride (0.9 % Sodium Chloride 10 Ml Syringe) 10 ml IV Q8 [facility] Last Admin: 11/25/20 05:40 Dose: 10 ml Documented by: Tramadol HCl (Tramadol 50 Mg Tablet) 50 mg PO DAILYP PRN; Protocol PRN Reason: Pain Last Admin: 11/23/20 19:42 Dose: 50 mg Documented by: Trazodone HCl (Trazodone Hcl 50 Mg Tablet) 25 mg PO HS [facility] Last Admin: 11/24/20 20:37 Dose: 25 mg Documented by: A/P Narrative A/P Narrative: A: *Generalized weakness/deconditioning/inability to care for self: -essentially wheelchair bound for past year *ileus vs incomplete sbo: pt refused oral contrast for further evaluation despite multiple attempts. She admits abdomen is uncomfortable but she is not willing to let us perform work-up to adequately evaluate and treat.*PAFib/flutter w/rvr: controlled *Hypernatremia: resolved *Dehydration/Volume depletion: improved *UTI (E.coli ESBL): *DM: *HTN: *LENARD: *Chronic lymphedema/venous stasis skin changes: *Anxiety/depression: *Obesity: *h/o Sz: on keppra *Recent LLE cellulitis treated at [facility]: *ileus vs sbo: P: -pt refusing care, attempt small bowel follow through again today -finished abx -cont home lasix -Decreased dose of Metoprolol 12.5 from from 50mg and Dced Lisinopril 5mg -Decrease Xanax 0.5 from TID to BID -decrease baclofen 10 mg from 3 times daily to twice daily, DC Phenergan -Dec Lyrica to 50mg bid from TID. -cont SSRI -Change Glipizide to 2.5 daily from 5mg. Cont SSI & home Metformin and Jardiance -axr after contrast -PT/OT -Home CPAP -SSI -CM for placement -ppx: apixaban full code Time Spent With Patient Time: Total time spent is greater than 50% in coordination of care (as documented) at patient's floor/unit and/or counseling patient: QUALITY VTE Deep Vein Thrombosis/Pulmonary Embolism Present on Admission: No
[2020-11-25] MEDS: metFORMIN 500 MG TAB.XL.24H PO SCH (08:58)
[2020-11-25] MEDS: levETIRAcetam 500 MG TABLET PO SCH ×2 (08:58→22:50)
[2020-11-25] MEDS: APIXABAN 5 MG TABLET PO SCH ×2 (08:58→22:50)
[2020-11-25] MEDS: BACLOFEN 10 MG TABLET PO SCH ×2 (08:59→22:49)
[2020-11-25] MEDS: SERTRALINE 50 MG TABLET PO SCH (09:00)
[2020-11-25] MEDS: PREGABALIN 25 MG CAPSULE PO SCH ×2 (09:01→22:50)
[2020-11-25] MEDS: GABAPENTIN 100 MG CAPSULE PO SCH ×2 (09:01→22:51)
[2020-11-25] MEDS: MECLIZINE 25 MG TABLET PO SCH (09:01)
[2020-11-25] MEDS: METHADONE 5 MG TABLET PO SCH ×2 (09:02→22:49)
[2020-11-25] MEDS: glipiZIDE 5 MG TABLET PO SCH (09:03)
[2020-11-25] MEDS: FUROSEMIDE 20 MG TABLET PO SCH (10:16)
[2020-11-25] MEDS: METOPROLOL SUCCINATE 25 MG TAB.XL.24H PO SCH (12:12)
[2020-11-25] MEDS: EMPAGLIFLOZIN 25 MG TABLET PO SCH (12:13)
[2020-11-25] MEDS: POTASSIUM CHLORIDE 10 MEQ TABLET PO SCH (13:58)
--- NOTE | 2020-11-25 14:57 | XRay Report ---
HISTORY: Abdominal pain and distention with nonspecific bowel pattern seen on recent abdominal x-rays FINDINGS: The account collector film of the abdomen shows a moderate amount of gas in the large intestine. Left lateral decubitus view shows air-fluid levels in the ascending colon. There are streaky infiltrates medially in both lung bases. The pulmonary infiltrates have not changed significantly since yesterday. The patient drank 540 cc of a 50-50 ratio of water with Gastrografin.. Serial images were obtained following the contrast pass through the small intestine into the large bowel. Delayed spot images of the abdomen using fluoroscopy were obtained. 57 seconds of fluoroscopy time was used. The stomach is normal in size and contour. The contrast quickly passed through stomach into duodenum and jejunum within an hour the contrast passed through the terminal ileum into the ascending colon. At two hours and 15 minutes the contrast had reached the rectum. The small intestine is normal in caliber. There is no evidence of obstruction or inflammation. Terminal ileum is normal. Large intestine is not abnormally distended. The dilated bowel seen on yesterday's dominant x-ray has returned to normal. IMPRESSION: Normal small bowel follow-through Interpreted and Authenticated by: Luis Felipe Richardson 11/25/20
[2020-11-25] MEDS: ATORVASTATIN 40 MG TABLET PO SCH (22:50)
[2020-11-25] MEDS: MELATONIN 3 MG TABLET PO SCH (22:51)
[2020-11-25] MEDS: diphenhydrAMINE 25 MG CAPSULE PO SCH (22:51)
[2020-11-25] MEDS: traZODone HCL 50 MG TABLET PO SCH (22:51)
[2020-11-25] MEDS: DEXTROSE 50% 50 ML VIAL IV PRN (22:53)
[2020-11-26] MEDS: 0.9 % SODIUM CHLORIDE 10 ML SYRINGE IV SCH ×3 (06:02→22:04)
--- NOTE | 2020-11-26 07:48 | Internal Med Progress Note ---
SUBJECTIVE Subjective Patient information: Note initiated : 11/26/20 at 7:47 am Service Date, if different from initiated Date: [] Patient: Alexa Rai a 80 y/o F admitted on 11/14/20 for Weakness. Chief Complaint: [] Principal diagnosis: ESBL E.Coli UTI Interval history: History of present illness: Ms. Rai is a 80 year old F patient was recently at [facility] for cellulitis to the leg discharged the beginning of October. She was at [facility] prior to that admission but [facility] refused her and patient was discharged to [facility]. Patient says she has been at [facility] since last February. She is essentially wheelchair-bound for the past couple years she states she can ambulate a little bit with a walker. She was in the motel with her son who is homeless who will be kicked out of the motel today and he was worried about his mother because she cannot get up she just sits in her own urine she cannot take care of her self. She is unable to care for herself and her son who is homeless has no place to care for her. Patient has some nausea but no other complaints. She does have history atrial fibrillation and in the ED she did go to heart rate of 115. Oywlh-gw-iqyh sodium was 146, chemistry showed volume depletion 11/15 Patient doing well. Feels better. Urine culture with gram-negative bacillus. Heart rate improved. Electrolytes improved. Vaginal nausea but no other complaints. 11/16 No new complaints. Pending final urine culture. Placement being worked out with case management.. 11/23 Interval history: Patient is not feeling too good today. She complained of back pain. She seems comfortable. No overnight issues 11/24 No overnight event or new complaints. pt refused oral contrast for further evaluation despite multiple attempts. She admits abdomen is uncomfortable but she is not willing to let us perform work- up to adequately evaluate and treat. 11/25 Patient had a medium sized bowel movement this morning. She seems amenable to a small bowel follow-through this morning, we will attempt to obtain. 11/26 No overnight event or complaints. Had a large bowel movement yesterday after c ontrast study. Abdomen soft no pain. Review of Systems: denies headache/fever/chills/vomiting/chest or abdominal pain/cough/dyspnea/diarrhea. Otherwise see above. Constitutional Vitals: Vital Signs Temp Pulse Resp BP Pulse Ox 96.9 F L 91 H 14 107/59 97 11/26/20 03:13 11/26/20 03:13 11/26/20 03:13 11/26/20 03:13 11/26/20 03:13 Period Temp Pulse Resp BP Sys/Jansen Pulse Ox Last 24 Hr 96.9 F-98.4 F 68-110 14-22 84-107/50-59 90-99 Intake and Output 11/25/20 11/26/20 11/26/20 21:59 05:59 13:59 Intake Total 0 400 Output Total 120 Balance 0 280 Weight 105.687 kg Intake & Output: Intake & Output 11/25/20 11/26/20 11/26/20 21:59 05:59 13:59 Intake Total 0 400 Output Total 120 Balance 0 280 Weight 105.687 kg Intake: Oral 400 Tube Feeding 0 Output: Stool 120 Other: Stool Size Large Stool Color Brown Brown Stool Consistency Liquid Liquid Watery Loose # Bowel Movements 1 # of times incontinent of 1 Bowels Exam: General: Alert, Awake, No acute Distress, obese Eyes/N/T: EOMI, Head/Neck: neck supple, CV: irreg, No murmurs, Pulm: Clear b/l, no wheezing/rhonchi/rales Abd: soft, nontender, positive bowel sounds Ext: no clubbing/cyanosis, mild b/l LE edema Neuro: Alert, no focal deficits, moves all extremities, Skin: warm/dry OBJ DATA Labs CBC & Chem 7: 11/22/20 05:25 11/25/20 05:11 Labs: Abnormal Lab Results 11/25/20 05:11 Anion Gap 7.0 L Glucose 66 L Calcium 8.2 L Meds: Medications Acetaminophen (Acetaminophen 325 Mg Tablet) 650 mg PO Q6HP PRN PRN Reason: PAIN/FEVER > 101 Last Admin: 11/17/20 17:22 Dose: 650 mg Documented by: Albuterol/Ipratropium (Ipratropium/Albuterol 3 Ml Ampul.Neb) 3 ml NEB Q4HP PRN PRN Reason: Shortness Of Breath Alprazolam (Alprazolam 0.5 Mg Tablet) 0.5 mg PO Q12HP PRN PRN Reason: Anxiety Apixaban (Apixaban 5 Mg Tablet) 5 mg PO BID [facility] Last Admin: 11/25/20 22:50 Dose: 5 mg Documented by: Atorvastatin Calcium (Atorvastatin 40 Mg Tablet) 40 mg PO QHS [facility] Last Admin: 11/25/20 22:50 Dose: 40 mg Documented by: Baclofen (Baclofen 10 Mg Tablet) 10 mg PO BID [facility] Last Admin: 11/25/20 22:49 Dose: 10 mg Documented by: Bisacodyl (Bisacodyl 10 Mg Supp.Rect) 10 mg VT Q2-3DAYS PRN PRN Reason: Constipation Last Admin: 11/25/20 05:38 Dose: 10 mg Documented by: Dextrose (Dextrose 50% 50 Ml Vial) 0 ml IV UD PRN PRN Reason: Hypoglycemia Last Admin: 11/25/20 22:53 Dose: 25 ml Documented by: Diagnostic Test (Pha) (Accu-Chek 1 Each Strip) 1 each FS [facility] Last Admin: 11/25/20 23:18 Dose: 1 each Documented by: Diphenhydramine HCl (Diphenhydramine 25 Mg Capsule) 25 mg PO [facility] Last Admin: 11/25/20 22:51 Dose: Not Given Documented by: Diphenoxylate HCl/Atropine (Diphenoxylate Hcl/Atropine 1 Tablet) 1 tab PO QIDP PRN PRN Reason: Wheezing Furosemide (Furosemide 20 Mg Tablet) 20 mg PO DAILY [facility] Last Admin: 11/25/20 10:16 Dose: Not Given Documented by: Gabapentin (Gabapentin 100 Mg Capsule) 100 mg PO BID [facility] Last Admin: 11/25/20 22:51 Dose: 100 mg Documented by: Glipizide (Glipizide 5 Mg Tablet) 2.5 mg PO QAMAC [facility] Last Admin: 11/25/20 09:03 Dose: 2.5 mg Documented by: Glucose (Dextrose 31 Gm Oral.Susp) 15 gm PO PRN PRN PRN Reason: Hypoglycemia Magnesium Sulfate (Magnesium Sulfate) 2 gm in 50 mls @ 50 mls/hr IV UD PRN PRN Reason: Magnesium </= 1.6 Potassium Chloride 40 meq/ (Dextrose) 520 mls @ 130 mls/hr IV UD PRN PRN Reason: Potassium < 3 Insulin Human Lispro (Insulin Lispro 1 Unit/0.01 Ml Unit) 0 unit SQ [facility]; Protocol Last Admin: 11/25/20 22:51 Dose: Not Given Documented by: Levetiracetam (Levetiracetam 500 Mg Tablet) 250 mg PO BID [facility] Last Admin: 11/25/20 22:50 Dose: 250 mg Documented by: Meclizine HCl (Meclizine 25 Mg Tablet) 25 mg PO DAILY [facility] Last Admin: 11/25/20 09:01 Dose: 25 mg Documented by: Melatonin (Melatonin 3 Mg Tablet) 3 mg PO QHS [facility] Last Admin: 11/25/20 22:51 Dose: Not Given Documented by: Metformin HCl (Metformin 500 Mg Tab.Xl.24h) 1,000 mg PO [facility] Last Admin: 11/25/20 08:58 Dose: 1,000 mg Documented by: Methadone HCl (Methadone 5 Mg Tablet) 10 mg PO BID [facility] Last Admin: 11/25/20 22:49 Dose: 10 mg Documented by: Metoclopramide HCl (Metoclopramide 10 Mg/2 Ml Vial) 10 mg IV Q6HP PRN PRN Reason: Nausea And Vomiting Metoprolol Succinate (Metoprolol Succinate 25 Mg Tab.Xl.24h) 12.5 mg PO DAILY [facility] Last Admin: 11/25/20 12:12 Dose: 12.5 mg Documented by: Empagliflozin 25 Mg (Tablet) 1 dose PO DAILY [facility] Last Admin: 11/25/20 12:13 Dose: Not Given Documented by: Empagliflozin [ (Jardiance] 10 Mg Tab) 1 dose PO DAILY [facility] Last Admin: 11/25/20 12:13 Dose: Not Given Documented by: Potassium Chloride (Potassium Chloride 20 Meq Tablet) 40 meq PO UD PRN PRN Reason: Potssium is 3-3.5 Potassium Chloride (Potassium Chloride 20 Meq Tablet) 40 meq PO UD PRN PRN Reason: Potassium < 3 Potassium Chloride (Potassium Chloride 10 Meq Tablet) 20 meq PO [facility] Last Admin: 11/25/20 13:58 Dose: Not Given Documented by: Pregabalin (Pregabalin 25 Mg Capsule) 50 mg PO BID [facility] Last Admin: 11/25/20 22:50 Dose: 50 mg Documented by: Senna (Sennosides 1 Tablet) 2 tab PO DAILYP PRN PRN Reason: Constipation Last Admin: 11/23/20 09:26 Dose: 2 tab Documented by: Sertraline HCl (Sertraline 50 Mg Tablet) 125 mg PO DAILY [facility] Last Admin: 11/25/20 09:00 Dose: 125 mg Documented by: Sodium Chloride (0.9 % Sodium Chloride 10 Ml Syringe) 10 ml IV Q8 [facility] Last Admin: 11/26/20 06:02 Dose: Not Given Documented by: Tramadol HCl (Tramadol 50 Mg Tablet) 50 mg PO DAILYP PRN; Protocol PRN Reason: Pain Last Admin: 11/23/20 19:42 Dose: 50 mg Documented by: Trazodone HCl (Trazodone Hcl 50 Mg Tablet) 25 mg PO HS [facility] Last Admin: 11/25/20 22:51 Dose: Not Given Documented by: A/P Narrative A/P Narrative: A: *Generalized weakness/deconditioning/inability to care for self: -essentially wheelchair bound for past year *ileus vs incomplete sbo: pt refused oral contrast for further evaluation despite multiple attempts. She admits abdomen is uncomfortable but she is not willing to let us perform work-up to adequately evaluate and treat.*PAFib/flutter w/rvr: controlled *Hypernatremia: resolved *Dehydration/Volume depletion: improved *UTI (E.coli ESBL): *DM: *HTN: *LENARD: *Chronic lymphedema/venous stasis skin changes: *Anxiety/depression: *Obesity: *h/o Sz: on keppra *Recent LLE cellulitis treated at [facility]: *psbo: resolved *Goals of care: P: -finished abx -cont home lasix -Decreased dose of Metoprolol 12.5 from from 50mg and Dced Lisinopril 5mg -Decrease Xanax 0.5 from TID to BID -decrease baclofen 10 mg from 3 times daily to twice daily, DC Phenergan -Dec Lyrica to 50mg bid from TID. -cont SSRI -Change Glipizide to 2.5 daily from 5mg. Cont SSI & home Metformin and Jardiance -axr after contrast -PT/OT -Home CPAP -SSI -CM for placement -pt may consider hospice eval -ppx: apixaban full code Time Spent With Patient Time: Total time spent is greater than 50% in coordination of care (as documented) at patient's floor/unit and/or counseling patient: QUALITY VTE Deep Vein Thrombosis/Pulmonary Embolism Present on Admission: No
[2020-11-26] MEDS: INSULIN LISPRO 1 UNIT/0.01 ML UNIT SQ SCH ×4 (08:01→22:04)
[2020-11-26] MEDS: glipiZIDE 5 MG TABLET PO SCH (08:15)
[2020-11-26] MEDS: POTASSIUM CHLORIDE 10 MEQ TABLET PO SCH (08:16)
[2020-11-26] MEDS: SERTRALINE 50 MG TABLET PO SCH (10:28)
[2020-11-26] MEDS: levETIRAcetam 500 MG TABLET PO SCH ×2 (10:29→22:02)
[2020-11-26] MEDS: FUROSEMIDE 20 MG TABLET PO SCH (10:30)
[2020-11-26] MEDS: BACLOFEN 10 MG TABLET PO SCH ×2 (10:30→22:14)
[2020-11-26] MEDS: GABAPENTIN 100 MG CAPSULE PO SCH ×2 (10:30→22:02)
[2020-11-26] MEDS: APIXABAN 5 MG TABLET PO SCH ×2 (10:31→22:02)
[2020-11-26] MEDS: PREGABALIN 25 MG CAPSULE PO SCH ×2 (10:31→22:03)
[2020-11-26] MEDS: METHADONE 5 MG TABLET PO SCH ×2 (10:32→22:03)
[2020-11-26] MEDS: metFORMIN 500 MG TAB.XL.24H PO SCH (10:32)
[2020-11-26] MEDS: MECLIZINE 25 MG TABLET PO SCH (10:36)
[2020-11-26] MEDS: EMPAGLIFLOZIN 25 MG TABLET PO SCH (10:43)
[2020-11-26] MEDS: METOPROLOL SUCCINATE 25 MG TAB.XL.24H PO SCH (10:43)
[2020-11-26] MEDS: traZODone HCL 50 MG TABLET PO SCH (22:02)
[2020-11-26] MEDS: ATORVASTATIN 40 MG TABLET PO SCH (22:02)
[2020-11-26] MEDS: diphenhydrAMINE 25 MG CAPSULE PO SCH (22:02)
[2020-11-26] MEDS: MELATONIN 3 MG TABLET PO SCH (22:03)
[2020-11-27] MEDS: 0.9 % SODIUM CHLORIDE 10 ML SYRINGE IV SCH ×3 (05:54→21:28)
[2020-11-27] MEDS: INSULIN LISPRO 1 UNIT/0.01 ML UNIT SQ SCH ×4 (07:38→21:27)
--- NOTE | 2020-11-27 08:07 | Internal Med Progress Note ---
SUBJECTIVE Subjective Patient information: Note initiated : 11/27/20 at 8:05 am Service Date, if different from initiated Date: [] Patient: Alexa Rai a 80 y/o F admitted on 11/14/20 for Weakness. Chief Complaint: [] Principal diagnosis: ESBL E.Coli UTI Interval history: History of present illness: Ms. Rai is a 80 year old F patient was recently at [facility] for cellulitis to the leg discharged the beginning of October. She was at [facility] prior to that admission but [facility] refused her and patient was discharged to [facility]. Patient says she has been at [facility] since last February. She is essentially wheelchair-bound for the past couple years she states she can ambulate a little bit with a walker. She was in the motel with her son who is homeless who will be kicked out of the motel today and he was worried about his mother because she cannot get up she just sits in her own urine she cannot take care of her self. She is unable to care for herself and her son who is homeless has no place to care for her. Patient has some nausea but no other complaints. She does have history atrial fibrillation and in the ED she did go to heart rate of 115. Wmkjs-nv-uiqi sodium was 146, chemistry showed volume depletion 11/15 Patient doing well. Feels better. Urine culture with gram-negative bacillus. Heart rate improved. Electrolytes improved. Vaginal nausea but no other complaints. 11/16 No new complaints. Pending final urine culture. Placement being worked out with case management.. 11/23 Interval history: Patient is not feeling too good today. She complained of back pain. She seems comfortable. No overnight issues 11/24 No overnight event or new complaints. pt refused oral contrast for further evaluation despite multiple attempts. She admits abdomen is uncomfortable but she is not willing to let us perform work- up to adequately evaluate and treat. 11/25 Patient had a medium sized bowel movement this morning. She seems amenable to a small bowel follow-through this morning, we will attempt to obtain. 11/26 No overnight event or complaints. Had a large bowel movement yesterday after c ontrast study. Abdomen soft no pain. 11/27 Complains of chronic lower back pain otherwise no new complaints. Awaiting placement. Review of Systems: denies headache/fever/chills/vomiting/chest or abdominal pain/cough/dyspnea/diarrhea. Otherwise see above. Constitutional Vitals: Vital Signs Temp Pulse Resp BP Pulse Ox 96.9 F L 79 16 107/63 92 11/27/20 07:12 11/27/20 07:12 11/27/20 07:12 11/27/20 07:12 11/27/20 07:12 Period Temp Pulse Resp BP Sys/Jansen Pulse Ox Last 24 Hr 96.9 F-97.2 F 79-110 14-18 93-107/53-63 88-97 Intake and Output 11/26/20 11/27/20 11/27/20 21:59 05:59 13:59 Intake Total 350 500 Output Total 207 100 Balance 143 400 Weight 107.002 kg Intake & Output: Intake & Output 11/26/20 11/27/20 11/27/20 21:59 05:59 13:59 Intake Total 350 500 Output Total 207 100 Balance 143 400 Weight 107.002 kg Intake: Nourishment/Supplement quantity 150 (ml) Oral 200 500 Tube Feeding 0 Output: Gastric Drainage 100 Rectal 100 # of times incontinent of urine 2 Stool 205 Other: Meal Lunch Percent of Meal Consumed 25% Feeding Ability Assist with Tray Set Up Nourishment/Supplement name Glucerna Urine Color Dark Yellow Urine Odor Normal Stool Color Brown Stool Consistency Watery Exam: General: Alert, Awake, No acute Distress, obese Eyes/N/T: EOMI, Head/Neck: neck supple, CV: irreg, No murmurs, Pulm: Clear b/l, no wheezing/rhonchi/rales Abd: soft, nontender, positive bowel sounds Ext: no clubbing/cyanosis, mild b/l LE edema Neuro: Alert, no focal deficits, moves all extremities, Skin: warm/dry OBJ DATA Labs CBC & Chem 7: 11/22/20 05:25 11/25/20 05:11 Labs: Abnormal Lab Results 11/25/20 05:11 Anion Gap 7.0 L Glucose 66 L Calcium 8.2 L Meds: Medications Acetaminophen (Acetaminophen 325 Mg Tablet) 650 mg PO Q6HP PRN PRN Reason: PAIN/FEVER > 101 Last Admin: 11/17/20 17:22 Dose: 650 mg Documented by: Albuterol/Ipratropium (Ipratropium/Albuterol 3 Ml Ampul.Neb) 3 ml NEB Q4HP PRN PRN Reason: Shortness Of Breath Alprazolam (Alprazolam 0.5 Mg Tablet) 0.5 mg PO Q12HP PRN PRN Reason: Anxiety Apixaban (Apixaban 5 Mg Tablet) 5 mg PO BID [facility] Last Admin: 11/26/20 22:02 Dose: 5 mg Documented by: Atorvastatin Calcium (Atorvastatin 40 Mg Tablet) 40 mg PO QHS [facility] Last Admin: 11/26/20 22:02 Dose: 40 mg Documented by: Baclofen (Baclofen 10 Mg Tablet) 10 mg PO BID [facility] Last Admin: 11/26/20 22:14 Dose: 10 mg Documented by: Bisacodyl (Bisacodyl 10 Mg Supp.Rect) 10 mg PA Q2-3DAYS PRN PRN Reason: Constipation Last Admin: 11/25/20 05:38 Dose: 10 mg Documented by: Dextrose (Dextrose 50% 50 Ml Vial) 0 ml IV UD PRN PRN Reason: Hypoglycemia Last Admin: 11/25/20 22:53 Dose: 25 ml Documented by: Diagnostic Test (Pha) (Accu-Chek 1 Each Strip) 1 each FS ACHS [facility] Last Admin: 11/26/20 21:22 Dose: 1 each Documented by: Diphenhydramine HCl (Diphenhydramine 25 Mg Capsule) 25 mg PO [facility] Last Admin: 11/26/20 22:02 Dose: 25 mg Documented by: Diphenoxylate HCl/Atropine (Diphenoxylate Hcl/Atropine 1 Tablet) 1 tab PO QIDP PRN PRN Reason: Wheezing Furosemide (Furosemide 20 Mg Tablet) 20 mg PO DAILY [facility] Last Admin: 11/26/20 10:30 Dose: 20 mg Documented by: Gabapentin (Gabapentin 100 Mg Capsule) 100 mg PO BID [facility] Last Admin: 11/26/20 22:02 Dose: 100 mg Documented by: Glipizide (Glipizide 5 Mg Tablet) 2.5 mg PO QAMAC [facility] Last Admin: 11/26/20 08:15 Dose: 2.5 mg Documented by: Glucose (Dextrose 31 Gm Oral.Susp) 15 gm PO PRN PRN PRN Reason: Hypoglycemia Magnesium Sulfate (Magnesium Sulfate) 2 gm in 50 mls @ 50 mls/hr IV UD PRN PRN Reason: Magnesium </= 1.6 Potassium Chloride 40 meq/ (Dextrose) 520 mls @ 130 mls/hr IV UD PRN PRN Reason: Potassium < 3 Insulin Human Lispro (Insulin Lispro 1 Unit/0.01 Ml Unit) 0 unit SQ ACHS [facility]; Protocol Last Admin: 11/27/20 07:38 Dose: Not Given Documented by: Levetiracetam (Levetiracetam 500 Mg Tablet) 250 mg PO BID [facility] Last Admin: 11/26/20 22:02 Dose: 250 mg Documented by: Meclizine HCl (Meclizine 25 Mg Tablet) 25 mg PO DAILY [facility] Last Admin: 11/26/20 10:36 Dose: 25 mg Documented by: Melatonin (Melatonin 3 Mg Tablet) 3 mg PO QHS [facility] Last Admin: 11/26/20 22:03 Dose: 3 mg Documented by: Metformin HCl (Metformin 500 Mg Tab.Xl.24h) 1,000 mg PO [facility] Last Admin: 11/26/20 10:32 Dose: 1,000 mg Documented by: Methadone HCl (Methadone 5 Mg Tablet) 10 mg PO BID [facility] Last Admin: 11/26/20 22:03 Dose: 10 mg Documented by: Metoclopramide HCl (Metoclopramide 10 Mg/2 Ml Vial) 10 mg IV Q6HP PRN PRN Reason: Nausea And Vomiting Metoprolol Succinate (Metoprolol Succinate 25 Mg Tab.Xl.24h) 12.5 mg PO DAILY [facility] Last Admin: 11/26/20 10:43 Dose: Not Given Documented by: Empagliflozin 25 Mg (Tablet) 1 dose PO DAILY [facility] Last Admin: 11/26/20 10:43 Dose: Not Given Documented by: Empagliflozin [ (Jardiance] 10 Mg Tab) 1 dose PO DAILY [facility] Last Admin: 11/26/20 10:43 Dose: Not Given Documented by: Potassium Chloride (Potassium Chloride 20 Meq Tablet) 40 meq PO UD PRN PRN Reason: Potssium is 3-3.5 Potassium Chloride (Potassium Chloride 20 Meq Tablet) 40 meq PO UD PRN PRN Reason: Potassium < 3 Potassium Chloride (Potassium Chloride 10 Meq Tablet) [facility] Last Admin: 11/26/20 08:16 Dose: 20 meq Documented by: Pregabalin (Pregabalin 25 Mg Capsule) 50 mg PO BID [facility] Last Admin: 11/26/20 22:03 Dose: 50 mg Documented by: Senna (Sennosides 1 Tablet) 2 tab PO DAILYP PRN PRN Reason: Constipation Last Admin: 11/23/20 09:26 Dose: 2 tab Documented by: Sertraline HCl (Sertraline 50 Mg Tablet) 125 mg PO DAILY [facility] Last Admin: 11/26/20 10:28 Dose: 125 mg Documented by: Sodium Chloride (0.9 % Sodium Chloride 10 Ml Syringe) 10 ml IV Q8 [facility] Last Admin: 11/27/20 05:54 Dose: Not Given Documented by: Tramadol HCl (Tramadol 50 Mg Tablet) 50 mg PO DAILYP PRN; Protocol PRN Reason: Pain Last Admin: 11/23/20 19:42 Dose: 50 mg Documented by: Trazodone HCl (Trazodone Hcl 50 Mg Tablet) 25 mg PO HS [facility] Last Admin: 11/26/20 22:02 Dose: 25 mg Documented by: A/P Narrative A/P Narrative: A: *Generalized weakness/deconditioning/inability to care for self: -essentially wheelchair bound for past year *ileus vs incomplete sbo: pt refused oral contrast for further evaluation despite multiple attempts. She admits abdomen is uncomfortable but she is not willing to let us perform work-up to adequately evaluate and treat.*PAFib/flutter w/rvr: controlled *Hypernatremia: resolved *Dehydration/Volume depletion: improved *UTI (E.coli ESBL): *DM: *HTN: *LENARD: *Chronic lymphedema/venous stasis skin changes: *Anxiety/depression: *Obesity: *h/o Sz: on keppra *Recent LLE cellulitis treated at [facility]: *psbo: resolved *Goals of care: P: -finished abx -cont home lasix -Decreased dose of Metoprolol 12.5 from from 50mg and Dced Lisinopril 5mg -Decrease Xanax 0.5 from TID to BID -decrease baclofen 10 mg from 3 times daily to twice daily, DC Phenergan -Dec Lyrica to 50mg bid from TID. -cont SSRI -Change Glipizide to 2.5 daily from 5mg. Cont SSI & home Metformin and Jardiance -PT/OT -Home CPAP -SSI -CM for placement -pt may consider hospice eval -ppx: apixaban full code Time Spent With Patient Time: Total time spent is greater than 50% in coordination of care (as documented) at patient's floor/unit and/or counseling patient: QUALITY VTE Deep Vein Thrombosis/Pulmonary Embolism Present on Admission: No
[2020-11-27] MEDS: APIXABAN 5 MG TABLET PO SCH ×2 (08:38→21:28)
[2020-11-27] MEDS: levETIRAcetam 500 MG TABLET PO SCH ×2 (08:38→21:28)
[2020-11-27] MEDS: POTASSIUM CHLORIDE 10 MEQ TABLET PO SCH (08:38)
[2020-11-27] MEDS: PREGABALIN 25 MG CAPSULE PO SCH ×2 (08:38→21:27)
[2020-11-27] MEDS: metFORMIN 500 MG TAB.XL.24H PO SCH (08:38)
[2020-11-27] MEDS: MECLIZINE 25 MG TABLET PO SCH (08:38)
[2020-11-27] MEDS: glipiZIDE 5 MG TABLET PO SCH (08:39)
[2020-11-27] MEDS: GABAPENTIN 100 MG CAPSULE PO SCH ×2 (08:39→21:28)
[2020-11-27] MEDS: SERTRALINE 50 MG TABLET PO SCH (08:39)
[2020-11-27] MEDS: BACLOFEN 10 MG TABLET PO SCH ×2 (08:39→21:27)
[2020-11-27] MEDS: EMPAGLIFLOZIN 25 MG TABLET PO SCH (08:40)
[2020-11-27] MEDS: METHADONE 5 MG TABLET PO SCH ×2 (09:00→21:27)
[2020-11-27] MEDS: MELATONIN 3 MG TABLET PO SCH (21:27)
[2020-11-27] MEDS: diphenhydrAMINE 25 MG CAPSULE PO SCH (21:27)
[2020-11-27] MEDS: ATORVASTATIN 40 MG TABLET PO SCH (21:28)
[2020-11-27] MEDS: traZODone HCL 50 MG TABLET PO SCH (21:28)
[2020-11-28] MEDS: 0.9 % SODIUM CHLORIDE 10 ML SYRINGE IV SCH ×3 (06:09→21:41)
[2020-11-28] MEDS: INSULIN LISPRO 1 UNIT/0.01 ML UNIT SQ SCH ×4 (07:38→21:38)
--- NOTE | 2020-11-28 07:56 | Internal Med Progress Note ---
SUBJECTIVE Subjective Patient information: Note initiated : 11/28/20 at 7:56 am Service Date, if different from initiated Date: [] Patient: Alexa Rai a 80 y/o F admitted on 11/14/20 for Weakness. Chief Complaint: [] Principal diagnosis: ESBL E.Coli UTI Interval history: History of present illness: Ms. Rai is a 80 year old F patient was recently at [facility] for cellulitis to the leg discharged the beginning of October. She was at [facility] prior to that admission but [facility] refused her and patient was discharged to [facility]. Patient says she has been at [facility] since last February. She is essentially wheelchair-bound for the past couple years she states she can ambulate a little bit with a walker. She was in the motel with her son who is homeless who will be kicked out of the motel today and he was worried about his mother because she cannot get up she just sits in her own urine she cannot take care of her self. She is unable to care for herself and her son who is homeless has no place to care for her. Patient has some nausea but no other complaints. She does have history atrial fibrillation and in the ED she did go to heart rate of 115. Bcwxe-mm-hrgc sodium was 146, chemistry showed volume depletion 11/15 Patient doing well. Feels better. Urine culture with gram-negative bacillus. Heart rate improved. Electrolytes improved. Vaginal nausea but no other complaints. 11/16 No new complaints. Pending final urine culture. Placement being worked out with case management.. 11/23 Interval history: Patient is not feeling too good today. She complained of back pain. She seems comfortable. No overnight issues 11/24 No overnight event or new complaints. pt refused oral contrast for further evaluation despite multiple attempts. She admits abdomen is uncomfortable but she is not willing to let us perform work- up to adequately evaluate and treat. 11/25 Patient had a medium sized bowel movement this morning. She seems amenable to a small bowel follow-through this morning, we will attempt to obtain. 11/26 No overnight event or complaints. Had a large bowel movement yesterday after c ontrast study. Abdomen soft no pain. 11/27 Complains of chronic lower back pain otherwise no new complaints. Awaiting placement. 11/28 no changes. No new complaints. Awaiting placement Review of Systems: denies headache/fever/chills/vomiting/chest or abdominal pain/cough/dyspnea/diarrhea. Otherwise see above. Constitutional Vitals: Vital Signs Temp Pulse Resp BP Pulse Ox 97.2 F 78 14 112/67 98 11/28/20 06:55 11/28/20 06:55 11/28/20 06:55 11/28/20 06:55 11/28/20 06:55 Period Temp Pulse Resp BP Sys/Jansen Pulse Ox Last 24 Hr 96.9 F-97.7 F 77-114 12-18 97-114/54-70 93-98 Intake and Output 11/27/20 11/28/20 11/28/20 21:59 05:59 13:59 Intake Total 150 0 Output Total 800 Balance -650 0 Weight 107.683 kg Intake & Output: Intake & Output 11/27/20 11/28/20 11/28/20 21:59 05:59 13:59 Intake Total 150 0 Output Total 800 Balance -650 0 Weight 107.683 kg Intake: Oral 150 0 Tube Feeding 0 0 Output: Void Amount 800 Other: Meal Dinner Percent of Meal Consumed 25% Feeding Ability Assist with Tray Set Up Urine Appearance Cloudy Urine Color Light Loly Urine Odor Strong Exam: General: Alert, Awake, No acute Distress, obese Eyes/N/T: EOMI, Head/Neck: neck supple, CV: irreg, No murmurs, Pulm: Clear b/l, no wheezing/rhonchi/rales Abd: soft, nontender, positive bowel sounds Ext: no clubbing/cyanosis, mild b/l LE edema Neuro: Alert, no focal deficits, moves all extremities, Skin: warm/dry OBJ DATA Labs CBC & Chem 7: 11/22/20 05:25 11/25/20 05:11 Meds: Medications Acetaminophen (Acetaminophen 325 Mg Tablet) 650 mg PO Q6HP PRN PRN Reason: PAIN/FEVER > 101 Last Admin: 11/17/20 17:22 Dose: 650 mg Documented by: Albuterol/Ipratropium (Ipratropium/Albuterol 3 Ml Ampul.Neb) 3 ml NEB Q4HP PRN PRN Reason: Shortness Of Breath Alprazolam (Alprazolam 0.5 Mg Tablet) 0.5 mg PO Q12HP PRN PRN Reason: Anxiety Apixaban (Apixaban 5 Mg Tablet) 5 mg PO BID [facility] Last Admin: 11/27/20 21:28 Dose: 5 mg Documented by: Atorvastatin Calcium (Atorvastatin 40 Mg Tablet) 40 mg PO QHS [facility] Last Admin: 11/27/20 21:28 Dose: 40 mg Documented by: Baclofen (Baclofen 10 Mg Tablet) 10 mg PO BID [facility] Last Admin: 11/27/20 21:27 Dose: 10 mg Documented by: Bisacodyl (Bisacodyl 10 Mg Supp.Rect) 10 mg WI Q2-3DAYS PRN PRN Reason: Constipation Last Admin: 11/25/20 05:38 Dose: 10 mg Documented by: Dextrose (Dextrose 50% 50 Ml Vial) 0 ml IV UD PRN PRN Reason: Hypoglycemia Last Admin: 11/25/20 22:53 Dose: 25 ml Documented by: Diagnostic Test (Pha) (Accu-Chek 1 Each Strip) 1 each FS [facility] Last Admin: 11/28/20 07:36 Dose: 1 each Documented by: Diphenhydramine HCl (Diphenhydramine 25 Mg Capsule) 25 mg PO HS [facility] Last Admin: 11/27/20 21:27 Dose: 25 mg Documented by: Diphenoxylate HCl/Atropine (Diphenoxylate Hcl/Atropine 1 Tablet) 1 tab PO QIDP PRN PRN Reason: Wheezing Furosemide (Furosemide 20 Mg Tablet) 20 mg PO DAILY [facility] Gabapentin (Gabapentin 100 Mg Capsule) 100 mg PO BID [facility] Last Admin: 11/27/20 21:28 Dose: 100 mg Documented by: Glipizide (Glipizide 5 Mg Tablet) 2.5 mg PO QAMAC [facility] Last Admin: 11/27/20 08:39 Dose: 2.5 mg Documented by: Glucose (Dextrose 31 Gm Oral.Susp) 15 gm PO PRN PRN PRN Reason: Hypoglycemia Magnesium Sulfate (Magnesium Sulfate) 2 gm in 50 mls @ 50 mls/hr IV UD PRN PRN Reason: Magnesium </= 1.6 Potassium Chloride 40 meq/ (Dextrose) 520 mls @ 130 mls/hr IV UD PRN PRN Reason: Potassium < 3 Insulin Human Lispro (Insulin Lispro 1 Unit/0.01 Ml Unit) 0 unit SQ [facility]; Protocol Last Admin: 11/28/20 07:38 Dose: Not Given Documented by: Levetiracetam (Levetiracetam 500 Mg Tablet) 250 mg PO BID [facility] Last Admin: 11/27/20 21:28 Dose: 250 mg Documented by: Meclizine HCl (Meclizine 25 Mg Tablet) 25 mg PO DAILY [facility] Last Admin: 11/27/20 08:38 Dose: 25 mg Documented by: [facility] Last Admin: 11/27/20 21:27 Dose: 3 mg Documented by: Metformin HCl (Metformin 500 Mg Tab.Xl.24h) 1,000 mg PO [facility] Last Admin: 11/27/20 08:38 Dose: 1,000 mg Documented by: Methadone HCl (Methadone 5 Mg Tablet) 10 mg PO BID [facility] Last Admin: 11/27/20 21:27 Dose: 10 mg Documented by: Metoclopramide HCl (Metoclopramide 10 Mg/2 Ml Vial) 10 mg IV Q6HP PRN PRN Reason: Nausea And Vomiting Metoprolol Succinate (Metoprolol Succinate 25 Mg Tab.Xl.24h) 12.5 mg PO DAILY [facility] Empagliflozin 25 Mg (Tablet) 1 dose PO DAILY [facility] Last Admin: 11/27/20 08:40 Dose: Not Given Documented by: Empagliflozin [ (Jardiance] 10 Mg Tab) 1 dose PO DAILY [facility] Last Admin: 11/27/20 08:40 Dose: Not Given Documented by: Potassium Chloride (Potassium Chloride 20 Meq Tablet) 40 meq PO UD PRN PRN Reason: Potssium is 3-3.5 Potassium Chloride (Potassium Chloride 20 Meq Tablet) 40 meq PO UD PRN PRN Reason: Potassium < 3 Potassium Chloride (Potassium Chloride 10 Meq Tablet) 20 meq PO [facility] Last Admin: 11/27/20 08:38 Dose: 20 meq Documented by: Pregabalin (Pregabalin 25 Mg Capsule) 50 mg PO BID [facility] Last Admin: 11/27/20 21:27 Dose: 50 mg Documented by: Senna (Sennosides 1 Tablet) 2 tab PO DAILYP PRN PRN Reason: Constipation Last Admin: 11/23/20 09:26 Dose: 2 tab Documented by: Sertraline HCl (Sertraline 50 Mg Tablet) 125 mg PO DAILY [facility] Last Admin: 11/27/20 08:39 Dose: 125 mg Documented by: Sodium Chloride (0.9 % Sodium Chloride 10 Ml Syringe) 10 ml IV Q8 [facility] Last Admin: 11/28/20 06:09 Dose: Not Given Documented by: Tramadol HCl (Tramadol 50 Mg Tablet) 50 mg PO DAILYP PRN; Protocol PRN Reason: Pain Last Admin: 11/23/20 19:42 Dose: 50 mg Documented by: Trazodone HCl (Trazodone Hcl 50 Mg Tablet) 25 mg PO HS [facility] Last Admin: 11/27/20 21:28 Dose: 25 mg Documented by: A/P Narrative A/P Narrative: A: *Generalized weakness/deconditioning/inability to care for self: -essentially wheelchair bound for past year *ileus vs incomplete sbo: pt refused oral contrast for further evaluation despite multiple attempts. She admits abdomen is uncomfortable but she is not willing to let us perform work-up to adequately evaluate and treat.*PAFib/flutter w/rvr: controlled *Hypernatremia: resolved *Dehydration/Volume depletion: improved *UTI (E.coli ESBL): *DM: *HTN: *LENARD: *Chronic lymphedema/venous stasis skin changes: *Anxiety/depression: *Obesity: *h/o Sz: on keppra *Recent LLE cellulitis treated at [facility]: *psbo: resolved *Goals of care: P: -finished abx -cont home lasix -Decreased dose of Metoprolol 12.5 from from 50mg and Dced Lisinopril 5mg -Decrease Xanax 0.5 from TID to BID -decrease baclofen 10 mg from 3 times daily to twice daily, DC Phenergan -Dec Lyrica to 50mg bid from TID. -cont SSRI -Change Glipizide to 2.5 daily from 5mg. Cont SSI & home Metformin and Jardiance -PT/OT -Home CPAP -SSI -CM for placement -pt may consider hospice eval -ppx: apixaban full code Time Spent With Patient Time: Total time spent is greater than 50% in coordination of care (as doc umented) at patient's floor/unit and/or counseling patient: QUALITY VTE Deep Vein Thrombosis/Pulmonary Embolism Present on Admission: No
[2020-11-28] MEDS: levETIRAcetam 500 MG TABLET PO SCH ×2 (08:28→21:39)
[2020-11-28] MEDS: SERTRALINE 50 MG TABLET PO SCH (08:29)
[2020-11-28] MEDS: PREGABALIN 25 MG CAPSULE PO SCH ×2 (08:29→21:40)
[2020-11-28] MEDS: METHADONE 5 MG TABLET PO SCH ×2 (08:30→21:39)
[2020-11-28] MEDS: APIXABAN 5 MG TABLET PO SCH ×2 (08:31→21:40)
[2020-11-28] MEDS: BACLOFEN 10 MG TABLET PO SCH ×2 (08:31→21:39)
[2020-11-28] MEDS: metFORMIN 500 MG TAB.XL.24H PO SCH (08:31)
[2020-11-28] MEDS: GABAPENTIN 100 MG CAPSULE PO SCH ×2 (08:32→21:41)
[2020-11-28] MEDS: glipiZIDE 5 MG TABLET PO SCH (08:32)
[2020-11-28] MEDS: POTASSIUM CHLORIDE 10 MEQ TABLET PO SCH (08:32)
[2020-11-28] MEDS: METOPROLOL SUCCINATE 25 MG TAB.XL.24H PO SCH (08:33)
[2020-11-28] MEDS: MECLIZINE 25 MG TABLET PO SCH (08:33)
[2020-11-28] MEDS: EMPAGLIFLOZIN 25 MG TABLET PO SCH (08:42)
[2020-11-28] MEDS: diphenhydrAMINE 25 MG CAPSULE PO SCH (21:39)
[2020-11-28] MEDS: ATORVASTATIN 40 MG TABLET PO SCH (21:39)
[2020-11-28] MEDS: MELATONIN 3 MG TABLET PO SCH (21:39)
[2020-11-28] MEDS: traZODone HCL 50 MG TABLET PO SCH (21:40)
[2020-11-29] MEDS: 0.9 % SODIUM CHLORIDE 10 ML SYRINGE IV SCH ×3 (06:03→21:28)
[2020-11-29] MEDS: glipiZIDE 5 MG TABLET PO SCH ×2 (07:14→08:41)
[2020-11-29] MEDS: INSULIN LISPRO 1 UNIT/0.01 ML UNIT SQ SCH ×4 (07:15→21:33)
[2020-11-29] MEDS: EMPAGLIFLOZIN 25 MG TABLET PO SCH (07:20)
[2020-11-29] MEDS: levETIRAcetam 500 MG TABLET PO SCH ×2 (08:40→21:24)
[2020-11-29] MEDS: metFORMIN 500 MG TAB.XL.24H PO SCH (08:41)
[2020-11-29] MEDS: MECLIZINE 25 MG TABLET PO SCH (08:41)
[2020-11-29] MEDS: PREGABALIN 25 MG CAPSULE PO SCH ×2 (08:42→21:24)
[2020-11-29] MEDS: METOPROLOL SUCCINATE 25 MG TAB.XL.24H PO SCH (08:42)
[2020-11-29] MEDS: SERTRALINE 50 MG TABLET PO SCH (08:42)
[2020-11-29] MEDS: METHADONE 5 MG TABLET PO SCH ×2 (08:43→21:25)
[2020-11-29] MEDS: POTASSIUM CHLORIDE 10 MEQ TABLET PO SCH (08:44)
[2020-11-29] MEDS: FUROSEMIDE 20 MG TABLET PO SCH (08:44)
[2020-11-29] MEDS: BACLOFEN 10 MG TABLET PO SCH ×2 (08:44→21:26)
[2020-11-29] MEDS: APIXABAN 5 MG TABLET PO SCH ×2 (08:44→21:26)
[2020-11-29] MEDS: GABAPENTIN 100 MG CAPSULE PO SCH ×2 (08:44→21:27)
--- NOTE | 2020-11-29 17:50 | Internal Med Progress Note ---
SUBJECTIVE Subjective Patient information: Note initiated : 11/29/20 at 5:47 pm Service Date, if different from initiated Date: [] Patient: Alexa Rai a 80 y/o F admitted on 11/14/20 for Weakness. Chief Complaint: [] Principal diagnosis: ESBL E.Coli UTI Interval history: History of present illness: Ms. Rai is a 80 year old F patient was recently at [facility] for cellulitis to the leg discharged the beginning of October. She was at [facility] prior to that admission but [facility] refused her and patient was discharged to [facility]. Patient says she has been at [facility] since last February. She is essentially wheelchair-bound for the past couple years she states she can ambulate a little bit with a walker. She was in the motel with her son who is homeless who will be kicked out of the motel today and he was worried about his mother because she cannot get up she just sits in her own urine she cannot take care of her self. She is unable to care for herself and her son who is homeless has no place to care for her. Patient has some nausea but no other complaints. She does have history atrial fibrillation and in the ED she did go to heart rate of 115. Sktay-gb-tdxg sodium was 146, chemistry showed volume depletion 11/15 Patient doing well. Feels better. Urine culture with gram-negative bacillus. Heart rate improved. Electrolytes improved. Vaginal nausea but no other complaints. 11/16 No new complaints. Pending final urine culture. Placement being worked out with case management.. 11/23 Interval history: Patient is not feeling too good today. She complained of back pain. She seems comfortable. No overnight issues 11/24 No overnight event or new complaints. pt refused oral contrast for further evaluation despite multiple attempts. She admits abdomen is uncomfortable but she is not willing to let us perform work- up to adequately evaluate and treat. 11/25 Patient had a medium sized bowel movement this morning. She seems amenable to a small bowel follow-through this morning, we will attempt to obtain. 11/26 No overnight event or complaints. Had a large bowel movement yesterday after c ontrast study. Abdomen soft no pain. 11/27 Complains of chronic lower back pain otherwise no new complaints. Awaiting placement. 11/28 no changes. No new complaints. Awaiting placement 11/29 Discussed discharge, the patient wants to go home. She says she has a place rented. Stable, no acute medical issues. Review of Systems: denies headache/fever/chills/vomiting/chest or abdominal pain/cough/ dyspnea/diarrhea. Otherwise see above. Constitutional Vitals: Vital Signs Temp Pulse Resp BP Pulse Ox 97.2 F 75 18 111/59 93 11/29/20 15:58 11/29/20 15:58 11/29/20 15:58 11/29/20 15:58 11/29/20 15:58 Period Temp Pulse Resp BP Sys/Jansen Pulse Ox Last 24 Hr 97 F-98.5 F 74-111 16-18 107-137/59-72 92-96 Intake and Output 11/29/20 11/29/20 11/29/20 05:59 13:59 21:59 Intake Total 180 Output Total 3 1 Balance -3 179 Intake & Output: Intake & Output 11/29/20 11/29/20 11/29/20 05:59 13:59 21:59 Intake Total 180 Output Total 3 1 Balance -3 179 Intake: Oral 180 Tube Feeding 0 Output: # of times incontinent of urine 3 1 Other: Meal Breakfast Percent of Meal Consumed 75% Feeding Ability Needs Supervision Exam: General: Alert, Awake, No acute Distress, obese Eyes/N/T: EOMI, Head/Neck: neck supple, CV: irreg, No murmurs, Pulm: Clear b/l, no wheezing/rhonchi/rales Abd: soft, nontender, positive bowel sounds Ext: no clubbing/cyanosis, mild b/l LE edema Neuro: Alert, no focal deficits, moves all extremities, Skin: warm/dry OBJ DATA Labs CBC & Chem 7: 11/22/20 05:25 11/25/20 05:11 Meds: Medications Acetaminophen (Acetaminophen 325 Mg Tablet) 650 mg PO Q6HP PRN PRN Reason: PAIN/FEVER > 101 Last Admin: 11/17/20 17:22 Dose: 650 mg Documented by: Albuterol/Ipratropium (Ipratropium/Albuterol 3 Ml Ampul.Neb) 3 ml NEB Q4HP PRN PRN Reason: Shortness Of Breath Alprazolam (Alprazolam 0.5 Mg Tablet) 0.5 mg PO Q12HP PRN PRN Reason: Anxiety Apixaban (Apixaban 5 Mg Tablet) 5 mg PO BID [facility] Last Admin: 11/29/20 08:44 Dose: 5 mg Documented by: Atorvastatin Calcium (Atorvastatin 40 Mg Tablet) 40 mg PO QHS [facility] Last Admin: 11/28/20 21:39 Dose: 40 mg Documented by: Baclofen (Baclofen 10 Mg Tablet) 10 mg PO BID [facility] Last Admin: 11/29/20 08:44 Dose: 10 mg Documented by: Bisacodyl (Bisacodyl 10 Mg Supp.Rect) 10 mg ND Q2-3DAYS PRN PRN Reason: Constipation Last Admin: 11/25/20 05:38 Dose: 10 mg Documented by: Dextrose (Dextrose 50% 50 Ml Vial) 0 ml IV UD PRN PRN Reason: Hypoglycemia Last Admin: 11/25/20 22:53 Dose: 25 ml Documented by: Diagnostic Test (Pha) (Accu-Chek 1 Each Strip) 1 each FS ACHS [facility] Last Admin: 11/29/20 17:23 Dose: 1 each Documented by: Diphenhydramine HCl (Diphenhydramine 25 Mg Capsule) 25 mg PO HS [facility] Last Admin: 11/28/20 21:39 Dose: 25 mg Documented by: Diphenoxylate HCl/Atropine (Diphenoxylate Hcl/Atropine 1 Tablet) 1 tab PO QIDP PRN PRN Reason: Wheezing Furosemide (Furosemide 20 Mg Tablet) 20 mg PO DAILY [facility] Last Admin: 11/29/20 08:44 Dose: 20 mg Documented by: Gabapentin (Gabapentin 100 Mg Capsule) 100 mg PO BID [facility] Last Admin: 11/29/20 08:44 Dose: 100 mg Documented by: Glipizide (Glipizide 5 Mg Tablet) 2.5 mg PO QAMAC [facility] Last Admin: 11/29/20 08:41 Dose: 2.5 mg Documented by: Glucose (Dextrose 31 Gm Oral.Susp) 15 gm PO PRN PRN PRN Reason: Hypoglycemia Magnesium Sulfate (Magnesium Sulfate) 2 gm in 50 mls @ 50 mls/hr IV UD PRN PRN Reason: Magnesium </= 1.6 Potassium Chloride 40 meq/ (Dextrose) 520 mls @ 130 mls/hr IV UD PRN PRN Reason: Potassium < 3 Insulin Human Lispro (Insulin Lispro 1 Unit/0.01 Ml Unit) 0 unit SQ [facility]; Protocol Last Admin: 11/29/20 17:25 Dose: Not Given Documented by: Levetiracetam (Levetiracetam 500 Mg Tablet) 250 mg PO BID [facility] Last Admin: 11/29/20 08:40 Dose: 250 mg Documented by: Meclizine HCl (Meclizine 25 Mg Tablet) 25 mg PO DAILY [facility] Last Admin: 11/29/20 08:41 Dose: 25 mg Documented by: Melatonin (Melatonin 3 Mg Tablet) 3 mg PO QHS [facility] Last Admin: 11/28/20 21:39 Dose: 3 mg Documented by: Metformin HCl (Metformin 500 Mg Tab.Xl.24h) 1,000 mg PO [facility] Last Admin: 11/29/20 08:41 Dose: 1,000 mg Documented by: Methadone HCl (Methadone 5 Mg Tablet) 10 mg PO BID [facility] Last Admin: 11/29/20 08:43 Dose: 10 mg Documented by: Metoclopramide HCl (Metoclopramide 10 Mg/2 Ml Vial) 10 mg IV Q6HP PRN PRN Reason: Nausea And Vomiting Metoprolol Succinate (Metoprolol Succinate 25 Mg Tab.Xl.24h) 12.5 mg PO DAILY [facility] Last Admin: 11/29/20 08:42 Dose: 12.5 mg Documented by: Empagliflozin 25 Mg (Tablet) 1 dose PO DAILY [facility] Last Admin: 11/29/20 07:20 Dose: Not Given Documented by: Empagliflozin [ (Jardiance] 10 Mg Tab) 1 dose PO DAILY [facility] Last Admin: 11/29/20 07:21 Dose: Not Given Documented by: Potassium Chloride (Potassium Chloride 20 Meq Tablet) 40 meq PO UD PRN PRN Reason: Potssium is 3-3.5 Potassium Chloride (Potassium Chloride 20 Meq Tablet) 40 meq PO UD PRN PRN Reason: Potassium < 3 Potassium Chloride (Potassium Chloride 10 Meq Tablet) 20 meq PO [facility] Last Admin: 11/29/20 08:44 Dose: 20 meq Documented by: Pregabalin (Pregabalin 25 Mg Capsule) 50 mg PO BID [facility] Last Admin: 11/29/20 08:42 Dose: 50 mg Documented by: Senna (Sennosides 1 Tablet) 2 tab PO DAILYP PRN PRN Reason: Constipation Last Admin: 11/23/20 09:26 Dose: 2 tab Documented by: Sertraline HCl (Sertraline 50 Mg Tablet) 125 mg PO DAILY [facility] Last Admin: 11/29/20 08:42 Dose: 125 mg Documented by: Sodium Chloride (0.9 % Sodium Chloride 10 Ml Syringe) 10 ml IV Q8 [facility] Last Admin: 11/29/20 12:20 Dose: Not Given Documented by: Tramadol HCl (Tramadol 50 Mg Tablet) 50 mg PO DAILYP PRN; Protocol PRN Reason: Pain Last Admin: 11/23/20 19:42 Dose: 50 mg Documented by: Trazodone HCl (Trazodone Hcl 50 Mg Tablet) 25 mg PO HS [facility] Last Admin: 11/28/20 21:40 Dose: 25 mg Documented by: A/P Narrative A/P Narrative: A: *Generalized weakness/deconditioning/inability to care for self: -essentially wheelchair bound for past year *ileus vs incomplete sbo: pt refused oral contrast for further evaluation despite multiple attempts. She admits abdomen is uncomfortable but she is not willing to let us perform work-up to adequately evaluate and treat .*PAFib/flutter w/rvr: controlled *Hypernatremia: resolved *Dehydration/Volume depletion: improved *UTI (E.coli ESBL): *DM: *HTN: *LENARD: *Chronic lymphedema/venous stasis skin changes: *Anxiety/depression: *Obesity: *h/o Sz: on keppra *Recent LLE cellulitis treated at [facility]: *psbo: resolved *Goals of care: P: -finished abx -cont home lasix -Metoprolol 12.5 mg daily. -Xanax 0.5 BID -Baclofen 10 mg twice daily. -Lyrica 50mg bid. -cont SSRI -Glipizide to 2.5 daily. Cont SSI & home Metformin and Jardiance -PT/OT -Home CPAP -SSI -CM for placement -pt may consider hospice eval -ppx: apixaban full code Time Spent With Patient Time: Total time spent is greater than 50% in coordination of care (as documented) at patient's floor/unit and/or counseling patient: QUALITY VTE Deep Vein Thrombosis/Pulmonary Embolism Present on Admission: No
[2020-11-29] MEDS: traZODone HCL 50 MG TABLET PO SCH (21:23)
[2020-11-29] MEDS: MELATONIN 3 MG TABLET PO SCH (21:26)
[2020-11-29] MEDS: ATORVASTATIN 40 MG TABLET PO SCH (21:27)
[2020-11-29] MEDS: diphenhydrAMINE 25 MG CAPSULE PO SCH (21:29)
[2020-11-30] MEDS: 0.9 % SODIUM CHLORIDE 10 ML SYRINGE IV SCH ×3 (05:40→20:54)
[2020-11-30] MEDS: INSULIN LISPRO 1 UNIT/0.01 ML UNIT SQ SCH ×4 (07:50→20:54)
[2020-11-30] MEDS: APIXABAN 5 MG TABLET PO SCH ×2 (09:13→20:38)
[2020-11-30] MEDS: metFORMIN 500 MG TAB.XL.24H PO SCH (09:13)
[2020-11-30] MEDS: GABAPENTIN 100 MG CAPSULE PO SCH ×2 (09:13→20:39)
[2020-11-30] MEDS: SERTRALINE 50 MG TABLET PO SCH (09:14)
[2020-11-30] MEDS: levETIRAcetam 500 MG TABLET PO SCH ×2 (09:14→20:37)
[2020-11-30] MEDS: PREGABALIN 25 MG CAPSULE PO SCH ×2 (09:15→20:35)
[2020-11-30] MEDS: BACLOFEN 10 MG TABLET PO SCH ×2 (09:15→20:38)
[2020-11-30] MEDS: FUROSEMIDE 20 MG TABLET PO SCH (09:15)
[2020-11-30] MEDS: POTASSIUM CHLORIDE 10 MEQ TABLET PO SCH (09:15)
[2020-11-30] MEDS: METHADONE 5 MG TABLET PO SCH ×2 (09:16→20:36)
[2020-11-30] MEDS: MECLIZINE 25 MG TABLET PO SCH (09:16)
[2020-11-30] MEDS: METOPROLOL SUCCINATE 25 MG TAB.XL.24H PO SCH (09:16)
[2020-11-30] MEDS: glipiZIDE 5 MG TABLET PO SCH (09:16)
[2020-11-30] MEDS: EMPAGLIFLOZIN 25 MG TABLET PO SCH (09:22)
--- NOTE | 2020-11-30 17:06 | Internal Med Progress Note ---
SUBJECTIVE Subjective Patient information: Note initiated : 11/30/20 at 5:04 pm Service Date, if different from initiated Date: [] Patient: Alexa Rai a 80 y/o F admitted on 11/14/20 for Weakness. Chief Complaint: [] Principal diagnosis: ESBL E.Coli UTI Interval history: History of present illness: Ms. Rai is a 80 year old F patient was recently at [facility] for cellulitis to the leg discharged the beginning of October. She was at [facility] prior to that admission but [facility] refused her and patient was discharged to [facility]. Patient says she has been at [facility] since last February. She is essentially wheelchair-bound for the past couple years she states she can ambulate a little bit with a walker. She was in the motel with her son who is homeless who will be kicked out of the motel today and he was worried about his mother because she cannot get up she just sits in her own urine she cannot take care of her self. She is unable to care for herself and her son who is homeless has no place to care for her. Patient has some nausea but no other complaints. She does have history atrial fibrillation and in the ED she did go to heart rate of 115. [id number] sodium was 146, chemistry showed volume depletion 11/15 Patient doing well. Feels better. Urine culture with gram-negative bacillus. Heart rate improved. Electrolytes improved. Vaginal nausea but no other complaints. 11/16 No new complaints. Pending final urine culture. Placement being worked out with case management.. 11/23 Interval history: Patient is not feeling too good today. She complained of back pain. She seems comfortable. No overnight issues 11/24 No overnight event or new complaints. pt refused oral contrast for further evaluation despite multiple attempts. She admits abdomen is uncomfortable but she is not willing to let us perform work- up to adequately evaluate and treat. 11/25 Patient had a medium sized bowel movement this morning. She seems amenable to a small bowel follow-through this morning, we will attempt to obtain. 11/26 No overnight event or complaints. Had a large bowel movement yesterday after c ontrast study. Abdomen soft no pain. 11/27 Complains of chronic lower back pain otherwise no new complaints. Awaiting placement. 11/28 no changes. No new complaints. Awaiting placement 11/29 Discussed discharge, the patient wants to go home. She says she has a place rented. Stable, no acute medical issues. 11/30 Awaiting placement, regular diet to encourage nutritional intake. Review of Systems: denies headache/fever/chills/vomiting/chest or abdominal pain/cough/dyspnea/diarrhea. Otherwise see above. Constitutional Vitals: Vital Signs Temp Pulse Resp BP Pulse Ox 98.1 F 91 H 20 114/71 91 11/30/20 12:00 11/30/20 12:00 11/30/20 12:00 11/30/20 12:00 11/30/20 12:00 Period Temp Pulse Resp BP Sys/Jansen Pulse Ox Last 24 Hr 97.5 F-98.9 F 84-111 16-20 95-114/54-71 90-92 Intake and Output 11/30/20 11/30/20 11/30/20 05:59 13:59 21:59 Intake Total 800 240 300 Output Total 101 2 Balance 699 240 298 Weight 109.497 kg Patient Weight 12/01/20 05:59 Weight 109.497 kg Intake & Output: Intake & Output 11/30/20 11/30/20 11/30/20 05:59 13:59 21:59 Intake Total 800 240 300 Output Total 101 2 Balance 699 240 298 Weight 109.497 kg Intake: Oral 800 240 300 Tube Feeding 0 Output: # of times incontinent of urine 1 2 Stool 100 Other: Meal Breakfast Percent of Meal Consumed 50% Feeding Ability Independent Stool Color Brown Stool Consistency Liquid Loose Exam: General: Alert, Awake, No acute Distress, obese Eyes/N/T: EOMI, Head/Neck: neck supple, CV: irreg, No murmurs, Pulm: Clear b/l, no wheezing/rhonchi/rales Abd: soft, nontender, positive bowel sounds Ext: no clubbing/cyanosis, mild b/l LE edema Neuro: Alert, no focal deficits, moves all extremities, Skin: warm/dry OBJ DATA Labs CBC & Chem 7: 11/22/20 05:25 11/25/20 05:11 Meds: Medications Acetaminophen (Acetaminophen 325 Mg Tablet) 650 mg PO Q6HP PRN PRN Reason: PAIN/FEVER > 101 Last Admin: 11/17/20 17:22 Dose: 650 mg Documented by: Albuterol/Ipratropium (Ipratropium/Albuterol 3 Ml Ampul.Neb) 3 ml NEB Q4HP PRN PRN Reason: Shortness Of Breath Alprazolam (Alprazolam 0.5 Mg Tablet) 0.5 mg PO Q12HP PRN PRN Reason: Anxiety Apixaban (Apixaban 5 Mg Tablet) 5 mg PO BID [facility] Last Admin: 11/30/20 09:13 Dose: 5 mg Documented by: Atorvastatin Calcium (Atorvastatin 40 Mg Tablet) 40 mg PO QHS [facility] Last Admin: 11/29/20 21:27 Dose: 40 mg Documented by: Baclofen (Baclofen 10 Mg Tablet) 10 mg PO BID [facility] Last Admin: 11/30/20 09:15 Dose: 10 mg Documented by: Bisacodyl (Bisacodyl 10 Mg Supp.Rect) 10 mg MA Q2-3DAYS PRN PRN Reason: Constipation Last Admin: 11/25/20 05:38 Dose: 10 mg Documented by: Dextrose (Dextrose 50% 50 Ml Vial) 0 ml IV UD PRN PRN Reason: Hypoglycemia Last Admin: 11/25/20 22:53 Dose: 25 ml Documented by: Diagnostic Test (Pha) (Accu-Chek 1 Each Strip) 1 each FS ACHS [facility] Last Admin: 11/30/20 12:15 Dose: 1 each Documented by: Diphenhydramine HCl (Diphenhydramine 25 Mg Capsule) 25 mg PO [facility] Last Admin: 11/29/20 21:29 Dose: 25 mg Documented by: Diphenoxylate HCl/Atropine (Diphenoxylate Hcl/Atropine 1 Tablet) 1 tab PO QIDP PRN PRN Reason: Wheezing Furosemide (Furosemide 20 Mg Tablet) 20 mg PO DAILY [facility] Last Admin: 11/30/20 09:15 Dose: 20 mg Documented by: Gabapentin (Gabapentin 100 Mg Capsule) 100 mg PO BID [facility] Last Admin: 11/30/20 09:13 Dose: 100 mg Documented by: Glipizide (Glipizide 5 Mg Tablet) 2.5 mg PO QAMAC [facility] Last Admin: 11/30/20 09:16 Dose: 2.5 mg Documented by: Glucose (Dextrose 31 Gm Oral.Susp) 15 gm PO PRN PRN PRN Reason: Hypoglycemia Magnesium Sulfate (Magnesium Sulfate) 2 gm in 50 mls @ 50 mls/hr IV UD PRN PRN Reason: Magnesium </= 1.6 Potassium Chloride 40 meq/ (Dextrose) 520 mls @ 130 mls/hr IV UD PRN PRN Reason: Potassium < 3 Insulin Human Lispro (Insulin Lispro 1 Unit/0.01 Ml Unit) 0 unit SQ ACHS [facility]; Protocol Last Admin: 11/30/20 12:17 Dose: Not Given Documented by: Levetiracetam (Levetiracetam 500 Mg Tablet) 250 mg PO BID [facility] Last Admin: 11/30/20 09:14 Dose: 250 mg Documented by: Meclizine HCl (Meclizine 25 Mg Tablet) 25 mg PO DAILY [facility] Last Admin: 11/30/20 09:16 Dose: 25 mg Documented by: Melatonin (Melatonin 3 Mg Tablet) 3 mg PO QHS [facility] Last Admin: 11/29/20 21:26 Dose: 3 mg Documented by: Metformin HCl (Metformin 500 Mg Tab.Xl.24h) 1,000 mg PO [facility] Last Admin: 11/30/20 09:13 Dose: 1,000 mg Documented by: Methadone HCl (Methadone 5 Mg Tablet) 10 mg PO BID [facility] Last Admin: 11/30/20 09:16 Dose: 10 mg Documented by: Metoclopramide HCl (Metoclopramide 10 Mg/2 Ml Vial) 10 mg IV Q6HP PRN PRN Reason: Nausea And Vomiting Metoprolol Succinate (Metoprolol Succinate 25 Mg Tab.Xl.24h) 12.5 mg PO DAILY [facility] Last Admin: 11/30/20 09:16 Dose: 12.5 mg Documented by: Empagliflozin 25 Mg (Tablet) 1 dose PO DAILY [facility] Last Admin: 11/30/20 09:22 Dose: Not Given Documented by: Empagliflozin [ (Jardiance] 10 Mg Tab) 1 dose PO DAILY [facility] Last Admin: 11/30/20 09:21 Dose: Not Given Documented by: Potassium Chloride (Potassium Chloride 20 Meq Tablet) 40 meq PO UD PRN PRN Reason: Potssium is 3-3.5 Potassium Chloride (Potassium Chloride 20 Meq Tablet) 40 meq PO UD PRN PRN Reason: Potassium < 3 Potassium Chloride (Potassium Chlor[facility] 10 Meq Tablet) [facility] Last Admin: 11/30/20 09:15 Dose: 20 meq Documented by: Pregabalin (Pregabalin 25 Mg Capsule) 50 mg PO BID [facility] Last Admin: 11/30/20 09:15 Dose: 50 mg Documented by: Senna (Sennosides 1 Tablet) 2 tab PO DAILYP PRN PRN Reason: Constipation Last Admin: 11/23/20 09:26 Dose: 2 tab Documented by: Sertraline HCl (Sertraline 50 Mg Tablet) 125 mg PO DAILY [facility] Last Admin: 11/30/20 09:14 Dose: 125 mg Documented by: Sodium Chloride (0.9 % Sodium Chloride 10 Ml Syringe) 10 ml IV Q8 [facility] Last Admin: 11/30/20 13:35 Dose: 10 ml Documented by: Tramadol HCl (Tramadol 50 Mg Tablet) 50 mg PO DAILYP PRN; Protocol PRN Reason: Pain Last Admin: 11/23/20 19:42 Dose: 50 mg Documented by: Trazodone HCl (Trazodone Hcl 50 Mg Tablet) 25 mg PO HS [facility] Last Admin: 11/29/20 21:23 Dose: 25 mg Documented by: A/P Narrative A/P Narrative: A: *Generalized weakness/deconditioning/inability to care for self: -essentially wheelchair bound for past year *ileus vs incomplete sbo: pt refused oral contrast for further evaluation despite multiple attempts. She admits abdomen is uncomfortable but she is not willing to let us perform work-up to adequately evaluate and treat. *PAFib/flutter w/rvr: controlled *Hypernatremia: resolved *Dehydration/Volume depletion: improved *UTI (E.coli ESBL): completed abx *DM: *HTN: *LENARD: *Chronic lymphedema/venous stasis skin changes: *Anxiety/depression: *Obesity: *h/o Sz: on keppra *Recent LLE cellulitis treated at [facility]: *Chronic pain on methadone *Goals of care: Plan -cont home lasix -Metoprolol 12.5 mg daily. -Xanax 0.5 BID prn -Baclofen 10 mg twice daily. -Lyrica 50mg bid. -cont SSRI -methadone 10 BID -Cont SSI & home Metformin, Gipizide, and Jardiance -PT/OT -Home CPAP -oxygen prn -CM for placement -pt may consider hospice eval -DVT ppx: apixaban -code status: full -disposition: awaiting placement full code Time Spent With Patient Time: Total time spent is greater than 50% in coordination of care (as documented) at patient's floor/unit and/or counseling patient: QUALITY VTE Deep Vein Thrombosis/Pulmonary Embolism Present on Admission: No
[2020-11-30] MEDS: diphenhydrAMINE 25 MG CAPSULE PO SCH (20:37)
[2020-11-30] MEDS: traZODone HCL 50 MG TABLET PO SCH (20:38)
[2020-11-30] MEDS: MELATONIN 3 MG TABLET PO SCH (20:38)
[2020-11-30] MEDS: ATORVASTATIN 40 MG TABLET PO SCH (20:38)
[2020-12-01] MEDS: 0.9 % SODIUM CHLORIDE 10 ML SYRINGE IV SCH ×2 (04:21→15:03)
[2020-12-01] MEDS: glipiZIDE 5 MG TABLET PO SCH (07:14)
[2020-12-01] MEDS: INSULIN LISPRO 1 UNIT/0.01 ML UNIT SQ SCH ×4 (07:18→20:24)
[2020-12-01] MEDS: METHADONE 5 MG TABLET PO SCH ×2 (08:30→20:22)
[2020-12-01] MEDS: METOPROLOL SUCCINATE 25 MG TAB.XL.24H PO SCH (08:30)
[2020-12-01] MEDS: BACLOFEN 10 MG TABLET PO SCH ×2 (08:30→20:23)
[2020-12-01] MEDS: PREGABALIN 25 MG CAPSULE PO SCH ×2 (08:30→20:21)
[2020-12-01] MEDS: FUROSEMIDE 20 MG TABLET PO SCH (08:31)
[2020-12-01] MEDS: levETIRAcetam 500 MG TABLET PO SCH ×2 (08:31→20:20)
[2020-12-01] MEDS: GABAPENTIN 100 MG CAPSULE PO SCH ×2 (08:31→20:21)
[2020-12-01] MEDS: APIXABAN 5 MG TABLET PO SCH ×2 (08:31→20:23)
[2020-12-01] MEDS: SERTRALINE 50 MG TABLET PO SCH (08:31)
[2020-12-01] MEDS: metFORMIN 500 MG TAB.XL.24H PO SCH (08:31)
[2020-12-01] MEDS: POTASSIUM CHLORIDE 10 MEQ TABLET PO SCH (08:31)
[2020-12-01] MEDS: MECLIZINE 25 MG TABLET PO SCH (08:31)
[2020-12-01] MEDS: EMPAGLIFLOZIN 25 MG TABLET PO SCH (08:32)
--- NOTE | 2020-12-01 15:33 | Internal Med Progress Note ---
SUBJECTIVE Subjective Patient information: Note initiated : 12/01/20 at 3:32 pm Service Date, if different from initiated Date: [] Patient: Alexa Rai a 80 y/o F admitted on 11/14/20 for Weakness. Chief Complaint: [] Principal diagnosis: ESBL E.Coli UTI Interval history: History of present illness: Ms. Rai is a 80 year old F patient was recently at [facility] for cellulitis to the leg discharged the beginning of October. She was at [facility] prior to that admission but [facility] refused her and patient was discharged to [facility]. Patient says she has been at [facility] since last February. She is essentially wheelchair-bound for the past couple years she states she can ambulate a little bit with a walker. She was in the motel with her son who is homeless who will be kicked out of the motel today and he was worried about his mother because she cannot get up she just sits in her own urine she cannot take care of her self. She is unable to care for herself and her son who is homeless has no place to care for her. Patient has some nausea but no other complaints. She does have history atrial fibrillation and in the ED she did go to heart rate of 115. Ysrhb-ax-uahd sodium was 146, chemistry showed volume depletion 11/15 Patient doing well. Feels better. Urine culture with gram-negative bacillus. Heart rate improved. Electrolytes improved. Vaginal nausea but no other complaints. 11/16 No new complaints. Pending final urine culture. Placement being worked out with case management.. 11/23 Interval history: Patient is not feeling too good today. She complained of back pain. She seems comfortable. No overnight issues 11/24 No overnight event or new complaints. pt refused oral contrast for further evaluation despite multiple attempts. She admits abdomen is uncomfortable but she is not willing to let us perform work- up to adequately evaluate and treat. 11/25 Patient had a medium sized bowel movement this morning. She seems amenable to a small bowel follow-through this morning, we will attempt to obtain. 11/26 No overnight event or complaints. Had a large bowel movement yesterday after c ontrast study. Abdomen soft no pain. 11/27 Complains of chronic lower back pain otherwise no new complaints. Awaiting placement. 11/28 no changes. No new complaints. Awaiting placement 11/29 Discussed discharge, the patient wants to go home. She says she has a place rented. Stable, no acute medical issues. 11/30 Awaiting placement, regular diet to encourage nutritional intake. 12/01 Discussed importance of activity, awaiting placement. Review of Systems: denies headache/fever/chills/vomiting/chest or abdominal pain/cough/dyspnea/diarrhea. Otherwise see above. Constitutional Vitals: Vital Signs Temp Pulse Resp BP Pulse Ox 97.6 F 114 H 20 124/78 94 12/01/20 12:00 12/01/20 12:00 12/01/20 12:00 12/01/20 12:00 12/01/20 12:00 Period Temp Pulse Resp BP Sys/Jansen Pulse Ox Last 24 Hr 96.9 F-98.0 F 68-114 12-20 91-124/60-92 90-97 Intake and Output 12/01/20 12/01/20 12/01/20 05:59 13:59 21:59 Intake Total 50 300 Output Total 1 Balance 50 299 Intake & Output: Intake & Output 12/01/20 12/01/20 12/01/20 05:59 13:59 21:59 Intake Total 50 300 Output Total 1 Balance 50 299 Intake: Oral 50 300 Tube Feeding 0 Output: # of times incontinent of urine 1 Other: Meal Lunch Percent of Meal Consumed 75% Feeding Ability Assist with Tray Set Up Urine Appearance Clear Urine Color Bright Yellow Urine Odor Normal # Voids 1 Exam: General: Alert, Awake, No acute Distress, obese Eyes/N/T: EOMI, Head/Neck: neck supple, CV: irreg, No murmurs, Pulm: Clear b/l, no wheezing/rhonchi/rales Abd: soft, nontender, positive bowel sounds Ext: no clubbing/cyanosis, mild b/l LE edema Neuro: Alert, no focal deficits, moves all extremities, Skin: warm/dry OBJ DATA Labs CBC & Chem 7: 11/22/20 05:25 11/25/20 05:11 Meds: Medications Acetaminophen (Acetaminophen 325 Mg Tablet) 650 mg PO Q6HP PRN PRN Reason: PAIN/FEVER > 101 Last Admin: 11/17/20 17:22 Dose: 650 mg Documented by: Albuterol/Ipratropium (Ipratropium/Albuterol 3 Ml Ampul.Neb) 3 ml NEB Q4HP PRN PRN Reason: Shortness Of Breath Alprazolam (Alprazolam 0.5 Mg Tablet) 0.5 mg PO Q12HP PRN PRN Reason: Anxiety Apixaban (Apixaban 5 Mg Tablet) 5 mg PO BID [facility] Last Admin: 12/01/20 08:31 Dose: 5 mg Documented by: Atorvastatin Calcium (Atorvastatin 40 Mg Tablet) 40 mg PO QHS [facility] Last Admin: 11/30/20 20:38 Dose: 40 mg Documented by: Baclofen (Baclofen 10 Mg Tablet) 10 mg PO BID [facility] Last Admin: 12/01/20 08:30 Dose: 10 mg Documented by: Bisacodyl (Bisacodyl 10 Mg Supp.Rect) 10 mg [place] Q2-3DAYS PRN PRN Reason: Constipation Last Admin: 11/25/20 05:38 Dose: 10 mg Documented by: Dextrose (Dextrose 50% 50 Ml Vial) 0 ml IV UD PRN PRN Reason: Hypoglycemia Last Admin: 11/25/20 22:53 Dose: 25 ml Documented by: Diagnostic Test (Pha) (Accu-Chek 1 Each Strip) 1 each FS ACHS [facility] Last Admin: 12/01/20 11:35 Dose: 1 each Documented by: Diphenhydramine HCl (Diphenhydramine 25 Mg Capsule) 25 mg PO HS [facility] Last Admin: 11/30/20 20:37 Dose: 25 mg Documented by: Diphenoxylate HCl/Atropine (Diphenoxylate Hcl/Atropine 1 Tablet) 1 tab PO QIDP PRN PRN Reason: Wheezing Furosemide (Furosemide 20 Mg Tablet) 20 mg PO DAILY [facility] Last Admin: 12/01/20 08:31 Dose: 20 mg Documented by: Gabapentin (Gabapentin 100 Mg Capsule) 100 mg PO BID [facility] Last Admin: 12/01/20 08:31 Dose: 100 mg Documented by: Glipizide (Glipizide 5 Mg Tablet) 2.5 mg PO QAMAC [facility] Last Admin: 12/01/20 07:14 Dose: 2.5 mg Documented by: Glucose (Dextrose 31 Gm Oral.Susp) 15 gm PO PRN PRN PRN Reason: Hypoglycemia Magnesium Sulfate (Magnesium Sulfate) 2 gm in 50 mls @ 50 mls/hr IV UD PRN PRN Reason: Magnesium </= 1.6 Potassium Chloride 40 meq/ (Dextrose) 520 mls @ 130 mls/hr IV UD PRN PRN Reason: Potassium < 3 Insulin Human Lispro (Insulin Lispro 1 Unit/0.01 Ml Unit) 0 unit SQ ACHS [facility]; Protocol Last Admin: 12/01/20 11:37 Dose: Not Given Documented by: Levetiracetam (Levetiracetam 500 Mg Tablet) 250 mg PO BID [facility] Last Admin: 12/01/20 08:31 Dose: 250 mg Documented by: Meclizine HCl (Meclizine 25 Mg Tablet) 25 mg PO DAILY [facility] Last Admin: 12/01/20 08:31 Dose: 25 mg Documented by: Melatonin (Melatonin 3 Mg Tablet) 3 mg PO QHS [facility] Last Admin: 11/30/20 20:38 Dose: 3 mg Documented by: Metformin HCl (Metformin 500 Mg Tab.Xl.24h) 1,000 mg PO [facility] Last Admin: 12/01/20 08:31 Dose: 1,000 mg Documented by: Methadone HCl (Methadone 5 Mg Tablet) 10 mg PO BID [facility] Last Admin: 12/01/20 08:30 Dose: 10 mg Documented by: Metoclopramide HCl (Metoclopramide 10 Mg/2 Ml Vial) 10 mg IV Q6HP PRN PRN Reason: Nausea And Vomiting Metoprolol Succinate (Metoprolol Succinate 25 Mg Tab.Xl.24h) 12.5 mg PO DAILY [facility] Last Admin: 12/01/20 08:30 Dose: 12.5 mg Documented by: Empagliflozin 25 Mg (Tablet) 1 dose PO DAILY [facility] Last Admin: 12/01/20 08:32 Dose: Not Given Documented by: Potassium Chloride (Potassium Chloride 20 Meq Tablet) 40 meq PO UD PRN PRN Reason: Potssium is 3-3.5 Potassium Chloride (Potassium Chloride 20 Meq Tablet) 40 meq PO UD PRN PRN Reason: Potassium < 3 Potassium Chloride (Potassium Chloride 10 Meq Tablet) 20 meq PO [facility] Last Admin: 12/01/20 08:31 Dose: 20 meq Documented by: Pregabalin (Pregabalin 25 Mg Capsule) 50 mg PO BID [facility] Last Admin: 12/01/20 08:30 Dose: 50 mg Documented by: Senna (Sennosides 1 Tablet) 2 tab PO DAILYP PRN PRN Reason: Constipation Last Admin: 11/23/20 09:26 Dose: 2 tab Documented by: Sertraline HCl (Sertraline 50 Mg Tablet) 125 mg PO DAILY [facility] Last Admin: 12/01/20 08:31 Dose: 125 mg Documented by: Sodium Chloride (0.9 % Sodium Chloride 10 Ml Syringe) 10 ml IV Q8 [facility] Last Admin: 12/01/20 15:03 Dose: Not Given Documented by: Tramadol HCl (Tramadol 50 Mg Tablet) 50 mg PO DAILYP PRN; Protocol PRN Reason: Pain Last Admin: 11/23/20 19:42 Dose: 50 mg Documented by: Trazodone HCl (Trazodone Hcl 50 Mg Tablet) 25 mg PO HS [facility] Last Admin: 11/30/20 20:38 Dose: 25 mg Documented by: A/P Narrative A/P Narrative: A: *Generalized weakness/deconditioning/inability to care for self: -essentially wheelchair bound for past year *ileus vs incomplete sbo: pt refused oral contrast for further evaluation despite multiple attempts. She admits abdomen is uncomfortable but she is not willing to let us perform work-up to adequately evaluate and treat. *PAFib/flutter w/rvr: controlled *Hypernatremia: resolved *Dehydration/Volume depletion: improved *UTI (E.coli ESBL): completed abx *DM: *HTN: *LEANRD: *Chronic lymphedema/venous stasis skin changes: *Anxiety/depression: *Obesity: *h/o Sz: on keppra *Recent LLE cellulitis treated at [facility]: *Chronic pain on methadone *Goals of care: Plan -cont home lasix -Metoprolol 12.5 mg daily. -Xanax 0.5 BID prn -Baclofen 10 mg twice daily. -Lyrica 50mg bid. -cont SSRI -methadone 10 BID -Cont SSI & home Metformin, Gipizide, and Jardiance -PT/OT -Home CPAP -oxygen prn -CM for placement -pt may consider hospice eval -DVT ppx: apixaban -code status: full -disposition: awaiting placement full code Time Spent With Patient Time: Total time spent is greater than 50% in coordination of care (as documented) at patient's floor/unit and/or counseling patient: QUALITY VTE Deep Vein Thrombosis/Pulmonary Embolism Present on Admission: No
[2020-12-01] MEDS: ATORVASTATIN 40 MG TABLET PO SCH (20:20)
[2020-12-01] MEDS: diphenhydrAMINE 25 MG CAPSULE PO SCH (20:20)
[2020-12-01] MEDS: traZODone HCL 50 MG TABLET PO SCH (20:23)
[2020-12-01] MEDS: MELATONIN 3 MG TABLET PO SCH (20:24)
[2020-12-02] MEDS: 0.9 % SODIUM CHLORIDE 10 ML SYRINGE IV SCH ×4 (00:14→22:01)
[2020-12-02] MEDS: traMADol 50 MG TABLET PO PRN (01:45)
[2020-12-02] MEDS: INSULIN LISPRO 1 UNIT/0.01 ML UNIT SQ SCH ×4 (07:39→22:00)
[2020-12-02] MEDS: metFORMIN 500 MG TAB.XL.24H PO SCH (07:41)
[2020-12-02] MEDS: glipiZIDE 5 MG TABLET PO SCH (07:41)
[2020-12-02] MEDS: POTASSIUM CHLORIDE 10 MEQ TABLET PO SCH (07:41)
[2020-12-02] MEDS: EMPAGLIFLOZIN 25 MG TABLET PO SCH (09:20)
[2020-12-02] MEDS: METOPROLOL SUCCINATE 25 MG TAB.XL.24H PO SCH (10:02)
[2020-12-02] MEDS: MECLIZINE 25 MG TABLET PO SCH (10:02)
[2020-12-02] MEDS: SERTRALINE 50 MG TABLET PO SCH (10:02)
[2020-12-02] MEDS: GABAPENTIN 100 MG CAPSULE PO SCH ×2 (10:02→21:58)
[2020-12-02] MEDS: levETIRAcetam 500 MG TABLET PO SCH ×2 (10:02→21:59)
[2020-12-02] MEDS: FUROSEMIDE 20 MG TABLET PO SCH (10:02)
[2020-12-02] MEDS: APIXABAN 5 MG TABLET PO SCH ×2 (10:02→21:57)
[2020-12-02] MEDS: BACLOFEN 10 MG TABLET PO SCH ×2 (10:03→21:57)
[2020-12-02] MEDS: METHADONE 5 MG TABLET PO SCH ×2 (10:03→21:57)
[2020-12-02] MEDS: PREGABALIN 25 MG CAPSULE PO SCH ×2 (10:03→21:57)
--- NOTE | 2020-12-02 13:23 | Internal Med Progress Note ---
SUBJECTIVE Subjective Patient information: Note initiated : 12/02/20 at 1:22 pm Service Date, if different from initiated Date: [] Patient: Alexa Rai a 80 y/o F admitted on 11/14/20 for Weakness. Chief Complaint: [] Principal diagnosis: ESBL E.Coli UTI Interval history: History of present illness: Ms. Rai is a 80 year old F patient was recently at [facility] for cellulitis to the leg discharged the beginning of October. She was at [email or web address] prior to that admission but [facility] refused her and patient was discharged to [facility]. Patient says she has been at [facility] since last February. She is essentially wheelchair-bound for the past couple years she states she can ambulate a little bit with a walker. She was in the motel with her son who is homeless who will be kicked out of the motel today and he was worried about his mother because she cannot get up she just sits in her own urine she cannot take care of her self. She is unable to care for herself and her son who is homeless has no place to care for her. Patient has some nausea but no other complaints. She does have history atrial fibrillation and in the ED she did go to heart rate of 115. Xagjs-cr-uwjs sodium was 146, chemistry showed volume depletion 11/15 Patient doing well. Feels better. Urine culture with gram-negative bacillus. Heart rate improved. Electrolytes improved. Vaginal nausea but no other complaints. 11/16 No new complaints. Pending final urine culture. Placement being worked out with case management.. 11/23 Interval history: Patient is not feeling too good today. She complained of back pain. She seems comfortable. No overnight issues 11/24 No overnight event or new complaints. pt refused oral contrast for further evaluation despite multiple attempts. She admits abdomen is uncomfortable but she is not willing to let us perform work- up to adequately evaluate and treat. 11/25 Patient had a medium sized bowel movement this morning. She seems amenable to a small bowel follow-through this morning, we will attempt to obtain. 11/26 No overnight event or complaints. Had a large bowel movement yesterday after c ontrast study. Abdomen soft no pain. 11/27 Complains of chronic lower back pain otherwise no new complaints. Awaiting placement. 11/28 no changes. No new complaints. Awaiting placement 11/29 Discussed discharge, the patient wants to go home. She says she has a place rented. Stable, no acute medical issues. 11/30 Awaiting placement, regular diet to encourage nutritional intake. 12/01 Discussed importance of activity, awaiting placement. 12/02 More activity with sitting at the edge of the bed, removed fecal management system. Review of Systems: denies headache/fever/chills/vomiting/chest or abdominal pain/cough/dyspnea/diarrhea. Otherwise see above. Constitutional Vitals: Vital Signs Temp Pulse Resp BP Pulse Ox 98.0 F 82 20 116/70 94 12/02/20 12:00 12/02/20 12:00 12/02/20 12:00 12/02/20 12:00 12/02/20 12:00 Period Temp Pulse Resp BP Sys/Jansen Pulse Ox Last 24 Hr 97.2 F-98.5 F 79-112 14-20 92-118/54-72 90-94 Intake and Output 12/01/20 12/02/20 12/02/20 21:59 05:59 13:59 Intake Total 400 0 0 Output Total 651 500 Balance -251 0 -500 Weight 107.184 kg Intake & Output: Intake & Output 12/01/20 12/02/20 12/02/20 21:59 05:59 13:59 Intake Total 400 0 0 Output Total 651 500 Balance -251 0 -500 Weight 107.184 kg Intake: Oral 400 0 Tube Feeding 0 0 Output: Gastric Drainage 0 Rectal 0 Void Amount 650 500 # of times incontinent of urine 1 Other: Meal Breakfast Percent of Meal Consumed Refused Urine Appearance Cloudy Urine Color Dark Yellow Dark Yellow Urine Odor Strong Strong Stool Size Small Stool Color Brown Stool Consistency Soft Liquid Loose Exam: General: Alert, Awake, No acute Distress, obese Eyes/N/T: EOMI, Head/Neck: neck supple, CV: irreg, No murmurs, Pulm: Clear b/l, no wheezing/rhonchi/rales Abd: soft, nontender, positive bowel sounds Ext: no clubbing/cyanosis, mild b/l LE edema Neuro: Alert, no focal deficits, moves all extremities, Skin: warm/dry OBJ DATA Labs CBC & Chem 7: 11/22/20 05:25 11/25/20 05:11 Meds: Medications Acetaminophen (Acetaminophen 325 Mg Tablet) 650 mg PO Q6HP PRN PRN Reason: PAIN/FEVER > 101 Last Admin: 11/17/20 17:22 Dose: 650 mg Documented by: Albuterol/Ipratropium (Ipratropium/Albuterol 3 Ml Ampul.Neb) 3 ml NEB Q4HP PRN PRN Reason: Shortness Of Breath Alprazolam (Alprazolam 0.5 Mg Tablet) 0.5 mg PO Q12HP PRN PRN Reason: Anxiety Apixaban (Apixaban 5 Mg Tablet) 5 mg PO BID [facility] Last Admin: 12/02/20 10:02 Dose: 5 mg Documented by: Atorvastatin Calcium (Atorvastatin 40 Mg Tablet) 40 mg PO QHS [facility] Last Admin: 12/01/20 20:20 Dose: 40 mg Documented by: Baclofen (Baclofen 10 Mg Tablet) 10 mg PO BID [facility] Last Admin: 12/02/20 10:03 Dose: 10 mg Documented by: Bisacodyl (Bisacodyl 10 Mg Supp.Rect) 10 mg [place] Q2-3DAYS PRN PRN Reason: Constipation Last Admin: 11/25/20 05:38 Dose: 10 mg Documented by: Dextrose (Dextrose 50% 50 Ml Vial) 0 ml IV UD PRN PRN Reason: Hypoglycemia Last Admin: 11/25/20 22:53 Dose: 25 ml Documented by: Diagnostic Test (Pha) (Accu-Chek 1 Each Strip) 1 each FS ACHS [facility] Last Admin: 12/02/20 11:32 Dose: 1 each Documented by: Diphenhydramine HCl (Diphenhydramine 25 Mg Capsule) 25 mg PO HS [facility] Last Admin: 12/01/20 20:20 Dose: 25 mg Documented by: Diphenoxylate HCl/Atropine (Diphenoxylate Hcl/Atropine 1 Tablet) 1 tab PO QIDP PRN PRN Reason: Wheezing Furosemide (Furosemide 20 Mg Tablet) 20 mg PO DAILY [facility] Last Admin: 12/02/20 10:02 Dose: 20 mg Documented by: Gabapentin (Gabapentin 100 Mg Capsule) 100 mg PO BID [facility] Last Admin: 12/02/20 10:02 Dose: 100 mg Documented by: Glipizide (Glipizide 5 Mg Tablet) 2.5 mg PO QAMAC [facility] Last Admin: 12/02/20 07:41 Dose: 2.5 mg Documented by: Glucose (Dextrose 31 Gm Oral.Susp) 15 gm PO PRN PRN PRN Reason: Hypoglycemia Magnesium Sulfate (Magnesium Sulfate) 2 gm in 50 mls @ 50 mls/hr IV UD PRN PRN Reason: Magnesium </= 1.6 Potassium Chloride 40 meq/ (Dextrose) 520 mls @ 130 mls/hr IV UD PRN PRN Reason: Potassium < 3 Insulin Human Lispro (Insulin Lispro 1 Unit/0.01 Ml Unit) [address] [facility]; Protocol Last Admin: 12/02/20 11:35 Dose: Not Given Documented by: Levetiracetam (Levetiracetam 500 Mg Tablet) 250 mg PO BID [facility] Last Admin: 12/02/20 10:02 Dose: 250 mg Documented by: Meclizine HCl (Meclizine 25 Mg Tablet) 25 mg PO DAILY [facility] Last Admin: 12/02/20 10:02 Dose: 25 mg Documented by: Melatonin (Melatonin 3 Mg Tablet) 3 mg PO QHS [facility] Last Admin: 12/01/20 20:24 Dose: 3 mg Documented by: Metformin HCl (Metformin 500 Mg Tab.Xl.24h) 1,000 mg PO [facility] Last Admin: 12/02/20 07:41 Dose: 1,000 mg Documented by: Methadone HCl (Methadone 5 Mg Tablet) 10 mg PO BID [facility] Last Admin: 12/02/20 10:03 Dose: 10 mg Documented by: Metoclopramide HCl (Metoclopramide 10 Mg/2 Ml Vial) 10 mg IV Q6HP PRN PRN Reason: Nausea And Vomiting Metoprolol Succinate (Metoprolol Succinate 25 Mg Tab.Xl.24h) 12.5 mg PO DAILY [facility] Last Admin: 12/02/20 10:02 Dose: 12.5 mg Documented by: Empagliflozin 25 Mg (Tablet) 1 dose PO DAILY [facility] Last Admin: 12/02/20 09:20 Dose: Not Given Documented by: Potassium Chloride (Potassium Chloride 20 Meq Tablet) 40 meq PO UD PRN PRN Reason: Potssium is 3-3.5 Potassium Chloride (Potassium Chloride 20 Meq Tablet) 40 meq PO UD PRN PRN Reason: Potassium < 3 Potassium Chloride (Potassium Chloride 10 Meq Tablet) 20 meq PO [facility] Last Admin: 12/02/20 07:41 Dose: 20 meq Documented by: Pregabalin (Pregabalin 25 Mg Capsule) 50 mg PO BID [facility] Last Admin: 12/02/20 10:03 Dose: 50 mg Documented by: Senna (Sennosides 1 Tablet) 2 tab PO DAILYP PRN PRN Reason: Constipation Last Admin: 11/23/20 09:26 Dose: 2 tab Documented by: Sertraline HCl (Sertraline 50 Mg Tablet) 125 mg PO DAILY [facility] Last Admin: 12/02/20 10:02 Dose: 125 mg Documented by: Sodium Chloride (0.9 % Sodium Chloride 10 Ml Syringe) 10 ml IV Q8 [facility] Last Admin: 12/02/20 04:53 Dose: 10 ml Documented by: Tramadol HCl (Tramadol 50 Mg Tablet) 50 mg PO DAILYP PRN; Protocol PRN Reason: Pain Last Admin: 12/02/20 01:45 Dose: 50 mg Documented by: Trazodone HCl (Trazodone Hcl 50 Mg Tablet) 25 mg PO HS [facility] Last Admin: 12/01/20 20:23 Dose: 25 mg Documented by: A/P Narrative A/P Narrative: A: *Generalized weakness/deconditioning/inability to care for self: -essentially wheelchair bound for past year *ileus vs incomplete sbo: pt refused oral contrast for further evaluation despite multiple attempts. She admits abdomen is uncomfortable but she is not willing to let us perform work-up to adequately evaluate and treat. *PAFib/flutter w/rvr: controlled *Hypernatremia: resolved *Dehydration/Volume depletion: improved *UTI (E.coli ESBL): completed abx *DM: *HTN: *LENARD: *Chronic lymphedema/venous stasis skin changes: *Anxiety/depression: *Obesity: *h/o Sz: on keppra *Recent LLE cellulitis treated at [facility]: *Chronic pain on methadone *Goals of care: Plan -cont home lasix -Metoprolol 12.5 mg daily. -Xanax 0.5 BID prn -Baclofen 10 mg twice daily. -Lyrica 50mg bid. -cont SSRI -methadone 10 BID -Cont SSI & home Metformin, Gipizide, and Jardiance -PT/OT -Home CPAP -oxygen prn -CM for placement -pt may consider hospice eval -DVT ppx: apixaban -code status: full -disposition: awaiting placement full code Time Spent With Patient Time: Total time spent is greater than 50% in coordination of care (as documented) at patient's floor/unit and/or counseling patient: QUALITY VTE Deep Vein Thrombosis/Pulmonary Embolism Present on Admission: No
[2020-12-02] MEDS: ATORVASTATIN 40 MG TABLET PO SCH (21:57)
[2020-12-02] MEDS: traZODone HCL 50 MG TABLET PO SCH (22:01)
[2020-12-02] MEDS: MELATONIN 3 MG TABLET PO SCH (22:01)
[2020-12-02] MEDS: diphenhydrAMINE 25 MG CAPSULE PO SCH (22:01)
[2020-12-03] MEDS: 0.9 % SODIUM CHLORIDE 10 ML SYRINGE IV SCH ×3 (05:25→22:14)
[2020-12-03] MEDS: METHADONE 5 MG TABLET PO SCH ×2 (07:41→22:04)
[2020-12-03] MEDS: INSULIN LISPRO 1 UNIT/0.01 ML UNIT SQ SCH ×5 (07:41→22:09)
[2020-12-03] MEDS: APIXABAN 5 MG TABLET PO SCH ×2 (07:41→22:04)
[2020-12-03] MEDS: levETIRAcetam 500 MG TABLET PO SCH ×2 (07:41→22:05)
[2020-12-03] MEDS: SERTRALINE 50 MG TABLET PO SCH (07:42)
[2020-12-03] MEDS: PREGABALIN 25 MG CAPSULE PO SCH ×2 (07:42→22:05)
[2020-12-03] MEDS: metFORMIN 500 MG TAB.XL.24H PO SCH (07:43)
[2020-12-03] MEDS: MECLIZINE 25 MG TABLET PO SCH (07:43)
[2020-12-03] MEDS: BACLOFEN 10 MG TABLET PO SCH ×2 (07:43→22:06)
[2020-12-03] MEDS: glipiZIDE 5 MG TABLET PO SCH (07:43)
[2020-12-03] MEDS: GABAPENTIN 100 MG CAPSULE PO SCH ×2 (07:43→22:05)
[2020-12-03] MEDS: FUROSEMIDE 20 MG TABLET PO SCH (07:43)
[2020-12-03] MEDS: POTASSIUM CHLORIDE 10 MEQ TABLET PO SCH (07:43)
[2020-12-03] MEDS: METOPROLOL SUCCINATE 25 MG TAB.XL.24H PO SCH (07:43)
[2020-12-03] MEDS: EMPAGLIFLOZIN 25 MG TABLET PO SCH (07:44)
--- NOTE | 2020-12-03 12:03 | Internal Med Progress Note ---
SUBJECTIVE Subjective Patient information: Note initiated : 12/03/20 at 12:01 pm Service Date, if different from initiated Date: [] Patient: Alexa Rai a 80 y/o F admitted on 11/14/20 for Weakness. Chief Complaint: [] Principal diagnosis: ESBL E.Coli UTI Interval history: History of present illness: Ms. Rai is a 80 year old F patient was recently at [facility] for cellulitis to the leg discharged the beginning of October. She was at [employer] prior to that admission but [facility] refused her and patient was discharged to [facility]. Patient says she has been at [facility] since last February. She is essentially wheelchair-bound for the past couple years she states she can ambulate a little bit with a walker. She was in the motel with her son who is homeless who will be kicked out of the motel today and he was worried about his mother because she cannot get up she just sits in her own urine she cannot take care of her self. She is unable to care for herself and her son who is homeless has no place to care for her. Patient has some nausea but no other complaints. She does have history atrial fibrillation and in the ED she did go to heart rate of 115. Tloms-bx-kasl sodium was 146, chemistry showed volume depletion 11/15 Patient doing well. Feels better. Urine culture with gram-negative bacillus. Heart rate improved. Electrolytes improved. Vaginal nausea but no other complaints. 11/16 No new complaints. Pending final urine culture. Placement being worked out with case management.. 11/23 Interval history: Patient is not feeling too good today. She complained of back pain. She seems comfortable. No overnight issues 11/24 No overnight event or new complaints. pt refused oral contrast for further evaluation despite multiple attempts. She admits abdomen is uncomfortable but she is not willing to let us perform work- up to adequately evaluate and treat. 11/25 Patient had a medium sized bowel movement this morning. She seems amenable to a small bowel follow-through this morning, we will attempt to obtain. 11/26 No overnight event or complaints. Had a large bowel movement yesterday after contrast study. Abdomen soft no pain. 11/27 Complains of chronic lower back pain otherwise no new complaints. Awaiting placement. 11/28 no changes. No new complaints. Awaiting placement 11/29 Discussed discharge, the patient wants to go home. She says she has a place rented. Stable, no acute medical issues. 11/30 Awaiting placement, regular diet to encourage nutritional intake. 12/01 Discussed importance of activity, awaiting placement. 12/02 More activity with sitting at the edge of the bed, removed fecal management system. 12/03 Seems more tired today, AM glucose 70. Discontinued glipizide 2.5 mg daily, not receiving insulin, continued Metformin. Awaiting placement. Constitutional Vitals: Vital Signs Temp Pulse Resp BP Pulse Ox 97.5 F 82 18 84/49 94 12/03/20 11:37 12/03/20 11:37 12/03/20 11:37 12/03/20 11:37 12/03/20 11:37 Period Temp Pulse Resp BP Sys/Jansen Pulse Ox Last 24 Hr 97 F-98.3 F 63-82 14-20 84-131/49-74 84-95 Intake and Output 12/02/20 12/03/20 12/03/20 21:59 05:59 13:59 Intake Total 500 200 Output Total 1 Balance 500 200 -1 Weight 108.363 kg Intake & Output: Intake & Output 12/02/20 12/03/20 12/03/20 21:59 05:59 13:59 Intake Total 500 200 Output Total 1 Balance 500 200 -1 Weight 108.363 kg Intake: Oral 500 200 Output: # of times incontinent of urine 1 Other: Meal Nourishment/Supplement Dinner Breakfast Percent of Meal Consumed 100% 10 Refused Feeding Ability Independent Independent Nourishment/Supplement name woodrow Exam: General: Alert, Awake, No acute Distress, obese Eyes/N/T: EOMI, Head/Neck: neck supple, CV: irreg, No murmurs, Pulm: breathing comfortably, no respiratory distress Abd: soft, nontender Ext: no clubbing/cyanosis, mild b/l LE edema Neuro: Alert, no focal deficits, moves all extremities, Skin: warm/dry OBJ DATA Labs CBC & Chem 7: 11/22/20 05:25 11/25/20 05:11 Meds: Medications Acetaminophen (Acetaminophen 325 Mg Tablet) 650 mg PO Q6HP PRN PRN Reason: PAIN/FEVER > 101 Last Admin: 11/17/20 17:22 Dose: 650 mg Documented by: Albuterol/Ipratropium (Ipratropium/Albuterol 3 Ml Ampul.Neb) 3 ml NEB Q4HP PRN PRN Reason: Shortness Of Breath Alprazolam (Alprazolam 0.5 Mg Tablet) 0.5 mg PO Q12HP PRN PRN Reason: Anxiety Apixaban (Apixaban 5 Mg Tablet) 5 mg PO BID [facility] Last Admin: 12/03/20 07:41 Dose: 5 mg Documented by: Atorvastatin Calcium (Atorvastatin 40 Mg Tablet) 40 mg PO QHS [facility] Last Admin: 12/02/20 21:57 Dose: 40 mg Documented by: Baclofen (Baclofen 10 Mg Tablet) 10 mg PO BID [facility] Last Admin: 12/03/20 07:43 Dose: 10 mg Documented by: Bisacodyl (Bisacodyl 10 Mg Supp.Rect) 10 mg [place] Q2-3DAYS PRN PRN Reason: Constipation Last Admin: 11/25/20 05:38 Dose: 10 mg Documented by: Dextrose (Dextrose 50% 50 Ml Vial) 0 ml IV UD PRN PRN Reason: Hypoglycemia Last Admin: 11/25/20 22:53 Dose: 25 ml Documented by: Diagnostic Test (Pha) (Accu-Chek 1 Each Strip) 1 each FS ACHS [facility] Last Admin: 12/03/20 11:54 Dose: 1 each Documented by: Diphenhydramine HCl (Diphenhydramine 25 Mg Capsule) 25 mg PO [facility] Last Admin: 12/02/20 22:01 Dose: Not Given Documented by: Diphenoxylate HCl/Atropine (Diphenoxylate Hcl/Atropine 1 Tablet) 1 tab PO QIDP PRN PRN Reason: Wheezing Furosemide (Furosemide 20 Mg Tablet) 20 mg PO DAILY [facility] Last Admin: 12/03/20 07:43 Dose: 20 mg Documented by: Gabapentin (Gabapentin 100 Mg Capsule) 100 mg PO BID [facility] Last Admin: 12/03/20 07:43 Dose: 100 mg Documented by: Glipizide (Glipizide 5 Mg Tablet) 2.5 mg PO QAMAC [facility] Last Admin: 12/03/20 07:43 Dose: 2.5 mg Documented by: Glucose (Dextrose 31 Gm Oral.Susp) 15 gm PO PRN PRN PRN Reason: Hypoglycemia Magnesium Sulfate (Magnesium Sulfate) 2 gm in 50 mls @ 50 mls/hr IV UD PRN PRN Reason: Magnesium </= 1.6 Potassium Chloride 40 meq/ (Dextrose) 520 mls @ 130 mls/hr IV UD PRN PRN Reason: Potassium < 3 Insulin Human Lispro (Insulin Lispro 1 Unit/0.01 Ml Unit) 0 unit SQ ACHS [facility]; Protocol Last Admin: 12/03/20 11:57 Dose: Not Given Documented by: Levetiracetam (Levetiracetam 500 Mg Tablet) 250 mg PO BID [facility] Last Admin: 12/03/20 07:41 Dose: 250 mg Documented by: Meclizine HCl (Meclizine 25 Mg Tablet) 25 mg PO DAILY [facility] Last Admin: 12/03/20 07:43 Dose: 25 mg Documented by: Melatonin (Melatonin 3 Mg Tablet) 3 mg PO QHS [facility] Last Admin: 12/02/20 22:01 Dose: Not Given Documented by: Metformin HCl (Metformin 500 Mg Tab.Xl.24h) 1,000 mg PO [facility] Last Admin: 12/03/20 07:43 Dose: 1,000 mg Documented by: Methadone HCl (Methadone 5 Mg Tablet) 10 mg PO BID [facility] Last Admin: 12/03/20 07:41 Dose: 10 mg Documented by: Metoclopramide HCl (Metoclopramide 10 Mg/2 Ml Vial) 10 mg IV Q6HP PRN PRN Reason: Nausea And Vomiting Metoprolol Succinate (Metoprolol Succinate 25 Mg Tab.Xl.24h) 12.5 mg PO DAILY [facility] Last Admin: 12/03/20 07:43 Dose: 12.5 mg Documented by: Empagliflozin 25 Mg (Tablet) 1 dose PO DAILY [facility] Last Admin: 12/03/20 07:44 Dose: Not Given Documented by: Potassium Chloride (Potassium Chloride 20 Meq Tablet) 40 meq PO UD PRN PRN Reason: Potssium is 3-3.5 Potassium Chloride (Potassium Chloride 20 Meq Tablet) 40 meq PO UD PRN PRN Reason: Potassium < 3 Potassium Chloride (Potassium Chloride 10 Meq Tablet) 20 meq PO [facility] Last Admin: 12/03/20 07:43 Dose: 20 meq Documented by: Pregabalin (Pregabalin 25 Mg Capsule) 50 mg PO BID [facility] Last Admin: 12/03/20 07:42 Dose: 50 mg Documented by: Senna (Sennosides 1 Tablet) 2 tab PO DAILYP PRN PRN Reason: Constipation Last Admin: 11/23/20 09:26 Dose: 2 tab Documented by: Sertraline HCl (Sertraline 50 Mg Tablet) 125 mg PO DAILY [facility] Last Admin: 12/03/20 07:42 Dose: 125 mg Documented by: Sodium Chloride (0.9 % Sodium Chloride 10 Ml Syringe) 10 ml IV Q8 [facility] Last Admin: 12/03/20 11:59 Dose: 10 ml Documented by: Tramadol HCl (Tramadol 50 Mg Tablet) 50 mg PO DAILYP PRN; Protocol PRN Reason: Pain Last Admin: 12/02/20 01:45 Dose: 50 mg Documented by: Trazodone HCl (Trazodone Hcl 50 Mg Tablet) 25 mg PO HS [facility] Last Admin: 12/02/20 22:01 Dose: Not Given Documented by: A/P Narrative A/P Narrative: A: *Generalized weakness/deconditioning/inability to care for self: -essentially wheelchair bound for past year *ileus vs incomplete sbo: pt refused oral contrast for further evaluation despite multiple attempts. She admits abdomen is uncomfortable but she is not willing to let us perform work-up to adequately evaluate and treat. *PAFib/flutter w/rvr: controlled *Hypernatremia: resolved *Dehydration/Volume depletion: improved *UTI (E.coli ESBL): completed abx *DM: *HTN: *LENARD: *Chronic lymphedema/venous stasis skin changes: *Anxiety/depression: *Obesity: *h/o Sz: on keppra *Recent LLE cellulitis treated at [facility]: *Chronic pain on methadone *Goals of care: Plan -check CBC and CMP today -cont home lasix -Metoprolol 12.5 mg daily. -Xanax 0.5 BID prn -Baclofen 10 mg twice daily. -Lyrica 50mg bid. -cont SSRI -methadone 10 BID -Holding glipizide for low normal AM glucose. -Continue Metformin, Empagliflozin, and SSI. -PT/OT -Home CPAP -oxygen prn -CM for placement -pt may consider hospice eval -DVT ppx: apixaban -code status: full -disposition: awaiting placement full code Time Spent With Patient Time: Total time spent is greater than 50% in coordination of care (as documented) at patient's floor/unit and/or counseling patient: QUALITY VTE Deep Vein Thrombosis/Pulmonary Embolism Present on Admission: No
[2020-12-03 13:25] LABS: ALT/SGPT 20 U/L (<40); AST/SGOT 25 U/L (<32); Albumin 2.4 gm/dL (3.2-5.2); Albumin/Globulin Ratio 0.7 (1.0-2.3); Alkaline Phosphatase 82 U/L (39-117); Bilirubin,Total 0.4 mg/dL (0.1-1.0); Blood Urea Nitrogen 10 mg/dL (8-23); Calcium 8.8 mg/dL (8.6-10.4); Carbon Dioxide 30 mmol/L (22-30); Chloride 101 mmol/L (96-108); Globulin 3.4 gm/dL (2.2-3.7); Glomerular Filtration Rate 93; Glucose 73 mg/dL (70-105)
[2020-12-03 13:28] LABS: Basophils # (Auto) 0.04 K/mcL (0.00-0.20); Basophils % (Auto) 0.4 % (0.0-2.0); Eosinophils # (Auto) 0.47 K/mcL (0.00-0.70); Eosinophils % (Auto) 5.2 % (0.0-7.0); Hematocrit 33.9 % (36.0-48.0); Hemoglobin 10.6 g/dL (12.0-15.0); Lymphocytes # (Auto) 1.63 K/mcL (1.50-4.80); Lymphocytes % (Auto) 18.2 % (15.0-49.0); Mean Cell Volume 89.7 fL (80.0-100.0); Mean Corpuscular HGB Conc 31.3 g/dL (31.0-36.0); Mean Platelet Volume 10.2 fL (7.4-10.4); Monocytes # (Auto) 0.93 K/mcL (0.10-0.90); Monocytes % (Auto) 10.4 % (1.0-12.0); Neutrophils % (Auto) 65.8 % (38.0-78.0); Platelet Count 274 K/mcL (140-440); RBC 3.78 M/mcL (4.00-5.20); Red Cell Distribution Width 13.4 % (11.5-14.5)
[2020-12-03] MEDS: traZODone HCL 50 MG TABLET PO SCH (22:05)
[2020-12-03] MEDS: diphenhydrAMINE 25 MG CAPSULE PO SCH (22:06)
[2020-12-03] MEDS: ATORVASTATIN 40 MG TABLET PO SCH (22:06)
[2020-12-03] MEDS: MELATONIN 3 MG TABLET PO SCH (22:07)
[2020-12-04] MEDS: 0.9 % SODIUM CHLORIDE 10 ML SYRINGE IV SCH ×3 (06:07→21:34)
[2020-12-04] MEDS: metFORMIN 500 MG TAB.XL.24H PO SCH (07:59)
[2020-12-04] MEDS: POTASSIUM CHLORIDE 10 MEQ TABLET PO SCH (07:59)
[2020-12-04] MEDS: INSULIN LISPRO 1 UNIT/0.01 ML UNIT SQ SCH ×4 (08:02→21:36)
--- NOTE | 2020-12-04 09:10 | Internal Med Progress Note ---
SUBJECTIVE Subjective Patient information: Note initiated : 12/04/20 at 9:03 am Service Date, if different from initiated Date: [] Patient: Alexa Rai a 80 y/o F admitted on 11/14/20 for Weakness. Chief Complaint: [] Principal diagnosis: ESBL E.Coli UTI Interval history: History of present illness: Ms. Rai is a 80 year old F patient was recently at [facility] for cellulitis to the leg discharged the beginning of October. She was at [facility] prior to that admission but [facility] refused her and patient was discharged to [facility]. Patient says she has been at [facility] since last February. She is essentially wheelchair-bound for the past couple years she states she can ambulate a little bit with a walker. She was in the motel with her son who is homeless who will be kicked out of the motel today and he was worried about his mother because she cannot get up she just sits in her own urine she cannot take care of her self. She is unable to care for herself and her son who is homeless has no place to care for her. Patient has some nausea but no other complaints. She does have history atrial fibrillation and in the ED she did go to heart rate of 115. Pxbum-du-vmuh sodium was 146, chemistry showed volume depletion 11/15 Patient doing well. Feels better. Urine culture with gram-negative bacillus. Heart rate improved. Electrolytes improved. Vaginal nausea but no other complaints. 11/16 No new complaints. Pending final urine culture. Placement being worked out with case management.. 11/23 Interval history: Patient is not feeling too good today. She complained of back pain. She seems comfortable. No overnight issues 11/24 No overnight event or new complaints. pt refused oral contrast for further evaluation despite multiple attempts. She admits abdomen is uncomfortable but she is not willing to let us perform work- up to adequately evaluate and treat. 11/25 Patient had a medium sized bowel movement this morning. She seems amenable to a small bowel follow-through this morning, we will attempt to obtain. 11/26 No overnight event or complaints. Had a large bowel movement yesterday after c ontrast study. Abdomen soft no pain. 11/27 Complains of chronic lower back pain otherwise no new complaints. Awaiting placement. 11/28 no changes. No new complaints. Awaiting placement 11/29 Discussed discharge, the patient wants to go home. She says she has a place rented. Stable, no acute medical issues. 11/30 Awaiting placement, regular diet to encourage nutritional intake. 12/01 Discussed importance of activity, awaiting placement. 12/02 More activity with sitting at the edge of the bed, removed fecal management system. 12/03 Seems more tired today, AM glucose 70. Discontinued glipizide 2.5 mg daily, not receiving insulin, continued Metformin. Awaiting placement. 12/04 Sitting at the side of bed for breakfast, overall more active the last few days. Physical exam General: obese chronically ill appearing female sitting comfortably at the bedside eating breakfast Head: Atraumatic, normal inspection. Eyes: right pupil deviation, no scleral icterus. Neck: full ROM Respiratory: no respiratory distress. Cardiovascular: normal rate and rhythm, S1, S2. GI/Abdominal: protuberant, soft, nontender, no guarding. Extremities: bilateral lower extremity bandages, nontender Neurological: CN II-XII intact, intact motor, intact sensation. Psychiatric: normal mood. Constitutional Vitals: Vital Signs Temp Pulse Resp BP Pulse Ox 97.2 F 81 18 103/70 92 12/04/20 06:45 12/04/20 06:45 12/04/20 06:45 12/04/20 06:45 12/04/20 06:45 Period Temp Pulse Resp BP Sys/Jansen Pulse Ox Last 24 Hr 97.2 F-98.1 F 77-90 18-18 84-104/49-70 91-94 Intake and Output 12/03/20 12/04/20 12/04/20 21:59 05:59 13:59 Intake Total 480 600 240 Output Total 600 Balance 480 0 240 Weight 108.891 kg Intake & Output: Intake & Output 12/03/20 12/04/20 12/04/20 21:59 05:59 13:59 Intake Total 480 600 240 Output Total 600 Balance 480 0 240 Weight 108.891 kg Intake: Oral 480 600 240 Output: Void Amount 600 Other: Meal Breakfast Percent of Meal Consumed 75% Feeding Ability Assist with Tray Set Up # Voids 3 Exam: General: Alert, Awake, No acute Distress, obese Eyes/N/T: EOMI, Head/Neck: neck supple, CV: irreg, No murmurs, Pulm: breathing comfortably, no respiratory distress Abd: soft, nontender Ext: no clubbing/cyanosis, mild b/l LE edema Neuro: Alert, no focal deficits, moves all extremities, Skin: warm/dry OBJ DATA Labs CBC & Chem 7: 12/03/20 12:21 12/03/20 12:21 Labs: Abnormal Lab Results 12/03/20 12/03/20 12:21 12:21 RBC 3.78 L Hgb 10.6 L Hct 33.9 L [place] # (Auto) 0.93 H Creatinine 0.5 L Total Protein 5.8 L Albumin 2.4 L Albumin/Globulin Ratio 0.7 L Meds: Medications Acetaminophen (Acetaminophen 325 Mg Tablet) 650 mg PO Q6HP PRN PRN Reason: PAIN/FEVER > 101 Last Admin: 11/17/20 17:22 Dose: 650 mg Documented by: Albuterol/Ipratropium (Ipratropium/Albuterol 3 Ml Ampul.Neb) 3 ml NEB Q4HP PRN PRN Reason: Shortness Of Breath Alprazolam (Alprazolam 0.5 Mg Tablet) 0.5 mg PO Q12HP PRN PRN Reason: Anxiety Apixaban (Apixaban 5 Mg Tablet) 5 mg PO BID [facility] Last Admin: 12/03/20 22:04 Dose: 5 mg Documented by: Atorvastatin Calcium (Atorvastatin 40 Mg Tablet) 40 mg PO QHS [facility] Last Admin: 12/03/20 22:06 Dose: 40 mg Documented by: Baclofen (Baclofen 10 Mg Tablet) 10 mg PO BID [facility] Last Admin: 12/03/20 22:06 Dose: 10 mg Documented by: Bisacodyl (Bisacodyl 10 Mg Supp.Rect) 10 mg NE Q2-3DAYS PRN PRN Reason: Constipation Last Admin: 11/25/20 05:38 Dose: 10 mg Documented by: Dextrose (Dextrose 50% 50 Ml Vial) 0 ml IV UD PRN PRN Reason: Hypoglycemia Last Admin: 11/25/20 22:53 Dose: 25 ml Documented by: Diagnostic Test (Pha) (Accu-Chek 1 Each Strip) 1 each FS ACHS [facility] Last Admin: 12/04/20 07:59 Dose: 1 each Documented by: Diphenhydramine HCl (Diphenhydramine 25 Mg Capsule) 25 mg PO HS [facility] Last Admin: 12/03/20 22:06 Dose: 25 mg Documented by: Diphenoxylate HCl/Atropine (Diphenoxylate Hcl/Atropine 1 Tablet) 1 tab PO QIDP PRN PRN Reason: Wheezing Furosemide (Furosemide 20 Mg Tablet) 20 mg PO DAILY [facility] Last Admin: 12/03/20 07:43 Dose: 20 mg Documented by: Gabapentin (Gabapentin 100 Mg Capsule) 100 mg PO BID [facility] Last Admin: 12/03/20 22:05 Dose: 100 mg Documented by: Glucose (Dextrose 31 Gm Oral.Susp) 15 gm PO PRN PRN PRN Reason: Hypoglycemia Magnesium Sulfate (Magnesium Sulfate) 2 gm in 50 mls @ 50 mls/hr IV UD PRN PRN Reason: Magnesium </= 1.6 Potassium Chloride 40 meq/ (Dextrose) 520 mls @ 130 mls/hr IV UD PRN PRN Reason: Potassium < 3 Insulin Human Lispro (Insulin Lispro 1 Unit/0.01 Ml Unit) 0 unit SQ ACHS [facility]; Protocol Last Admin: 12/04/20 08:02 Dose: Not Given Documented by: Levetiracetam (Levetiracetam 500 Mg Tablet) 250 mg PO BID [facility] Last Admin: 12/03/20 22:05 Dose: 250 mg Documented by: Meclizine HCl (Meclizine 25 Mg Tablet) 25 mg PO DAILY [facility] Last Admin: 12/03/20 07:43 Dose: 25 mg Documented by: Melatonin (Melatonin 3 Mg Tablet) 3 mg PO QHS [facility] Last Admin: 12/03/20 22:07 Dose: 3 mg Documented by: Metformin HCl (Metformin 500 Mg Tab.Xl.24h) 1,000 mg PO [facility] Last Admin: 12/04/20 07:59 Dose: 1,000 mg Documented by: Methadone HCl (Methadone 5 Mg Tablet) 10 mg PO BID [facility] Last Admin: 12/03/20 22:04 Dose: 10 mg Documented by: Metoclopramide HCl (Metoclopramide 10 Mg/2 Ml Vial) 10 mg IV Q6HP PRN PRN Reason: Nausea And Vomiting Metoprolol Succinate (Metoprolol Succinate 25 Mg Tab.Xl.24h) 12.5 mg PO DAILY [facility] Last Admin: 12/03/20 07:43 Dose: 12.5 mg Documented by: Empagliflozin 25 Mg (Tablet) 1 dose PO DAILY [facility] Last Admin: 12/03/20 07:44 Dose: Not Given Documented by: Potassium Chloride (Potassium Chloride 20 Meq Tablet) 40 meq PO UD PRN PRN Reason: Potssium is 3-3.5 Potassium Chloride (Potassium Chloride 20 Meq Tablet) 40 meq PO UD PRN PRN Reason: Potassium < 3 Potassium Chloride (Potassium Chloride 10 Meq Tablet) 20 meq PO QAMCC [facility] Last Admin: 12/04/20 07:59 Dose: 20 meq Documented by: Pregabalin (Pregabalin 25 Mg Capsule) 50 mg PO BID [facility] Last Admin: 12/03/20 22:05 Dose: 50 mg Documented by: Senna (Sennosides 1 Tablet) 2 tab PO DAILYP PRN PRN Reason: Constipation Last Admin: 11/23/20 09:26 Dose: 2 tab Documented by: Sertraline HCl (Sertraline 50 Mg Tablet) 125 mg PO DAILY [facility] Last Admin: 12/03/20 07:42 Dose: 125 mg Documented by: Sodium Chloride (0.9 % Sodium Chloride 10 Ml Syringe) 10 ml IV Q8 [facility] Last Admin: 12/04/20 06:07 Dose: Not Given Documented by: Tramadol HCl (Tramadol 50 Mg Tablet) 50 mg PO DAILYP PRN; Protocol PRN Reason: Pain Last Admin: 12/02/20 01:45 Dose: 50 mg Documented by: Trazodone HCl (Trazodone Hcl 50 Mg Tablet) 25 mg PO HS [facility] Last Admin: 12/03/20 22:05 Dose: 25 mg Documented by: A/P Narrative A/P Narrative: A: *Generalized weakness/deconditioning/inability to care for self: -wheelchair bound for past year *PAFib: controlled *Treated UTI (E.coli ESBL): *DM: *HTN: *LENARD: *Chronic lymphedema/venous stasis skin changes: *Chronic lower extremity wounds *Anxiety/depression: *Obesity: *Hx sezure: on low dose keppra *Recent LLE cellulitis treated at [facility]: *Chronic pain on methadone *Goals of care: Plan -cont home lasix, Metoprolol, Sertraline, Lyrical, Baclofen, Methadone, Apixaban. -Continue Metformin, Empagliflozin, and SSI. -Holding glipizide for low normal AM glucose. -PT/OT -Home CPAP -Oxygen prn -Wound care -CM for placement -pt may consider hospice -DVT ppx: apixaban -code status: full -disposition: awaiting placement full code Time Spent With Patient Time: Total time spent is greater than 50% in coordination of care (as documented) at patient's floor/unit and/or counseling patient: QUALITY VTE Deep Vein Thrombosis/Pulmonary Embolism Present on Admission: No
[2020-12-04] MEDS: METHADONE 5 MG TABLET PO SCH ×2 (10:05→21:33)
[2020-12-04] MEDS: APIXABAN 5 MG TABLET PO SCH ×2 (10:06→21:34)
[2020-12-04] MEDS: BACLOFEN 10 MG TABLET PO SCH ×2 (10:07→21:33)
[2020-12-04] MEDS: MECLIZINE 25 MG TABLET PO SCH (10:07)
[2020-12-04] MEDS: METOPROLOL SUCCINATE 25 MG TAB.XL.24H PO SCH (10:07)
[2020-12-04] MEDS: FUROSEMIDE 20 MG TABLET PO SCH (10:08)
[2020-12-04] MEDS: levETIRAcetam 500 MG TABLET PO SCH ×2 (10:08→21:32)
[2020-12-04] MEDS: GABAPENTIN 100 MG CAPSULE PO SCH ×2 (10:09→21:33)
[2020-12-04] MEDS: EMPAGLIFLOZIN 25 MG TABLET PO SCH (10:10)
[2020-12-04] MEDS: SERTRALINE 50 MG TABLET PO SCH (10:17)
[2020-12-04] MEDS: PREGABALIN 25 MG CAPSULE PO SCH ×2 (10:19→21:31)
--- NOTE | 2020-12-04 13:41 | Internal Med Progress Note ---
SUBJECTIVE Subjective Patient information: Note initiated : 12/04/20 at 1:39 pm Service Date, if different from initiated Date: [] Patient: Alexa Rai a 80 y/o F admitted on 11/14/20 for Weakness. Chief Complaint: [] Principal diagnosis: ESBL E.Coli UTI Interval history: History of present illness: Ms. Rai is a 80 year old F patient was recently at [facility] for cellulitis to the leg discharged the beginning of October. She was at [facility] prior to that admission but [facility] refused her and patient was discharged to [facility]. Patient says she has been at [facility] since last February. She is essentially wheelchair-bound for the past couple years she states she can ambulate a little bit with a walker. She was in the motel with her son who is homeless who will be kicked out of the motel today and he was worried about his mother because she cannot get up she just sits in her own urine she cannot take care of her self. She is unable to care for herself and her son who is homeless has no place to care for her. Patient has some nausea but no other complaints. She does have history atrial fibrillation and in the ED she did go to heart rate of 115. Vgnrm-jx-[id number] sodium was 146, chemistry showed volume depletion 11/15 Patient doing well. Feels better. Urine culture with gram-negative bacillus. Heart rate improved. Electrolytes improved. Vaginal nausea but no other complaints. 11/16 No new complaints. Pending final urine culture. Placement being worked out with case management.. 11/23 Interval history: Patient is not feeling too good today. She complained of back pain. She seems comfortable. No overnight issues 11/24 No overnight event or new complaints. pt refused oral contrast for further evaluation despite multiple attempts. She admits abdomen is uncomfortable but she is not willing to let us perform work- up to adequately evaluate and treat. 11/25 Patient had a medium sized bowel movement this morning. She seems amenable to a small bowel follow-through this morning, we will attempt to obtain. 11/26 No overnight event or complaints. Had a large bowel movement yesterday after c ontrast study. Abdomen soft no pain. 11/27 Complains of chronic lower back pain otherwise no new complaints. Awaiting placement. 11/28 no changes. No new complaints. Awaiting placement 11/29 Discussed discharge, the patient wants to go home. She says she has a place rented. Stable, no acute medical issues. 11/30 Awaiting placement, regular diet to encourage nutritional intake. 12/01 Discussed importance of activity, awaiting placement. 12/02 More activity with sitting at the edge of the bed, removed fecal management system. 12/03 Seems more tired today, AM glucose 70. Discontinued glipizide 2.5 mg daily, not receiving insulin, continued Metformin. Awaiting placement. 12/04 Sitting at the side of bed for breakfast, overall more active the last few days. 12/05 Review of Systems: denies headache/fever/chills/vomiting/chest or abdominal pain/cough/dyspnea/diarrhea. Otherwise see above. Constitutional Vitals: Vital Signs Temp Pulse Resp BP Pulse Ox 97.4 F 89 18 111/59 92 12/04/20 11:21 12/04/20 11:21 12/04/20 11:21 12/04/20 11:21 12/04/20 11:21 Period Temp Pulse Resp BP Sys/Jansen Pulse Ox Last 24 Hr 97.2 F-98.1 F 77-90 18-18 101-111/59-70 91-92 Intake and Output 12/03/20 12/04/20 12/04/20 21:59 05:59 13:59 Intake Total 432 742 3687 Output Total 600 400 Balance 480 0 640 Weight 108.891 kg Intake & Output: Intake & Output 12/03/20 12/04/20 12/04/20 21:59 05:59 13:59 Intake Total 150 195 5256 Output Total 600 400 Balance 480 0 640 Weight 108.891 kg Intake: Oral 732 409 7122 Output: Void Amount 600 400 Other: Meal Breakfast Percent of Meal Consumed 75% Feeding Ability Assist with Tray Set Up Urine Appearance Clear Urine Color Dark Yellow # Voids 3 Exam: General: Alert, Awake, No acute Distress, obese Eyes/N/T: EOMI, Head/Neck: neck supple, CV: irreg, No murmurs, Pulm: Clear b/l, no wheezing/rhonchi/rales Abd: soft, nontender, positive bowel sounds Ext: no clubbing/cyanosis, mild b/l LE edema Neuro: Alert, no focal deficits, moves all extremities, Skin: warm/dry OBJ DATA Labs CBC & Chem 7: 12/03/20 12:21 12/03/20 12:21 Labs: Abnormal Lab Results 12/03/20 12/03/20 12:21 12:21 RBC 3.78 L Hgb 10.6 L Hct 33.9 L [place] # (Auto) 0.93 H Creatinine 0.5 L Total Protein 5.8 L Albumin 2.4 L Albumin/Globulin Ratio 0.7 L Meds: Medications Acetaminophen (Acetaminophen 325 Mg Tablet) 650 mg PO Q6HP PRN PRN Reason: PAIN/FEVER > 101 Last Admin: 11/17/20 17:22 Dose: 650 mg Documented by: Albuterol/Ipratropium (Ipratropium/Albuterol 3 Ml Ampul.Neb) 3 ml NEB Q4HP PRN PRN Reason: Shortness Of Breath Alprazolam (Alprazolam 0.5 Mg Tablet) 0.5 mg PO Q12HP PRN PRN Reason: Anxiety Apixaban (Apixaban 5 Mg Tablet) 5 mg PO BID [facility] Last Admin: 12/04/20 10:06 Dose: 5 mg Documented by: Atorvastatin Calcium (Atorvastatin 40 Mg Tablet) 40 mg PO QHS [facility] Last Admin: 12/03/20 22:06 Dose: 40 mg Documented by: Baclofen (Baclofen 10 Mg Tablet) 10 mg PO BID [facility] Last Admin: 12/04/20 10:07 Dose: 10 mg Documented by: Bisacodyl (Bisacodyl 10 Mg Supp.Rect) 10 mg [place] Q2-3DAYS PRN PRN Reason: Constipation Last Admin: 11/25/20 05:38 Dose: 10 mg Documented by: Dextrose (Dextrose 50% 50 Ml Vial) 0 ml IV UD PRN PRN Reason: Hypoglycemia Last Admin: 11/25/20 22:53 Dose: 25 ml Documented by: Diagnostic Test (Pha) (Accu-Chek 1 Each Strip) 1 each FS ACHS [facility] Last Admin: 12/04/20 11:23 Dose: 1 each Documented by: Diphenhydramine HCl (Diphenhydramine 25 Mg Capsule) 25 mg PO HS [facility] Last Admin: 12/03/20 22:06 Dose: 25 mg Documented by: Diphenoxylate HCl/Atropine (Diphenoxylate Hcl/Atropine 1 Tablet) 1 tab PO QIDP PRN PRN Reason: Wheezing Furosemide (Furosemide 20 Mg Tablet) 20 mg PO DAILY [facility] Last Admin: 12/04/20 10:08 Dose: 20 mg Documented by: Gabapentin (Gabapentin 100 Mg Capsule) 100 mg PO BID [facility] Last Admin: 12/04/20 10:09 Dose: 100 mg Documented by: Glucose (Dextrose 31 Gm Oral.Susp) 15 gm PO PRN PRN PRN Reason: Hypoglycemia Magnesium Sulfate (Magnesium Sulfate) 2 gm in 50 mls @ 50 mls/hr IV UD PRN PRN Reason: Magnesium </= 1.6 Potassium Chloride 40 meq/ (Dextrose) 520 mls @ 130 mls/hr IV UD PRN PRN Reason: Potassium < 3 Insulin Human Lispro (Insulin Lispro 1 Unit/0.01 Ml Unit) 0 unit SQ ACHS [facility]; Protocol Last Admin: 12/04/20 11:25 Dose: Not Given Documented by: Levetiracetam (Levetiracetam 500 Mg Tablet) 250 mg PO BID [facility] Last Admin: 12/04/20 10:08 Dose: 250 mg Documented by: Meclizine HCl (Meclizine 25 Mg Tablet) 25 mg PO DAILY [facility] Last Admin: 12/04/20 10:07 Dose: 25 mg Documented by: Melatonin (Melatonin 3 Mg Tablet) 3 mg PO QHS [facility] Last Admin: 12/03/20 22:07 Dose: 3 mg Documented by: Metformin HCl (Metformin 500 Mg Tab.Xl.24h) 1,000 mg PO [facility] Last Admin: 12/04/20 07:59 Dose: 1,000 mg Documented by: Methadone HCl (Methadone 5 Mg Tablet) 10 mg PO BID [facility] Last Admin: 12/04/20 10:05 Dose: 10 mg Documented by: Metoclopramide HCl (Metoclopramide 10 Mg/2 Ml Vial) 10 mg IV Q6HP PRN PRN Reason: Nausea And Vomiting Metoprolol Succinate (Metoprolol Succinate 25 Mg Tab.Xl.24h) 12.5 mg PO DAILY [facility] Last Admin: 12/04/20 10:07 Dose: 12.5 mg Documented by: Empagliflozin 25 Mg (Tablet) 1 dose PO DAILY [facility] Last Admin: 12/04/20 10:10 Dose: Not Given Documented by: Potassium Chloride (Potassium Chloride 20 Meq Tablet) 40 meq PO UD PRN PRN Reason: Potssium is 3-3.5 Potassium Chloride (Potassium Chloride 20 Meq Tablet) 40 meq PO UD PRN PRN Reason: Potassium < 3 Potassium Chloride (Potassium Chloride 10 Meq Tablet) 20 meq PO QAMCC [facility] Last Admin: 12/04/20 07:59 Dose: 20 meq Documented by: Pregabalin (Pregabalin 25 Mg Capsule) 50 mg PO BID [facility] Last Admin: 12/04/20 10:19 Dose: 50 mg Documented by: Senna (Sennosides 1 Tablet) 2 tab PO DAILYP PRN PRN Reason: Constipation Last Admin: 11/23/20 09:26 Dose: 2 tab Documented by: Sertraline HCl (Sertraline 50 Mg Tablet) 125 mg PO DAILY [facility] Last Admin: 12/04/20 10:17 Dose: 125 mg Documented by: Sodium Chloride (0.9 % Sodium Chloride 10 Ml Syringe) 10 ml IV Q8 [facility] Last Admin: 12/04/20 06:07 Dose: Not Given Documented by: Tramadol HCl (Tramadol 50 Mg Tablet) 50 mg PO DAILYP PRN; Protocol PRN Reason: Pain Last Admin: 12/02/20 01:45 Dose: 50 mg Documented by: Trazodone HCl (Trazodone Hcl 50 Mg Tablet) 25 mg PO HS [facility] Last Admin: 12/03/20 22:05 Dose: 25 mg Documented by: A/P Narrative A/P Narrative: A: *Generalized weakness/deconditioning/inability to care for self: -essentially wheelchair bound for past year *ileus vs incomplete sbo: resolved *PAFib/flutter w/rvr: controlled *Hypernatremia: resolved *Dehydration/Volume depletion: improved *UTI (E.coli ESBL): treated *DM: *HTN: *LENARD: *Chronic lymphedema/venous stasis skin changes: *Anxiety/depression: *Obesity: *h/o Sz: on keppra *Recent LLE cellulitis treated at [facility]: *psbo: resolved *Goals of care: P: -cont home lasix -Decreased dose of Metoprolol 12.5 from from 50mg and Dced Lisinopril 5mg -Decrease Xanax 0.5 from TID to BID -decrease baclofen 10 mg from 3 times daily to twice daily, DC Phenergan -Dec Lyrica to 50mg bid from TID. -cont SSRI -holding Glipizide for low AM glucose. Cont SSI & home Metformin and Jardiance -PT/OT -Home CPAP -CM for placement -pt may consider hospice eval -ppx: apixaban full code Time Spent With Patient Time: Total time spent is greater than 50% in coordination of care (as documented) at patient's floor/unit and/or counseling patient: QUALITY VTE Deep Vein Thrombosis/Pulmonary Embolism Present on Admission: No
[2020-12-04] MEDS: traZODone HCL 50 MG TABLET PO SCH (21:31)
[2020-12-04] MEDS: MELATONIN 3 MG TABLET PO SCH (21:32)
[2020-12-04] MEDS: ATORVASTATIN 40 MG TABLET PO SCH (21:33)
[2020-12-04] MEDS: diphenhydrAMINE 25 MG CAPSULE PO SCH (21:34)
[2020-12-05] MEDS: 0.9 % SODIUM CHLORIDE 10 ML SYRINGE IV SCH ×3 (05:46→21:06)
--- NOTE | 2020-12-05 08:36 | Internal Med Progress Note ---
SUBJECTIVE Subjective Patient information: Note initiated : 12/05/20 at 8:36 am Service Date, if different from initiated Date: [] Patient: Alexa Rai a 80 y/o F admitted on 11/14/20 for Weakness. Chief Complaint: [] Principal diagnosis: ESBL E.Coli UTI Interval history: History of present illness: Ms. Rai is a 80 year old F patient was recently at [facility] for cellulitis to the leg discharged the beginning of October. She was at [facility] prior to that admission but [facility] refused her and patient was discharged to [facility]. Patient says she has been at [facility] since last February. She is essentially wheelchair-bound for the past couple years she states she can ambulate a little bit with a walker. She was in the motel with her son who is homeless who will be kicked out of the motel today and he was worried about his mother because she cannot get up she just sits in her own urine she cannot take care of her self. She is unable to care for herself and her son who is homeless has no place to care for her. Patient has some nausea but no other complaints. She does have history atrial fibrillation and in the ED she did go to heart rate of 115. [id number] sodium was 146, chemistry showed volume depletion 11/15 Patient doing well. Feels better. Urine culture with gram-negative bacillus. Heart rate improved. Electrolytes improved. Vaginal nausea but no other complaints. 11/16 No new complaints. Pending final urine culture. Placement being worked out with case management.. 11/23 Interval history: Patient is not feeling too good today. She complained of back pain. She seems comfortable. No overnight issues 11/24 No overnight event or new complaints. pt refused oral contrast for further evaluation despite multiple attempts. She admits abdomen is uncomfortable but she is not willing to let us perform work- up to adequately evaluate and treat. 11/25 Patient had a medium sized bowel movement this morning. She seems amenable to a small bowel follow-through this morning, we will attempt to obtain. 11/26 No overnight event or complaints. Had a large bowel movement yesterday after c ontrast study. Abdomen soft no pain. 11/27 Complains of chronic lower back pain otherwise no new complaints. Awaiting placement. 11/28 no changes. No new complaints. Awaiting placement 11/29 Discussed discharge, the patient wants to go home. She says she has a place rented. Stable, no acute medical issues. 11/30 Awaiting placement, regular diet to encourage nutritional intake. 12/01 Discussed importance of activity, awaiting placement. 12/02 More activity with sitting at the edge of the bed, removed fecal management system. 12/03 Seems more tired today, AM glucose 70. Discontinued glipizide 2.5 mg daily, not receiving insulin, continued Metformin. Awaiting placement. 12/04 Sitting at the side of bed for breakfast, overall more active the last few days. 12/05 Sleeping. No change overnight. Awaiting placement. Review of Systems: denies headache/fever/chills/vomiting/chest or abdominal pain/cough/dyspnea/diarrhea. Otherwise see above. Constitutional Vitals: Vital Signs Temp Pulse Resp BP Pulse Ox 96.9 F L 68 16 111/70 96 12/05/20 07:35 12/05/20 07:35 12/05/20 07:35 12/05/20 07:35 12/05/20 07:35 Period Temp Pulse Resp BP Sys/Jansen Pulse Ox Last 24 Hr 96.5 F-99.3 F 68-114 14-18 107-117/59-70 90-98 Intake and Output 12/04/20 12/05/20 12/05/20 21:59 05:59 13:59 Intake Total 300 450 Output Total 400 226 Balance -100 224 Weight 107.819 kg Intake & Output: Intake & Output 12/04/20 12/05/20 12/05/20 21:59 05:59 13:59 Intake Total 300 450 Output Total 400 226 Balance -100 224 Weight 107.819 kg Intake: Oral 300 450 Output: Void Amount 400 225 # of times incontinent of urine 1 Other: Meal Dinner Percent of Meal Consumed 100% Urine Appearance Clear Urine Color Dark Yellow Exam: General: Sleeping, No acute Distress, obese Eyes/N/T: , Head/Neck: neck supple, CV: irreg, No murmurs, Pulm: Clear b/l, no wheezing/rhonchi/rales Abd: soft, nontender, positive bowel sounds Ext: no clubbing/cyanosis, mild b/l LE edema Neuro: , no focal deficits, moves all extremities, Skin: warm/dry OBJ DATA Labs CBC & Chem 7: 12/03/20 12:21 12/03/20 12:21 Labs: Abnormal Lab Results 12/03/20 12/03/20 12:21 12:21 RBC 3.78 L Hgb 10.6 L Hct 33.9 L [place] # (Auto) 0.93 H Creatinine 0.5 L Total Protein 5.8 L Albumin 2.4 L Albumin/Globulin Ratio 0.7 L Meds: Medications Acetaminophen (Acetaminophen 325 Mg Tablet) 650 mg PO Q6HP PRN PRN Reason: PAIN/FEVER > 101 Last Admin: 11/17/20 17:22 Dose: 650 mg Documented by: Albuterol/Ipratropium (Ipratropium/Albuterol 3 Ml Ampul.Neb) 3 ml NEB Q4HP PRN PRN Reason: Shortness Of Breath Alprazolam (Alprazolam 0.5 Mg Tablet) 0.5 mg PO Q12HP PRN PRN Reason: Anxiety Apixaban (Apixaban 5 Mg Tablet) 5 mg PO BID [facility] Last Admin: 12/04/20 21:34 Dose: 5 mg Documented by: Atorvastatin Calcium (Atorvastatin 40 Mg Tablet) 40 mg PO QHS [facility] Last Admin: 12/04/20 21:33 Dose: 40 mg Documented by: Baclofen (Baclofen 10 Mg Tablet) 10 mg PO BID [facility] Last Admin: 12/04/20 21:33 Dose: 10 mg Documented by: Bisacodyl (Bisacodyl 10 Mg Supp.Rect) 10 mg VT Q2-3DAYS PRN PRN Reason: Constipation Last Admin: 11/25/20 05:38 Dose: 10 mg Documented by: Dextrose (Dextrose 50% 50 Ml Vial) 0 ml IV UD PRN PRN Reason: Hypoglycemia Last Admin: 11/25/20 22:53 Dose: 25 ml Documented by: Diagnostic Test (Pha) (Accu-Chek 1 Each Strip) 1 each FS ACHS [facility] Last Admin: 12/04/20 21:31 Dose: 1 each Documented by: Diphenhydramine HCl (Diphenhydramine 25 Mg Capsule) 25 mg PO HS [facility] Last Admin: 12/04/20 21:34 Dose: 25 mg Documented by: Diphenoxylate HCl/Atropine (Diphenoxylate Hcl/Atropine 1 Tablet) 1 tab PO QIDP PRN PRN Reason: Wheezing Furosemide (Furosemide 20 Mg Tablet) 20 mg PO DAILY [facility] Last Admin: 12/04/20 10:08 Dose: 20 mg Documented by: Gabapentin (Gabapentin 100 Mg Capsule) 100 mg PO BID [facility] Last Admin: 12/04/20 21:33 Dose: 100 mg Documented by: Glucose (Dextrose 31 Gm Oral.Susp) 15 gm PO PRN PRN PRN Reason: Hypoglycemia Magnesium Sulfate (Magnesium Sulfate) 2 gm in 50 mls @ 50 mls/hr IV UD PRN PRN Reason: Magnesium </= 1.6 Potassium Chloride 40 meq/ (Dextrose) 520 mls @ 130 mls/hr IV UD PRN PRN Reason: Potassium < 3 Insulin Human Lispro (Insulin Lispro 1 Unit/0.01 Ml Unit) 0 unit SQ ACHS [facility]; Protocol Last Admin: 12/04/20 21:36 Dose: Not Given Documented by: Levetiracetam (Levetiracetam 500 Mg Tablet) 250 mg PO BID [facility] Last Admin: 12/04/20 21:32 Dose: 250 mg Documented by: Meclizine HCl (Meclizine 25 Mg Tablet) 25 mg PO DAILY [facility] Last Admin: 12/04/20 10:07 Dose: 25 mg Documented by: Melatonin (Melatonin 3 Mg Tablet) 3 mg PO QHS [facility] Last Admin: 12/04/20 21:32 Dose: 3 mg Documented by: Metformin HCl (Metformin 500 Mg Tab.Xl.24h) 1,000 mg PO [facility] Last Admin: 12/04/20 07:59 Dose: 1,000 mg Documented by: Methadone HCl (Methadone 5 Mg Tablet) 10 mg PO BID [facility] Last Admin: 12/04/20 21:33 Dose: 10 mg Documented by: Metoclopramide HCl (Metoclopramide 10 Mg/2 Ml Vial) 10 mg IV Q6HP PRN PRN Reason: Nausea And Vomiting Metoprolol Succinate (Metoprolol Succinate 25 Mg Tab.Xl.24h) 12.5 mg PO DAILY [facility] Last Admin: 12/04/20 10:07 Dose: 12.5 mg Documented by: Empagliflozin 25 Mg (Tablet) 1 dose PO DAILY [facility] Last Admin: 12/04/20 10:10 Dose: Not Given Documented by: Potassium Chloride (Potassium Chloride 20 Meq Tablet) 40 meq PO UD PRN PRN Reason: Potssium is 3-3.5 Potassium Chloride (Potassium Chloride 20 Meq Tablet) 40 meq PO UD PRN PRN Reason: Potassium < 3 Potassium Chloride (Potassium Chloride 10 Meq Tablet) 20 meq PO QAMCC [facility] Last Admin: 12/04/20 07:59 Dose: 20 meq Documented by: Pregabalin (Pregabalin 25 Mg Capsule) 50 mg PO BID [facility] Last Admin: 12/04/20 21:31 Dose: 50 mg Documented by: Senna (Sennosides 1 Tablet) 2 tab PO DAILYP PRN PRN Reason: Constipation Last Admin: 11/23/20 09:26 Dose: 2 tab Documented by: Sertraline HCl (Sertraline 50 Mg Tablet) 125 mg PO DAILY [facility] Last Admin: 12/04/20 10:17 Dose: 125 mg Documented by: Sodium Chloride (0.9 % Sodium Chloride 10 Ml Syringe) 10 ml IV Q8 [facility] Last Admin: 12/05/20 05:46 Dose: Not Given Documented by: Tramadol HCl (Tramadol 50 Mg Tablet) 50 mg PO DAILYP PRN; Protocol PRN Reason: Pain Last Admin: 12/02/20 01:45 Dose: 50 mg Documented by: Trazodone HCl (Trazodone Hcl 50 Mg Tablet) 25 mg PO [facility] Last Admin: 12/04/20 21:31 Dose: 25 mg Documented by: A/P Narrative A/P Narrative: A: *Generalized weakness/deconditioning/inability to care for self: -essentially wheelchair bound for past year *ileus vs incomplete sbo: resolved *PAFib/flutter w/rvr: controlled *Hypernatremia: resolved *Dehydration/Volume depletion: improved *UTI (E.coli ESBL): treated *DM: *HTN: *LENARD: *Chronic lymphedema/venous stasis skin changes: *Anxiety/depression: *Obesity: *h/o Sz: on keppra *Recent LLE cellulitis treated at [facility]: *psbo: resolved *Goals of care: P: -cont home lasix -Decreased dose of Metoprolol 12.5 from from 50mg and Dced Lisinopril 5mg -Decrease Xanax 0.5 from TID to BID -decrease baclofen 10 mg from 3 times daily to twice daily, DC Phenergan -Dec Lyrica to 50mg bid from TID. -cont SSRI -holding Glipizide for low AM glucose. Cont SSI & home Metformin and Jardiance -PT/OT -Home CPAP -CM for placement -pt may consider hospice eval -ppx: apixaban full code Time Spent With Patient Time: Total time spent is greater than 50% in coordination of care (as documented) at patient's floor/unit and/or counseling patient: QUALITY VTE Deep Vein Thrombosis/Pulmonary Embolism Present on Admission: No
[2020-12-05] MEDS: INSULIN LISPRO 1 UNIT/0.01 ML UNIT SQ SCH ×4 (09:02→21:06)
[2020-12-05] MEDS: GABAPENTIN 100 MG CAPSULE PO SCH ×2 (09:02→20:58)
[2020-12-05] MEDS: METOPROLOL SUCCINATE 25 MG TAB.XL.24H PO SCH (09:02)
[2020-12-05] MEDS: APIXABAN 5 MG TABLET PO SCH ×2 (09:02→20:57)
[2020-12-05] MEDS: FUROSEMIDE 20 MG TABLET PO SCH (09:02)
[2020-12-05] MEDS: PREGABALIN 25 MG CAPSULE PO SCH ×2 (09:03→20:57)
[2020-12-05] MEDS: MECLIZINE 25 MG TABLET PO SCH (09:03)
[2020-12-05] MEDS: metFORMIN 500 MG TAB.XL.24H PO SCH (09:03)
[2020-12-05] MEDS: SERTRALINE 50 MG TABLET PO SCH (09:03)
[2020-12-05] MEDS: POTASSIUM CHLORIDE 10 MEQ TABLET PO SCH (09:03)
[2020-12-05] MEDS: levETIRAcetam 500 MG TABLET PO SCH ×2 (09:04→20:57)
[2020-12-05] MEDS: BACLOFEN 10 MG TABLET PO SCH ×2 (09:04→20:57)
[2020-12-05] MEDS: METHADONE 5 MG TABLET PO SCH ×2 (09:04→20:58)
[2020-12-05] MEDS: EMPAGLIFLOZIN 25 MG TABLET PO SCH (09:05)
[2020-12-05] MEDS: traZODone HCL 50 MG TABLET PO SCH (20:57)
[2020-12-05] MEDS: ATORVASTATIN 40 MG TABLET PO SCH (20:57)
[2020-12-05] MEDS: diphenhydrAMINE 25 MG CAPSULE PO SCH (20:57)
[2020-12-05] MEDS: MELATONIN 3 MG TABLET PO SCH (20:57)
[2020-12-06] MEDS: 0.9 % SODIUM CHLORIDE 10 ML SYRINGE IV SCH ×3 (05:10→21:24)
--- NOTE | 2020-12-06 08:30 | Internal Med Progress Note ---
SUBJECTIVE Subjective Patient information: Note initiated : 12/06/20 at 8:29 am Service Date, if different from initiated Date: [] Patient: Alexa Rai a 80 y/o F admitted on 11/14/20 for Weakness. Chief Complaint: [] Principal diagnosis: ESBL E.Coli UTI Interval history: Principal diagnosis: ESBL E.Coli UTI Interval history: History of present illness: Ms. Rai is a 80 year old F patient was recently at [facility] for cellulitis to the leg discharged the beginning of October. She was at [facility] prior to that admission but [facility] refused her and patient was discharged to [facility] 6. Patient says she has been at [facility] since last February. She is essentially wheelchair-bound for the past couple years she states she can ambulate a little bit with a walker. She was in the motel with her son who is homeless who will be kicked out of the motel today and he was worried about his mother because she cannot get up she just sits in her own urine she cannot take care of her self. She is unable to care for herself and her son who is homeless has no place to care for her. Patient has some nausea but no other complaints. She does have history atrial fibrillation and in the ED she did go to heart rate of 115. [id number] sodium was 146, chemistry showed volume depletion 11/15 Patient doing well. Feels better. Urine culture with gram-negative bacillus. Heart rate improved. Electrolytes improved. Vaginal nausea but no other complaints. 11/16 No new complaints. Pending final urine culture. Placement being worked out with case management.. 11/23 Interval history: Patient is not feeling too good today. She complained of back pain. She seems comfortable. No overnight issues 11/24 No overnight event or new complaints. pt refused oral contrast for further evaluation despite multiple attempts. She admits abdomen is uncomfortable but she is not willing to let us perform work- up to adequately evaluate and treat. 11/25 Patient had a medium sized bowel movement this morning. She seems amenable to a small bowel follow-through this morning, we will attempt to obtain. 11/26 No overnight event or complaints. Had a large bowel movement yesterday after contrast study. Abdomen soft no pain. 11/27 Complains of chronic lower back pain otherwise no new complaints. Awaiting placement. 11/28 no changes. No new complaints. Awaiting placement 11/29 Discussed discharge, the patient wants to go home. She says she has a place rented. Stable, no acute medical issues. 11/30 Awaiting placement, regular diet to encourage nutritional intake. 12/01 Discussed importance of activity, awaiting placement. 12/02 More activity with sitting at the edge of the bed, removed fecal management system. 12/03 Seems more tired today, AM glucose 70. Discontinued glipizide 2.5 mg daily, not receiving insulin, continued Metformin. Awaiting placement. 12/04 Sitting at the side of bed for breakfast, overall more active the last few days. 12/05 Sleeping. No change overnight. Awaiting placement. 12/06 No changes. Patient seems to feeling well today. No new complaints. Review of Systems: denies headache/fever/chills/nausea/vomiting/chest or abdominal pain/cough/dyspnea/diarrhea. Otherwise see above. Constitutional Vitals: Vital Signs Temp Pulse Resp BP Pulse Ox 96.8 F L 62 18 109/59 94 12/06/20 07:56 12/06/20 07:56 12/06/20 07:56 12/06/20 07:56 12/06/20 07:56 Period Temp Pulse Resp BP Sys/Jansen Pulse Ox Last 24 Hr 96.7 F-98.3 F 61-80 14-18 98-113/53-62 92-97 Intake and Output 12/05/20 12/06/20 12/06/20 21:59 05:59 13:59 Intake Total 800 1000 Output Total 2600 401 Balance -1800 599 Weight 108.545 kg Intake & Output: Intake & Output 12/05/20 12/06/20 12/06/20 21:59 05:59 13:59 Intake Total 800 1000 Output Total 2600 401 Balance -1800 599 Weight 108.545 kg Intake: Oral 800 1000 Output: Urine Catheter Amount 2100 Void Amount 500 400 # of times incontinent of urine 1 Other: Meal Lunch Percent of Meal Consumed 75% Feeding Ability Assist with Tray Set Up Urine Appearance Clear Clear Urine Color Dark Yellow Straw Urine Odor Normal Exam: General: Awake, No acute Distress, obese Eyes/N/T: , Head/Neck: neck supple, CV: irreg, No murmurs, Pulm: Clear b/l, no wheezing/rhonchi/rales Abd: soft, nontender, positive bowel sounds Ext: no clubbing/cyanosis, mild b/l LE edema Neuro: Alert, no focal deficits, moves all extremities, Skin: warm/dry OBJ DATA Labs CBC & Chem 7: 12/03/20 12:21 12/03/20 12:21 Labs: Abnormal Lab Results 12/03/20 12/03/20 12:21 12:21 RBC 3.78 L Hgb 10.6 L Hct 33.9 L [place] # (Auto) 0.93 H Creatinine 0.5 L Total Protein 5.8 L Albumin 2.4 L Albumin/Globulin Ratio 0.7 L Meds: Medications Acetaminophen (Acetaminophen 325 Mg Tablet) 650 mg PO Q6HP PRN PRN Reason: PAIN/FEVER > 101 Last Admin: 11/17/20 17:22 Dose: 650 mg Documented by: Albuterol/Ipratropium (Ipratropium/Albuterol 3 Ml Ampul.Neb) 3 ml NEB Q4HP PRN PRN Reason: Shortness Of Breath Alprazolam (Alprazolam 0.5 Mg Tablet) 0.5 mg PO Q12HP PRN PRN Reason: Anxiety Apixaban (Apixaban 5 Mg Tablet) 5 mg PO BID [facility] Last Admin: 12/05/20 20:57 Dose: 5 mg Documented by: Atorvastatin Calcium (Atorvastatin 40 Mg Tablet) 40 mg PO QHS [facility] Last Admin: 12/05/20 20:57 Dose: 40 mg Documented by: Baclofen (Baclofen 10 Mg Tablet) 10 mg PO BID [facility] Last Admin: 12/05/20 20:57 Dose: 10 mg Documented by: Bisacodyl (Bisacodyl 10 Mg Supp.Rect) 10 mg CO Q2-3DAYS PRN PRN Reason: Constipation Last Admin: 11/25/20 05:38 Dose: 10 mg Documented by: Dextrose (Dextrose 50% 50 Ml Vial) 0 ml IV UD PRN PRN Reason: Hypoglycemia Last Admin: 11/25/20 22:53 Dose: 25 ml Documented by: Diagnostic Test (Pha) (Accu-Chek 1 Each Strip) 1 each FS ACHS [facility] Last Admin: 12/05/20 21:06 Dose: 1 each Documented by: Diphenhydramine HCl (Diphenhydramine 25 Mg Capsule) 25 mg PO HS [facility] Last Admin: 12/05/20 20:57 Dose: 25 mg Documented by: Diphenoxylate HCl/Atropine (Diphenoxylate Hcl/Atropine 1 Tablet) 1 tab PO QIDP PRN PRN Reason: Wheezing Furosemide (Furosemide 20 Mg Tablet) 20 mg PO DAILY [facility] Last Admin: 12/05/20 09:02 Dose: 20 mg Documented by: Gabapentin (Gabapentin 100 Mg Capsule) 100 mg PO BID [facility] Last Admin: 12/05/20 20:58 Dose: 100 mg Documented by: Glucose (Dextrose 31 Gm Oral.Susp) 15 gm PO PRN PRN PRN Reason: Hypoglycemia Magnesium Sulfate (Magnesium Sulfate) 2 gm in 50 mls @ 50 mls/hr IV UD PRN PRN Reason: Magnesium </= 1.6 Potassium Chloride 40 meq/ (Dextrose) 520 mls @ 130 mls/hr IV UD PRN PRN Reason: Potassium < 3 Insulin Human Lispro (Insulin Lispro 1 Unit/0.01 Ml Unit) 0 unit SQ ACHS [facility]; Protocol Last Admin: 12/05/20 21:06 Dose: Not Given Documented by: Levetiracetam (Levetiracetam 500 Mg Tablet) 250 mg PO BID [facility] Last Admin: 12/05/20 20:57 Dose: 250 mg Documented by: Meclizine HCl (Meclizine 25 Mg Tablet) 25 mg PO DAILY [facility] Last Admin: 12/05/20 09:03 Dose: 25 mg Documented by: Melatonin (Melatonin 3 Mg Tablet) 3 mg PO QHS [facility] Last Admin: 12/05/20 20:57 Dose: 3 mg Documented by: Metformin HCl (Metformin 500 Mg Tab.Xl.24h) 1,000 mg PO [facility] Last Admin: 12/05/20 09:03 Dose: 1,000 mg Documented by: Methadone HCl (Methadone 5 Mg Tablet) 10 mg PO BID [facility] Last Admin: 12/05/20 20:58 Dose: 10 mg Documented by: Metoclopramide HCl (Metoclopramide 10 Mg/2 Ml Vial) 10 mg IV Q6HP PRN PRN Reason: Nausea And Vomiting Metoprolol Succinate (Metoprolol Succinate 25 Mg Tab.Xl.24h) 12.5 mg PO DAILY [facility] Last Admin: 12/05/20 09:02 Dose: 12.5 mg Documented by: Empagliflozin 25 Mg (Tablet) 1 dose PO DAILY [facility] Last Admin: 12/05/20 09:05 Dose: Not Given Documented by: Potassium Chloride (Potassium Chloride 20 Meq Tablet) 40 meq PO UD PRN PRN Reason: Potssium is 3-3.5 Potassium Chloride (Potassium Chloride 20 Meq Tablet) 40 meq PO UD PRN PRN Reason: Potassium < 3 Potassium Chloride (Potassium Chloride 10 Meq Tablet) 20 meq PO QAMCC [facility] Last Admin: 12/05/20 09:03 Dose: 20 meq Documented by: Pregabalin (Pregabalin 25 Mg Capsule) 50 mg PO BID [facility] Last Admin: 12/05/20 20:57 Dose: 50 mg Documented by: Senna (Sennosides 1 Tablet) 2 tab PO DAILYP PRN PRN Reason: Constipation Last Admin: 11/23/20 09:26 Dose: 2 tab Documented by: Sertraline HCl (Sertraline 50 Mg Tablet) 125 mg PO DAILY [facility] Last Admin: 12/05/20 09:03 Dose: 125 mg Documented by: Sodium Chloride (0.9 % Sodium Chloride 10 Ml Syringe) 10 ml IV Q8 [facility] Last Admin: 12/06/20 05:10 Dose: 10 ml Documented by: Tramadol HCl (Tramadol 50 Mg Tablet) 50 mg PO DAILYP PRN; Protocol PRN Reason: Pain Last Admin: 12/02/20 01:45 Dose: 50 mg Documented by: Trazodone HCl (Trazodone Hcl 50 Mg Tablet) 25 mg PO HS [facility] Last Admin: 12/05/20 20:57 Dose: 25 mg Documented by: A/P Narrative A/P Narrative: A: *Generalized weakness/deconditioning/inability to care for self: -essentially wheelchair bound for past year *ileus vs incomplete sbo: resolved *PAFib/flutter w/rvr: controlled *Hypernatremia: resolved *Dehydration/Volume depletion: improved *UTI (E.coli ESBL): treated *DM: *HTN: *LENARD: *Chronic lymphedema/venous stasis skin changes: *Anxiety/depression: *Obesity: *h/o Sz: on keppra *Recent LLE cellulitis treated at [facility]: *psbo: resolved *Goals of care: P: -cont home lasix -Decreased dose of Metoprolol 12.5 from from 50mg and Dced Lisinopril 5mg -Decrease Xanax 0.5 from TID to BID -decrease baclofen 10 mg from 3 times daily to twice daily, DC Phenergan -Dec Lyrica to 50mg bid from TID. -cont SSRI -holding Glipizide for low AM glucose. Cont SSI & home Metformin and Jardiance -PT/OT -Home CPAP -CM for placement -pt may consider hospice eval -ppx: apixaban full code Time Spent With Patient Time: Total time spent is greater than 50% in coordination of care (as docu mented) at patient's floor/unit and/or counseling patient: QUALITY VTE Deep Vein Thrombosis/Pulmonary Embolism Present on Admission: No
[2020-12-06] MEDS: INSULIN LISPRO 1 UNIT/0.01 ML UNIT SQ SCH ×4 (09:08→21:19)
[2020-12-06] MEDS: SERTRALINE 50 MG TABLET PO SCH (09:09)
[2020-12-06] MEDS: FUROSEMIDE 20 MG TABLET PO SCH (09:09)
[2020-12-06] MEDS: PREGABALIN 25 MG CAPSULE PO SCH ×2 (09:09→21:22)
[2020-12-06] MEDS: MECLIZINE 25 MG TABLET PO SCH (09:09)
[2020-12-06] MEDS: metFORMIN 500 MG TAB.XL.24H PO SCH (09:09)
[2020-12-06] MEDS: levETIRAcetam 500 MG TABLET PO SCH ×2 (09:09→21:20)
[2020-12-06] MEDS: GABAPENTIN 100 MG CAPSULE PO SCH ×2 (09:09→21:21)
[2020-12-06] MEDS: POTASSIUM CHLORIDE 10 MEQ TABLET PO SCH (09:09)
[2020-12-06] MEDS: METHADONE 5 MG TABLET PO SCH ×2 (09:10→21:23)
[2020-12-06] MEDS: BACLOFEN 10 MG TABLET PO SCH ×2 (09:10→21:22)
[2020-12-06] MEDS: METOPROLOL SUCCINATE 25 MG TAB.XL.24H PO SCH (09:10)
[2020-12-06] MEDS: APIXABAN 5 MG TABLET PO SCH ×2 (09:10→21:23)
[2020-12-06] MEDS: EMPAGLIFLOZIN 25 MG TABLET PO SCH (09:11)
[2020-12-06] MEDS: ATORVASTATIN 40 MG TABLET PO SCH (21:21)
[2020-12-06] MEDS: MELATONIN 3 MG TABLET PO SCH (21:21)
[2020-12-06] MEDS: traZODone HCL 50 MG TABLET PO SCH (21:21)
[2020-12-06] MEDS: diphenhydrAMINE 25 MG CAPSULE PO SCH (21:22)
[2020-12-07] MEDS: 0.9 % SODIUM CHLORIDE 10 ML SYRINGE IV SCH ×3 (05:03→20:32)
[2020-12-07] MEDS: INSULIN LISPRO 1 UNIT/0.01 ML UNIT SQ SCH ×4 (07:09→20:32)
--- NOTE | 2020-12-07 08:08 | Internal Med Progress Note ---
SUBJECTIVE Subjective Patient information: Note initiated : 12/07/20 at 8:07 am Service Date, if different from initiated Date: [] Patient: Alexa Rai a 80 y/o F admitted on 11/14/20 for Weakness. Chief Complaint: [] Principal diagnosis: ESBL E.Coli UTI Interval history: Principal diagnosis: ESBL E.Coli UTI Interval history: History of present illness: Ms. Rai is a 80 year old F patient was recently at [facility] for cellulitis to the leg discharged the beginning of October. She was at [facility] prior to that admission but [facility] refused her and patient was discharged to [facility]. Patient says she has been at [facility] since last February. She is essentially wheelchair-bound for the past couple years she states she can ambulate a little bit with a walker. She was in the motel with her son who is homeless who will be kicked out of the motel today and he was worried about his mother because she cannot get up she just sits in her own urine she cannot take care of her self. She is unable to care for herself and her son who is homeless has no place to care for her. Patient has some nausea but no other complaints. She does have history atrial fibrillation and in the ED she did go to heart rate of 115. Cdqal-om-nymf sodium was 146, chemistry showed volume depletion 11/15 Patient doing well. Feels better. Urine culture with gram-negative bacillus. Heart rate improved. Electrolytes improved. Vaginal nausea but no other complaints. 11/16 No new complaints. Pending final urine culture. Placement being worked out with case management.. 11/23 Interval history: Patient is not feeling too good today. She complained of back pain. She seems comfortable. No overnight issues 11/24 No overnight event or new complaints. pt refused oral contrast for further evaluation despite multiple attempts. She admits abdomen is uncomfortable but she is not willing to let us perform work- up to adequately evaluate and treat. 11/25 Patient had a medium sized bowel movement this morning. She seems amenable to a small bowel follow-through this morning, we will attempt to obtain. 11/26 No overnight event or complaints. Had a large bowel movement yesterday after contrast study. Abdomen soft no pain. 11/27 Complains of chronic lower back pain otherwise no new complaints. Awaiting placement. 11/28 no changes. No new complaints. Awaiting placement 11/29 Discussed discharge, the patient wants to go home. She says she has a place rented. Stable, no acute medical issues. 11/30 Awaiting placement, regular diet to encourage nutritional intake. 12/01 Discussed importance of activity, awaiting placement. 12/02 More activity with sitting at the edge of the bed, removed fecal management system. 12/03 Seems more tired today, AM glucose 70. Discontinued glipizide 2.5 mg daily, not receiving insulin, continued Metformin. Awaiting placement. 12/04 Sitting at the side of bed for breakfast, overall more active the last few days. 12/05 Sleeping. No change overnight. Awaiting placement. 12/06 No changes. Patient seems to feeling well today. No new complaints. 12/07 Has chronic back pain otherwise no new complaints overnight events. Review of Systems: denies headache/fever/chills/nausea/vomiting/chest or abdominal pain/cough/dyspnea/diarrhea. Otherwise see above. Constitutional Vitals: Vital Signs Temp Pulse Resp BP Pulse Ox 97.0 F 74 16 108/60 95 12/07/20 03:09 12/07/20 03:09 12/07/20 03:09 12/07/20 03:09 12/07/20 03:09 Period Temp Pulse Resp BP Sys/Jansen Pulse Ox Last 24 Hr 96.9 F-98.5 F 74-85 16-18 100-120/54-70 91-95 Intake and Output 12/06/20 12/07/20 12/07/20 21:59 05:59 13:59 Intake Total 240 500 Output Total 700 Balance -460 500 Weight 107.91 kg Intake & Output: Intake & Output 12/06/20 12/07/20 12/07/20 21:59 05:59 13:59 Intake Total 240 500 Output Total 700 Balance -460 500 Weight 107.91 kg Intake: Oral 240 500 Output: Void Amount 700 Other: Meal Dinner Percent of Meal Consumed 25% Urine Appearance Cloudy Urine Color Dark Yellow Exam: General: Awake, No acute Distress, obese Eyes/N/T: , Head/Neck: neck supple, CV: irreg, No murmurs, Pulm: Clear b/l, no wheezing/rhonchi/rales Abd: soft, nontender, positive bowel sounds Ext: no clubbing/cyanosis, mild b/l LE edema Neuro: Alert, no focal deficits, moves all extremities, Skin: warm/dry OBJ DATA Labs CBC & Chem 7: 12/03/20 12:21 12/03/20 12:21 Meds: Medications Acetaminophen (Acetaminophen 325 Mg Tablet) 650 mg PO Q6HP PRN PRN Reason: PAIN/FEVER > 101 Last Admin: 11/17/20 17:22 Dose: 650 mg Documented by: Albuterol/Ipratropium (Ipratropium/Albuterol 3 Ml Ampul.Neb) 3 ml NEB Q4HP PRN PRN Reason: Shortness Of Breath Alprazolam (Alprazolam 0.5 Mg Tablet) 0.5 mg PO Q12HP PRN PRN Reason: Anxiety Apixaban (Apixaban 5 Mg Tablet) 5 mg PO BID [facility] Last Admin: 12/06/20 21:23 Dose: 5 mg Documented by: Atorvastatin Calcium (Atorvastatin 40 Mg Tablet) 40 mg PO QHS [facility] Last Admin: 12/06/20 21:21 Dose: 40 mg Documented by: Baclofen (Baclofen 10 Mg Tablet) 10 mg PO BID [facility] Last Admin: 12/06/20 21:22 Dose: 10 mg Documented by: Bisacodyl (Bisacodyl 10 Mg Supp.Rect) 10 mg [place] Q2-3DAYS PRN PRN Reason: Constipation Last Admin: 11/25/20 05:38 Dose: 10 mg Documented by: Dextrose (Dextrose 50% 50 Ml Vial) 0 ml IV UD PRN PRN Reason: Hypoglycemia Last Admin: 11/25/20 22:53 Dose: 25 ml Documented by: Diagnostic Test (Pha) (Accu-Chek 1 Each Strip) 1 each FS ACHS [facility] Last Admin: 12/07/20 07:08 Dose: 1 each Documented by: Diphenhydramine HCl (Diphenhydramine 25 Mg Capsule) 25 mg PO HS [facility] Last Admin: 12/06/20 21:22 Dose: 25 mg Documented by: Diphenoxylate HCl/Atropine (Diphenoxylate Hcl/Atropine 1 Tablet) 1 tab PO QIDP PRN PRN Reason: Wheezing Furosemide (Furosemide 20 Mg Tablet) 20 mg PO DAILY [facility] Last Admin: 12/06/20 09:09 Dose: 20 mg Documented by: Gabapentin (Gabapentin 100 Mg Capsule) 100 mg PO BID [facility] Last Admin: 12/06/20 21:21 Dose: 100 mg Documented by: Glucose (Dextrose 31 Gm Oral.Susp) 15 gm PO PRN PRN PRN Reason: Hypoglycemia Magnesium Sulfate (Magnesium Sulfate) 2 gm in 50 mls @ 50 mls/hr IV UD PRN PRN Reason: Magnesium </= 1.6 Potassium Chloride 40 meq/ (Dextrose) 520 mls @ 130 mls/hr IV UD PRN PRN Reason: Potassium < 3 Insulin Human Lispro (Insulin Lispro 1 Unit/0.01 Ml Unit) 0 unit SQ [facility]; Protocol Last Admin: 12/07/20 07:09 Dose: Not Given Documented by: Levetiracetam (Levetiracetam 500 Mg Tablet) 250 mg PO BID [facility] Last Admin: 12/06/20 21:20 Dose: 250 mg Documented by: Meclizine HCl (Meclizine 25 Mg Tablet) 25 mg PO DAILY [facility] Last Admin: 12/06/20 09:09 Dose: 25 mg Documented by: Melatonin (Melatonin 3 Mg Tablet) 3 mg PO QHS [facility] Last Admin: 12/06/20 21:21 Dose: 3 mg Documented by: Metformin HCl (Metformin 500 Mg Tab.Xl.24h) 1,[address] [facility] Last Admin: 12/06/20 09:09 Dose: 1,000 mg Documented by: Methadone HCl (Methadone 5 Mg Tablet) 10 mg PO BID [facility] Last Admin: 12/06/20 21:23 Dose: 10 mg Documented by: Metoclopramide HCl (Metoclopramide 10 Mg/2 Ml Vial) 10 mg IV Q6HP PRN PRN Reason: Nausea And Vomiting Metoprolol Succinate (Metoprolol Succinate 25 Mg Tab.Xl.24h) 12.5 mg PO DAILY [facility] Last Admin: 12/06/20 09:10 Dose: 12.5 mg Documented by: Empagliflozin 25 Mg (Tablet) 1 dose PO DAILY [facility] Last Admin: 12/06/20 09:11 Dose: Not Given Documented by: Potassium Chloride (Potassium Chloride 20 Meq Tablet) 40 meq PO UD PRN PRN Reason: Potssium is 3-3.5 Potassium Chloride (Potassium Chloride 20 Meq Tablet) 40 meq PO UD PRN PRN Reason: Potassium < 3 Potassium Chloride (Potassium Chloride 10 Meq Tablet) [address] [facility] Last Admin: 12/06/20 09:09 Dose: 20 meq Documented by: Pregabalin (Pregabalin 25 Mg Capsule) 50 mg PO BID [facility] Last Admin: 12/06/20 21:22 Dose: 50 mg Documented by: Senna (Sennosides 1 Tablet) 2 tab PO DAILYP PRN PRN Reason: Constipation Last Admin: 11/23/20 09:26 Dose: 2 tab Documented by: Sertraline HCl (Sertraline 100 Mg Tablet) 125 mg PO DAILY [facility] Sodium Chloride (0.9 % Sodium Chloride 10 Ml Syringe) 10 ml IV Q8 [facility] Last Admin: 12/07/20 05:03 Dose: Not Given Documented by: Tramadol HCl (Tramadol 50 Mg Tablet) 50 mg PO DAILYP PRN; Protocol PRN Reason: Pain Last Admin: 12/02/20 01:45 Dose: 50 mg Documented by: Trazodone HCl (Trazodone Hcl 50 Mg Tablet) 25 mg PO [facility] Last Admin: 12/06/20 21:21 Dose: 25 mg Documented by: A/P Narrative A/P Narrative: A: *Generalized weakness/deconditioning/inability to care for self: -essentially wheelchair bound for past year *ileus vs incomplete sbo: resolved *PAFib/flutter w/rvr: controlled *Hypernatremia: resolved *Dehydration/Volume depletion: improved *UTI (E.coli ESBL): treated *DM: *HTN: *LENARD: *Chronic lymphedema/venous stasis skin changes: *Anxiety/depression: *Obesity: *h/o Sz: on keppra *Recent LLE cellulitis treated at [facility]: *psbo: resolved *Goals of care: P: -cont home lasix -Decreased dose of Metoprolol 12.5 from from 50mg and Dced Lisinopril 5mg -Decrease Xanax 0.5 from TID to BID -decrease baclofen 10 mg from 3 times daily to twice daily, DC Phenergan -Dec Lyrica to 50mg bid from TID. -cont SSRI -holding Glipizide for low AM glucose. Cont SSI & home Metformin and Jardiance -PT/OT -Home CPAP -CM for placement -pt may consider hospice eval -ppx: apixaban full code Time Spent With Patient Time: Total time spent is greater than 50% in coordination of care (as documented) at patient's floor/unit and/or counseling patient: QUALITY VTE Deep Vein Thrombosis/Pulmonary Embolism Present on Admission: No
[2020-12-07] MEDS: metFORMIN 500 MG TAB.XL.24H PO SCH (08:46)
[2020-12-07] MEDS: SERTRALINE 100 MG TABLET PO SCH (08:47)
[2020-12-07] MEDS: METOPROLOL SUCCINATE 25 MG TAB.XL.24H PO SCH (08:47)
[2020-12-07] MEDS: MECLIZINE 25 MG TABLET PO SCH (08:47)
[2020-12-07] MEDS: BACLOFEN 10 MG TABLET PO SCH ×2 (08:47→20:28)
[2020-12-07] MEDS: METHADONE 5 MG TABLET PO SCH ×2 (08:48→20:28)
[2020-12-07] MEDS: GABAPENTIN 100 MG CAPSULE PO SCH ×2 (08:48→20:27)
[2020-12-07] MEDS: FUROSEMIDE 20 MG TABLET PO SCH (08:48)
[2020-12-07] MEDS: levETIRAcetam 500 MG TABLET PO SCH ×2 (08:48→20:27)
[2020-12-07] MEDS: APIXABAN 5 MG TABLET PO SCH ×2 (08:48→20:26)
[2020-12-07] MEDS: PREGABALIN 25 MG CAPSULE PO SCH ×2 (08:49→20:27)
[2020-12-07] MEDS: POTASSIUM CHLORIDE 10 MEQ TABLET PO SCH (08:49)
[2020-12-07] MEDS: EMPAGLIFLOZIN 25 MG TABLET PO SCH (08:51)
[2020-12-07] MEDS: traZODone HCL 50 MG TABLET PO SCH (20:25)
[2020-12-07] MEDS: MELATONIN 3 MG TABLET PO SCH (20:29)
[2020-12-07] MEDS: ATORVASTATIN 40 MG TABLET PO SCH (20:29)
[2020-12-07] MEDS: diphenhydrAMINE 25 MG CAPSULE PO SCH (20:29)
[2020-12-07] MEDS: traMADol 50 MG TABLET PO PRN (22:16)
[2020-12-08] MEDS: SENNOSIDES 1 TABLET PO PRN (04:02)
[2020-12-08] MEDS: 0.9 % SODIUM CHLORIDE 10 ML SYRINGE IV SCH ×3 (04:31→21:02)
[2020-12-08] MEDS: BISACODYL 10 MG SUPP.RECT PR PRN (05:52)
[2020-12-08] MEDS: INSULIN LISPRO 1 UNIT/0.01 ML UNIT SQ SCH ×4 (07:46→20:59)
[2020-12-08] MEDS: EMPAGLIFLOZIN 25 MG TABLET PO SCH (08:14)
[2020-12-08] MEDS ORDERED: BISACODYL 10 MG SUPP.RECT PR ONE (08:47)
[2020-12-08] MEDS ORDERED: POLYETHYLENE GLYCOL 3350 17 GM PACKET PO ONE (08:47)
--- NOTE | 2020-12-08 08:48 | Internal Med Progress Note ---
SUBJECTIVE Subjective Patient information: Note initiated : 12/08/20 at 8:46 am Service Date, if different from initiated Date: [] Patient: Alexa Rai a 80 y/o F admitted on 11/14/20 for Weakness. Chief Complaint: [] Principal diagnosis: ESBL E.Coli UTI Interval history: Principal diagnosis: ESBL E.Coli UTI Interval history: History of present illness: Ms. Rai is a 80 year old F patient was recently at [facility] for cellulitis to the leg discharged the beginning of October. She was at [facility] prior to that admission but [facility] refused her and patient was discharged to [facility]. Patient says she has been at [facility] since last February. She is essentially wheelchair-bound for the past couple years she states she can ambulate a little bit with a walker. She was in the motel with her son who is homeless who will be kicked out of the motel today and he was worried about his mother because she cannot get up she just sits in her own urine she cannot take care of her self. She is unable to care for herself and her son who is homeless has no place to care for her. Patient has some nausea but no other complaints. She does have history atrial fibrillation and in the ED she did go to heart rate of 115. Jpqad-rd-zvev sodium was 146, chemistry showed volume depletion 11/15 Patient doing well. Feels better. Urine culture with gram-negative bacillus. Heart rate improved. Electrolytes improved. Vaginal nausea but no other complaints. 11/16 No new complaints. Pending final urine culture. Placement being worked out with case management.. 11/23 Interval history: Patient is not feeling too good today. She complained of back pain. She seems comfortable. No overnight issues 11/24 No overnight event or new complaints. pt refused oral contrast for further evaluation despite multiple attempts. She admits abdomen is uncomfortable but she is not willing to let us perform work- up to adequately evaluate and treat. 11/25 Patient had a medium sized bowel movement this morning. She seems amenable to a small bowel follow-through this morning, we will attempt to obtain. 11/26 No overnight event or complaints. Had a large bowel movement yesterday after contrast study. Abdomen soft no pain. 11/27 Complains of chronic lower back pain otherwise no new complaints. Awaiting placement. 11/28 no changes. No new complaints. Awaiting placement 11/29 Discussed discharge, the patient wants to go home. She says she has a place rented. Stable, no acute medical issues. 11/30 Awaiting placement, regular diet to encourage nutritional intake. 12/01 Discussed importance of activity, awaiting placement. 12/02 More activity with sitting at the edge of the bed, removed fecal management system. 12/03 Seems more tired today, AM glucose 70. Discontinued glipizide 2.5 mg daily, not receiving insulin, continued Metformin. Awaiting placement. 12/04 Sitting at the side of bed for breakfast, overall more active the last few days. 12/05 Sleeping. No change overnight. Awaiting placement. 12/06 No changes. Patient seems to feeling well today. No new complaints. 12/07 Has chronic back pain otherwise no new complaints overnight events. 12/08 patient says she slept well and feeling well. No new complaints. States she did get a bowel movement once a week. Last one was 3 days ago does not feel the need to go the bathroom. Review of Systems: denies headache/fever/chills/nausea/vomiting/chest or abdominal pain/cough/dyspnea/diarrhea. Otherwise see above. Constitutional Vitals: Vital Signs Temp Pulse Resp BP Pulse Ox 97.4 F 72 12 116/68 96 12/08/20 03:18 12/08/20 03:18 12/08/20 03:18 12/08/20 03:18 12/08/20 05:55 Period Temp Pulse Resp BP Sys/Jansen Pulse Ox Last 24 Hr 97.0 F-98.5 F 71-86 12-20 108-135/62-68 91-100 Intake and Output 12/07/20 12/08/20 12/08/20 21:59 05:59 13:59 Intake Total 1440 1400 Output Total 301 500 Balance 1139 900 Weight 107.456 kg Intake & Output: Intake & Output 12/07/20 12/08/20 12/08/20 21:59 05:59 13:59 Intake Total 1440 1400 Output Total 301 500 Balance 1139 900 Weight 107.456 kg Intake: Nourishment/Supplement quantity 240 (ml) Oral 1200 1400 Output: Void Amount 300 500 # of times incontinent of urine 1 Other: Meal Dinner Nourishment/Supplement Percent of Meal Consumed 100% 100% Feeding Ability Assist with Tray Set Up Assist with Tray Set Up Nourishment/Supplement name Noelle Urine Appearance Clear Clear Urine Color Bright Yellow Bright Yellow Urine Odor Normal Normal Exam: General: Awake, No acute Distress, obese Eyes/N/T: Head/Neck: neck supple, CV: irreg, No murmurs, Pulm: Clear b/l, no wheezing/rhonchi/rales Abd: soft, nontender, positive bowel sounds Ext: no clubbing/cyanosis, mild b/l LE edema Neuro: Alert, no focal deficits, moves all extremities, Skin: warm/dry OBJ DATA Labs CBC & Chem 7: 12/03/20 12:21 12/03/20 12:21 Meds: Medications Acetaminophen (Acetaminophen 325 Mg Tablet) 650 mg PO Q6HP PRN PRN Reason: PAIN/FEVER > 101 Last Admin: 11/17/20 17:22 Dose: 650 mg Documented by: Albuterol/Ipratropium (Ipratropium/Albuterol 3 Ml Ampul.Neb) 3 ml NEB Q4HP PRN PRN Reason: Shortness Of Breath Alprazolam (Alprazolam 0.5 Mg Tablet) 0.5 mg PO Q12HP PRN PRN Reason: Anxiety Apixaban (Apixaban 5 Mg Tablet) 5 mg PO BID [facility] Last Admin: 12/07/20 20:26 Dose: 5 mg Documented by: Atorvastatin Calcium (Atorvastatin 40 Mg Tablet) 40 mg PO QHS [facility] Last Admin: 12/07/20 20:29 Dose: 40 mg Documented by: Baclofen (Baclofen 10 Mg Tablet) 10 mg PO BID [facility] Last Admin: 12/07/20 20:28 Dose: 10 mg Documented by: Bisacodyl (Bisacodyl 10 Mg Supp.Rect) 10 mg [place] Q2-3DAYS PRN PRN Reason: Constipation Last Admin: 11/25/20 05:38 Dose: 10 mg Documented by: Dextrose (Dextrose 50% 50 Ml Vial) 0 ml IV UD PRN PRN Reason: Hypoglycemia Last Admin: 11/25/20 22:53 Dose: 25 ml Documented by: Diagnostic Test (Pha) (Accu-Chek 1 Each Strip) 1 each FS ACHS [facility] Last Admin: 12/08/20 07:46 Dose: 1 each Documented by: Diphenhydramine HCl (Diphenhydramine 25 Mg Capsule) 25 mg PO [facility] Last Admin: 12/07/20 20:29 Dose: 25 mg Documented by: Diphenoxylate HCl/Atropine (Diphenoxylate Hcl/Atropine 1 Tablet) 1 tab PO QIDP PRN PRN Reason: Wheezing Furosemide (Furosemide 20 Mg Tablet) 20 mg PO DAILY [facility] Last Admin: 12/07/20 08:48 Dose: 20 mg Documented by: Gabapentin (Gabapentin 100 Mg Capsule) 100 mg PO BID [facility] Last Admin: 12/07/20 20:27 Dose: 100 mg Documented by: Glucose (Dextrose 31 Gm Oral.Susp) 15 gm PO PRN PRN PRN Reason: Hypoglycemia Magnesium Sulfate (Magnesium Sulfate) 2 gm in 50 mls @ 50 mls/hr IV UD PRN PRN Reason: Magnesium </= 1.6 Potassium Chloride 40 meq/ (Dextrose) 520 mls @ 130 mls/hr IV UD PRN PRN Reason: Potassium < 3 Insulin Human Lispro (Insulin Lispro 1 Unit/0.01 Ml Unit) 0 unit SQ ACHS [facility]; Protocol Last Admin: 12/08/20 07:46 Dose: Not Given Documented by: Levetiracetam (Levetiracetam 500 Mg Tablet) 250 mg PO BID [facility] Last Admin: 12/07/20 20:27 Dose: 250 mg Documented by: Meclizine HCl (Meclizine 25 Mg Tablet) 25 mg PO DAILY [facility] Last Admin: 12/07/20 08:47 Dose: 25 mg Documented by: Melatonin (Melatonin 3 Mg Tablet) 3 mg PO QHS [facility] Last Admin: 12/07/20 20:29 Dose: 3 mg Documented by: Metformin HCl (Metformin 500 Mg Tab.Xl.24h) 1,000 mg PO [facility] Last Admin: 12/07/20 08:46 Dose: 1,000 mg Documented by: Methadone HCl (Methadone 5 Mg Tablet) 10 mg PO BID [facility] Last Admin: 12/07/20 20:28 Dose: 10 mg Documented by: Metoclopramide HCl (Metoclopramide 10 Mg/2 Ml Vial) 10 mg IV Q6HP PRN PRN Reason: Nausea And Vomiting Metoprolol Succinate (Metoprolol Succinate 25 Mg Tab.Xl.24h) 12.5 mg PO DAILY [facility] Last Admin: 12/07/20 08:47 Dose: 12.5 mg Documented by: Empagliflozin 25 Mg (Tablet) 1 dose PO DAILY [facility] Last Admin: 12/08/20 08:14 Dose: Not Given Documented by: Potassium Chloride (Potassium Chloride 20 Meq Tablet) 40 meq PO UD PRN PRN Reason: Potssium is 3-3.5 Potassium Chloride (Potassium Chloride 20 Meq Tablet) 40 meq PO UD PRN PRN Reason: Potassium < 3 Potassium Chloride (Potassium Chloride 10 Meq Tablet) 20 meq PO QAC [facility] Last Admin: 12/07/20 08:49 Dose: 20 meq Documented by: Pregabalin (Pregabalin 25 Mg Capsule) 50 mg PO BID [facility] Last Admin: 12/07/20 20:27 Dose: 50 mg Documented by: Senna (Sennosides 1 Tablet) 2 tab PO DAILYP PRN PRN Reason: Constipation Last Admin: 12/08/20 04:02 Dose: 2 tab Documented by: Sertraline HCl (Sertraline 100 Mg Tablet) 125 mg PO DAILY [facility] Last Admin: 12/07/20 08:47 Dose: 125 mg Documented by: Sodium Chloride (0.9 % Sodium Chloride 10 Ml Syringe) 10 ml IV Q8 [facility] Last Admin: 12/08/20 04:31 Dose: Not Given Documented by: Tramadol HCl (Tramadol 50 Mg Tablet) 50 mg PO DAILYP PRN; Protocol PRN Reason: Pain Last Admin: 12/07/20 22:16 Dose: 50 mg Documented by: Trazodone HCl (Trazodone Hcl 50 Mg Tablet) 25 mg PO [facility] Last Admin: 12/07/20 20:25 Dose: 25 mg Documented by: A/P Narrative A/P Narrative: A: *Generalized weakness/deconditioning/inability to care for self: -essentially wheelchair bound for past year *ileus vs pSBO: resolved *PAFib/flutter w/rvr: controlled *Hypernatremia: resolved *Dehydration/Volume depletion: improved *UTI (E.coli ESBL): treated *DM: *HTN: *LENARD: *Chronic lymphedema/venous stasis skin changes: *Anxiety/depression: *Obesity: *h/o Sz: on keppra *Recent LLE cellulitis treated at [facility]: *Goals of care: P: -cont home lasix -Decreased dose of Metoprolol 12.5 from from 50mg and Dced Lisinopril 5mg -Decrease Xanax 0.5 from TID to BID -decrease baclofen 10 mg from 3 times daily to twice daily, DC Phenergan -Dec Lyrica to 50mg bid from TID. -cont SSRI -Cont SSI & home Metformin and Jardiance -PT/OT -Home CPAP -CM for placement -pt may consider hospice eval -ppx: apixaban full code Time Spent With Patient Time: Total time spent is greater than 50% in coordination of care (as documented) at patient's floor/unit and/or counseling patient: QUALITY VTE Deep Vein Thrombosis/Pulmonary Embolism Present on Admission: No
[2020-12-08] MEDS: PREGABALIN 25 MG CAPSULE PO SCH ×2 (09:21→20:34)
[2020-12-08] MEDS: FUROSEMIDE 20 MG TABLET PO SCH (09:22)
[2020-12-08] MEDS: APIXABAN 5 MG TABLET PO SCH ×2 (09:22→20:35)
[2020-12-08] MEDS: metFORMIN 500 MG TAB.XL.24H PO SCH (09:22)
[2020-12-08] MEDS: BACLOFEN 10 MG TABLET PO SCH ×2 (09:22→20:35)
[2020-12-08] MEDS: METHADONE 5 MG TABLET PO SCH ×2 (09:22→20:34)
[2020-12-08] MEDS: SERTRALINE 100 MG TABLET PO SCH (09:23)
[2020-12-08] MEDS: levETIRAcetam 500 MG TABLET PO SCH ×2 (09:23→20:36)
[2020-12-08] MEDS: POTASSIUM CHLORIDE 10 MEQ TABLET PO SCH (09:23)
[2020-12-08] MEDS: GABAPENTIN 100 MG CAPSULE PO SCH ×2 (09:23→20:36)
[2020-12-08] MEDS: MECLIZINE 25 MG TABLET PO SCH (09:24)
[2020-12-08] MEDS: METOPROLOL SUCCINATE 25 MG TAB.XL.24H PO SCH (09:24)
[2020-12-08] MEDS: traZODone HCL 50 MG TABLET PO SCH (20:32)
[2020-12-08] MEDS: diphenhydrAMINE 25 MG CAPSULE PO SCH (20:32)
[2020-12-08] MEDS: MELATONIN 3 MG TABLET PO SCH (20:32)
[2020-12-08] MEDS: ATORVASTATIN 40 MG TABLET PO SCH (20:35)
[2020-12-09] MEDS: 0.9 % SODIUM CHLORIDE 10 ML SYRINGE IV SCH ×3 (04:06→21:24)
--- NOTE | 2020-12-09 07:47 | Internal Med Progress Note ---
SUBJECTIVE Subjective Patient information: Note initiated : 12/09/20 at 7:47 am Service Date, if different from initiated Date: [] Patient: Alexa Rai a 80 y/o F admitted on 11/14/20 for Weakness. Chief Complaint: [] Principal diagnosis: ESBL E.Coli UTI Interval history: Principal diagnosis: ESBL E.Coli UTI Interval history: History of present illness: Ms. Rai is a 80 year old F patient was recently at [facility] for cellulitis to the leg discharged the beginning of October. She was at [facility] prior to that admission but [facility] refused her and patient was discharged to [facility]. Patient says she has been at [facility] since last February. She is essentially wheelchair-bound for the past couple years she states she can ambulate a little bit with a walker. She was in the motel with her son who is homeless who will be kicked out of the motel today and he was worried about his mother because she cannot get up she just sits in her own urine she cannot take care of her self. She is unable to care for herself and her son who is homeless has no place to care for her. Patient has some nausea but no other complaints. She does have history atrial fibrillation and in the ED she did go to heart rate of 115. [id number] sodium was 146, chemistry showed volume depletion 11/15 Patient doing well. Feels better. Urine culture with gram-negative bacillus. Heart rate improved. Electrolytes improved. Vaginal nausea but no other complaints. 11/16 No new complaints. Pending final urine culture. Placement being worked out with case management.. 11/23 Interval history: Patient is not feeling too good today. She complained of back pain. She seems comfortable. No overnight issues 11/24 No overnight event or new complaints. pt refused oral contrast for further evaluation despite multiple attempts. She admits abdomen is uncomfortable but she is not willing to let us perform work- up to adequately evaluate and treat. 11/25 Patient had a medium sized bowel movement this morning. She seems amenable to a small bowel follow-through this morning, we will attempt to obtain. 11/26 No overnight event or complaints. Had a large bowel movement yesterday after contrast study. Abdomen soft no pain. 11/27 Complains of chronic lower back pain otherwise no new complaints. Awaiting placement. 11/28 no changes. No new complaints. Awaiting placement 11/29 Discussed discharge, the patient wants to go home. She says she has a place rented. Stable, no acute medical issues. 11/30 Awaiting placement, regular diet to encourage nutritional intake. 12/01 Discussed importance of activity, awaiting placement. 12/02 More activity with sitting at the edge of the bed, removed fecal management system. 12/03 Seems more tired today, AM glucose 70. Discontinued glipizide 2.5 mg daily, not receiving insulin, continued Metformin. Awaiting placement. 12/04 Sitting at the side of bed for breakfast, overall more active the last few days. 12/05 Sleeping. No change overnight. Awaiting placement. 12/06 No changes. Patient seems to feeling well today. No new complaints. 12/07 Has chronic back pain otherwise no new complaints overnight events. 12/08 patient says she slept well and feeling well. No new complaints. States she did get a bowel movement once a week. Last one was 3 days ago does not feel the need to go the bathroom. 12/09 Seems a feeling well again today. No new complaints. Review of Systems: denies headache/fever/chills/nausea/vomiting/chest or abdominal pain/cough/dyspnea/diarrhea. Otherwise see above. Constitutional Vitals: Vital Signs Temp Pulse Resp BP Pulse Ox 97.2 F 59 L 12 111/61 95 12/09/20 03:50 12/09/20 03:50 12/09/20 03:50 12/09/20 03:50 12/09/20 03:50 Period Temp Pulse Resp BP Sys/Jansen Pulse Ox Last 24 Hr 97.2 F-98.1 F 59-85 12-20 89-112/51-65 90-97 Intake and Output 12/08/20 12/09/20 12/09/20 21:59 05:59 13:59 Intake Total 1200 0 Output Total 302 500 Balance 898 -500 Weight 108.318 kg Intake & Output: Intake & Output 12/08/20 12/09/20 12/09/20 21:59 05:59 13:59 Intake Total 1200 0 Output Total 302 500 Balance 898 -500 Weight 108.318 kg Intake: Oral 1200 0 Output: Void Amount 300 500 # of times incontinent of urine 2 Other: Meal Dinner Percent of Meal Consumed 100% Feeding Ability Assist with Tray Set Up Urine Appearance Clear Clear Urine Color Bright Yellow Bright Yellow Urine Odor Normal Stool Size Large Stool Color Brown Stool Consistency Soft # Bowel Movements 1 Exam: General: Awake, No acute Distress, obese Eyes/N/T: Head/Neck: neck supple, CV: irreg, No murmurs, Pulm: Clear b/l, no wheezing/rhonchi/rales Abd: soft, nontender, positive bowel sounds Ext: no clubbing/cyanosis, mild b/l LE edema Neuro: Alert, no focal deficits, moves all extremities, Skin: warm/dry OBJ DATA Labs CBC & Chem 7: 12/03/20 12:21 12/03/20 12:21 Meds: Medications Acetaminophen (Acetaminophen 325 Mg Tablet) 650 mg PO Q6HP PRN PRN Reason: PAIN/FEVER > 101 Last Admin: 11/17/20 17:22 Dose: 650 mg Documented by: Albuterol/Ipratropium (Ipratropium/Albuterol 3 Ml Ampul.Neb) 3 ml NEB Q4HP PRN PRN Reason: Shortness Of Breath Alprazolam (Alprazolam 0.5 Mg Tablet) 0.5 mg PO Q12HP PRN PRN Reason: Anxiety Apixaban (Apixaban 5 Mg Tablet) 5 mg PO BID [facility] Last Admin: 12/08/20 20:35 Dose: 5 mg Documented by: Atorvastatin Calcium (Atorvastatin 40 Mg Tablet) 40 mg PO QHS [facility] Last Admin: 12/08/20 20:35 Dose: 40 mg Documented by: Baclofen (Baclofen 10 Mg Tablet) 10 mg PO BID [facility] Last Admin: 12/08/20 20:35 Dose: 10 mg Documented by: Bisacodyl (Bisacodyl 10 Mg Supp.Rect) 10 mg IN Q2-3DAYS PRN PRN Reason: Constipation Last Admin: 11/25/20 05:38 Dose: 10 mg Documented by: Dextrose (Dextrose 50% 50 Ml Vial) 0 ml IV UD PRN PRN Reason: Hypoglycemia Last Admin: 11/25/20 22:53 Dose: 25 ml Documented by: Diagnostic Test (Pha) (Accu-Chek 1 Each Strip) 1 each FS ACHS [facility] Last Admin: 12/08/20 21:01 Dose: 1 each Documented by: Diphenhydramine HCl (Diphenhydramine 25 Mg Capsule) 25 mg PO HS [facility] Last Admin: 12/08/20 20:32 Dose: 25 mg Documented by: Diphenoxylate HCl/Atropine (Diphenoxylate Hcl/Atropine 1 Tablet) 1 tab PO QIDP PRN PRN Reason: Wheezing Furosemide (Furosemide 20 Mg Tablet) 20 mg PO DAILY [facility] Last Admin: 12/08/20 09:22 Dose: 20 mg Documented by: Gabapentin (Gabapentin 100 Mg Capsule) 100 mg PO BID [facility] Last Admin: 12/08/20 20:36 Dose: 100 mg Documented by: Glucose (Dextrose 31 Gm Oral.Susp) 15 gm PO PRN PRN PRN Reason: Hypoglycemia Magnesium Sulfate (Magnesium Sulfate) 2 gm in 50 mls @ 50 mls/hr IV UD PRN PRN Reason: Magnesium </= 1.6 Potassium Chloride 40 meq/ (Dextrose) 520 mls @ 130 mls/hr IV UD PRN PRN Reason: Potassium < 3 Insulin Human Lispro (Insulin Lispro 1 Unit/0.01 Ml Unit) 0 unit SQ ACHS [facility]; Protocol Last Admin: 12/08/20 20:59 Dose: Not Given Documented by: Levetiracetam (Levetiracetam 500 Mg Tablet) 250 mg PO BID [facility] Last Admin: 12/08/20 20:36 Dose: 250 mg Documented by: Meclizine HCl (Meclizine 25 Mg Tablet) 25 mg PO DAILY [facility] Last Admin: 12/08/20 09:24 Dose: 25 mg Documented by: Melatonin (Melatonin 3 Mg Tablet) 3 mg PO QHS [facility] Last Admin: 12/08/20 20:32 Dose: 3 mg Documented by: Metformin HCl (Metformin 500 Mg Tab.Xl.24h) 1,000 mg PO [facility] Last Admin: 12/08/20 09:22 Dose: 1,000 mg Documented by: Methadone HCl (Methadone 5 Mg Tablet) 10 mg PO BID [facility] Last Admin: 12/08/20 20:34 Dose: 10 mg Documented by: Metoclopramide HCl (Metoclopramide 10 Mg/2 Ml Vial) 10 mg IV Q6HP PRN PRN Reason: Nausea And Vomiting Metoprolol Succinate (Metoprolol Succinate 25 Mg Tab.Xl.24h) 12.5 mg PO DAILY [facility] Last Admin: 12/08/20 09:24 Dose: 12.5 mg Documented by: Empagliflozin 25 Mg (Tablet) 1 dose PO DAILY [facility] Last Admin: 12/08/20 08:14 Dose: Not Given Documented by: Polyethylene Glycol (Polyethylene Glycol 3350 17 Gm Packet) 17 gm PO DAILYP PRN PRN Reason: Constipation Potassium Chloride (Potassium Chloride 20 Meq Tablet) 40 meq PO UD PRN PRN Reason: Potssium is 3-3.5 Potassium Chloride (Potassium Chloride 20 Meq Tablet) 40 meq PO UD PRN PRN Reason: Potassium < 3 Potassium Chloride (Potassium Chloride 10 Meq Tablet) 20 meq PO QAC [facility] Last Admin: 12/08/20 09:23 Dose: 20 meq Documented by: Pregabalin (Pregabalin 25 Mg Capsule) 50 mg PO BID [facility] Last Admin: 12/08/20 20:34 Dose: 50 mg Documented by: Senna (Sennosides 1 Tablet) 2 tab PO DAILYP PRN PRN Reason: Constipation Last Admin: 12/08/20 04:02 Dose: 2 tab Documented by: Sertraline HCl (Sertraline 50 Mg Tablet) 125 mg PO DAILY [facility] Sodium Chloride (0.9 % Sodium Chloride 10 Ml Syringe) 10 ml IV Q8 [facility] Last Admin: 12/09/20 04:06 Dose: Not Given Documented by: Tramadol HCl (Tramadol 50 Mg Tablet) 50 mg PO DAILYP PRN; Protocol PRN Reason: Pain Last Admin: 12/07/20 22:16 Dose: 50 mg Documented by: Trazodone HCl (Trazodone Hcl 50 Mg Tablet) 25 mg PO [facility] Last Admin: 12/08/20 20:32 Dose: 25 mg Documented by: A/P Narrative A/P Narrative: A: *Generalized weakness/deconditioning/inability to care for self: -essentially wheelchair bound for past year *ileus vs pSBO: resolved *PAFib/flutter w/rvr: controlled *Hypernatremia: resolved *Dehydration/Volume depletion: improved *UTI (E.coli ESBL): treated *DM: *HTN: *LENARD: *Chronic lymphedema/venous stasis skin changes: *Anxiety/depression: *Obesity: *h/o Sz: on keppra *Recent LLE cellulitis [facility]: *Goals of care: P: -cont home lasix -Decreased dose of Metoprolol 12.5 from from 50mg and Dced Lisinopril 5mg -Decrease Xanax 0.5 from TID to BID -decrease baclofen 10 mg from 3 times daily to twice daily, DC Phenergan -Dec Lyrica to 50mg bid from TID. -cont SSRI -Cont SSI & home Metformin and Jardiance -PT/OT -Home CPAP -CM for placement -pt may consider hospice eval -ppx: apixaban full code Time Spent With Patient Time: Total time spent is greater than 50% in coordination of care (as documente d) at patient's floor/unit and/or counseling patient: QUALITY VTE Deep Vein Thrombosis/Pulmonary Embolism Present on Admission: No
[2020-12-09] MEDS: INSULIN LISPRO 1 UNIT/0.01 ML UNIT SQ SCH ×4 (07:57→21:24)
[2020-12-09] MEDS: levETIRAcetam 500 MG TABLET PO SCH ×2 (08:54→21:21)
[2020-12-09] MEDS: APIXABAN 5 MG TABLET PO SCH ×2 (08:54→21:23)
[2020-12-09] MEDS: FUROSEMIDE 20 MG TABLET PO SCH (08:55)
[2020-12-09] MEDS: GABAPENTIN 100 MG CAPSULE PO SCH ×2 (08:55→21:23)
[2020-12-09] MEDS: MECLIZINE 25 MG TABLET PO SCH (08:55)
[2020-12-09] MEDS: BACLOFEN 10 MG TABLET PO SCH ×2 (08:55→21:22)
[2020-12-09] MEDS: SERTRALINE 50 MG TABLET PO SCH (08:55)
[2020-12-09] MEDS: METOPROLOL SUCCINATE 25 MG TAB.XL.24H PO SCH (08:55)
[2020-12-09] MEDS: POTASSIUM CHLORIDE 10 MEQ TABLET PO SCH (08:56)
[2020-12-09] MEDS: METHADONE 5 MG TABLET PO SCH ×2 (08:56→21:21)
[2020-12-09] MEDS: PREGABALIN 25 MG CAPSULE PO SCH ×2 (08:56→21:22)
[2020-12-09] MEDS: metFORMIN 500 MG TAB.XL.24H PO SCH (08:56)
[2020-12-09] MEDS: EMPAGLIFLOZIN 25 MG TABLET PO SCH (08:57)
[2020-12-09] MEDS: traMADol 50 MG TABLET PO PRN (11:36)
[2020-12-09] MEDS: traZODone HCL 50 MG TABLET PO SCH (21:21)
[2020-12-09] MEDS: ATORVASTATIN 40 MG TABLET PO SCH (21:21)
[2020-12-09] MEDS: MELATONIN 3 MG TABLET PO SCH (21:21)
[2020-12-09] MEDS: diphenhydrAMINE 25 MG CAPSULE PO SCH (21:23)
[2020-12-10] MEDS: 0.9 % SODIUM CHLORIDE 10 ML SYRINGE IV SCH ×3 (04:10→20:46)
[2020-12-10] MEDS: INSULIN LISPRO 1 UNIT/0.01 ML UNIT SQ SCH ×4 (08:14→20:42)
[2020-12-10] MEDS: levETIRAcetam 500 MG TABLET PO SCH ×2 (08:16→20:43)
[2020-12-10] MEDS: metFORMIN 500 MG TAB.XL.24H PO SCH (08:17)
[2020-12-10] MEDS: SERTRALINE 50 MG TABLET PO SCH (08:18)
[2020-12-10] MEDS: GABAPENTIN 100 MG CAPSULE PO SCH ×2 (08:19→20:44)
[2020-12-10] MEDS: BACLOFEN 10 MG TABLET PO SCH ×2 (08:19→20:45)
[2020-12-10] MEDS: FUROSEMIDE 20 MG TABLET PO SCH (08:20)
[2020-12-10] MEDS: METHADONE 5 MG TABLET PO SCH ×2 (08:20→20:42)
[2020-12-10] MEDS: METOPROLOL SUCCINATE 25 MG TAB.XL.24H PO SCH (08:21)
[2020-12-10] MEDS: PREGABALIN 25 MG CAPSULE PO SCH ×2 (08:22→20:44)
[2020-12-10] MEDS: APIXABAN 5 MG TABLET PO SCH ×2 (08:22→20:44)
[2020-12-10] MEDS: MECLIZINE 25 MG TABLET PO SCH (08:22)
[2020-12-10] MEDS: POTASSIUM CHLORIDE 10 MEQ TABLET PO SCH (08:29)
[2020-12-10] MEDS: EMPAGLIFLOZIN 25 MG TABLET PO SCH (09:11)
[2020-12-10] MEDS: traMADol 50 MG TABLET PO PRN (11:58)
--- NOTE | 2020-12-10 12:10 | Internal Med Progress Note ---
SUBJECTIVE Subjective Patient information: Note initiated : 12/10/20 at 12:05 pm Service Date, if different from initiated Date: [] Patient: Alexa Rai 80 y/o F admitted on 11/14/20 for Weakness. Chief Complaint: [atrial fibrillation, acute kidney injury, urinary tract infection, bowel obstruction] 12/10/20: No active issues. No major overnight events. Patient is feeling comfortable this morning. Principal diagnosis: ESBL E.Coli UTI Constitutional Vitals: Vital Signs Temp Pulse Resp BP Pulse Ox 36.6 C 78 16 124/63 94 12/10/20 08:00 12/10/20 08:00 12/10/20 08:00 12/10/20 08:00 12/10/20 08:00 Period Temp Pulse Resp BP Sys/Jansen Pulse Ox Last 24 Hr 36.1 C-36.8 C 70-88 12-20 108-124/58-68 91-94 Intake and Output 12/09/20 12/10/20 12/10/20 21:59 05:59 13:59 Intake Total 350 480 500 Output Total 402 500 Balance -52 480 0 Weight 111.992 kg Intake & Output: Intake & Output 12/09/20 12/10/20 12/10/20 21:59 05:59 13:59 Intake Total 350 480 500 Output Total 402 500 Balance -52 480 0 Weight 111.992 kg Intake: Oral 350 480 500 Output: Void Amount 400 500 # of times incontinent of urine 2 Other: Meal Dinner pudding Breakfast Percent of Meal Consumed 100% 100% 100% Feeding Ability Assist with Tray Set Up Independent # Voids 1 General appearance: cooperative and no acute distress Head Head exam: Present atraumatic and normocephalic Eye Eye exam: Present EOMI and PERRL ENT ENT exam: Present mucous membranes moist, normal exam and normal external ear exam Neck Neck exam: Present normal inspection; Absent lymphadenopathy, tenderness and thyromegaly Respiratory Respiratory exam: Absent accessory muscle use, respiratory distress and wheezes Cardiovascular Cardiovascular exam: Present irregular rhythm; Absent JVD GI/Abdominal GI/Abdominal exam: Present normal bowel sounds and soft; Absent organomegaly and tenderness Extremities Exam Extremities exam: Present full ROM, normal capillary refill and normal inspection; Absent tenderness Neurological Exam Neurological exam: Present alert, CN II-XII intact and oriented X3; Absent motor sensory deficit Psychiatric Psychiatric exam: Present normal affect and normal mood; Absent anxious and depressed Skin Skin exam: Present dry and intact OBJ DATA Labs CBC & Chem 7: 12/03/20 12:21 12/03/20 12:21 Meds: Medications Acetaminophen (Acetaminophen 325 Mg Tablet) 650 mg PO Q6HP PRN PRN Reason: PAIN/FEVER > 101 Last Admin: 11/17/20 17:22 Dose: 650 mg Documented by: Albuterol/Ipratropium (Ipratropium/Albuterol 3 Ml Ampul.Neb) 3 ml NEB Q4HP PRN PRN Reason: Shortness Of Breath Alprazolam (Alprazolam 0.5 Mg Tablet) 0.5 mg PO Q12HP PRN PRN Reason: Anxiety Apixaban (Apixaban 5 Mg Tablet) 5 mg PO BID [facility] Last Admin: 12/10/20 08:22 Dose: 5 mg Documented by: Atorvastatin Calcium (Atorvastatin 40 Mg Tablet) 40 mg PO QHS [facility] Last Admin: 12/09/20 21:21 Dose: 40 mg Documented by: Baclofen (Baclofen 10 Mg Tablet) 10 mg PO BID [facility] Last Admin: 12/10/20 08:19 Dose: 10 mg Documented by: Bisacodyl (Bisacodyl 10 Mg Supp.Rect) 10 mg GA Q2-3DAYS PRN PRN Reason: Constipation Last Admin: 11/25/20 05:38 Dose: 10 mg Documented by: Dextrose (Dextrose 50% 50 Ml Vial) 0 ml IV UD PRN PRN Reason: Hypoglycemia Last Admin: 11/25/20 22:53 Dose: 25 ml Documented by: Diagnostic Test (Pha) (Accu-Chek 1 Each Strip) 1 each FS ACHS [facility] Last Admin: 12/10/20 11:50 Dose: 1 each Documented by: Diphenhydramine HCl (Diphenhydramine 25 Mg Capsule) 25 mg PO HS [facility] Last Admin: 12/09/20 21:23 Dose: 25 mg Documented by: Diphenoxylate HCl/Atropine (Diphenoxylate Hcl/Atropine 1 Tablet) 1 tab PO QIDP PRN PRN Reason: Wheezing Furosemide (Furosemide 20 Mg Tablet) 20 mg PO DAILY [facility] Last Admin: 12/10/20 08:20 Dose: 20 mg Documented by: Gabapentin (Gabapentin 100 Mg Capsule) 100 mg PO BID [facility] Last Admin: 12/10/20 08:19 Dose: 100 mg Documented by: Glucose (Dextrose 31 Gm Oral.Susp) 15 gm PO PRN PRN PRN Reason: Hypoglycemia Magnesium Sulfate (Magnesium Sulfate) 2 gm in 50 mls @ 50 mls/hr IV UD PRN PRN Reason: Magnesium </= 1.6 Potassium Chloride 40 meq/ (Dextrose) 520 mls @ 130 mls/hr IV UD PRN PRN Reason: Potassium < 3 Insulin Human Lispro (Insulin Lispro 1 Unit/0.01 Ml Unit) [facility] Last Admin: 12/10/20 11:50 Dose: Not Given Documented by: Levetiracetam (Levetiracetam 500 Mg Tablet) 250 mg PO BID [facility] Last Admin: 12/10/20 08:16 Dose: 250 mg Documented by: Meclizine HCl (Meclizine 25 Mg Tablet) 25 mg PO DAILY [facility] Last Admin: 12/10/20 08:22 Dose: 25 mg Documented by: Melatonin (Melatonin 3 Mg Tablet) 3 mg PO QHS [facility] Last Admin: 12/09/20 21:21 Dose: 3 mg Documented by: Metformin HCl (Metformin 500 Mg Tab.Xl.24h) 1,000 mg PO [facility] Last Admin: 12/10/20 08:17 Dose: 1,000 mg Documented by: Methadone HCl (Methadone 5 Mg Tablet) 10 mg PO BID [facility] Last Admin: 12/10/20 08:20 Dose: 10 mg Documented by: Metoclopramide HCl (Metoclopramide 10 Mg/2 Ml Vial) 10 mg IV Q6HP PRN PRN Reason: Nausea And Vomiting Metoprolol Succinate (Metoprolol Succinate 25 Mg Tab.Xl.24h) 12.5 mg PO DAILY [facility] Last Admin: 12/10/20 08:21 Dose: 12.5 mg Documented by: Empagliflozin 25 Mg (Tablet) 1 dose PO DAILY [facility] Last Admin: 12/10/20 09:11 Dose: Not Given Documented by: Polyethylene Glycol (Polyethylene Glycol 3350 17 Gm Packet) 17 gm PO DAILYP PRN PRN Reason: Constipation Potassium Chloride (Potassium Chloride 20 Meq Tablet) 40 meq PO UD PRN PRN Reason: Potssium is 3-3.5 Last Admin: 12/10/20 11:50 Dose: 40 meq Documented by: Potassium Chloride (Potassium Chloride 20 Meq Tablet) 40 meq PO UD PRN PRN Reason: Potassium < 3 Potassium Chloride (Potassium Chloride 10 Meq Tablet) 20 meq PO QAMCC [facility] Last Admin: 12/10/20 08:29 Dose: 20 meq Documented by: Pregabalin (Pregabalin 25 Mg Capsule) 50 mg PO BID [facility] Last Admin: 12/10/20 08:22 Dose: 50 mg Documented by: Senna (Sennosides 1 Tablet) 2 tab PO DAILYP PRN PRN Reason: Constipation Last Admin: 12/08/20 04:02 Dose: 2 tab Documented by: Sertraline HCl (Sertraline 50 Mg Tablet) 125 mg PO DAILY [facility] Last Admin: 12/10/20 08:18 Dose: 125 mg Documented by: Sodium Chloride (0.9 % Sodium Chloride 10 Ml Syringe) 10 ml IV Q8 [facility] Last Admin: 12/10/20 04:10 Dose: Not Given Documented by: Tramadol HCl (Tramadol 50 Mg Tablet) 50 mg PO DAILYP PRN; Protocol PRN Reason: Pain Last Admin: 12/10/20 11:58 Dose: 50 mg Documented by: Trazodone HCl (Trazodone Hcl 50 Mg Tablet) 25 mg PO HS [facility] Last Admin: 12/09/20 21:21 Dose: 25 mg Documented by: A/P Assessment and plan (1) CHF (congestive heart failure): Status: Acute Qualifiers: Heart failure chronicity: chronic Heart failure type: unspecified Qualified Code(s): I50.9 - Heart failure, unspecified (2) Atrial fibrillation with rapid ventricular response: Status: Acute (3) Hypertension, essential: Status: Acute (4) Homelessness: Status: Acute (5) Inability to walk: Status: Acute (6) Type 2 diabetes mellitus: Status: Chronic (7) Acute UTI: Status: Acute Narrative A/P Narrative: Bowel obstruction: resolved UTI: resolved RAVINDER: resolved Bowel obstruction: resolved Atrial fibrillation: currently rate control. Continue Metoprolol for rate co ntrol and Eliquis as anticoagulation CHF: Lasix, Metoprolol. Currently on room air, stable T2DM: Metformin and insulin therapy GI ppx: not currently indicated DVT ppx: Eliquis Code status: Full Prognosis: stable Disposition: inpatient med surg; pending SNF placement Time Spent With Patient Time: Total time spent is greater than 50% in coordination of care (as documented) at patient's floor/unit and/or counseling patient: Total time spent with greater than 50% in coordination of care (as documented) at patient's floor/unit and/or counseling patient:: 15 - 24 minutes QUALITY VTE Deep Vein Thrombosis/Pulmonary Embolism Present on Admission: No
[2020-12-10] MEDS: traZODone HCL 50 MG TABLET PO SCH (20:43)
[2020-12-10] MEDS: diphenhydrAMINE 25 MG CAPSULE PO SCH (20:45)
[2020-12-10] MEDS: MELATONIN 3 MG TABLET PO SCH (20:45)
[2020-12-10] MEDS: ATORVASTATIN 40 MG TABLET PO SCH (20:45)
[2020-12-11] MEDS: 0.9 % SODIUM CHLORIDE 10 ML SYRINGE IV SCH ×3 (05:56→21:09)
[2020-12-11] MEDS: INSULIN LISPRO 1 UNIT/0.01 ML UNIT SQ SCH ×4 (07:53→21:21)
[2020-12-11] MEDS: metFORMIN 500 MG TAB.XL.24H PO SCH (08:03)
[2020-12-11] MEDS: METOPROLOL SUCCINATE 25 MG TAB.XL.24H PO SCH (08:04)
[2020-12-11] MEDS: GABAPENTIN 100 MG CAPSULE PO SCH ×2 (08:04→21:08)
[2020-12-11] MEDS: POTASSIUM CHLORIDE 10 MEQ TABLET PO SCH (08:04)
[2020-12-11] MEDS: APIXABAN 5 MG TABLET PO SCH ×2 (08:04→21:07)
[2020-12-11] MEDS: SERTRALINE 50 MG TABLET PO SCH (08:04)
[2020-12-11] MEDS: BACLOFEN 10 MG TABLET PO SCH ×2 (08:05→21:08)
[2020-12-11] MEDS: METHADONE 5 MG TABLET PO SCH ×2 (08:05→21:05)
[2020-12-11] MEDS: PREGABALIN 25 MG CAPSULE PO SCH ×2 (08:05→21:05)
[2020-12-11] MEDS: levETIRAcetam 500 MG TABLET PO SCH ×2 (08:05→21:07)
[2020-12-11] MEDS: EMPAGLIFLOZIN 25 MG TABLET PO SCH (08:06)
[2020-12-11] MEDS: MECLIZINE 25 MG TABLET PO SCH (08:06)
[2020-12-11] MEDS: FUROSEMIDE 20 MG TABLET PO SCH (08:06)
--- NOTE | 2020-12-11 10:21 | Internal Med Progress Note ---
SUBJECTIVE Subjective Patient information: Note initiated : 12/11/20 at 10:17 am Service Date, if different from initiated Date: [] Patient: Alexa Rai 80 y/o F admitted on 11/14/20 for Weakness. Chief Complaint: [atrial fibrillation, acute kidney injury, urinary tract infection, bowel obstruction] 12/10/20: No active issues. No major overnight events. Patient is feeling comfortable this morning. Principal diagnosis: ESBL E.Coli UTI 12/11/20: No active issues. No major overnight events. Patient is feeling comfortable this morning. Principal diagnosis: ESBL E.Coli UTI Principal diagnosis: ESBL E.Coli UTI Constitutional Vitals: Vital Signs Temp Pulse Resp BP Pulse Ox 36.3 C 75 18 115/73 94 12/11/20 07:51 12/11/20 07:51 12/11/20 07:51 12/11/20 07:51 12/11/20 07:51 Period Temp Pulse Resp BP Sys/Jansen Pulse Ox Last 24 Hr 36.2 C-36.3 C 72-81 16-18 100-120/62-73 94-96 Intake and Output 12/10/20 12/11/20 12/11/20 21:59 05:59 13:59 Intake Total 360 400 Output Total 451 700 Balance -91 -300 Weight 111.754 kg Intake & Output: Intake & Output 12/10/20 12/11/20 12/11/20 21:59 05:59 13:59 Intake Total 360 400 Output Total 451 700 Balance -91 -300 Weight 111.754 kg Intake: Oral 360 400 Output: Void Amount 450 700 # of times incontinent of urine 1 Other: # Voids 1 General appearance: cooperative and no acute distress Head Head exam: Present atraumatic and normocephalic Eye Eye exam: Present EOMI and PERRL ENT ENT exam: Present mucous membranes moist, normal exam and normal external ear exam Neck Neck exam: Present normal inspection; Absent lymphadenopathy, tenderness and thyromegaly Respiratory Respiratory exam: Absent accessory muscle use, respiratory distress and wheezes Cardiovascular Cardiovascular exam: Present irregular rhythm; Absent JVD GI/Abdominal GI/Abdominal exam: Present normal bowel sounds and soft; Absent organomegaly and tenderness Extremities Exam Extremities exam: Present full ROM, normal capillary refill and normal i nspection; Absent tenderness Neurological Exam Neurological exam: Present alert, CN II-XII intact and oriented X3; Absent motor sensory deficit Psychiatric Psychiatric exam: Present normal affect and normal mood; Absent anxious and depressed Skin Skin exam: Present dry and intact OBJ DATA Labs CBC & Chem 7: 12/03/20 12:21 12/03/20 12:21 Meds: Medications Acetaminophen (Acetaminophen 325 Mg Tablet) 650 mg PO Q6HP PRN PRN Reason: PAIN/FEVER > 101 Last Admin: 11/17/20 17:22 Dose: 650 mg Documented by: Albuterol/Ipratropium (Ipratropium/Albuterol 3 Ml Ampul.Neb) 3 ml NEB Q4HP PRN PRN Reason: Shortness Of Breath Alprazolam (Alprazolam 0.5 Mg Tablet) 0.5 mg PO Q12HP PRN PRN Reason: Anxiety Apixaban (Apixaban 5 Mg Tablet) 5 mg PO BID [facility] Last Admin: 12/11/20 08:04 Dose: 5 mg Documented by: Atorvastatin Calcium (Atorvastatin 40 Mg Tablet) 40 mg PO QHS [facility] Last Admin: 12/10/20 20:45 Dose: 40 mg Documented by: Baclofen (Baclofen 10 Mg Tablet) 10 mg PO BID [facility] Last Admin: 12/11/20 08:05 Dose: 10 mg Documented by: Bisacodyl (Bisacodyl 10 Mg Supp.Rect) 10 mg MN Q2-3DAYS PRN PRN Reason: Constipation Last Admin: 11/25/20 05:38 Dose: 10 mg Documented by: Dextrose (Dextrose 50% 50 Ml Vial) 0 ml IV UD PRN PRN Reason: Hypoglycemia Last Admin: 11/25/20 22:53 Dose: 25 ml Documented by: Diagnostic Test (Pha) (Accu-Chek 1 Each Strip) 1 each FS ACHS [facility] Last Admin: 12/11/20 07:53 Dose: 1 each Documented by: Diphenhydramine HCl (Diphenhydramine 25 Mg Capsule) 25 mg PO HS [facility] Last Admin: 12/10/20 20:45 Dose: 25 mg Documented by: Diphenoxylate HCl/Atropine (Diphenoxylate Hcl/Atropine 1 Tablet) 1 tab PO QIDP PRN PRN Reason: Wheezing Furosemide (Furosemide 20 Mg Tablet) 20 mg PO DAILY [facility] Last Admin: 12/11/20 08:06 Dose: 20 mg Documented by: Gabapentin (Gabapentin 100 Mg Capsule) 100 mg PO BID [facility] Last Admin: 12/11/20 08:04 Dose: 100 mg Documented by: Glucose (Dextrose 31 Gm Oral.Susp) 15 gm PO PRN PRN PRN Reason: Hypoglycemia Magnesium Sulfate (Magnesium Sulfate) 2 gm in 50 mls @ 50 mls/hr IV UD PRN PRN Reason: Magnesium </= 1.6 Potassium Chloride 40 meq/ (Dextrose) 520 mls @ 130 mls/hr IV UD PRN PRN Reason: Potassium < 3 Insulin Human Lispro (Insulin Lispro 1 Unit/0.01 Ml Unit) 0 unit SQ ACHS [facility]; Protocol Last Admin: 12/11/20 07:53 Dose: Not Given Documented by: Levetiracetam (Levetiracetam 500 Mg Tablet) 250 mg PO BID [facility] Last Admin: 12/11/20 08:05 Dose: 250 mg Documented by: Meclizine HCl (Meclizine 25 Mg Tablet) 25 mg PO DAILY [facility] Last Admin: 12/11/20 08:06 Dose: 25 mg Documented by: Melatonin (Melatonin 3 Mg Tablet) 3 mg PO QHS [facility] Last Admin: 12/10/20 20:45 Dose: 3 mg Documented by: Metformin HCl (Metformin 500 Mg Tab.Xl.24h) 1,000 mg PO [facility] Last Admin: 12/11/20 08:03 Dose: 1,000 mg Documented by: Methadone HCl (Methadone 5 Mg Tablet) 10 mg PO BID [facility] Last Admin: 12/11/20 08:05 Dose: 10 mg Documented by: Metoclopramide HCl (Metoclopramide 10 Mg/2 Ml Vial) 10 mg IV Q6HP PRN PRN Reason: Nausea And Vomiting Metoprolol Succinate (Metoprolol Succinate 25 Mg Tab.Xl.24h) 12.5 mg PO DAILY [facility] Last Admin: 12/11/20 08:04 Dose: 12.5 mg Documented by: Empagliflozin 25 Mg (Tablet) 1 dose PO DAILY [facility] Last Admin: 12/11/20 08:06 Dose: Not Given Documented by: Polyethylene Glycol (Polyethylene Glycol 3350 17 Gm Packet) 17 gm PO DAILYP PRN PRN Reason: Constipation Potassium Chloride (Potassium Chloride 20 Meq Tablet) 40 meq PO UD PRN PRN Reason: Potssium is 3-3.5 Potassium Chloride (Potassium Chloride 20 Meq Tablet) 40 meq PO UD PRN PRN Reason: Potassium < 3 Potassium Chloride (Potassium Chloride 10 Meq Tablet) 20 meq PO QAMCC [facility] Last Admin: 12/11/20 08:04 Dose: 20 meq Documented by: Pregabalin (Pregabalin 25 Mg Capsule) 50 mg PO BID [facility] Last Admin: 12/11/20 08:05 Dose: 50 mg Documented by: Senna (Sennosides 1 Tablet) 2 tab PO DAILYP PRN PRN Reason: Constipation Last Admin: 12/08/20 04:02 Dose: 2 tab Documented by: Sertraline HCl (Sertraline 50 Mg Tablet) 125 mg PO DAILY [facility] Last Admin: 12/11/20 08:04 Dose: 125 mg Documented by: Sodium Chloride (0.9 % Sodium Chloride 10 Ml Syringe) 10 ml IV Q8 [facility] Last Admin: 12/11/20 05:56 Dose: Not Given Documented by: Tramadol HCl (Tramadol 50 Mg Tablet) 50 mg PO DAILYP PRN; Protocol PRN Reason: Pain Last Admin: 12/10/20 11:58 Dose: 50 mg Documented by: Trazodone HCl (Trazodone Hcl 50 Mg Tablet) 25 mg PO HS [facility] Last Admin: 12/10/20 20:43 Dose: 25 mg Documented by: A/P Assessment and plan (1) CHF (congestive heart failure): Status: Acute Qualifiers: Heart failure chronicity: chronic Heart failure type: unspecified Qualified Code(s): I50.9 - Heart failure, unspecified (2) Atrial fibrillation with rapid ventricular response: Status: Acute (3) Hypertension, essential: Status: Acute (4) Homelessness: Status: Acute (5) Inability to walk: Status: Acute (6) Type 2 diabetes mellitus: Status: Chronic (7) Acute UTI: Status: Acute Narrative A/P Narrative: Bowel obstruction: resolved UTI: resolved RAVINDER: resolved Bowel obstruction: resolved Atrial fibrillation: currently rate control. Continue Metoprolol for rate control and Eliquis as anticoagulation CHF: Lasix, Metoprolol. Currently on room air, stable T2DM: Metformin and insulin therapy GI ppx: not currently indicated DVT ppx: Eliquis Code status: Full Prognosis: stable Disposition: inpatient med surg; pending SNF placement Time Spent With Patient Time: Total time spent is greater than 50% in coordination of care (as documented) at patient's floor/unit and/or counseling patient: Total time spent with greater than 50% in coordination of care (as documented) at patient's floor/unit and/or counseling patient:: 15 - 24 minutes QUALITY VTE Deep Vein Thrombosis/Pulmonary Embolism Present on Admission: No
--- NOTE | 2020-12-11 13:14 | General Surgery Progress Note ---
SUBJECTIVE Subjective Patient information: Note initiated : 12/11/20 at 1:09 pm Service Date, if different from initiated Date: [] Patient: Alexa Rai 80 y/o F admitted on 11/14/20 for Weakness. Chief Complaint: [] Principal diagnosis: ESBL E.Coli UTI Additional PMFSH (Level 3 Only): Saw patient with Samuel Graff RN on 12/10/2020 Reviewed bilateral LE lymphedema and skin lesions over dorasl great toe ( both feet ) Constitutional Vitals: Vital Signs Temp Pulse Resp BP Pulse Ox 97.4 F 75 18 115/73 94 12/11/20 07:51 12/11/20 07:51 12/11/20 07:51 12/11/20 07:51 12/11/20 07:51 Period Temp Pulse Resp BP Sys/Jansen Pulse Ox Last 24 Hr 97.3 F-97.4 F 75-81 16-18 115-120/62-73 94-94 Intake and Output 12/10/20 12/11/20 12/11/20 21:59 05:59 13:59 Intake Total 360 400 Output Total 451 700 Balance -91 -300 Weight 246 lb 6 oz Intake & Output: Intake & Output 12/10/20 12/11/20 12/11/20 21:59 05:59 13:59 Intake Total 360 400 Output Total 451 700 Balance -91 -300 Weight 246 lb 6 oz Intake: Oral 360 400 Output: Void Amount 450 700 # of times incontinent of urine 1 Other: # Voids 1 General appearance: cooperative, morbidly obese and no acute distress Exam: ANY unremarkable . No interval changes from before. Lymphedema of both LE is stable. Grade 1 ecchymoses dorsal surface both feet over great toe sites is clean and dry. Monitor for now. Comperm for lymphedema of legs. A/P Narrative A/P Narrative: Assessment: UTI improved. Other comorbid medical conditions stable Patient is hospital and awaits placement resolution. Plan: Agree with ongoing treatment. See again PRN or intermittently with wound nurse,. Time Spent With Patient Time: Total time spent is greater than 50% in coordination of care (as documented) at patient's floor/unit and/or counseling patient: Total time spent with greater than 50% in coordination of care (as documented) at patient's floor/unit and/or counseling patient:: less than 15 minutes
[2020-12-11] MEDS: ATORVASTATIN 40 MG TABLET PO SCH (21:05)
[2020-12-11] MEDS: diphenhydrAMINE 25 MG CAPSULE PO SCH (21:05)
[2020-12-11] MEDS: traZODone HCL 50 MG TABLET PO SCH (21:06)
[2020-12-11] MEDS: MELATONIN 3 MG TABLET PO SCH (21:07)
[2020-12-12] MEDS: traMADol 50 MG TABLET PO PRN ×2 (03:21→16:35)
[2020-12-12] MEDS: 0.9 % SODIUM CHLORIDE 10 ML SYRINGE IV SCH ×3 (06:00→22:14)
[2020-12-12] MEDS: INSULIN LISPRO 1 UNIT/0.01 ML UNIT SQ SCH ×4 (07:30→20:59)
[2020-12-12] MEDS: metFORMIN 500 MG TAB.XL.24H PO SCH (09:43)
[2020-12-12] MEDS: BACLOFEN 10 MG TABLET PO SCH ×2 (09:44→20:11)
[2020-12-12] MEDS: levETIRAcetam 500 MG TABLET PO SCH ×2 (09:44→20:12)
[2020-12-12] MEDS: METOPROLOL SUCCINATE 25 MG TAB.XL.24H PO SCH (09:45)
[2020-12-12] MEDS: GABAPENTIN 100 MG CAPSULE PO SCH ×2 (09:46→20:10)
[2020-12-12] MEDS: POTASSIUM CHLORIDE 10 MEQ TABLET PO SCH (09:46)
[2020-12-12] MEDS: SERTRALINE 50 MG TABLET PO SCH (09:46)
[2020-12-12] MEDS: MECLIZINE 25 MG TABLET PO SCH (09:46)
[2020-12-12] MEDS: METHADONE 5 MG TABLET PO SCH ×2 (09:47→20:10)
[2020-12-12] MEDS: PREGABALIN 25 MG CAPSULE PO SCH ×2 (09:48→20:09)
[2020-12-12] MEDS: FUROSEMIDE 20 MG TABLET PO SCH (09:48)
[2020-12-12] MEDS: APIXABAN 5 MG TABLET PO SCH ×2 (09:48→20:10)
[2020-12-12] MEDS: EMPAGLIFLOZIN 25 MG TABLET PO SCH (09:53)
--- NOTE | 2020-12-12 11:33 | Internal Med Progress Note ---
SUBJECTIVE Subjective Patient information: Note initiated : 12/12/20 at 11:30 am Service Date, if different from initiated Date: [] Patient: Alexa Rai 80 y/o F admitted on 11/14/20 for Weakness. Chief Complaint: [atrial fibrillation, acute kidney injury, urinary tract infection, bowel obstruction] 12/10/20: No active issues. No major overnight events. Patient is feeling comfortable this morning. Principal diagnosis: ESBL E.Coli UTI 12/11/20: No active issues. No major overnight events. Patient is feeling comfortable this morning. 12/12/20: No active issues. No major overnight events. Patient is feeling comfortable this morning. Principal diagnosis: ESBL E.Coli UTI Constitutional Vitals: Vital Signs Temp Pulse Resp BP Pulse Ox 36.6 C 55 L 16 98/61 91 12/12/20 07:52 12/12/20 07:52 12/12/20 07:52 12/12/20 07:52 12/12/20 07:52 Period Temp Pulse Resp BP Sys/Jansen Pulse Ox Last 24 Hr 36.6 C-36.7 C 55-107 16-16 98-113/61-63 91-91 Intake and Output 12/11/20 12/12/20 12/12/20 21:59 05:59 13:59 Intake Total 400 Output Total 350 450 Balance 50 -450 Weight 112.945 kg 67.721 kg Intake & Output: Intake & Output 12/11/20 12/12/20 12/12/20 21:59 05:59 13:59 Intake Total 400 Output Total 350 450 Balance 50 -450 Weight 112.945 kg 67.721 kg Intake: Oral 400 Output: Urine Catheter Amount 350 450 Other: Urine Appearance Clear Clear Urine Color Bright Yellow Bright Yellow General appearance: cooperative and no acute distress Head Head exam: Present atraumatic and normocephalic Eye Eye exam: Present EOMI and PERRL ENT ENT exam: Present mucous membranes moist, normal exam and normal external ear exam Neck Neck exam: Present normal inspection; Absent lymphadenopathy, tenderness and thyromegaly Respiratory Respiratory exam: Absent accessory muscle use, respiratory distress and wheezes Cardiovascular Cardiovascular exam: Present normal rate and rhythm; Absent JVD GI/Abdominal GI/Abdominal exam: Present normal bowel sounds and soft; Absent organomegaly and tenderness Extremities Exam Extremities exam: Present full ROM, normal capillary refill and normal inspection; Absent tenderness Neurological Exam Neurological exam: Present alert, CN II-XII intact and oriented X3; Absent motor sensory deficit Psychiatric Psychiatric exam: Present normal affect and normal mood; Absent anxious and depressed Skin Skin exam: Present dry and intact OBJ DATA Labs CBC & Chem 7: 12/03/20 12:21 12/03/20 12:21 Meds: Medications Acetaminophen (Acetaminophen 325 Mg Tablet) 650 mg PO Q6HP PRN PRN Reason: PAIN/FEVER > 101 Last Admin: 11/17/20 17:22 Dose: 650 mg Documented by: Albuterol/Ipratropium (Ipratropium/Albuterol 3 Ml Ampul.Neb) 3 ml NEB Q4HP PRN PRN Reason: Shortness Of Breath Alprazolam (Alprazolam 0.5 Mg Tablet) 0.5 mg PO Q12HP PRN PRN Reason: Anxiety Apixaban (Apixaban 5 Mg Tablet) 5 mg PO BID [facility] Last Admin: 12/12/20 09:48 Dose: 5 mg Documented by: Atorvastatin Calcium (Atorvastatin 40 Mg Tablet) 40 mg PO QHS [facility] Last Admin: 12/11/20 21:05 Dose: 40 mg Documented by: Baclofen (Baclofen 10 Mg Tablet) 10 mg PO BID [facility] Last Admin: 12/12/20 09:44 Dose: 10 mg Documented by: Bisacodyl (Bisacodyl 10 Mg Supp.Rect) 10 mg DC Q2-3DAYS PRN PRN Reason: Constipation Last Admin: 11/25/20 05:38 Dose: 10 mg Documented by: Dextrose (Dextrose 50% 50 Ml Vial) 0 ml IV UD PRN PRN Reason: Hypoglycemia Last Admin: 11/25/20 22:53 Dose: 25 ml Documented by: Diagnostic Test (Pha) (Accu-Chek 1 Each Strip) 1 each FS ACHS [facility] Last Admin: 12/12/20 07:30 Dose: 1 each Documented by: Diphenhydramine HCl (Diphenhydramine 25 Mg Capsule) 25 mg PO HS [facility] Last Admin: 12/11/20 21:05 Dose: 25 mg Documented by: Diphenoxylate HCl/Atropine (Diphenoxylate Hcl/Atropine 1 Tablet) 1 tab PO QIDP PRN PRN Reason: Wheezing Furosemide (Furosemide 20 Mg Tablet) 20 mg PO DAILY [facility] Last Admin: 12/12/20 09:48 Dose: 20 mg Documented by: Gabapentin (Gabapentin 100 Mg Capsule) 100 mg PO BID [facility] Last Admin: 12/12/20 09:46 Dose: 100 mg Documented by: Glucose (Dextrose 31 Gm Oral.Susp) 15 gm PO PRN PRN PRN Reason: Hypoglycemia Magnesium Sulfate (Magnesium Sulfate) 2 gm in 50 mls @ 50 mls/hr IV UD PRN PRN Reason: Magnesium </= 1.6 Potassium Chloride 40 meq/ (Dextrose) 520 mls @ 130 mls/hr IV UD PRN PRN Reason: Potassium < 3 Insulin Human Lispro (Insulin Lispro 1 Unit/0.01 Ml Unit) 0 unit SQ ACHS [facility]; Protocol Last Admin: 12/12/20 07:30 Dose: Not Given Documented by: Levetiracetam (Levetiracetam 500 Mg Tablet) 250 mg PO BID [facility] Last Admin: 12/12/20 09:44 Dose: 250 mg Documented by: Meclizine HCl (Meclizine 25 Mg Tablet) 25 mg PO DAILY [facility] Last Admin: 12/12/20 09:46 Dose: 25 mg Documented by: Melatonin (Melatonin 3 Mg Tablet) 3 mg PO QHS [facility] Last Admin: 12/11/20 21:07 Dose: 3 mg Documented by: Metformin HCl (Metformin 500 Mg Tab.Xl.24h) 1,000 mg PO [facility] Last Admin: 12/12/20 09:43 Dose: 1,000 mg Documented by: Methadone HCl (Methadone 5 Mg Tablet) 10 mg PO BID [facility] Last Admin: 12/12/20 09:47 Dose: 10 mg Documented by: Metoclopramide HCl (Metoclopramide 10 Mg/2 Ml Vial) 10 mg IV Q6HP PRN PRN Reason: Nausea And Vomiting Metoprolol Succinate (Metoprolol Succinate 25 Mg Tab.Xl.24h) 12.5 mg PO DAILY [facility] Last Admin: 12/12/20 09:45 Dose: 12.5 mg Documented by: Empagliflozin 25 Mg (Tablet) 1 dose PO DAILY [facility] Last Admin: 12/12/20 09:53 Dose: Not Given Documented by: Polyethylene Glycol (Polyethylene Glycol 3350 17 Gm Packet) 17 gm PO DAILYP PRN PRN Reason: Constipation Potassium Chloride (Potassium Chloride 20 Meq Tablet) 40 meq PO UD PRN PRN Reason: Potssium is 3-3.5 Potassium Chloride (Potassium Chloride 20 Meq Tablet) 40 meq PO UD PRN PRN Reason: Potassium < 3 Potassium Chloride (Potassium Chloride 10 Meq Tablet) 20 meq PO QAMCC [facility] Last Admin: 12/12/20 09:46 Dose: 20 meq Documented by: Pregabalin (Pregabalin 25 Mg Capsule) 50 mg PO BID [facility] Last Admin: 12/12/20 09:48 Dose: 50 mg Documented by: Senna (Sennosides 1 Tablet) 2 tab PO DAILYP PRN PRN Reason: Constipation Last Admin: 12/08/20 04:02 Dose: 2 tab Documented by: Sertraline HCl (Sertraline 50 Mg Tablet) 125 mg PO DAILY [facility] Last Admin: 12/12/20 09:46 Dose: 125 mg Documented by: Sodium Chloride (0.9 % Sodium Chloride 10 Ml Syringe) 10 ml IV Q8 [facility] Last Admin: 12/12/20 06:00 Dose: Not Given Documented by: Tramadol HCl (Tramadol 50 Mg Tablet) 50 mg PO DAILYP PRN; Protocol PRN Reason: Pain Last Admin: 12/12/20 03:21 Dose: 50 mg Documented by: Trazodone HCl (Trazodone Hcl 50 Mg Tablet) 25 mg PO HS [facility] Last Admin: 12/11/20 21:06 Dose: 25 mg Documented by: A/P Assessment and plan (1) CHF (congestive heart failure): Status: Acute Qualifiers: Heart failure chronicity: chronic Heart failure type: unspecified Qualified Code(s): I50.9 - Heart failure, unspecified (2) Atrial fibrillation with rapid ventricular response: Status: Acute (3) Hypertension, essential: Status: Acute (4) Homelessness: Status: Acute (5) Inability to walk: Status: Acute (6) Type 2 diabetes mellitus: Status: Chronic (7) Acute UTI: Status: Acute Narrative A/P Narrative: Bowel obstruction: resolved UTI: resolved RAVINDER: resolved Bowel obstruction: resolved Atrial fibrillation: currently rate control. Continue Metoprolol for rate control and Eliquis as anticoagulation CHF: Lasix, Metoprolol. Currently on room air, stable T2DM: Metformin and insulin therapy GI ppx: not currently indicated DVT ppx: Eliquis Code status: Full Prognosis: stable Disposition: inpatient med surg; pending SNF placement Time Spent With Patient Time: Total time spent is greater than 50% in coordination of care (as documented) at patient's floor/unit and/or counseling patient: QUALITY VTE Deep Vein Thrombosis/Pulmonary Embolism Present on Admission: No
[2020-12-12] MEDS: traZODone HCL 50 MG TABLET PO SCH (20:10)
[2020-12-12] MEDS: diphenhydrAMINE 25 MG CAPSULE PO SCH (20:10)
[2020-12-12] MEDS: ATORVASTATIN 40 MG TABLET PO SCH (20:11)
[2020-12-12] MEDS: MELATONIN 3 MG TABLET PO SCH (20:12)
[2020-12-13] MEDS: 0.9 % SODIUM CHLORIDE 10 ML SYRINGE IV SCH ×3 (04:55→20:22)
[2020-12-13] MEDS: METOPROLOL SUCCINATE 25 MG TAB.XL.24H PO SCH (08:34)
[2020-12-13] MEDS: SERTRALINE 50 MG TABLET PO SCH (08:34)
[2020-12-13] MEDS: metFORMIN 500 MG TAB.XL.24H PO SCH (08:34)
[2020-12-13] MEDS: levETIRAcetam 500 MG TABLET PO SCH ×2 (08:35→20:13)
[2020-12-13] MEDS: GABAPENTIN 100 MG CAPSULE PO SCH ×2 (08:35→20:16)
[2020-12-13] MEDS: POTASSIUM CHLORIDE 10 MEQ TABLET PO SCH (08:35)
[2020-12-13] MEDS: FUROSEMIDE 20 MG TABLET PO SCH (08:35)
[2020-12-13] MEDS: BACLOFEN 10 MG TABLET PO SCH ×2 (08:35→20:17)
[2020-12-13] MEDS: MECLIZINE 25 MG TABLET PO SCH (08:35)
[2020-12-13] MEDS: METHADONE 5 MG TABLET PO SCH ×2 (08:35→20:15)
[2020-12-13] MEDS: APIXABAN 5 MG TABLET PO SCH ×2 (08:36→20:16)
[2020-12-13] MEDS: PREGABALIN 25 MG CAPSULE PO SCH ×2 (08:36→20:14)
[2020-12-13] MEDS: EMPAGLIFLOZIN 25 MG TABLET PO SCH (08:41)
[2020-12-13] MEDS: INSULIN LISPRO 1 UNIT/0.01 ML UNIT SQ SCH ×4 (08:43→20:18)
--- NOTE | 2020-12-13 10:54 | Internal Med Progress Note ---
SUBJECTIVE Subjective Patient information: Note initiated : 12/13/20 at 10:52 am Service Date, if different from initiated Date: [] Patient: Alexa Rai 80 y/o F admitted on 11/14/20 for Weakness. Chief Complaint: [atrial fibrillation, acute kidney injury, urinary tract infection, bowel obstruction] 12/10/20: No active issues. No major overnight events. Patient is feeling comfortable this morning. Principal diagnosis: ESBL E.Coli UTI 12/11/20: No active issues. No major overnight events. Patient is feeling comfortable this morning. 12/12/20: No active issues. No major overnight events. Patient is feeling comfortable this morning. 12/13/20: No active issues. No major overnight events. Patient is feeling comfortable this morning. Principal diagnosis: ESBL E.Coli UTI Constitutional Vitals: Vital Signs Temp Pulse Resp BP Pulse Ox 36.4 C 81 18 108/62 91 12/13/20 08:40 12/13/20 08:40 12/13/20 08:40 12/13/20 08:40 12/13/20 08:40 Period Temp Pulse Resp BP Sys/Jansen Pulse Ox Last 24 Hr 36.4 C-36.6 C 59-81 16-18 107-108/60-62 90-91 Intake and Output 12/12/20 12/13/20 12/13/20 21:59 05:59 13:59 Intake Total 400 100 Output Total 350 Balance 50 100 Weight 113.534 kg Intake & Output: Intake & Output 12/12/20 12/13/20 12/13/20 21:59 05:59 13:59 Intake Total 400 100 Output Total 350 Balance 50 100 Weight 113.534 kg Intake: Oral 400 100 Output: Void Amount 350 Other: Urine Appearance Clear Urine Color Bright Yellow Stool Size Large Stool Color Brown Stool Consistency Soft # Bowel Movements 1 General appearance: cooperative and no acute distress Head Head exam: Present atraumatic and normocephalic Eye Eye exam: Present EOMI and PERRL ENT ENT exam: Present mucous membranes moist, normal exam and normal external ear exam Neck Neck exam: Present normal inspection; Absent lymphadenopathy, tenderness and thyromegaly Respiratory Respiratory exam: Absent accessory muscle use, respiratory distress and wheezes Cardiovascular Cardiovascular exam: Present normal rate and rhythm; Absent JVD GI/Abdominal GI/Abdominal exam: Present normal bowel sounds and soft; Absent organomegaly and tenderness Extremities Exam Extremities exam: Present full ROM, normal capillary refill and normal inspection; Absent tenderness Neurological Exam Neurological exam: Present alert, CN II-XII intact and oriented X3; Absent motor sensory deficit Psychiatric Psychiatric exam: Present normal affect and normal mood; Absent anxious and depressed Skin Skin exam: Present dry and intact OBJ DATA Labs CBC & Chem 7: 12/03/20 12:21 12/03/20 12:21 Meds: Medications Acetaminophen (Acetaminophen 325 Mg Tablet) 650 mg PO Q6HP PRN PRN Reason: PAIN/FEVER > 101 Last Admin: 11/17/20 17:22 Dose: 650 mg Documented by: Albuterol/Ipratropium (Ipratropium/Albuterol 3 Ml Ampul.Neb) 3 ml NEB Q4HP PRN PRN Reason: Shortness Of Breath Alprazolam (Alprazolam 0.5 Mg Tablet) 0.5 mg PO Q12HP PRN PRN Reason: Anxiety Apixaban (Apixaban 5 Mg Tablet) 5 mg PO BID [facility] Last Admin: 12/13/20 08:36 Dose: 5 mg Documented by: Atorvastatin Calcium (Atorvastatin 40 Mg Tablet) 40 mg PO QHS [facility] Last Admin: 12/12/20 20:11 Dose: 40 mg Documented by: Baclofen (Baclofen 10 Mg Tablet) 10 mg PO BID [facility] Last Admin: 12/13/20 08:35 Dose: 10 mg Documented by: Bisacodyl (Bisacodyl 10 Mg Supp.Rect) 10 mg UT Q2-3DAYS PRN PRN Reason: Constipation Last Admin: 11/25/20 05:38 Dose: 10 mg Documented by: Dextrose (Dextrose 50% 50 Ml Vial) 0 ml IV UD PRN PRN Reason: Hypoglycemia Last Admin: 11/25/20 22:53 Dose: 25 ml Documented by: Diagnostic Test (Pha) (Accu-Chek 1 Each Strip) 1 each FS ACHS [facility] Last Admin: 12/13/20 08:43 Dose: 1 each Documented by: Diphenhydramine HCl (Diphenhydramine 25 Mg Capsule) 25 mg PO HS [facility] Last Admin: 12/12/20 20:10 Dose: 25 mg Documented by: Diphenoxylate HCl/Atropine (Diphenoxylate Hcl/Atropine 1 Tablet) 1 tab PO QIDP PRN PRN Reason: Wheezing Furosemide (Furosemide 20 Mg Tablet) 20 mg PO DAILY [facility] Last Admin: 12/13/20 08:35 Dose: 20 mg Documented by: Gabapentin (Gabapentin 100 Mg Capsule) 100 mg PO BID [facility] Last Admin: 12/13/20 08:35 Dose: 100 mg Documented by: Glucose (Dextrose 31 Gm Oral.Susp) 15 gm PO PRN PRN PRN Reason: Hypoglycemia Magnesium Sulfate (Magnesium Sulfate) 2 gm in 50 mls @ 50 mls/hr IV UD PRN PRN Reason: Magnesium </= 1.6 Potassium Chloride 40 meq/ (Dextrose) 520 mls @ 130 mls/hr IV UD PRN PRN Reason: Potassium < 3 Insulin Human Lispro (Insulin Lispro 1 Unit/0.01 Ml Unit) 0 unit SQ ACHS [facility]; Protocol Last Admin: 12/13/20 08:43 Dose: Not Given Documented by: Levetiracetam (Levetiracetam 500 Mg Tablet) 250 mg PO BID [facility] Last Admin: 12/13/20 08:35 Dose: 250 mg Documented by: Meclizine HCl (Meclizine 25 Mg Tablet) 25 mg PO DAILY [facility] Last Admin: 12/13/20 08:35 Dose: 25 mg Documented by: Melatonin (Melatonin 3 Mg Tablet) 3 mg PO QHS [facility] Last Admin: 12/12/20 20:12 Dose: 3 mg Documented by: Metformin HCl (Metformin 500 Mg Tab.Xl.24h) 1,000 mg PO [facility] Last Admin: 12/13/20 08:34 Dose: 1,000 mg Documented by: Methadone HCl (Methadone 5 Mg Tablet) 10 mg PO BID [facility] Last Admin: 12/13/20 08:35 Dose: 10 mg Documented by: Metoclopramide HCl (Metoclopramide 10 Mg/2 Ml Vial) 10 mg IV Q6HP PRN PRN Reason: Nausea And Vomiting Metoprolol Succinate (Metoprolol Succinate 25 Mg Tab.Xl.24h) 12.5 mg PO DAILY [facility] Last Admin: 12/13/20 08:34 Dose: 12.5 mg Documented by: Empagliflozin 25 Mg (Tablet) 1 dose PO DAILY [facility] Last Admin: 12/13/20 08:41 Dose: Not Given Documented by: Polyethylene Glycol (Polyethylene Glycol 3350 17 Gm Packet) 17 gm PO DAILYP PRN PRN Reason: Constipation Potassium Chloride (Potassium Chloride 20 Meq Tablet) 40 meq PO UD PRN PRN Reason: Potssium is 3-3.5 Potassium Chloride (Potassium Chloride 20 Meq Tablet) 40 meq PO UD PRN PRN Reason: Potassium < 3 Potassium Chloride (Potassium Chloride 10 Meq Tablet) 20 meq PO QAMCC [facility] Last Admin: 12/13/20 08:35 Dose: 20 meq Documented by: Pregabalin (Pregabalin 25 Mg Capsule) 50 mg PO BID [facility] Last Admin: 12/13/20 08:36 Dose: 50 mg Documented by: Senna (Sennosides 1 Tablet) 2 tab PO DAILYP PRN PRN Reason: Constipation Last Admin: 12/08/20 04:02 Dose: 2 tab Documented by: Sertraline HCl (Sertraline 50 Mg Tablet) 125 mg PO DAILY [facility] Last Admin: 12/13/20 08:34 Dose: 125 mg Documented by: Sodium Chloride (0.9 % Sodium Chloride 10 Ml Syringe) 10 ml IV Q8 [facility] Last Admin: 12/13/20 04:55 Dose: Not Given Documented by: Tramadol HCl (Tramadol 50 Mg Tablet) 50 mg PO Q6HP PRN; Protocol PRN Reason: Pain Last Admin: 12/12/20 16:35 Dose: 50 mg Documented by: Trazodone HCl (Trazodone Hcl 50 Mg Tablet) 25 mg PO HS [facility] Last Admin: 12/12/20 20:10 Dose: 25 mg Documented by: A/P Assessment and plan (1) CHF (congestive heart failure): Status: Acute Qualifiers: Heart failure chronicity: chronic Heart failure type: unspecified Qualified Code(s): I50.9 - Heart failure, unspecified (2) Atrial fibrillation with rapid ventricular response: Status: Acute (3) Hypertension, essential: Status: Acute (4) Homelessness: Status: Acute (5) Inability to walk: Status: Acute (6) Type 2 diabetes mellitus: Status: Chronic (7) Acute UTI: Status: Acute Narrative A/P Narrative: Bowel obstruction: resolved UTI: resolved RAVINDER: resolved Bowel obstruction: resolved Atrial fibrillation: currently rate control. Continue Metoprolol for rate control and Eliquis as anticoagulation CHF: Lasix, Metoprolol. Currently on room air, stable T2DM: Metformin and insulin therapy GI ppx: not currently indicated DVT ppx: Eliquis Code status: Full Prognosis: stable Disposition: inpatient med surg; pending SNF placement Time Spent With Patient Time: Total time spent is greater than 50% in coordination of care (as documented) at patient's floor/unit and/or counseling patient: QUALITY VTE Deep Vein Thrombosis/Pulmonary Embolism Present on Admission: No
[2020-12-13] MEDS: MELATONIN 3 MG TABLET PO SCH (20:15)
[2020-12-13] MEDS: traZODone HCL 50 MG TABLET PO SCH (20:16)
[2020-12-13] MEDS: ATORVASTATIN 40 MG TABLET PO SCH (20:17)
[2020-12-13] MEDS: diphenhydrAMINE 25 MG CAPSULE PO SCH (20:17)
[2020-12-14] MEDS: 0.9 % SODIUM CHLORIDE 10 ML SYRINGE IV SCH ×3 (04:09→20:37)
[2020-12-14] MEDS: PREGABALIN 25 MG CAPSULE PO SCH ×2 (08:16→20:31)
[2020-12-14] MEDS: METHADONE 5 MG TABLET PO SCH ×2 (08:16→20:30)
[2020-12-14] MEDS: POTASSIUM CHLORIDE 10 MEQ TABLET PO SCH (08:16)
[2020-12-14] MEDS: MECLIZINE 25 MG TABLET PO SCH (08:16)
[2020-12-14] MEDS: INSULIN LISPRO 1 UNIT/0.01 ML UNIT SQ SCH ×4 (08:16→20:36)
[2020-12-14] MEDS: FUROSEMIDE 20 MG TABLET PO SCH (08:16)
[2020-12-14] MEDS: levETIRAcetam 500 MG TABLET PO SCH ×2 (08:16→20:31)
[2020-12-14] MEDS: GABAPENTIN 100 MG CAPSULE PO SCH ×2 (08:17→20:29)
[2020-12-14] MEDS: SERTRALINE 50 MG TABLET PO SCH (08:17)
[2020-12-14] MEDS: METOPROLOL SUCCINATE 25 MG TAB.XL.24H PO SCH (08:17)
[2020-12-14] MEDS: metFORMIN 500 MG TAB.XL.24H PO SCH (08:17)
[2020-12-14] MEDS: BACLOFEN 10 MG TABLET PO SCH ×2 (08:17→20:31)
[2020-12-14] MEDS: APIXABAN 5 MG TABLET PO SCH ×2 (08:17→20:32)
[2020-12-14] MEDS: EMPAGLIFLOZIN 25 MG TABLET PO SCH (08:18)
--- NOTE | 2020-12-14 10:46 | Internal Med Progress Note ---
SUBJECTIVE Subjective Patient information: Note initiated : 12/14/20 at 10:45 am Service Date, if different from initiated Date: [] Patient: Alexa Rai 80 y/o F admitted on 11/14/20 for Weakness. Chief Complaint: [atrial fibrillation, acute kidney injury, urinary tract infection, bowel obstruction] 12/10/20: No active issues. No major overnight events. Patient is feeling comfortable this morning. Principal diagnosis: ESBL E.Coli UTI 12/11/20: No active issues. No major overnight events. Patient is feeling comfortable this morning. 12/12/20: No active issues. No major overnight events. Patient is feeling comfortable this morning. 12/13/20: No active issues. No major overnight events. Patient is feeling comfortable this morning. 12/13/20: No active issues. No major overnight events. Patient is feeling comfortable this morning. Principal diagnosis: ESBL E.Coli UTI Constitutional Vitals: Vital Signs Temp Pulse Resp BP Pulse Ox 36.2 C 72 20 122/62 92 12/14/20 08:00 12/14/20 08:00 12/14/20 08:00 12/14/20 08:00 12/14/20 08:00 Period Temp Pulse Resp BP Sys/Jansen Pulse Ox Last 24 Hr 36.2 C-36.3 C 72-77 18-20 104-122/60-62 90-92 Intake and Output 12/13/20 12/14/20 12/14/20 21:59 05:59 13:59 Intake Total 490 300 Output Total 400 400 Balance 90 -100 Weight 113.534 kg Intake & Output: Intake & Output 12/13/20 12/14/20 12/14/20 21:59 05:59 13:59 Intake Total 490 300 Output Total 400 400 Balance 90 -100 Weight 113.534 kg Intake: Oral 490 300 Output: Void Amount 400 400 Other: Meal Lunch Percent of Meal Consumed 100% Feeding Ability Independent Urine Color Bright Yellow Bright Yellow # Voids 1 1 General appearance: cooperative and no acute distress Head Head exam: Present atraumatic and normocephalic Eye Eye exam: Present EOMI and PERRL ENT ENT exam: Present mucous membranes moist, normal exam and normal external ear exam Neck Neck exam: Present normal inspection; Absent lymphadenopathy, tenderness and thyromegaly Respiratory Respiratory exam: Absent accessory muscle use, respiratory distress and wheezes Cardiovascular Cardiovascular exam: Present irregular rhythm; Absent JVD GI/Abdominal GI/Abdominal exam: Present normal bowel sounds and soft; Absent organomegaly and tenderness Extremities Exam Extremities exam: Present full ROM, normal capillary refill and normal inspection; Absent tenderness Neurological Exam Neurological exam: Present alert, CN II-XII intact and oriented X3; Absent motor sensory deficit Psychiatric Psychiatric exam: Present normal affect and normal mood; Absent anxious and depressed Skin Skin exam: Present dry and intact OBJ DATA Labs CBC & Chem 7: 12/03/20 12:21 12/03/20 12:21 Meds: Medications Acetaminophen (Acetaminophen 325 Mg Tablet) 650 mg PO Q6HP PRN PRN Reason: PAIN/FEVER > 101 Last Admin: 11/17/20 17:22 Dose: 650 mg Documented by: Albuterol/Ipratropium (Ipratropium/Albuterol 3 Ml Ampul.Neb) 3 ml NEB Q4HP PRN PRN Reason: Shortness Of Breath Alprazolam (Alprazolam 0.5 Mg Tablet) 0.5 mg PO Q12HP PRN PRN Reason: Anxiety Apixaban (Apixaban 5 Mg Tablet) 5 mg PO BID [facility] Last Admin: 12/14/20 08:17 Dose: 5 mg Documented by: Atorvastatin Calcium (Atorvastatin 40 Mg Tablet) 40 mg PO QHS [facility] Last Admin: 12/13/20 20:17 Dose: 40 mg Documented by: Baclofen (Baclofen 10 Mg Tablet) 10 mg PO BID [facility] Last Admin: 12/14/20 08:17 Dose: 10 mg Documented by: Bisacodyl (Bisacodyl 10 Mg Supp.Rect) 10 mg MT Q2-3DAYS PRN PRN Reason: Constipation Last Admin: 11/25/20 05:38 Dose: 10 mg Documented by: Dextrose (Dextrose 50% 50 Ml Vial) 0 ml IV UD PRN PRN Reason: Hypoglycemia Last Admin: 11/25/20 22:53 Dose: 25 ml Documented by: Diagnostic Test (Pha) (Accu-Chek 1 Each Strip) 1 each FS ACHS [facility] Last Admin: 12/14/20 08:15 Dose: 1 each Documented by: Diphenhydramine HCl (Diphenhydramine 25 Mg Capsule) 25 mg PO [facility] Last Admin: 12/13/20 20:17 Dose: 25 mg Documented by: Diphenoxylate HCl/Atropine (Diphenoxylate Hcl/Atropine 1 Tablet) 1 tab PO QIDP PRN PRN Reason: Wheezing Furosemide (Furosemide 20 Mg Tablet) 20 mg PO DAILY [facility] Last Admin: 12/14/20 08:16 Dose: 20 mg Documented by: Gabapentin (Gabapentin 100 Mg Capsule) 100 mg PO BID [facility] Last Admin: 12/14/20 08:17 Dose: 100 mg Documented by: Glucose (Dextrose 31 Gm Oral.Susp) 15 gm PO PRN PRN PRN Reason: Hypoglycemia Magnesium Sulfate (Magnesium Sulfate) 2 gm in 50 mls @ 50 mls/hr IV UD PRN PRN Reason: Magnesium </= 1.6 Potassium Chloride 40 meq/ (Dextrose) 520 mls @ 130 mls/hr IV UD PRN PRN Reason: Potassium < 3 Insulin Human Lispro (Insulin Lispro 1 Unit/0.01 Ml Unit) 0 unit SQ ACHS [facility]; Protocol Last Admin: 12/14/20 08:16 Dose: Not Given Documented by: Levetiracetam (Levetiracetam 500 Mg Tablet) 250 mg PO BID [facility] Last Admin: 12/14/20 08:16 Dose: 250 mg Documented by: Meclizine HCl (Meclizine 25 Mg Tablet) 25 mg PO DAILY [facility] Last Admin: 12/14/20 08:16 Dose: 25 mg Documented by: Melatonin (Melatonin 3 Mg Tablet) 3 mg PO QHS [facility] Last Admin: 12/13/20 20:15 Dose: 3 mg Documented by: Metformin HCl (Metformin 500 Mg Tab.Xl.24h) 1,000 mg PO [facility] Last Admin: 12/14/20 08:17 Dose: 1,000 mg Documented by: Methadone HCl (Methadone 5 Mg Tablet) 10 mg PO BID [facility] Last Admin: 12/14/20 08:16 Dose: 10 mg Documented by: Metoclopramide HCl (Metoclopramide 10 Mg/2 Ml Vial) 10 mg IV Q6HP PRN PRN Reason: Nausea And Vomiting Metoprolol Succinate (Metoprolol Succinate 25 Mg Tab.Xl.24h) 12.5 mg PO DAILY [facility] Last Admin: 12/14/20 08:17 Dose: 12.5 mg Documented by: Empagliflozin 25 Mg (Tablet) 1 dose PO DAILY [facility] Last Admin: 12/14/20 08:18 Dose: Not Given Documented by: Polyethylene Glycol (Polyethylene Glycol 3350 17 Gm Packet) 17 gm PO DAILYP PRN PRN Reason: Constipation Potassium Chloride (Potassium Chloride 20 Meq Tablet) 40 meq PO UD PRN PRN Reason: Potssium is 3-3.5 Potassium Chloride (Potassium Chloride 20 Meq Tablet) 40 meq PO UD PRN PRN Reason: Potassium < 3 Potassium Chloride (Potassium Chloride 10 Meq Tablet) 20 meq PO QAMCC [facility] Last Admin: 12/14/20 08:16 Dose: 20 meq Documented by: Pregabalin (Pregabalin 25 Mg Capsule) 50 mg PO BID [facility] Last Admin: 12/14/20 08:16 Dose: 50 mg Documented by: Senna (Sennosides 1 Tablet) 2 tab PO DAILYP PRN PRN Reason: Constipation Last Admin: 12/08/20 04:02 Dose: 2 tab Documented by: Sertraline HCl (Sertraline 50 Mg Tablet) 125 mg PO DAILY [facility] Last Admin: 12/14/20 08:17 Dose: 125 mg Documented by: Sodium Chloride (0.9 % Sodium Chloride 10 Ml Syringe) 10 ml IV Q8 [facility] Last Admin: 12/14/20 04:09 Dose: Not Given Documented by: Tramadol HCl (Tramadol 50 Mg Tablet) 50 mg PO Q6HP PRN; Protocol PRN Reason: Pain Last Admin: 12/12/20 16:35 Dose: 50 mg Documented by: Trazodone HCl (Trazodone Hcl 50 Mg Tablet) 25 mg PO HS [facility] Last Admin: 12/13/20 20:16 Dose: 25 mg Documented by: A/P Assessment and plan (1) CHF (congestive heart failure): Status: Acute Qualifiers: Heart failure chronicity: chronic Heart failure type: unspecified Qualified Code(s): I50.9 - Heart failure, unspecified (2) Atrial fibrillation with rapid ventricular response: Status: Acute (3) Hypertension, essential: Status: Acute (4) Homelessness: Status: Acute (5) Inability to walk: Status: Acute (6) Type 2 diabetes mellitus: Status: Chronic (7) Acute UTI: Status: Acute Narrative A/P Narrative: Bowel obstruction: resolved UTI: resolved RAVINDER: resolved Bowel obstruction: resolved Atrial fibrillation: currently rate control. Continue Metoprolol for rate control and Eliquis as anticoagulation CHF: Lasix, Metoprolol. Currently on room air, stable T2DM: Metformin and insulin therapy GI ppx: not currently indicated DVT ppx: Eliquis Code status: Full Prognosis: stable Disposition: inpatient med surg; pending SNF placement Time Spent With Patient Time: Total time spent is greater than 50% in coordination of care (as documented) at patient's floor/unit and/or counseling patient: QUALITY VTE Deep Vein Thrombosis/Pulmonary Embolism Present on Admission: No
[2020-12-14] MEDS: traMADol 50 MG TABLET PO PRN (16:45)
[2020-12-14] MEDS: ATORVASTATIN 40 MG TABLET PO SCH (20:31)
[2020-12-14] MEDS: diphenhydrAMINE 25 MG CAPSULE PO SCH (20:31)
[2020-12-14] MEDS: MELATONIN 3 MG TABLET PO SCH (20:32)
[2020-12-14] MEDS: traZODone HCL 50 MG TABLET PO SCH (20:32)
[2020-12-15] MEDS: 0.9 % SODIUM CHLORIDE 10 ML SYRINGE IV SCH ×3 (04:22→23:39)
[2020-12-15] MEDS: INSULIN LISPRO 1 UNIT/0.01 ML UNIT SQ SCH ×4 (07:21→20:19)
--- NOTE | 2020-12-15 08:48 | Internal Med Progress Note ---
SUBJECTIVE Subjective Patient information: Note initiated : 12/15/20 at 8:46 am Service Date, if different from initiated Date: [] Patient: Alexa Rai 80 y/o F admitted on 11/14/20 for Weakness. Chief Complaint: [atrial fibrillation, acute kidney injury, urinary tract infection, bowel obstruction] 12/10/20: No active issues. No major overnight events. Patient is feeling comfortable this morning. Principal diagnosis: ESBL E.Coli UTI 12/11/20: No active issues. No major overnight events. Patient is feeling comfortable this morning. 12/12/20: No active issues. No major overnight events. Patient is feeling comfortable this morning. 12/13/20: No active issues. No major overnight events. Patient is feeling comfortable this morning. 12/13/20: No active issues. No major overnight events. Patient is feeling comfortable this morning. Principal diagnosis: ESBL E.Coli UTI 12/14/20: No active issues. No major overnight events. Patient is feeling comfortable this morning. Principal diagnosis: ESBL E.Coli UTI Principal diagnosis: ESBL E.Coli UTI Constitutional Vitals: Vital Signs Temp Pulse Resp BP Pulse Ox 36.8 C 93 H 12 119/75 90 12/14/20 23:11 12/14/20 23:11 12/14/20 23:11 12/14/20 23:11 12/14/20 23:11 Period Temp Pulse Resp BP Sys/Jansen Pulse Ox Last 24 Hr 36.6 C-37.1 C 70-99 12-20 118-121/60-77 90-92 Intake and Output 12/14/20 12/15/20 12/15/20 21:59 05:59 13:59 Intake Total 700 Output Total 450 400 Balance 250 -400 Weight 115.031 kg Intake & Output: Intake & Output 12/14/20 12/15/20 12/15/20 21:59 05:59 13:59 Intake Total 700 Output Total 450 400 Balance 250 -400 Weight 115.031 kg Intake: Oral 700 Output: Void Amount 450 400 Other: Meal Lunch Percent of Meal Consumed 75% Feeding Ability Assist with Tray Set Up Urine Appearance Clear Urine Color Bright Yellow Bright Yellow # Voids 1 1 General appearance: cooperative and no acute distress Head Head exam: Present atraumatic and normocephalic Eye Eye exam: Present EOMI and PERRL ENT ENT exam: Present mucous membranes moist, normal exam and normal external ear exam Neck Neck exam: Present normal inspection; Absent lymphadenopathy, tenderness and thyromegaly Respiratory Respiratory exam: Absent accessory muscle use, respiratory distress and wheezes Cardiovascular Cardiovascular exam: Present irregular rhythm; Absent JVD GI/Abdominal GI/Abdominal exam: Present normal bowel sounds and soft; Absent organomegaly and tenderness Extremities Exam Extremities exam: Present full ROM, normal capillary refill and normal inspection; Absent tenderness Neurological Exam Neurological exam: Present alert, CN II-XII intact and oriented X3; Absent motor sensory deficit Psychiatric Psychiatric exam: Present normal affect and normal mood; Absent anxious and depressed Skin Skin exam: Present dry and intact OBJ DATA Labs CBC & Chem 7: 12/03/20 12:21 12/03/20 12:21 Meds: Medications Acetaminophen (Acetaminophen 325 Mg Tablet) 650 mg PO Q6HP PRN PRN Reason: PAIN/FEVER > 101 Last Admin: 11/17/20 17:22 Dose: 650 mg Documented by: Albuterol/Ipratropium (Ipratropium/Albuterol 3 Ml Ampul.Neb) 3 ml NEB Q4HP PRN PRN Reason: Shortness Of Breath Alprazolam (Alprazolam 0.5 Mg Tablet) 0.5 mg PO Q12HP PRN PRN Reason: Anxiety Apixaban (Apixaban 5 Mg Tablet) 5 mg PO BID [facility] Last Admin: 12/14/20 20:32 Dose: 5 mg Documented by: Atorvastatin Calcium (Atorvastatin 40 Mg Tablet) 40 mg PO QHS [facility] Last Admin: 12/14/20 20:31 Dose: 40 mg Documented by: Baclofen (Baclofen 10 Mg Tablet) 10 mg PO BID [facility] Last Admin: 12/14/20 20:31 Dose: 10 mg Documented by: Bisacodyl (Bisacodyl 10 Mg Supp.Rect) 10 mg HI Q2-3DAYS PRN PRN Reason: Constipation Last Admin: 11/25/20 05:38 Dose: 10 mg Documented by: Dextrose (Dextrose 50% 50 Ml Vial) 0 ml IV UD PRN PRN Reason: Hypoglycemia Last Admin: 11/25/20 22:53 Dose: 25 ml Documented by: Diagnostic Test (Pha) (Accu-Chek 1 Each Strip) 1 each FS ACHS [facility] Last Admin: 12/15/20 07:19 Dose: 1 each Documented by: Diphenhydramine HCl (Diphenhydramine 25 Mg Capsule) 25 mg PO [facility] Last Admin: 12/14/20 20:31 Dose: 25 mg Documented by: Diphenoxylate HCl/Atropine (Diphenoxylate Hcl/Atropine 1 Tablet) 1 tab PO QIDP PRN PRN Reason: Wheezing Furosemide (Furosemide 20 Mg Tablet) 20 mg PO DAILY [facility] Last Admin: 12/14/20 08:16 Dose: 20 mg Documented by: Gabapentin (Gabapentin 100 Mg Capsule) 100 mg PO BID [facility] Last Admin: 12/14/20 20:29 Dose: 100 mg Documented by: Glucose (Dextrose 31 Gm Oral.Susp) 15 gm PO PRN PRN PRN Reason: Hypoglycemia Magnesium Sulfate (Magnesium Sulfate) 2 gm in 50 mls @ 50 mls/hr IV UD PRN PRN Reason: Magnesium </= 1.6 Potassium Chloride 40 meq/ (Dextrose) 520 mls @ 130 mls/hr IV UD PRN PRN Reason: Potassium < 3 Insulin Human Lispro (Insulin Lispro 1 Unit/0.01 Ml Unit) 0 unit SQ ACHS [facility]; Protocol Last Admin: 12/15/20 07:21 Dose: Not Given Documented by: Levetiracetam (Levetiracetam 500 Mg Tablet) 250 mg PO BID [facility] Last Admin: 12/14/20 20:31 Dose: 250 mg Documented by: Meclizine HCl (Meclizine 25 Mg Tablet) 25 mg PO DAILY [facility] Last Admin: 12/14/20 08:16 Dose: 25 mg Documented by: Melatonin (Melatonin 3 Mg Tablet) 3 mg PO QHS [facility] Last Admin: 12/14/20 20:32 Dose: 3 mg Documented by: Metformin HCl (Metformin 500 Mg Tab.Xl.24h) 1,000 mg PO [facility] Last Admin: 12/14/20 08:17 Dose: 1,000 mg Documented by: Methadone HCl (Methadone 5 Mg Tablet) 10 mg PO BID [facility] Last Admin: 12/14/20 20:30 Dose: 10 mg Documented by: Metoclopramide HCl (Metoclopramide 10 Mg/2 Ml Vial) 10 mg IV Q6HP PRN PRN Reason: Nausea And Vomiting Metoprolol Succinate (Metoprolol Succinate 25 Mg Tab.Xl.24h) 12.5 mg PO DAILY [facility] Last Admin: 12/14/20 08:17 Dose: 12.5 mg Documented by: Empagliflozin 25 Mg (Tablet) 1 dose PO DAILY [facility] Last Admin: 12/14/20 08:18 Dose: Not Given Documented by: Polyethylene Glycol (Polyethylene Glycol 3350 17 Gm Packet) 17 gm PO DAILYP PRN PRN Reason: Constipation Potassium Chloride (Potassium Chloride 20 Meq Tablet) 40 meq PO UD PRN PRN Reason: Potssium is 3-3.5 Potassium Chloride (Potassium Chloride 20 Meq Tablet) 40 meq PO UD PRN PRN Reason: Potassium < 3 Potassium Chloride (Potassium Chloride 10 Meq Tablet) 20 meq PO QAC [facility] Last Admin: 12/14/20 08:16 Dose: 20 meq Documented by: Pregabalin (Pregabalin 25 Mg Capsule) 50 mg PO BID [facility] Last Admin: 12/14/20 20:31 Dose: 50 mg Documented by: Senna (Sennosides 1 Tablet) 2 tab PO DAILYP PRN PRN Reason: Constipation Last Admin: 12/08/20 04:02 Dose: 2 tab Documented by: Sertraline HCl (Sertraline 50 Mg Tablet) 125 mg PO DAILY [facility] Last Admin: 12/14/20 08:17 Dose: 125 mg Documented by: Sodium Chloride (0.9 % Sodium Chloride 10 Ml Syringe) 10 ml IV Q8 [facility] Last Admin: 12/15/20 04:22 Dose: Not Given Documented by: Tramadol HCl (Tramadol 50 Mg Tablet) 50 mg PO Q6HP PRN; Protocol PRN Reason: Pain Last Admin: 12/14/20 16:45 Dose: 50 mg Documented by: Trazodone HCl (Trazodone Hcl 50 Mg Tablet) 25 mg PO [facility] Last Admin: 12/14/20 20:32 Dose: 25 mg Documented by: A/P Assessment and plan (1) CHF (congestive heart failure): Status: Acute Qualifiers: Heart failure chronicity: chronic Heart failure type: unspecified Qu alified Code(s): I50.9 - Heart failure, unspecified (2) Atrial fibrillation with rapid ventricular response: Status: Acute (3) Hypertension, essential: Status: Acute (4) Homelessness: Status: Acute (5) Inability to walk: Status: Acute (6) Type 2 diabetes mellitus: Status: Chronic (7) Acute UTI: Status: Acute Narrative A/P Narrative: Bowel obstruction: resolved UTI: resolved RAVINDER: resolved Bowel obstruction: resolved Atrial fibrillation: currently rate control. Continue Metoprolol for rate control and Eliquis as anticoagulation CHF: Lasix, Metoprolol. Currently on room air, stable T2DM: Metformin and insulin therapy GI ppx: not currently indicated DVT ppx: Eliquis Code status: Full Prognosis: stable Disposition: inpatient med surg; pending SNF placement Time Spent With Patient Time: Total time spent is greater than 50% in coordination of care (as documented) at patient's floor/unit and/or counseling patient: QUALITY VTE Deep Vein Thrombosis/Pulmonary Embolism Present on Admission: No
[2020-12-15] MEDS: BACLOFEN 10 MG TABLET PO SCH ×2 (09:16→20:18)
[2020-12-15] MEDS: APIXABAN 5 MG TABLET PO SCH ×2 (09:16→20:18)
[2020-12-15] MEDS: SERTRALINE 50 MG TABLET PO SCH (09:16)
[2020-12-15] MEDS: PREGABALIN 25 MG CAPSULE PO SCH ×2 (09:16→20:16)
[2020-12-15] MEDS: POTASSIUM CHLORIDE 10 MEQ TABLET PO SCH (09:17)
[2020-12-15] MEDS: levETIRAcetam 500 MG TABLET PO SCH ×2 (09:17→20:18)
[2020-12-15] MEDS: METOPROLOL SUCCINATE 25 MG TAB.XL.24H PO SCH (09:17)
[2020-12-15] MEDS: MECLIZINE 25 MG TABLET PO SCH (09:17)
[2020-12-15] MEDS: METHADONE 5 MG TABLET PO SCH ×2 (09:17→20:16)
[2020-12-15] MEDS: metFORMIN 500 MG TAB.XL.24H PO SCH (09:17)
[2020-12-15] MEDS: FUROSEMIDE 20 MG TABLET PO SCH (09:18)
[2020-12-15] MEDS: GABAPENTIN 100 MG CAPSULE PO SCH ×2 (09:18→20:15)
[2020-12-15] MEDS: EMPAGLIFLOZIN 25 MG TABLET PO SCH (09:18)
[2020-12-15] MEDS: MELATONIN 3 MG TABLET PO SCH (20:17)
[2020-12-15] MEDS: diphenhydrAMINE 25 MG CAPSULE PO SCH (20:17)
[2020-12-15] MEDS: traZODone HCL 50 MG TABLET PO SCH (20:17)
[2020-12-15] MEDS: ATORVASTATIN 40 MG TABLET PO SCH (20:18)
[2020-12-15] MEDS: traMADol 50 MG TABLET PO PRN (21:40)
[2020-12-16] MEDS: 0.9 % SODIUM CHLORIDE 10 ML SYRINGE IV SCH ×3 (04:00→20:07)
[2020-12-16] MEDS: INSULIN LISPRO 1 UNIT/0.01 ML UNIT SQ SCH ×4 (06:49→20:19)
[2020-12-16] MEDS: BACLOFEN 10 MG TABLET PO SCH ×2 (08:39→20:05)
[2020-12-16] MEDS: GABAPENTIN 100 MG CAPSULE PO SCH ×2 (08:39→20:05)
[2020-12-16] MEDS: metFORMIN 500 MG TAB.XL.24H PO SCH (08:39)
[2020-12-16] MEDS: POTASSIUM CHLORIDE 10 MEQ TABLET PO SCH (08:39)
[2020-12-16] MEDS: APIXABAN 5 MG TABLET PO SCH ×2 (08:40→20:05)
[2020-12-16] MEDS: METOPROLOL SUCCINATE 25 MG TAB.XL.24H PO SCH (08:40)
[2020-12-16] MEDS: PREGABALIN 25 MG CAPSULE PO SCH ×2 (08:40→20:04)
[2020-12-16] MEDS: METHADONE 5 MG TABLET PO SCH ×2 (08:40→20:05)
[2020-12-16] MEDS: FUROSEMIDE 20 MG TABLET PO SCH (08:40)
[2020-12-16] MEDS: levETIRAcetam 500 MG TABLET PO SCH ×2 (08:41→20:06)
[2020-12-16] MEDS: MECLIZINE 25 MG TABLET PO SCH (08:42)
[2020-12-16] MEDS: SERTRALINE 50 MG TABLET PO SCH (08:42)
[2020-12-16] MEDS: EMPAGLIFLOZIN 25 MG TABLET PO SCH (08:53)
--- NOTE | 2020-12-16 12:32 | Internal Med Progress Note ---
SUBJECTIVE Subjective Patient information: Note initiated : 12/16/20 at 12:27 pm Service Date, if different from initiated Date: [] Patient: Alexa Rai a 80 y/o F admitted on 11/14/20 for Weakness. Chief Complaint: [] Principal diagnosis: ESBL E.Coli UTI Interval history: Ms. Rai is a 80 year old F patient was recently at [facility] for cellulitis to the leg discharged the beginning of October. She was at [facility] prior to that admission but [facility] refused her and patient was discharged to [facility]. [facility]. She is essentially wheelchair-bound for the past couple years she states she can ambulate a little bit with a walker. She was in the motel with her son who is homeless who will be kicked out of the motel today and he was worried about his mother because she cannot get up she just sits in her own urine she cannot take care of her self. She is unable to care for herself and her son who is homeless has no place to care for her. Patient has some nausea but no other complaints. She does have history atrial fibrillation and in the ED she did go to heart rate of 115. Tyoij-kg-wqbd sodium was 146, chemistry showed volume depletion 12/10/20: No active issues. No major overnight events. Patient is feeling comfortable this morning. Principal diagnosis: ESBL E.Coli UTI 12/11/20: No active issues. No major overnight events. Patient is feeling comfortable this morning. 12/12/20: No active issues. No major overnight events. Patient is feeling comfortable this morning. 12/13/20: No active issues. No major overnight events. Patient is feeling comfortable this morning. 12/13/20: No active issues. No major overnight events. Patient is feeling comfortable this morning. Principal diagnosis: ESBL E.Coli UTI 12/14/20: No active issues. No major overnight events. Patient is feeling comfortable this morning. 12/16-patient status quo. No overnight events. No concerns per staff. Continuing pre-existing medical issues management on home medications. Ongoing therapies. Discharge planning per case management Constitutional Vitals: Vital Signs Temp Pulse Resp BP Pulse Ox 97.2 F 70 20 136/67 92 12/16/20 08:00 12/16/20 08:00 12/16/20 08:00 12/16/20 08:00 12/16/20 08:00 Period Temp Pulse Resp BP Sys/Jansen Pulse Ox Last 24 Hr 97.2 F-98.6 F 70-79 16-20 96-136/57-67 92-96 Intake and Output 12/15/20 12/16/20 12/16/20 21:59 05:59 13:59 Intake Total 360 200 200 Output Total 400 700 Balance 360 -200 -500 Weight 113.217 kg 113.217 kg Patient Weight 12/17/20 05:59 Weight 113.217 kg Alert and respond to commands, nonlabored breathing No anxiety Nontender abdomen Intake & Output: Intake & Output 12/15/20 12/16/20 12/16/20 21:59 05:59 13:59 Intake Total 360 200 200 Output Total 400 700 Balance 360 -200 -500 Weight 113.217 kg 113.217 kg Intake: Oral 360 200 200 Output: Void Amount 400 700 Other: Meal Lunch Breakfast Percent of Meal Consumed 100% 50% Feeding Ability Assist with Tray Set Up Assist with Tray Set Up Urine Appearance Clear Clear Clear Urine Color Bright Yellow Bright Yellow Bright Yellow Urine Odor Normal # Voids 1 OBJ DATA Labs CBC & Chem 7: 12/03/20 12:21 12/03/20 12:21 Meds: Medications Acetaminophen (Acetaminophen 325 Mg Tablet) 650 mg PO Q6HP PRN PRN Reason: PAIN/FEVER > 101 Last Admin: 11/17/20 17:22 Dose: 650 mg Documented by: Albuterol/Ipratropium (Ipratropium/Albuterol 3 Ml Ampul.Neb) 3 ml NEB Q4HP PRN PRN Reason: Shortness Of Breath Alprazolam (Alprazolam 0.5 Mg Tablet) 0.5 mg PO Q12HP PRN PRN Reason: Anxiety Apixaban (Apixaban 5 Mg Tablet) 5 mg PO BID [facility] Last Admin: 12/16/20 08:40 Dose: 5 mg Documented by: Atorvastatin Calcium (Atorvastatin 40 Mg Tablet) 40 mg PO QHS [facility] Last Admin: 12/15/20 20:18 Dose: 40 mg Documented by: Baclofen (Baclofen 10 Mg Tablet) 10 mg PO BID [facility] Last Admin: 12/16/20 08:39 Dose: 10 mg Documented by: Bisacodyl (Bisacodyl 10 Mg Supp.Rect) 10 mg [place] Q2-3DAYS PRN PRN Reason: Constipation Last Admin: 11/25/20 05:38 Dose: 10 mg Documented by: Dextrose (Dextrose 50% 50 Ml Vial) 0 ml IV UD PRN PRN Reason: Hypoglycemia Last Admin: 11/25/20 22:53 Dose: 25 ml Documented by: Diagnostic Test (Pha) (Accu-Chek 1 Each Strip) 1 each FS [facility] Last Admin: 12/16/20 11:06 Dose: 1 each Documented by: Diphenhydramine HCl (Diphenhydramine 25 Mg Capsule) 25 mg PO HS [facility] Last Admin: 12/15/20 20:17 Dose: 25 mg Documented by: Diphenoxylate HCl/Atropine (Diphenoxylate Hcl/Atropine 1 Tablet) 1 tab PO QIDP PRN PRN Reason: Wheezing Furosemide (Furosemide 20 Mg Tablet) 20 mg PO DAILY [facility] Last Admin: 12/16/20 08:40 Dose: 20 mg Documented by: Gabapentin (Gabapentin 100 Mg Capsule) 100 mg PO BID [facility] Last Admin: 12/16/20 08:39 Dose: 100 mg Documented by: Glucose (Dextrose 31 Gm Oral.Susp) 15 gm PO PRN PRN PRN Reason: Hypoglycemia Magnesium Sulfate (Magnesium Sulfate) 2 gm in 50 mls @ 50 mls/hr IV UD PRN PRN Reason: Magnesium </= 1.6 Potassium Chloride 40 meq/ (Dextrose) 520 mls @ 130 mls/hr IV UD PRN PRN Reason: Potassium < 3 Insulin Human Lispro (Insulin Lispro 1 Unit/0.01 Ml Unit) 0 unit SQ [facility]; Protocol Last Admin: 12/16/20 11:07 Dose: Not Given Documented by: Levetiracetam (Levetiracetam 500 Mg Tablet) 250 mg PO BID [facility] Last Admin: 12/16/20 08:41 Dose: 250 mg Documented by: Meclizine HCl (Meclizine 25 Mg Tablet) 25 mg PO DAILY [facility] Last Admin: 12/16/20 08:42 Dose: 25 mg Documented by: Melatonin (Melatonin 3 Mg Tablet) 3 mg PO QHS [facility] Last Admin: 12/15/20 20:17 Dose: 3 mg Documented by: Metformin HCl (Metformin 500 Mg Tab.Xl.24h) [facility] Last Admin: 12/16/20 08:39 Dose: 1,000 mg Documented by: Methadone HCl (Methadone 5 Mg Tablet) 10 mg PO BID [facility] Last Admin: 12/16/20 08:40 Dose: 10 mg Documented by: Metoclopramide HCl (Metoclopramide 10 Mg/2 Ml Vial) 10 mg IV Q6HP PRN PRN Reason: Nausea And Vomiting Metoprolol Succinate (Metoprolol Succinate 25 Mg Tab.Xl.24h) 12.5 mg PO DAILY [facility] Last Admin: 12/16/20 08:40 Dose: 12.5 mg Documented by: Empagliflozin 25 Mg (Tablet) 1 dose PO DAILY [facility] Last Admin: 12/16/20 08:53 Dose: Not Given Documented by: Polyethylene Glycol (Polyethylene Glycol 3350 17 Gm Packet) 17 gm PO DAILYP PRN PRN Reason: Constipation Potassium Chloride (Potassium Chloride 20 Meq Tablet) 40 meq PO UD PRN PRN Reason: Potssium is 3-3.5 Potassium Chloride (Potassium Chloride 20 Meq Tablet) 40 meq PO UD PRN PRN Reason: Potassium < 3 Potassium Chloride (Potassium Chloride 10 Meq Tablet) 20 meq PO [facility] Last Admin: 12/16/20 08:39 Dose: 20 meq Documented by: Pregabalin (Pregabalin 25 Mg Capsule) 50 mg PO BID [facility] Last Admin: 12/16/20 08:40 Dose: 50 mg Documented by: Senna (Sennosides 1 Tablet) 2 tab PO DAILYP PRN PRN Reason: Constipation Last Admin: 12/08/20 04:02 Dose: 2 tab Documented by: Sertraline HCl (Sertraline 50 Mg Tablet) 125 mg PO DAILY [facility] Last Admin: 12/16/20 08:42 Dose: 125 mg Documented by: Sodium Chloride (0.9 % Sodium Chloride 10 Ml Syringe) 10 ml IV Q8 [facility] Last Admin: 12/16/20 04:00 Dose: Not Given Documented by: Tramadol HCl (Tramadol 50 Mg Tablet) 50 mg PO Q6HP PRN; Protocol PRN Reason: Pain Last Admin: 12/15/20 21:40 Dose: 50 mg Documented by: Trazodone HCl (Trazodone Hcl 50 Mg Tablet) 25 mg PO [facility] Last Admin: 12/15/20 20:17 Dose: 25 mg Documented by: A/P Narrative A/P Narrative: * A. fib with RVR currently rate controlled on beta-tegan. Anticoagulation for CVA prophylaxis Eliquis * Complicated E. coli UTI resolved with antibiotics * Hyperlipemia on statin * Neuropathy continue gabapentin/Lyrica/tramadol * DM type II on prandial insulin/CC diet/Metformin * Anxiety disorder on trazodone Plan * Continue nutrition support/daily therapies * Pre-existing medical condition management as above * Discharge planning per case management Time Spent With Patient Time: Total time spent is greater than 50% in coordination of care (as documented) at patient's floor/unit and/or counseling patient: QUALITY VTE Deep Vein Thrombosis/Pulmonary Embolism Present on Admission: No
[2020-12-16] MEDS: traMADol 50 MG TABLET PO PRN (17:40)
[2020-12-16] MEDS: diphenhydrAMINE 25 MG CAPSULE PO SCH (20:04)
[2020-12-16] MEDS: traZODone HCL 50 MG TABLET PO SCH (20:04)
[2020-12-16] MEDS: MELATONIN 3 MG TABLET PO SCH (20:05)
[2020-12-16] MEDS: ATORVASTATIN 40 MG TABLET PO SCH (20:06)
[2020-12-17] MEDS: 0.9 % SODIUM CHLORIDE 10 ML SYRINGE IV SCH ×3 (04:45→21:46)
[2020-12-17] MEDS: INSULIN LISPRO 1 UNIT/0.01 ML UNIT SQ SCH ×4 (06:53→21:46)
[2020-12-17] MEDS: POTASSIUM CHLORIDE 10 MEQ TABLET PO SCH (08:54)
[2020-12-17] MEDS: METHADONE 5 MG TABLET PO SCH ×2 (08:55→21:41)
[2020-12-17] MEDS: BACLOFEN 10 MG TABLET PO SCH ×2 (08:55→21:42)
[2020-12-17] MEDS: PREGABALIN 25 MG CAPSULE PO SCH ×2 (08:55→21:40)
[2020-12-17] MEDS: metFORMIN 500 MG TAB.XL.24H PO SCH (08:55)
[2020-12-17] MEDS: FUROSEMIDE 20 MG TABLET PO SCH (08:55)
[2020-12-17] MEDS: levETIRAcetam 500 MG TABLET PO SCH ×2 (08:55→21:41)
[2020-12-17] MEDS: MECLIZINE 25 MG TABLET PO SCH (08:56)
[2020-12-17] MEDS: GABAPENTIN 100 MG CAPSULE PO SCH ×2 (08:56→21:42)
[2020-12-17] MEDS: APIXABAN 5 MG TABLET PO SCH ×2 (08:56→21:41)
[2020-12-17] MEDS: METOPROLOL SUCCINATE 25 MG TAB.XL.24H PO SCH (08:56)
[2020-12-17] MEDS: SERTRALINE 50 MG TABLET PO SCH (08:56)
[2020-12-17] MEDS: EMPAGLIFLOZIN 25 MG TABLET PO SCH (08:57)
--- NOTE | 2020-12-17 15:29 | Internal Med Progress Note ---
SUBJECTIVE Subjective Patient information: Note initiated : 12/17/20 at 3:28 pm Service Date, if different from initiated Date: [] Patient: Alexa Rai a 80 y/o F admitted on 11/14/20 for Weakness. Chief Complaint: [] Principal diagnosis: ESBL E.Coli UTI Interval history: Ms. Rai is a 80 year old F patient was recently at [facility] for cellulitis to the leg discharged the beginning of October. She was at [facility] prior to that admission but [facility] refused her and patient was discharged to [facility]. Patient says she has been at [facility] since last February. She is essentially wheelchair-bound for the past couple years she states she can ambulate a little bit with a walker. She was in the motel with her son who is homeless who will be kicked out of the motel today and he was worried about his mother because she cannot get up she just sits in her own urine she cannot take care of her self. She is unable to care for herself and her son who is homeless has no place to care for her. Patient has some nausea but no other complaints. She does have history atrial fibrillation and in the ED she did go to heart rate of 115. Rkvxa-[id number] sodium was 146, chemistry showed volume depletion 12/13/20: No active issues. No major overnight events. Patient is feeling comfortable this morning. Principal diagnosis: ESBL E.Coli UTI 12/16-patient status quo. No overnight events. No concerns per staff. Continuing pre-existing medical issues management on home medications. Ongoing therapies. Discharge planning per case management 12/17-patient doing well. No overnight events. No concerns per staff. No fever chills nausea vomiting. Doing well. Ongoing therapies. Await placement Constitutional Vitals: Vital Signs Temp Pulse Resp BP Pulse Ox 97.3 F 75 18 123/64 91 12/17/20 07:34 12/17/20 07:34 12/17/20 07:34 12/17/20 07:34 12/17/20 07:34 Period Temp Pulse Resp BP Sys/Jansen Pulse Ox Last 24 Hr 97.3 F-98.0 F 75-108 12-18 110-123/60-64 91-91 Intake and Output 12/17/20 12/17/20 12/17/20 05:59 13:59 21:59 Intake Total 400 480 Output Total 600 Balance 400 -600 480 Alert oriented Nonlabored breathing No anxiety Intake & Output: Intake & Output 12/17/20 12/17/20 12/17/20 05:59 13:59 21:59 Intake Total 400 480 Output Total 600 Balance 400 -600 480 Intake: Oral 400 480 Output: Void Amount 600 Other: Meal Lunch Percent of Meal Consumed 50% OBJ DATA Labs CBC & Chem 7: 12/03/20 12:21 12/03/20 12:21 Meds: Medications Acetaminophen (Acetaminophen 325 Mg Tablet) 650 mg PO Q6HP PRN PRN Reason: PAIN/FEVER > 101 Last Admin: 11/17/20 17:22 Dose: 650 mg Documented by: Albuterol/Ipratropium (Ipratropium/Albuterol 3 Ml Ampul.Neb) 3 ml NEB Q4HP PRN PRN Reason: Shortness Of Breath Alprazolam (Alprazolam 0.5 Mg Tablet) 0.5 mg PO Q12HP PRN PRN Reason: Anxiety Apixaban (Apixaban 5 Mg Tablet) 5 mg PO BID [facility] Last Admin: 12/17/20 08:56 Dose: 5 mg Documented by: Atorvastatin Calcium (Atorvastatin 40 Mg Tablet) 40 mg PO QHS [facility] Last Admin: 12/16/20 20:06 Dose: 40 mg Documented by: Baclofen (Baclofen 10 Mg Tablet) 10 mg PO BID [facility] Last Admin: 12/17/20 08:55 Dose: 10 mg Documented by: Bisacodyl (Bisacodyl 10 Mg Supp.Rect) 10 mg [place] Q2-3DAYS PRN PRN Reason: Constipation Last Admin: 11/25/20 05:38 Dose: 10 mg Documented by: Dextrose (Dextrose 50% 50 Ml Vial) 0 ml IV UD PRN PRN Reason: Hypoglycemia Last Admin: 11/25/20 22:53 Dose: 25 ml Documented by: Diagnostic Test (Pha) (Accu-Chek 1 Each Strip) 1 each FS ACHS [facility] Last Admin: 12/17/20 11:43 Dose: 1 each Documented by: Diphenhydramine HCl (Diphenhydramine 25 Mg Capsule) 25 mg PO HS [facility] Last Admin: 12/16/20 20:04 Dose: 25 mg Documented by: Diphenoxylate HCl/Atropine (Diphenoxylate Hcl/Atropine 1 Tablet) 1 tab PO QIDP PRN PRN Reason: Wheezing Furosemide (Furosemide 20 Mg Tablet) 20 mg PO DAILY [facility] Last Admin: 12/17/20 08:55 Dose: 20 mg Documented by: Gabapentin (Gabapentin 100 Mg Capsule) 100 mg PO BID [facility] Last Admin: 12/17/20 08:56 Dose: 100 mg Documented by: Glucose (Dextrose 31 Gm Oral.Susp) 15 gm PO PRN PRN PRN Reason: Hypoglycemia Magnesium Sulfate (Magnesium Sulfate) 2 gm in 50 mls @ 50 mls/hr IV UD PRN PRN Reason: Magnesium </= 1.6 Potassium Chloride 40 meq/ (Dextrose) 520 mls @ 130 mls/hr IV UD PRN PRN Reason: Potassium < 3 Insulin Human Lispro (Insulin Lispro 1 Unit/0.01 Ml Unit) 0 unit SQ ACHS [facility]; Protocol Last Admin: 12/17/20 11:43 Dose: Not Given Documented by: Levetiracetam (Levetiracetam 500 Mg Tablet) 250 mg PO BID [facility] Last Admin: 12/17/20 08:55 Dose: 250 mg Documented by: Meclizine HCl (Meclizine 25 Mg Tablet) 25 mg PO DAILY [facility] Last Admin: 12/17/20 08:56 Dose: 25 mg Documented by: Melatonin (Melatonin 3 Mg Tablet) 3 mg PO QHS [facility] Last Admin: 12/16/20 20:05 Dose: 3 mg Documented by: Metformin HCl (Metformin 500 Mg Tab.Xl.24h) 1,000 mg PO [facility] Last Admin: 12/17/20 08:55 Dose: 1,000 mg Documented by: Methadone HCl (Methadone 5 Mg Tablet) 10 mg PO BID [facility] Last Admin: 12/17/20 08:55 Dose: 10 mg Documented by: Metoclopramide HCl (Metoclopramide 10 Mg/2 Ml Vial) 10 mg IV Q6HP PRN PRN Reason: Nausea And Vomiting Metoprolol Succinate (Metoprolol Succinate 25 Mg Tab.Xl.24h) 12.5 mg PO DAILY [facility] Last Admin: 12/17/20 08:56 Dose: 12.5 mg Documented by: Empagliflozin 25 Mg (Tablet) 1 dose PO DAILY [facility] Last Admin: 12/17/20 08:57 Dose: Not Given Documented by: Polyethylene Glycol (Polyethylene Glycol 3350 17 Gm Packet) 17 gm PO DAILYP PRN PRN Reason: Constipation Potassium Chloride (Potassium Chloride 20 Meq Tablet) 40 meq PO UD PRN PRN Reason: Potssium is 3-3.5 Potassium Chloride (Potassium Chloride 20 Meq Tablet) 40 meq PO UD PRN PRN Reason: Potassium < 3 Potassium Chloride (Potassium Chloride 10 Meq Tablet) 20 meq PO QAMCC [facility] Last Admin: 12/17/20 08:54 Dose: 20 meq Documented by: Pregabalin (Pregabalin 25 Mg Capsule) 50 mg PO BID [facility] Last Admin: 12/17/20 08:55 Dose: 50 mg Documented by: Senna (Sennosides 1 Tablet) 2 tab PO DAILYP PRN PRN Reason: Constipation Last Admin: 12/08/20 04:02 Dose: 2 tab Documented by: Sertraline HCl (Sertraline 50 Mg Tablet) 125 mg PO DAILY [facility] Last Admin: 12/17/20 08:56 Dose: 125 mg Documented by: Sodium Chloride (0.9 % Sodium Chloride 10 Ml Syringe) 10 ml IV Q8 [facility] Last Admin: 12/17/20 14:25 Dose: Not Given Documented by: Tramadol HCl (Tramadol 50 Mg Tablet) 50 mg PO Q6HP PRN; Protocol PRN Reason: Pain Last Admin: 12/16/20 17:40 Dose: 50 mg Documented by: Trazodone HCl (Trazodone Hcl 50 Mg Tablet) 25 mg PO HS [facility] Last Admin: 12/16/20 20:04 Dose: 25 mg Documented by: A/P Narrative A/P Narrative: * A. fib with RVR rate controlled on beta-tegan. Anticoagulation for CVA prophylaxis Eliquis * Complicated E. coli UTI resolved with antibiotics * Hyperlipemia continue home dose statin * Neuropathy continue home dose gabapentin/Lyrica/tramadol * DM type II on prandial insulin/CC diet/Metformin * Anxiety disorder on trazodone Plan * Continue nutrition support/daily therapies * Pre-existing medical condition management as above * Discharge planning per case management Time Spent With Patient Time: Total time spent is greater than 50% in coordination of care (as document ed) at patient's floor/unit and/or counseling patient: QUALITY VTE Deep Vein Thrombosis/Pulmonary Embolism Present on Admission: No
[2020-12-17] MEDS: traZODone HCL 50 MG TABLET PO SCH (21:40)
[2020-12-17] MEDS: diphenhydrAMINE 25 MG CAPSULE PO SCH (21:42)
[2020-12-17] MEDS: ATORVASTATIN 40 MG TABLET PO SCH (21:42)
[2020-12-17] MEDS: MELATONIN 3 MG TABLET PO SCH (21:42)
[2020-12-18] MEDS: 0.9 % SODIUM CHLORIDE 10 ML SYRINGE IV SCH ×3 (05:45→20:42)
--- NOTE | 2020-12-18 10:57 | Internal Med Progress Note ---
SUBJECTIVE Subjective Patient information: Note initiated : 12/18/20 at 10:55 am Service Date, if different from initiated Date: [] Patient: Alexa Rai a 80 y/o F admitted on 11/14/20 for Weakness. Chief Complaint: [] Principal diagnosis: ESBL E.Coli UTI Interval history: Ms. Rai is a 80 year old F patient was recently at [facility] for cellulitis to the leg discharged the beginning of October. She was at [facility] prior to that admission but [facility] refused her and patient was discharged to [facility]. Patient says she has been at [facility] since last February. She is essentially wheelchair-bound for the past couple years she states she can ambulate a little bit with a walker. She was in the motel with her son who is homeless who will be kicked out of the motel today and he was worried about his mother because she cannot get up she just sits in her own urine she cannot take care of her self. She is unable to care for herself and her son who is homeless has no place to care for her. Patient has some nausea but no other complaints. She does have history atrial fibrillation and in the ED she did go to heart rate of 115. Gevvt-[id number] sodium was 146, chemistry showed volume depletion 12/13/20: No active issues. No major overnight events. Patient is feeling comfortable this morning. Principal diagnosis: ESBL E.Coli UTI 12/16-patient status quo. No overnight events. No concerns per staff. Continuing pre-existing medical issues management on home medications. Ongoing therapies. Discharge planning per case management 12/17-patient doing well. No overnight events. No concerns per staff. No fever chills nausea vomiting. Doing well. Ongoing therapies. Await placement 12/18 patient status quo. No overnight events. No concerns per staff. Awaiting placement.No active issues Constitutional Vitals: Vital Signs Temp Pulse Resp BP Pulse Ox 97.6 F 75 16 138/66 95 12/18/20 08:00 12/18/20 08:00 12/18/20 08:00 12/18/20 08:00 12/18/20 08:00 Period Temp Pulse Resp BP Sys/Jansen Pulse Ox Last 24 Hr 97.6 F-97.6 F 75-106 16-18 109-138/62-66 95-95 Intake and Output 12/17/20 12/18/20 12/18/20 21:59 05:59 13:59 Intake Total 480 400 Output Total 425 Balance 55 400 Weight 112.718 kg Resting comfortably Nonlabored breathing No anxiety Intake & Output: Intake & Output 12/17/20 12/18/20 12/18/20 21:59 05:59 13:59 Intake Total 480 400 Output Total 425 Balance 55 400 Weight 112.718 kg Intake: Oral 480 400 Output: Void Amount 425 Other: Meal Lunch Percent of Meal Consumed 50% Urine Appearance Clear Urine Color Dark Yellow Urine Odor Normal OBJ DATA Labs CBC & Chem 7: 12/03/20 12:21 12/03/20 12:21 Meds: Medications Acetaminophen (Acetaminophen 325 Mg Tablet) 650 mg PO Q6HP PRN PRN Reason: PAIN/FEVER > 101 Last Admin: 11/17/20 17:22 Dose: 650 mg Documented by: Albuterol/Ipratropium (Ipratropium/Albuterol 3 Ml Ampul.Neb) 3 ml NEB Q4HP PRN PRN Reason: Shortness Of Breath Alprazolam (Alprazolam 0.5 Mg Tablet) 0.5 mg PO Q12HP PRN PRN Reason: Anxiety Apixaban (Apixaban 5 Mg Tablet) 5 mg PO BID [facility] Last Admin: 12/17/20 21:41 Dose: 5 mg Documented by: Atorvastatin Calcium (Atorvastatin 40 Mg Tablet) 40 mg PO QHS [facility] Last Admin: 12/17/20 21:42 Dose: 40 mg Documented by: Baclofen (Baclofen 10 Mg Tablet) 10 mg PO BID [facility] Last Admin: 12/17/20 21:42 Dose: 10 mg Documented by: Bisacodyl (Bisacodyl 10 Mg Supp.Rect) 10 mg [place] Q2-3DAYS PRN PRN Reason: Constipation Last Admin: 11/25/20 05:38 Dose: 10 mg Documented by: Dextrose (Dextrose 50% 50 Ml Vial) 0 ml IV UD PRN PRN Reason: Hypoglycemia Last Admin: 11/25/20 22:53 Dose: 25 ml Documented by: Diagnostic Test (Pha) (Accu-Chek 1 Each Strip) 1 each FS ACHS [facility] Last Admin: 12/17/20 21:40 Dose: 1 each Documented by: Diphenhydramine HCl (Diphenhydramine 25 Mg Capsule) 25 mg PO HS [facility] Last Admin: 12/17/20 21:42 Dose: 25 mg Documented by: Diphenoxylate HCl/Atropine (Diphenoxylate Hcl/Atropine 1 Tablet) 1 tab PO QIDP PRN PRN Reason: Wheezing Furosemide (Furosemide 20 Mg Tablet) 20 mg PO DAILY [facility] Last Admin: 12/17/20 08:55 Dose: 20 mg Documented by: Gabapentin (Gabapentin 100 Mg Capsule) 100 mg PO BID [facility] Last Admin: 12/17/20 21:42 Dose: 100 mg Documented by: Glucose (Dextrose 31 Gm Oral.Susp) 15 gm PO PRN PRN PRN Reason: Hypoglycemia Magnesium Sulfate (Magnesium Sulfate) 2 gm in 50 mls @ 50 mls/hr IV UD PRN PRN Reason: Magnesium </= 1.6 Potassium Chloride 40 meq/ (Dextrose) 520 mls @ 130 mls/hr IV UD PRN PRN Reason: Potassium < 3 Insulin Human Lispro (Insulin Lispro 1 Unit/0.01 Ml Unit) 0 unit SQ ACHS [facility]; Protocol Last Admin: 12/17/20 21:46 Dose: Not Given Documented by: Levetiracetam (Levetiracetam 500 Mg Tablet) 250 mg PO BID [facility] Last Admin: 12/17/20 21:41 Dose: 250 mg Documented by: Meclizine HCl (Meclizine 25 Mg Tablet) 25 mg PO DAILY [facility] Last Admin: 12/17/20 08:56 Dose: 25 mg Documented by: Melatonin (Melatonin 3 Mg Tablet) 3 mg PO QHS [facility] Last Admin: 12/17/20 21:42 Dose: 3 mg Documented by: Metformin HCl (Metformin 500 Mg Tab.Xl.24h) 1,000 mg PO [facility] Last Admin: 12/17/20 08:55 Dose: 1,000 mg Documented by: Methadone HCl (Methadone 5 Mg Tablet) 10 mg PO BID [facility] Last Admin: 12/17/20 21:41 Dose: 10 mg Documented by: Metoclopramide HCl (Metoclopramide 10 Mg/2 Ml Vial) 10 mg IV Q6HP PRN PRN Reason: Nausea And Vomiting Metoprolol Succinate (Metoprolol Succinate 25 Mg Tab.Xl.24h) 12.5 mg PO DAILY [facility] Last Admin: 12/17/20 08:56 Dose: 12.5 mg Documented by: Empagliflozin 25 Mg (Tablet) 1 dose PO DAILY [facility] Last Admin: 12/17/20 08:57 Dose: Not Given Documented by: Polyethylene Glycol (Polyethylene Glycol 3350 17 Gm Packet) 17 gm PO DAILYP PRN PRN Reason: Constipation Potassium Chloride (Potassium Chloride 20 Meq Tablet) 40 meq PO UD PRN PRN Reason: Potssium is 3-3.5 Potassium Chloride (Potassium Chloride 20 Meq Tablet) 40 meq PO UD PRN PRN Reason: Potassium < 3 Potassium Chloride (Potassium Chloride 10 Meq Tablet) 20 meq PO QAMCC [facility] Last Admin: 12/17/20 08:54 Dose: 20 meq Documented by: Pregabalin (Pregabalin 25 Mg Capsule) 50 mg PO BID [facility] Last Admin: 12/17/20 21:40 Dose: 50 mg Documented by: Senna (Sennosides 1 Tablet) 2 tab PO DAILYP PRN PRN Reason: Constipation Last Admin: 12/08/20 04:02 Dose: 2 tab Documented by: Sertraline HCl (Sertraline 50 Mg Tablet) 125 mg PO DAILY [facility] Last Admin: 12/17/20 08:56 Dose: 125 mg Documented by: Sodium Chloride (0.9 % Sodium Chloride 10 Ml Syringe) 10 ml IV Q8 [facility] Last Admin: 12/18/20 05:45 Dose: Not Given Documented by: Tramadol HCl (Tramadol 50 Mg Tablet) 50 mg PO Q6HP PRN; Protocol PRN Reason: Pain Last Admin: 12/16/20 17:40 Dose: 50 mg Documented by: Trazodone HCl (Trazodone Hcl 50 Mg Tablet) 25 mg PO HS [facility] Last Admin: 12/17/20 21:40 Dose: 25 mg Documented by: A/P Narrative A/P Narrative: * A. fib with RVR rate controlled on beta-tegan. Continue anticoagulation for CVA prophylaxis on Eliquis * Complicated E. coli UTI resolved, completed antibiotic course * Hyperlipemia continue home dose statin * Neuropathy continue home dose gabapentin/Lyrica/tramadol * DM type II on prandial insulin/CC diet/Metformin * Anxiety disorder on trazodone Plan * Continue nutrition support/daily therapies * Pre-existing medical condition management as above * Await discharge, coordination per case management Time Spent With Patient Time: Total time spent is greater than 50% in coordination of care (as documented) at patient's floor/unit and/or counseling patient: QUALITY VTE Deep Vein Thrombosis/Pulmonary Embolism Present on Admission: No
[2020-12-18] MEDS: INSULIN LISPRO 1 UNIT/0.01 ML UNIT SQ SCH ×4 (11:35→20:41)
[2020-12-18] MEDS: EMPAGLIFLOZIN 25 MG TABLET PO SCH (11:36)
[2020-12-18] MEDS: POTASSIUM CHLORIDE 10 MEQ TABLET PO SCH (11:36)
[2020-12-18] MEDS: levETIRAcetam 500 MG TABLET PO SCH ×2 (11:37→20:42)
[2020-12-18] MEDS: PREGABALIN 25 MG CAPSULE PO SCH ×2 (11:37→20:43)
[2020-12-18] MEDS: metFORMIN 500 MG TAB.XL.24H PO SCH (11:38)
[2020-12-18] MEDS: MECLIZINE 25 MG TABLET PO SCH (11:39)
[2020-12-18] MEDS: APIXABAN 5 MG TABLET PO SCH ×2 (11:39→20:42)
[2020-12-18] MEDS: FUROSEMIDE 20 MG TABLET PO SCH (11:40)
[2020-12-18] MEDS: SERTRALINE 50 MG TABLET PO SCH (11:40)
[2020-12-18] MEDS: BACLOFEN 10 MG TABLET PO SCH ×2 (11:41→20:43)
[2020-12-18] MEDS: GABAPENTIN 100 MG CAPSULE PO SCH ×2 (11:41→20:44)
[2020-12-18] MEDS: METOPROLOL SUCCINATE 25 MG TAB.XL.24H PO SCH (11:42)
[2020-12-18] MEDS: METHADONE 5 MG TABLET PO SCH ×2 (11:47→20:44)
[2020-12-18] MEDS: traZODone HCL 50 MG TABLET PO SCH (20:42)
[2020-12-18] MEDS: diphenhydrAMINE 25 MG CAPSULE PO SCH (20:42)
[2020-12-18] MEDS: MELATONIN 3 MG TABLET PO SCH (20:43)
[2020-12-18] MEDS: ATORVASTATIN 40 MG TABLET PO SCH (20:44)
[2020-12-19] MEDS: 0.9 % SODIUM CHLORIDE 10 ML SYRINGE IV SCH ×3 (06:00→20:02)
[2020-12-19] MEDS: POTASSIUM CHLORIDE 10 MEQ TABLET PO SCH (07:02)
[2020-12-19] MEDS: metFORMIN 500 MG TAB.XL.24H PO SCH (07:03)
[2020-12-19] MEDS: INSULIN LISPRO 1 UNIT/0.01 ML UNIT SQ SCH ×4 (07:08→20:02)
[2020-12-19] MEDS: EMPAGLIFLOZIN 25 MG TABLET PO SCH (09:36)
[2020-12-19] MEDS: MECLIZINE 25 MG TABLET PO SCH (09:38)
[2020-12-19] MEDS: APIXABAN 5 MG TABLET PO SCH ×2 (09:39→20:06)
[2020-12-19] MEDS: levETIRAcetam 500 MG TABLET PO SCH ×2 (09:39→20:03)
[2020-12-19] MEDS: PREGABALIN 25 MG CAPSULE PO SCH ×2 (09:40→20:04)
[2020-12-19] MEDS: FUROSEMIDE 20 MG TABLET PO SCH (09:40)
[2020-12-19] MEDS: METOPROLOL SUCCINATE 25 MG TAB.XL.24H PO SCH (09:41)
[2020-12-19] MEDS: GABAPENTIN 100 MG CAPSULE PO SCH ×2 (09:41→20:05)
[2020-12-19] MEDS: BACLOFEN 10 MG TABLET PO SCH ×2 (09:42→20:06)
[2020-12-19] MEDS: SERTRALINE 50 MG TABLET PO SCH (09:42)
[2020-12-19] MEDS: METHADONE 5 MG TABLET PO SCH ×2 (09:43→20:05)
--- NOTE | 2020-12-19 19:31 | Internal Med Progress Note ---
SUBJECTIVE Subjective Patient information: Note initiated : 12/19/20 at 7:26 pm Service Date, if different from initiated Date: [] Patient: Alexa Rai a 80 y/o F admitted on 11/14/20 for Weakness. Chief Complaint: Follow-up UTI, awaiting placement Interval history: Ms. Rai is a 80 year old F patient was recently at [facility] for cellulitis to the leg discharged the beginning of October. She was at [facility] prior to that admission but [facility] refused her and patient was discharged to [facility]. Patient says she has been at [facility] since last February. She is essentially wheelchair-bound for the past couple years she states she can ambulate a little bit with a walker. She was in the motel with her son who is homeless who will be kicked out of the motel today and he was worried about his mother because she cannot get up she just sits in her own urine she cannot take care of her self. She is unable to care for herself and her son who is homeless has no place to care for her. Patient has some nausea but no other complaints. She does have history atrial fibrillation and in the ED she did go to heart rate of 115. Ghaqm-je-vazk sodium was 146, chemistry showed volume depletion 12/13/20: No active issues. No major overnight events. Patient is feeling comfortable this morning. Principal diagnosis: ESBL E.Coli UTI 12/16-patient status quo. No overnight events. No concerns per staff. Continuing pre-existing medical issues management on home medications. Ongoing therapies. Discharge planning per case management 12/17-patient doing well. No overnight events. No concerns per staff. No fever chills nausea vomiting. Doing well. Ongoing therapies. Await placement 12/18 patient status quo. No overnight events. No concerns per staff. Awaiting placement.No active issues 12/19 continues without complaints. No events, no concerns. Continue to await placement. Principal diagnosis: ESBL E.Coli UTI Constitutional Vitals: Vital Signs Temp Pulse Resp BP Pulse Ox 97.6 F 89 16 125/79 92 12/19/20 10:32 12/19/20 10:32 12/19/20 10:32 12/19/20 10:32 12/19/20 10:32 Period Temp Pulse Resp BP Sys/Jansen Pulse Ox Last 24 Hr 97.2 F-98.1 F 89-109 16-18 125-135/65-82 88-94 Intake and Output 12/19/20 12/19/20 12/19/20 05:59 13:59 21:59 Intake Total 740 Output Total 400 1601 Balance 340 -1601 GENERAL: In bed no acute distress RESPIRATORY: Respirations unlabored NEURO: Alert, oriented Intake & Output: Intake & Output 12/19/20 12/19/20 12/19/20 05:59 13:59 21:59 Intake Total 740 Output Total 400 1601 Balance 340 -1601 Intake: Oral 740 Output: Void Amount 400 1600 # of times incontinent of urine 1 Other: Urine Appearance Clear Clear Urine Color Straw Bright Yellow # Voids 1 OBJ DATA Labs CBC & Chem 7: 12/03/20 12:21 12/03/20 12:21 Meds: Medications Acetaminophen (Acetaminophen 325 Mg Tablet) 650 mg PO Q6HP PRN PRN Reason: PAIN/FEVER > 101 Last Admin: 11/17/20 17:22 Dose: 650 mg Documented by: Albuterol/Ipratropium (Ipratropium/Albuterol 3 Ml Ampul.Neb) 3 ml NEB Q4HP PRN PRN Reason: Shortness Of Breath Alprazolam (Alprazolam 0.5 Mg Tablet) 0.5 mg PO Q12HP PRN PRN Reason: Anxiety Apixaban (Apixaban 5 Mg Tablet) 5 mg PO BID [facility] Last Admin: 12/19/20 09:39 Dose: 5 mg Documented by: Atorvastatin Calcium (Atorvastatin 40 Mg Tablet) 40 mg PO QHS [facility] Last Admin: 12/18/20 20:44 Dose: 40 mg Documented by: Baclofen (Baclofen 10 Mg Tablet) 10 mg PO BID [facility] Last Admin: 12/19/20 09:42 Dose: 10 mg Documented by: Bisacodyl (Bisacodyl 10 Mg Supp.Rect) 10 mg MO Q2-3DAYS PRN PRN Reason: Constipation Last Admin: 11/25/20 05:38 Dose: 10 mg Documented by: Dextrose (Dextrose 50% 50 Ml Vial) 0 ml IV UD PRN PRN Reason: Hypoglycemia Last Admin: 11/25/20 22:53 Dose: 25 ml Documented by: Diagnostic Test (Pha) (Accu-Chek 1 Each Strip) 1 each FS ACHS [facility] Last Admin: 12/19/20 17:04 Dose: 1 each Documented by: Diphenhydramine HCl (Diphenhydramine 25 Mg Capsule) 25 mg PO [facility] Last Admin: 12/18/20 20:42 Dose: 25 mg Documented by: Diphenoxylate HCl/Atropine (Diphenoxylate Hcl/Atropine 1 Tablet) 1 tab PO QIDP PRN PRN Reason: Wheezing Furosemide (Furosemide 20 Mg Tablet) 20 mg PO DAILY [facility] Last Admin: 12/19/20 09:40 Dose: 20 mg Documented by: Gabapentin (Gabapentin 100 Mg Capsule) 100 mg PO BID [facility] Last Admin: 12/19/20 09:41 Dose: 100 mg Documented by: Glucose (Dextrose 31 Gm Oral.Susp) 15 gm PO PRN PRN PRN Reason: Hypoglycemia Magnesium Sulfate (Magnesium Sulfate) 2 gm in 50 mls @ 50 mls/hr IV UD PRN PRN Reason: Magnesium </= 1.6 Potassium Chloride 40 meq/ (Dextrose) 520 mls @ 130 mls/hr IV UD PRN PRN Reason: Potassium < 3 Insulin Human Lispro (Insulin Lispro 1 Unit/0.01 Ml Unit) 0 unit SQ [facility]; Protocol Last Admin: 12/19/20 17:06 Dose: Not Given Documented by: Levetiracetam (Levetiracetam 500 Mg Tablet) 250 mg PO BID [facility] Last Admin: 12/19/20 09:39 Dose: 250 mg Documented by: Meclizine HCl (Meclizine 25 Mg Tablet) 25 mg PO DAILY [facility] Last Admin: 12/19/20 09:38 Dose: 25 mg Documented by: Melatonin (Melatonin 3 Mg Tablet) 3 mg PO QHS [facility] Last Admin: 12/18/20 20:43 Dose: 3 mg Documented by: Metformin HCl (Metformin 500 Mg Tab.Xl.24h) 1,000 mg PO [facility] Last Admin: 12/19/20 07:03 Dose: 1,000 mg Documented by: Methadone HCl (Methadone 5 Mg Tablet) 10 mg PO BID [facility] Last Admin: 12/19/20 09:43 Dose: 10 mg Documented by: Metoclopramide HCl (Metoclopramide 10 Mg/2 Ml Vial) 10 mg IV Q6HP PRN PRN Reason: Nausea And Vomiting Metoprolol Succinate (Metoprolol Succinate 25 Mg Tab.Xl.24h) 12.5 mg PO DAILY [facility] Last Admin: 12/19/20 09:41 Dose: 12.5 mg Documented by: Empagliflozin 25 Mg (Tablet) 1 dose PO DAILY [facility] Last Admin: 12/19/20 09:36 Dose: Not Given Documented by: Polyethylene Glycol (Polyethylene Glycol 3350 17 Gm Packet) 17 gm PO DAILYP PRN PRN Reason: Constipation Potassium Chloride (Potassium Chloride 20 Meq Tablet) 40 meq PO UD PRN PRN Reason: Potssium is 3-3.5 Potassium Chloride (Potassium Chloride 20 Meq Tablet) 40 meq PO UD PRN PRN Reason: Potassium < 3 Potassium Chloride (Potassium Chloride 10 Meq Tablet) 20 meq PO QAMCC [facility] Last Admin: 12/19/20 07:02 Dose: 20 meq Documented by: Pregabalin (Pregabalin 25 Mg Capsule) 50 mg PO BID [facility] Last Admin: 12/19/20 09:40 Dose: 50 mg Documented by: Senna (Sennosides 1 Tablet) 2 tab PO DAILYP PRN PRN Reason: Constipation Last Admin: 12/08/20 04:02 Dose: 2 tab Documented by: Sertraline HCl (Sertraline 50 Mg Tablet) 125 mg PO DAILY [facility] Last Admin: 12/19/20 09:42 Dose: 125 mg Documented by: Sodium Chloride (0.9 % Sodium Chloride 10 Ml Syringe) 10 ml IV Q8 [facility] Last Admin: 12/19/20 14:10 Dose: Not Given Documented by: Tramadol HCl (Tramadol 50 Mg Tablet) 50 mg PO Q6HP PRN; Protocol PRN Reason: Pain Last Admin: 12/16/20 17:40 Dose: 50 mg Documented by: Trazodone HCl (Trazodone Hcl 50 Mg Tablet) 25 mg PO HS [facility] Last Admin: 12/18/20 20:42 Dose: 25 mg Documented by: A/P Narrative A/P Narrative: A. fib with RVR -Currently rate controlled on beta-tegan -Apixaban anticoagulation for CVA prophylaxis Complicated ESBL E. coli UTI resolved -Completed antibiotic course Hyperlipemia -Home dose statin Neuropathy -On home dose gabapentin/Lyrica/tramadol DM type II -On prandial insulin/CC diet/Metformin Anxiety disorder -On trazodone Plan Continue nutrition support/daily therapies Pre-existing medical condition management as above Await discharge, coordination per case management Time Spent With Patient Time: Total time spent is greater than 50% in coordination of care (as documented) at patient's floor/unit and/or counseling patient: QUALITY VTE Deep Vein Thrombosis/Pulmonary Embolism Present on Admission: No
[2020-12-19] MEDS: traZODone HCL 50 MG TABLET PO SCH (20:03)
[2020-12-19] MEDS: MELATONIN 3 MG TABLET PO SCH (20:05)
[2020-12-19] MEDS: diphenhydrAMINE 25 MG CAPSULE PO SCH (20:05)
[2020-12-19] MEDS: ATORVASTATIN 40 MG TABLET PO SCH (20:06)
[2020-12-20] MEDS: 0.9 % SODIUM CHLORIDE 10 ML SYRINGE IV SCH ×3 (05:35→21:52)
[2020-12-20] MEDS: levETIRAcetam 500 MG TABLET PO SCH ×2 (08:28→21:53)
[2020-12-20] MEDS: APIXABAN 5 MG TABLET PO SCH ×2 (08:29→21:54)
[2020-12-20] MEDS: GABAPENTIN 100 MG CAPSULE PO SCH ×2 (08:29→21:55)
[2020-12-20] MEDS: MECLIZINE 25 MG TABLET PO SCH (08:29)
[2020-12-20] MEDS: BACLOFEN 10 MG TABLET PO SCH ×2 (08:29→21:54)
[2020-12-20] MEDS: FUROSEMIDE 20 MG TABLET PO SCH (08:30)
[2020-12-20] MEDS: PREGABALIN 25 MG CAPSULE PO SCH ×2 (08:30→21:54)
[2020-12-20] MEDS: METOPROLOL SUCCINATE 25 MG TAB.XL.24H PO SCH (08:31)
[2020-12-20] MEDS: POTASSIUM CHLORIDE 10 MEQ TABLET PO SCH (08:31)
[2020-12-20] MEDS: metFORMIN 500 MG TAB.XL.24H PO SCH (08:31)
[2020-12-20] MEDS: METHADONE 5 MG TABLET PO SCH ×2 (08:33→21:56)
[2020-12-20] MEDS: SERTRALINE 50 MG TABLET PO SCH (08:33)
[2020-12-20] MEDS: INSULIN LISPRO 1 UNIT/0.01 ML UNIT SQ SCH ×4 (08:35→21:52)
[2020-12-20] MEDS: EMPAGLIFLOZIN 25 MG TABLET PO SCH (08:35)
[2020-12-20] MEDS: SENNOSIDES 1 TABLET PO PRN (11:04)
[2020-12-20] MEDS: POLYETHYLENE GLYCOL 3350 17 GM PACKET PO PRN (11:05)
[2020-12-20] MEDS: traMADol 50 MG TABLET PO PRN (11:11)
--- NOTE | 2020-12-20 14:15 | Internal Med Progress Note ---
SUBJECTIVE Subjective Patient information: Note initiated : 12/20/20 at 2:13 pm Service Date, if different from initiated Date: [] Patient: Alexa Rai a 80 y/o F admitted on 11/14/20 for Weakness. Chief Complaint: f/u weakness after UTI Principal diagnosis: ESBL E.Coli UTI Interval history: Ms. Rai is a 80 year old F patient was recently at [facility] for cellulitis to the leg discharged the beginning of October. She was at [facility] prior to that admission but [facility] refused her and patient was discharged to [facility]. Patient says she has been at [facility] since last February. She is essentially wheelchair-bound for the past couple years she states she can ambulate a little bit with a walker. She was in the motel with her son who is homeless who will be kicked out of the motel today and he was worried about his mother because she cannot get up she just sits in her own urine she cannot take care of her self. She is unable to care for herself and her son who is homeless has no place to care for her. Patient has some nausea but no other complaints. She does have history atrial fibrillation and in the ED she did go to heart rate of 115. Vsutz-sf-lyah sodium was 146, chemistry showed volume depletion 12/13/20: No active issues. No major overnight events. Patient is feeling comfortable this morning. Principal diagnosis: ESBL E.Coli UTI 12/16-patient status quo. No overnight events. No concerns per staff. Continuing pre-existing medical issues management on home medications. Ongoing therapies. Discharge planning per case management 12/17-patient doing well. No overnight events. No concerns per staff. No fever chills nausea vomiting. Doing well. Ongoing therapies. Await placement 12/18 patient status quo. No overnight events. No concerns per staff. Awaiting placement.No active issues 12/19 continues without complaints. No events, no concerns. Continue to await placement. 12/20 stable. Patient fast asleep this morning when I go to see her. Nursing without any concerns. No events. Awaiting eventual placement. Constitutional Vitals: Vital Signs Temp Pulse Resp BP Pulse Ox 97.3 F 76 16 126/59 95 12/20/20 07:15 12/20/20 07:15 12/20/20 07:15 12/20/20 07:15 12/20/20 08:20 Period Temp Pulse Resp BP Sys/Jansen Pulse Ox Last 24 Hr 97.1 F-97.3 F 76-86 16-16 119-126/53-59 94-95 Intake and Output 12/20/20 12/20/20 12/20/20 05:59 13:59 21:59 Intake Total 100 Output Total 850 Balance 100 -850 GENERAL: Sleeping RESPIRATORY: Respirations regular and unlabored ABDOMEN: Nondistended NEURO: Sleeping, at baseline weak but alert and oriented Intake & Output: Intake & Output 12/20/20 12/20/20 12/20/20 05:59 13:59 21:59 Intake Total 100 Output Total 850 Balance 100 -850 Intake: Oral 100 Output: Void Amount 850 Other: Urine Appearance Cloudy Sediment Urine Color Dark Loly Stool Size Moderate Stool Color Brown Stool Consistency Formed # Bowel Movements 1 OBJ DATA Labs CBC & Chem 7: 12/03/20 12:21 12/03/20 12:21 Meds: Medications Acetaminophen (Acetaminophen 325 Mg Tablet) 650 mg PO Q6HP PRN PRN Reason: PAIN/FEVER > 101 Last Admin: 11/17/20 17:22 Dose: 650 mg Documented by: Albuterol/Ipratropium (Ipratropium/Albuterol 3 Ml Ampul.Neb) 3 ml NEB Q4HP PRN PRN Reason: Shortness Of Breath Alprazolam (Alprazolam 0.5 Mg Tablet) 0.5 mg PO Q12HP PRN PRN Reason: Anxiety Apixaban (Apixaban 5 Mg Tablet) 5 mg PO BID [facility] Last Admin: 12/20/20 08:29 Dose: 5 mg Documented by: Atorvastatin Calcium (Atorvastatin 40 Mg Tablet) 40 mg PO QHS [facility] Last Admin: 12/19/20 20:06 Dose: 40 mg Documented by: Baclofen (Baclofen 10 Mg Tablet) 10 mg PO BID [facility] Last Admin: 12/20/20 08:29 Dose: 10 mg Documented by: Bisacodyl (Bisacodyl 10 Mg Supp.Rect) 10 mg [place] Q2-3DAYS PRN PRN Reason: Constipation Last Admin: 11/25/20 05:38 Dose: 10 mg Documented by: Dextrose (Dextrose 50% 50 Ml Vial) 0 ml IV UD PRN PRN Reason: Hypoglycemia Last Admin: 11/25/20 22:53 Dose: 25 ml Documented by: Diagnostic Test (Pha) (Accu-Chek 1 Each Strip) 1 each FS ACHS [facility] Last Admin: 12/20/20 11:07 Dose: 1 each Documented by: Diphenhydramine HCl (Diphenhydramine 25 Mg Capsule) 25 mg PO HS [facility] Last Admin: 12/19/20 20:05 Dose: 25 mg Documented by: Diphenoxylate HCl/Atropine (Diphenoxylate Hcl/Atropine 1 Tablet) 1 tab PO QIDP PRN PRN Reason: Wheezing Furosemide (Furosemide 20 Mg Tablet) 20 mg PO DAILY [facility] Last Admin: 12/20/20 08:30 Dose: 20 mg Documented by: Gabapentin (Gabapentin 100 Mg Capsule) 100 mg PO BID [facility] Last Admin: 12/20/20 08:29 Dose: 100 mg Documented by: Glucose (Dextrose 31 Gm Oral.Susp) 15 gm PO PRN PRN PRN Reason: Hypoglycemia Magnesium Sulfate (Magnesium Sulfate) 2 gm in 50 mls @ 50 mls/hr IV UD PRN PRN Reason: Magnesium </= 1.6 Potassium Chloride 40 meq/ (Dextrose) 520 mls @ 130 mls/hr IV UD PRN PRN Reason: Potassium < 3 Insulin Human Lispro (Insulin Lispro 1 Unit/0.01 Ml Unit) 0 unit SQ [facility]; Protocol Last Admin: 12/20/20 11:11 Dose: Not Given Documented by: Levetiracetam (Levetiracetam 500 Mg Tablet) 250 mg PO BID [facility] Last Admin: 12/20/20 08:28 Dose: 250 mg Documented by: Meclizine HCl (Meclizine 25 Mg Tablet) 25 mg PO DAILY [facility] Last Admin: 12/20/20 08:29 Dose: 25 mg Documented by: Melatonin (Melatonin 3 Mg Tablet) 3 mg PO QHS [facility] Last Admin: 12/19/20 20:05 Dose: 3 mg Documented by: Metformin HCl (Metformin 500 [facility]l.24h) [facility] Last Admin: 12/20/20 08:31 Dose: 1,000 mg Documented by: Methadone HCl (Methadone 5 Mg Tablet) 10 mg PO BID [facility] Last Admin: 12/20/20 08:33 Dose: 10 mg Documented by: Metoclopramide HCl (Metoclopramide 10 Mg/2 Ml Vial) 10 mg IV Q6HP PRN PRN Reason: Nausea And Vomiting Metoprolol Succinate (Metoprolol Succinate 25 Mg Tab.Xl.24h) 12.5 mg PO DAILY [facility] Last Admin: 12/20/20 08:31 Dose: 12.5 mg Documented by: Empagliflozin 25 Mg (Tablet) 1 dose PO DAILY [facility] Last Admin: 12/20/20 08:35 Dose: Not Given Documented by: Polyethylene Glycol (Polyethylene Glycol 3350 17 Gm Packet) 17 gm PO DAILYP PRN PRN Reason: Constipation Last Admin: 12/20/20 11:05 Dose: 17 gm Documented by: Potassium Chloride (Potassium Chloride 20 Meq Tablet) 40 meq PO UD PRN PRN Reason: Potssium is 3-3.5 Potassium Chloride (Potassium Chloride 20 Meq Tablet) 40 meq PO UD PRN PRN Reason: Potassium < 3 Potassium Chloride (Potassium Chloride 10 Meq Tablet) 20 meq PO QAMCC [facility] Last Admin: 12/20/20 08:31 Dose: 20 meq Documented by: Pregabalin (Pregabalin 25 Mg Capsule) 50 mg PO BID [facility] Last Admin: 12/20/20 08:30 Dose: 50 mg Documented by: Senna (Sennosides 1 Tablet) 2 tab PO DAILYP PRN PRN Reason: Constipation Last Admin: 12/20/20 11:04 Dose: 2 tab Documented by: Sertraline HCl (Sertraline 50 Mg Tablet) 125 mg PO DAILY [facility] Last Admin: 12/20/20 08:33 Dose: 125 mg Documented by: Sodium Chloride (0.9 % Sodium Chloride 10 Ml Syringe) 10 ml IV Q8 [facility] Last Admin: 12/20/20 13:28 Dose: Not Given Documented by: Tramadol HCl (Tramadol 50 Mg Tablet) 50 mg PO Q6HP PRN; Protocol PRN Reason: Pain Last Admin: 12/20/20 11:11 Dose: 50 mg Documented by: Trazodone HCl (Trazodone Hcl 50 Mg Tablet) 25 mg PO [facility] Last Admin: 12/19/20 20:03 Dose: 25 mg Documented by: A/P Narrative A/P Narrative: A. fib with RVR -Currently rate controlled on beta-tegan -Apixaban anticoagulation for CVA prophylaxis Complicated ESBL E. coli UTI resolved -Completed antibiotic course Hyperlipemia -Home dose statin Neuropathy -On home dose gabapentin/Lyrica/tramadol DM type II -On prandial insulin/CC diet/Metformin Anxiety disorder -On trazodone Plan Continue nutrition support/daily therapies Pre-existing medical condition management as above Await discharge, coordination per case management QUALITY VTE Deep Vein Thrombosis/Pulmonary Embolism Present on Admission: No
[2020-12-20] MEDS: ATORVASTATIN 40 MG TABLET PO SCH (21:53)
[2020-12-20] MEDS: MELATONIN 3 MG TABLET PO SCH (21:53)
[2020-12-20] MEDS: traZODone HCL 50 MG TABLET PO SCH (21:53)
[2020-12-20] MEDS: diphenhydrAMINE 25 MG CAPSULE PO SCH (21:54)
[2020-12-21] MEDS: 0.9 % SODIUM CHLORIDE 10 ML SYRINGE IV SCH ×3 (04:32→21:20)
[2020-12-21] MEDS: EMPAGLIFLOZIN 25 MG TABLET PO SCH (07:02)
[2020-12-21] MEDS: INSULIN LISPRO 1 UNIT/0.01 ML UNIT SQ SCH ×4 (07:14→21:20)
[2020-12-21] MEDS: SERTRALINE 50 MG TABLET PO SCH (08:23)
[2020-12-21] MEDS: levETIRAcetam 500 MG TABLET PO SCH ×2 (08:24→21:12)
[2020-12-21] MEDS: FUROSEMIDE 20 MG TABLET PO SCH (08:24)
[2020-12-21] MEDS: PREGABALIN 25 MG CAPSULE PO SCH ×2 (08:24→21:18)
[2020-12-21] MEDS: APIXABAN 5 MG TABLET PO SCH ×2 (08:24→21:13)
[2020-12-21] MEDS: METHADONE 5 MG TABLET PO SCH ×2 (08:25→21:18)
[2020-12-21] MEDS: GABAPENTIN 100 MG CAPSULE PO SCH ×2 (08:25→21:19)
[2020-12-21] MEDS: BACLOFEN 10 MG TABLET PO SCH ×2 (08:26→21:19)
[2020-12-21] MEDS: POTASSIUM CHLORIDE 10 MEQ TABLET PO SCH (08:26)
[2020-12-21] MEDS: metFORMIN 500 MG TAB.XL.24H PO SCH (08:26)
[2020-12-21] MEDS: METOPROLOL SUCCINATE 25 MG TAB.XL.24H PO SCH (08:26)
[2020-12-21] MEDS: MECLIZINE 25 MG TABLET PO SCH (08:27)
--- NOTE | 2020-12-21 20:51 | Internal Med Progress Note ---
SUBJECTIVE Subjective Patient information: Note initiated : 12/21/20 at 8:51 pm Service Date, if different from initiated Date: [] Patient: Alexa Rai 80 y/o F admitted on 11/14/20 for Weakness. Principal diagnosis: ESBL E.Coli UTI Interval history: Ms. Rai is a 80 year old F patient was recently at [facility] for cellulitis to the leg discharged the beginning of October. She was at [facility] prior to that admission but [facility] refused her and patient was discharged to [facility]. Patient says she has been at [facility] since last February. She is essentially wheelchair-bound for the past couple years she states she can ambulate a little bit with a walker. She was in the motel with her son who is homeless who will be kicked out of the motel today and he was worried about his mother because she cannot get up she j ust sits in her own urine she cannot take care of her self. She is unable to care for herself and her son who is homeless has no place to care for her. Patient has some nausea but no other complaints. She does have history atrial fibrillation and in the ED she did go to heart rate of 115. Pykju-bn-jbti sodium was 146, chemistry showed volume depletion 12/13/20: No active issues. No major overnight events. Patient is feeling comfortable this morning. Principal diagnosis: ESBL E.Coli UTI 12/16-patient status quo. No overnight events. No concerns per staff. Continuing pre-existing medical issues management on home medications. Ongoing therapies. Discharge planning per case management 12/17-patient doing well. No overnight events. No concerns per staff. No fever chills nausea vomiting. Doing well. Ongoing therapies. Await placement 12/18 patient status quo. No overnight events. No concerns per staff. Awaiting placement.No active issues 12/19 continues without complaints. No events, no concerns. Continue to await placement. 12/20 stable. Patient fast asleep this morning when I go to see her. Nursing without any concerns. No events. Awaiting eventual placement. 12/21 remained stable. Awake and alert this afternoon during my visit. No new complaints. No nursing concerns. Constitutional Vitals: Vital Signs Temp Pulse Resp BP Pulse Ox 97.0 F 82 16 95/58 93 12/21/20 11:47 12/21/20 11:47 12/21/20 11:47 12/21/20 11:47 12/21/20 11:47 Period Temp Pulse Resp BP Sys/Jansen Pulse Ox Last 24 Hr 97.0 F-97.0 F 78-82 16 95-149/58-69 90-93 Intake and Output 12/21/20 12/21/20 12/21/20 05:59 13:59 21:59 Intake Total 600 240 0 Output Total 500 1000 Balance 100 -760 0 GENERAL: Sitting up in bed eating a snack in no acute distress RESPIRATORY: Respirations unlabored NEURO: Alert, oriented x3, speaking in full sentences without dyspnea Intake & Output: Intake & Output 12/21/20 12/21/20 12/21/20 05:59 13:59 21:59 Intake Total 600 240 0 Output Total 500 1000 Balance 100 -760 0 Intake: Oral 600 240 0 Output: Void Amount 500 1000 Other: Meal gram crackers and peanut butter Breakfast Percent of Meal Consumed 75% Urine Appearance Clear Urine Color Bright Yellow Stool Size Large Stool Color Brown Stool Consistency Normal for Patient # Bowel Movements 1 OBJ DATA Labs CBC & Chem 7: 12/03/20 12:21 12/03/20 12:21 Meds: Medications Acetaminophen (Acetaminophen 325 Mg Tablet) 650 mg PO Q6HP PRN PRN Reason: PAIN/FEVER > 101 Last Admin: 11/17/20 17:22 Dose: 650 mg Documented by: Albuterol/Ipratropium (Ipratropium/Albuterol 3 Ml Ampul.Neb) 3 ml NEB Q4HP PRN PRN Reason: Shortness Of Breath Alprazolam (Alprazolam 0.5 Mg Tablet) 0.5 mg PO Q12HP PRN PRN Reason: Anxiety Apixaban (Apixaban 5 Mg Tablet) 5 mg PO BID [facility] Last Admin: 12/21/20 08:24 Dose: 5 mg Documented by: Atorvastatin Calcium (Atorvastatin 40 Mg Tablet) 40 mg PO QHS [facility] Last Admin: 12/20/20 21:53 Dose: 40 mg Documented by: Baclofen (Baclofen 10 Mg Tablet) 10 mg PO BID [facility] Last Admin: 12/21/20 08:26 Dose: 10 mg Documented by: Bisacodyl (Bisacodyl 10 Mg Supp.Rect) 10 mg MA Q2-3DAYS PRN PRN Reason: Constipation Last Admin: 11/25/20 05:38 Dose: 10 mg Documented by: Dextrose (Dextrose 50% 50 Ml Vial) 0 ml IV UD PRN PRN Reason: Hypoglycemia Last Admin: 11/25/20 22:53 Dose: 25 ml Documented by: Diagnostic Test (Pha) (Accu-Chek 1 Each Strip) 1 each FS [facility] Last Admin: 12/21/20 16:36 Dose: 1 each Documented by: Diphenhydramine HCl (Diphenhydramine 25 Mg Capsule) 25 mg PO HS [facility] Last Admin: 12/20/20 21:54 Dose: 25 mg Documented by: Diphenoxylate HCl/Atropine (Diphenoxylate Hcl/Atropine 1 Tablet) 1 tab PO QIDP PRN PRN Reason: Wheezing Furosemide (Furosemide 20 Mg Tablet) 20 mg PO DAILY [facility] Last Admin: 12/21/20 08:24 Dose: 20 mg Documented by: Gabapentin (Gabapentin 100 Mg Capsule) 100 mg PO BID [facility] Last Admin: 12/21/20 08:25 Dose: 100 mg Documented by: Glucose (Dextrose 31 Gm Oral.Susp) 15 gm PO PRN PRN PRN Reason: Hypoglycemia Magnesium Sulfate (Magnesium Sulfate) 2 gm in 50 mls @ 50 mls/hr IV UD PRN PRN Reason: Magnesium </= 1.6 Potassium Chloride 40 meq/ (Dextrose) 520 mls @ 130 mls/hr IV UD PRN PRN Reason: Potassium < 3 Insulin Human Lispro (Insulin Lispro 1 Unit/0.01 Ml Unit) 0 unit SQ [facility]; Protocol Last Admin: 12/21/20 16:38 Dose: Not Given Documented by: Levetiracetam (Levetiracetam 500 Mg Tablet) 250 mg PO BID [facility] Last Admin: 12/21/20 08:24 Dose: 250 mg Documented by: Meclizine HCl (Meclizine 25 Mg Tablet) 25 mg PO DAILY [facility] Last Admin: 12/21/20 08:27 Dose: 25 mg Documented by: Melatonin (Melatonin 3 Mg Tablet) 3 mg PO QHS [facility] Last Admin: 12/20/20 21:53 Dose: 3 mg Documented by: Metformin HCl (Metformin 500 Mg [facility]l.24h) [facility] Last Admin: 12/21/20 08:26 Dose: 1,000 mg Documented by: Methadone HCl (Methadone 5 Mg Tablet) 10 mg PO BID [facility] Last Admin: 12/21/20 08:25 Dose: 10 mg Documented by: Metoclopramide HCl (Metoclopramide 10 Mg/2 Ml Vial) 10 mg IV Q6HP PRN PRN Reason: Nausea And Vomiting Metoprolol Succinate (Metoprolol Succinate 25 Mg Tab.Xl.24h) 12.5 mg PO DAILY [facility] Last Admin: 12/21/20 08:26 Dose: 12.5 mg Documented by: Empagliflozin 25 Mg (Tablet) 1 dose PO DAILY [facility] Last Admin: 12/21/20 07:02 Dose: Not Given Documented by: Polyethylene Glycol (Polyethylene Glycol 3350 17 Gm Packet) 17 gm PO DAILYP PRN PRN Reason: Constipation Last Admin: 12/20/20 11:05 Dose: 17 gm Documented by: Potassium Chloride (Potassium Chloride 20 Meq Tablet) 40 meq PO UD PRN PRN Reason: Potssium is 3-3.5 Potassium Chloride (Potassium Chloride 20 Meq Tablet) 40 meq PO UD PRN PRN Reason: Potassium < 3 Potassium Chloride (Potassium Chloride 10 Meq Tablet) [facility] Last Admin: 12/21/20 08:26 Dose: 20 meq Documented by: Pregabalin (Pregabalin 25 Mg Capsule) 50 mg PO BID [facility] Last Admin: 12/21/20 08:24 Dose: 50 mg Documented by: Senna (Sennosides 1 Tablet) 2 tab PO DAILYP PRN PRN Reason: Constipation Last Admin: 12/20/20 11:04 Dose: 2 tab Documented by: Sertraline HCl (Sertraline 50 Mg Tablet) 125 mg PO DAILY [facility] Last Admin: 12/21/20 08:23 Dose: 125 mg Documented by: Sodium Chloride (0.9 % Sodium Chloride 10 Ml Syringe) 10 ml IV Q8 [facility] Last Admin: 12/21/20 12:07 Dose: Not Given Documented by: Tramadol HCl (Tramadol 50 Mg Tablet) 50 mg PO Q6HP PRN; Protocol PRN Reason: Pain Last Admin: 12/20/20 11:11 Dose: 50 mg Documented by: Trazodone HCl (Trazodone Hcl 50 Mg Tablet) 25 mg PO [facility] Last Admin: 12/20/20 21:53 Dose: 25 mg Documented by: A/P Narrative A/P Narrative: A. fib with RVR -Currently rate controlled on beta-tegan -Apixaban anticoagulation for CVA prophylaxis Complicated ESBL E. coli UTI resolved -Completed antibiotic course Hyperlipemia -Home dose statin Neuropathy -On home dose gabapentin/Lyrica/tramadol DM type II -On prandial insulin/CC diet/Metformin Anxiety disorder -On trazodone Plan Continue nutrition support/daily therapies Pre-existing medical condition management as above Await discharge, coordination per case management QUALITY VTE Deep Vein Thrombosis/Pulmonary Embolism Present on Admission: No
[2020-12-21] MEDS: ATORVASTATIN 40 MG TABLET PO SCH (21:13)
[2020-12-21] MEDS: traZODone HCL 50 MG TABLET PO SCH (21:13)
[2020-12-21] MEDS: MELATONIN 3 MG TABLET PO SCH (21:19)
[2020-12-21] MEDS: diphenhydrAMINE 25 MG CAPSULE PO SCH (21:19)
[2020-12-22] MEDS: 0.9 % SODIUM CHLORIDE 10 ML SYRINGE IV SCH (04:21)
[2020-12-22] MEDS: EMPAGLIFLOZIN 25 MG TABLET PO SCH (07:16)
[2020-12-22] MEDS: INSULIN LISPRO 1 UNIT/0.01 ML UNIT SQ SCH ×4 (07:28→20:25)
[2020-12-22] MEDS: metFORMIN 500 MG TAB.XL.24H PO SCH (08:48)
[2020-12-22] MEDS: MECLIZINE 25 MG TABLET PO SCH (08:49)
[2020-12-22] MEDS: levETIRAcetam 500 MG TABLET PO SCH ×2 (08:49→20:25)
[2020-12-22] MEDS: METHADONE 5 MG TABLET PO SCH ×2 (08:49→20:26)
[2020-12-22] MEDS: FUROSEMIDE 20 MG TABLET PO SCH (08:49)
[2020-12-22] MEDS: BACLOFEN 10 MG TABLET PO SCH ×2 (08:49→20:25)
[2020-12-22] MEDS: GABAPENTIN 100 MG CAPSULE PO SCH ×2 (08:50→20:27)
[2020-12-22] MEDS: POTASSIUM CHLORIDE 10 MEQ TABLET PO SCH (08:50)
[2020-12-22] MEDS: APIXABAN 5 MG TABLET PO SCH ×2 (08:50→20:26)
[2020-12-22] MEDS: METOPROLOL SUCCINATE 25 MG TAB.XL.24H PO SCH (08:50)
[2020-12-22] MEDS: PREGABALIN 25 MG CAPSULE PO SCH ×2 (08:51→20:26)
[2020-12-22] MEDS: SERTRALINE 50 MG TABLET PO SCH (08:51)
--- NOTE | 2020-12-22 11:22 | Internal Med Progress Note ---
SUBJECTIVE Subjective Patient information: Note initiated : 12/22/20 at 11:19 am Service Date, if different from initiated Date: [] Patient: Alexa Rai a 80 y/o F admitted on 11/14/20 for Weakness. Chief Complaint: f/u acute cystitis, weakness Principal diagnosis: ESBL E.Coli UTI Interval history: Ms. Rai is a 80 year old F patient was recently at [facility] for cellulitis to the leg discharged the beginning of October. She was at [facility] prior to that admission but [facility] refused her and patient was discharged to [facility]. Patient says she has been at [facility] since last February. She is essentially wheelchair-bound for the past couple years she states she can ambulate a little bit with a walker. She was in the motel with her son who is homeless who will be kicked out of the motel today and he was worried about his mother because she cannot get up she just sits in her own urine she cannot take care of her self. She is unable to care for herself and her son who is homeless has no place to care for her. Patient has some nausea but no other complaints. She does have history atrial fibrillation and in the ED she did go to heart rate of 115. Xrrbt-lc-ahjy sodium was 146, chemistry showed volume depletion 12/13/20: No active issues. No major overnight events. Patient is feeling comfortable this morning. Principal diagnosis: ESBL E.Coli UTI 12/16-patient status quo. No overnight events. No concerns per staff. Continuing pre-existing medical issues management on home medications. Ongoing therapies. Discharge planning per case management 12/17-patient doing well. No overnight events. No concerns per staff. No fever chills nausea vomiting. Doing well. Ongoing therapies. Await placement 12/18 patient status quo. No overnight events. No concerns per staff. Awaiting placement.No active issues 12/19 continues without complaints. No events, no concerns. Continue to await placement. 12/20 stable. Patient fast asleep this morning when I go to see her. Nursing without any concerns. No events. Awaiting eventual placement. 12/21 remained stable. Awake and alert this afternoon during my visit. No new complaints. No nursing concerns. 12/22 no new changes. Sleeping this morning. No new nursing concerns. 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 Constitutional Vitals: Vital Signs Temp Pulse Resp BP Pulse Ox 98.1 F 82 14 121/76 96 12/22/20 07:56 12/22/20 07:56 12/22/20 07:56 12/22/20 07:56 12/22/20 07:56 Period Temp Pulse Resp BP Sys/Jansen Pulse Ox Last 24 Hr 97.0 F-98.4 F 82-83 14-16 95-121/58-76 91-96 Intake and Output 12/21/20 12/22/20 12/22/20 21:59 05:59 13:59 Intake Total 800 800 Output Total 801 800 Balance -1 0 Weight 251 lb 4.8 oz GENERAL: Sleeping, did not awaken RESPIRATORY: Respirations unlabored NEURO: Sleeping Intake & Output: Intake & Output 12/21/20 12/22/20 12/22/20 21:59 05:59 13:59 Intake Total 800 800 Output Total 801 800 Balance -1 0 Weight 251 lb 4.8 oz Intake: Oral 800 800 Output: Void Amount 800 800 # of times incontinent of urine 1 Other: Urine Appearance Clear Clear Urine Color Bright Yellow Bright Yellow Straw Urine Odor Normal Stool Size Large Stool Color Brown Stool Consistency Soft Formed # Bowel Movements 1 OBJ DATA Labs CBC & Chem 7: 12/03/20 12:21 12/03/20 12:21 Meds: Medications Acetaminophen (Acetaminophen 325 Mg Tablet) 650 mg PO Q6HP PRN PRN Reason: PAIN/FEVER > 101 Last Admin: 11/17/20 17:22 Dose: 650 mg Documented by: Albuterol/Ipratropium (Ipratropium/Albuterol 3 Ml Ampul.Neb) 3 ml NEB Q4HP PRN PRN Reason: Shortness Of Breath Alprazolam (Alprazolam 0.5 Mg Tablet) 0.5 mg PO Q12HP PRN PRN Reason: Anxiety Apixaban (Apixaban 5 Mg Tablet) 5 mg PO BID [facility] Last Admin: 12/22/20 08:50 Dose: 5 mg Documented by: Atorvastatin Calcium (Atorvastatin 40 Mg Tablet) 40 mg PO QHS [facility] Last Admin: 12/21/20 21:13 Dose: 40 mg Documented by: Baclofen (Baclofen 10 Mg Tablet) 10 mg PO BID [facility] Last Admin: 12/22/20 08:49 Dose: 10 mg Documented by: Bisacodyl (Bisacodyl 10 Mg Supp.Rect) 10 mg LA Q2-3DAYS PRN PRN Reason: Constipation Last Admin: 11/25/20 05:38 Dose: 10 mg Documented by: Dextrose (Dextrose 50% 50 Ml Vial) 0 ml IV UD PRN PRN Reason: Hypoglycemia Last Admin: 11/25/20 22:53 Dose: 25 ml Documented by: Diagnostic Test (Pha) (Accu-Chek 1 Each Strip) 1 each FS [facility] Last Admin: 12/22/20 07:26 Dose: 1 each Documented by: Diphenhydramine HCl (Diphenhydramine 25 Mg Capsule) 25 mg PO [facility] Last Admin: 12/21/20 21:19 Dose: 25 mg Documented by: Diphenoxylate HCl/Atropine (Diphenoxylate Hcl/Atropine 1 Tablet) 1 tab PO QIDP PRN PRN Reason: Wheezing Furosemide (Furosemide 20 Mg Tablet) 20 mg PO DAILY [facility] Last Admin: 12/22/20 08:49 Dose: 20 mg Documented by: Gabapentin (Gabapentin 100 Mg Capsule) 100 mg PO BID [facility] Last Admin: 12/22/20 08:50 Dose: 100 mg Documented by: Glucose (Dextrose 31 Gm Oral.Susp) 15 gm PO PRN PRN PRN Reason: Hypoglycemia Magnesium Sulfate (Magnesium Sulfate) 2 gm in 50 mls @ 50 mls/hr IV UD PRN PRN Reason: Magnesium </= 1.6 Potassium Chloride 40 meq/ (Dextrose) 520 mls @ 130 mls/hr IV UD PRN PRN Reason: Potassium < 3 Insulin Human Lispro (Insulin Lispro 1 Unit/0.01 Ml Unit) 0 unit SQ [facility]; Protocol Last Admin: 12/22/20 07:28 Dose: Not Given Documented by: Levetiracetam (Levetiracetam 500 Mg Tablet) 250 mg PO BID [facility] Last Admin: 12/22/20 08:49 Dose: 250 mg Documented by: Meclizine HCl (Meclizine 25 Mg Tablet) 25 mg PO DAILY [facility] Last Admin: 12/22/20 08:49 Dose: 25 mg Documented by: Melatonin (Melatonin 3 Mg Tablet) 3 mg PO QHS [facility] Last Admin: 12/21/20 21:19 Dose: 3 mg Documented by: Metformin HCl (Metformin 500 Mg Tab.Xl.24h) 1,000 mg PO [facility] Last Admin: 12/22/20 08:48 Dose: 1,000 mg Documented by: Methadone HCl (Methadone 5 Mg Tablet) 10 mg PO BID [facility] Last Admin: 12/22/20 08:49 Dose: 10 mg Documented by: Metoclopramide HCl (Metoclopramide 10 Mg/2 Ml Vial) 10 mg IV Q6HP PRN PRN Reason: Nausea And Vomiting Metoprolol Succinate (Metoprolol Succinate 25 Mg Tab.Xl.24h) 12.5 mg PO DAILY [facility] Last Admin: 12/22/20 08:50 Dose: 12.5 mg Documented by: Empagliflozin 25 Mg (Tablet) 1 dose PO DAILY [facility] Last Admin: 12/22/20 07:16 Dose: Not Given Documented by: Polyethylene Glycol (Polyethylene Glycol 3350 17 Gm Packet) 17 gm PO DAILYP PRN PRN Reason: Constipation Last Admin: 12/20/20 11:05 Dose: 17 gm Documented by: Potassium Chloride (Potassium Chloride 20 Meq Tablet) 40 meq PO UD PRN PRN Reason: Potssium is 3-3.5 Potassium Chloride (Potassium Chloride 20 Meq Tablet) 40 meq PO UD PRN PRN Reason: Potassium < 3 Potassium Chloride (Potassium Chloride 10 Meq Tablet) 20 meq PO [facility] Last Admin: 12/22/20 08:50 Dose: 20 meq Documented by: Pregabalin (Pregabalin 25 Mg Capsule) 50 mg PO BID [facility] Last Admin: 12/22/20 08:51 Dose: 50 mg Documented by: Senna (Sennosides 1 Tablet) 2 tab PO DAILYP PRN PRN Reason: Constipation Last Admin: 12/20/20 11:04 Dose: 2 tab Documented by: Sertraline HCl (Sertraline 50 Mg Tablet) 125 mg PO DAILY [facility] Last Admin: 12/22/20 08:51 Dose: 125 mg Documented by: Tramadol HCl (Tramadol 50 Mg Tablet) 50 mg PO Q6HP PRN; Protocol PRN Reason: Pain Last Admin: 12/20/20 11:11 Dose: 50 mg Documented by: Trazodone HCl (Trazodone Hcl 50 Mg Tablet) 25 mg PO [facility] Last Admin: 12/21/20 21:13 Dose: 25 mg Documented by: A/P Narrative A/P Narrative: A. fib with RVR -Currently rate controlled on beta-tegan -Apixaban anticoagulation for CVA prophylaxis Complicated ESBL E. coli UTI resolved -Completed antibiotic course Hyperlipemia -Home dose statin Neuropathy -On home dose gabapentin/Lyrica/tramadol DM type II -On prandial insulin/CC diet/Metformin Anxiety disorder -On trazodone Plan Continue nutrition support/daily therapies Pre-existing medical condition management as above Await discharge, coordination per case management Time Spent With Patient Time: Total time spent is greater than 50% in coordination of care (as documented) at patient's floor/unit and/or counseling patient: QUALITY VTE Deep Vein Thrombosis/Pulmonary Embolism Present on Admission: No
--- NOTE | 2020-12-22 14:09 | Internal Med Progress Note ---
SUBJECTIVE Subjective Patient information: Note initiated : 12/22/20 at 2:06 pm Service Date, if different from initiated Date: [] Patient: Alexa Rai a 80 y/o F admitted on 11/14/20 for Weakness. Chief Complaint: [] Principal diagnosis: ESBL E.Coli UTI Interval history: Principal diagnosis: ESBL E.Coli UTI Interval history: History of present illness: Ms. Rai is a 80 year old F patient was recently at [facility] for cellulitis to the leg discharged the beginning of October. She was at [facility] prior to that admission but [facility] refused her and patient was discharged to [facility]. Patient says she has been at [facility] since last February. She is essentially wheelchair-bound for the past couple years she states she can ambulate a little bit with a walker. She was in the motel with her son who is homeless who will be kicked out of the motel today and he was worried about his mother because she cannot get up she just sits in her own urine she cannot take care of her self. She is unable to care for herself and her son who is homeless has no place to care for her. Patient has some nausea but no other complaints. She does have history atrial fibrillation and in the ED she did go to heart rate of 115. Kbefk-en-lcou sodium was 146, chemistry showed volume depletion 11/15 Patient doing well. Feels better. Urine culture with gram-negative bacillus. Heart rate improved. Electrolytes improved. Vaginal nausea but no other complaints. 11/16 No new complaints. Pending final urine culture. Placement being worked out with case management.. 11/23 Interval history: Patient is not feeling too good today. She complained of back pain. She seems comfortable. No overnight issues 11/24 No overnight event or new complaints. pt refused oral contrast for further evaluation despite multiple attempts. She admits abdomen is uncomfortable but she is not willing to let us perform work- up to adequately evaluate and treat. 11/25 Patient had a medium sized bowel movement this morning. She seems amenable to a small bowel follow-through this morning, we will attempt to obtain. 11/26 No overnight event or complaints. Had a large bowel movement yesterday after contrast study. Abdomen soft no pain. 11/27 Complains of chronic lower back pain otherwise no new complaints. Awaiting placement. 11/28 no changes. No new complaints. Awaiting placement 11/29 Discussed discharge, the patient wants to go home. She says she has a place rented. Stable, no acute medical issues. 11/30 Awaiting placement, regular diet to encourage nutritional intake. 12/01 Discussed importance of activity, awaiting placement. 12/02 More activity with sitting at the edge of the bed, removed fecal management system. 12/03 Seems more tired today, AM glucose 70. Discontinued glipizide 2.5 mg daily, not receiving insulin, continued Metformin. Awaiting placement. 12/04 Sitting at the side of bed for breakfast, overall more active the last few days. 12/05 Sleeping. No change overnight. Awaiting placement. 12/06 No changes. Patient seems to feeling well today. No new complaints. 12/07 Has chronic back pain otherwise no new complaints overnight events. 12/08 patient says she slept well and feeling well. No new complaints. States she did get a bowel movement once a week. Last one was 3 days ago does not feel the need to go the bathroom. 12/09 Seems a feeling well again today. No new complaints. 12/10/20: No active issues. No major overnight events. Patient is feeling comfortable this morning. Principal diagnosis: ESBL E.Coli UTI 12/11/20: No active issues. No major overnight events. Patient is feeling comfortable this morning. 12/12/20: No active issues. No major overnight events. Patient is feeling comfortable this morning. Principal diagnosis: ESBL E.Coli UTI 12/13/20: No active issues. No major overnight events. Patient is feeling comfortable this morning. Principal diagnosis: ESBL E.Coli UTI 12/16-patient status quo. No overnight events. No concerns per staff. Continuing pre-existing medical issues management on home medications. Ongoing therapies. Discharge planning per case management 12/17-patient doing well. No overnight events. No concerns per staff. No fever chills nausea vomiting. Doing well. Ongoing therapies. Await placement 12/18 patient status quo. No overnight events. No concerns per staff. Awaiting placement.No active issues 12/19 continues without complaints. No events, no concerns. Continue to await placement. 12/20 stable. Patient fast asleep this morning when I go to see her. Nursing without any concerns. No events. Awaiting eventual placement. 12/21 remained stable. Awake and alert this afternoon during my visit. No new complaints. No nursing concerns. 12/22 no new changes. Sleeping this morning. No new nursing concerns. manager fire assigned by the [facility], evaluation to be this . 12/23 no overnight event or new complaints. Patient stable. Review of Systems: denies headache/fever/chills/nausea/vomiting/chest or abdominal pain/cough/ dyspnea/diarrhea. Otherwise see above. Constitutional Vitals: Vital Signs Temp Pulse Resp BP Pulse Ox 98.1 F 82 14 121/76 96 12/22/20 07:56 12/22/20 07:56 12/22/20 07:56 12/22/20 07:56 12/22/20 07:56 Period Temp Pulse Resp BP Sys/Jansen Pulse Ox Last 24 Hr 98.1 F-98.4 F 82-83 14-14 103-121/61-76 91-96 Intake and Output 12/22/20 12/22/20 12/22/20 05:59 13:59 21:59 Intake Total 800 240 Output Total 800 900 Balance 0 -660 Intake & Output: Intake & Output 12/22/20 12/22/20 12/22/20 05:59 13:59 21:59 Intake Total 800 240 Output Total 800 900 Balance 0 -660 Intake: Oral 800 240 Output: Void Amount 800 900 Other: Meal Lunch Percent of Meal Consumed 75% Feeding Ability Independent Urine Appearance Clear Urine Color Bright Yellow Straw Exam: General: Awake, No acute Distress, obese Eyes/N/T: Head/Neck: neck supple, CV: irreg, No murmurs, Pulm: Clear b/l, no wheezing/rhonchi/rales Abd: soft, nontender, positive bowel sounds Ext: no clubbing/cyanosis, mild b/l LE edema Neuro: Alert, no focal deficits, moves all extremities, Skin: warm/dry OBJ DATA Labs CBC & Chem 7: 12/03/20 12:21 12/03/20 12:21 Meds: Medications Acetaminophen (Acetaminophen 325 Mg Tablet) 650 mg PO Q6HP PRN PRN Reason: PAIN/FEVER > 101 Last Admin: 11/17/20 17:22 Dose: 650 mg Documented by: Albuterol/Ipratropium (Ipratropium/Albuterol 3 Ml Ampul.Neb) 3 ml NEB Q4HP PRN PRN Reason: Shortness Of Breath Alprazolam (Alprazolam 0.5 Mg Tablet) 0.5 mg PO Q12HP PRN PRN Reason: Anxiety Apixaban (Apixaban 5 Mg Tablet) 5 mg PO BID [facility] Last Admin: 12/22/20 08:50 Dose: 5 mg Documented by: Atorvastatin Calcium (Atorvastatin 40 Mg Tablet) 40 mg PO QHS [facility] Last Admin: 12/21/20 21:13 Dose: 40 mg Documented by: Baclofen (Baclofen 10 Mg Tablet) 10 mg PO BID [facility] Last Admin: 12/22/20 08:49 Dose: 10 mg Documented by: Bisacodyl (Bisacodyl 10 Mg Supp.Rect) 10 mg MN Q2-3DAYS PRN PRN Reason: Constipation Last Admin: 11/25/20 05:38 Dose: 10 mg Documented by: Dextrose (Dextrose 50% 50 Ml Vial) 0 ml IV UD PRN PRN Reason: Hypoglycemia Last Admin: 11/25/20 22:53 Dose: 25 ml Documented by: Diagnostic Test (Pha) (Accu-Chek 1 Each Strip) 1 each FS ACHS [facility] Last Admin: 12/22/20 11:41 Dose: 1 each Documented by: Diphenhydramine HCl (Diphenhydramine 25 Mg Capsule) 25 mg PO [facility] Last Admin: 12/21/20 21:19 Dose: 25 mg Documented by: Diphenoxylate HCl/Atropine (Diphenoxylate Hcl/Atropine 1 Tablet) 1 tab PO QIDP PRN PRN Reason: Wheezing Furosemide (Furosemide 20 Mg Tablet) 20 mg PO DAILY [facility] Last Admin: 12/22/20 08:49 Dose: 20 mg Documented by: Gabapentin (Gabapentin 100 Mg Capsule) 100 mg PO BID [facility] Last Admin: 12/22/20 08:50 Dose: 100 mg Documented by: Glucose (Dextrose 31 Gm Oral.Susp) 15 gm PO PRN PRN PRN Reason: Hypoglycemia Magnesium Sulfate (Magnesium Sulfate) 2 gm in 50 mls @ 50 mls/hr IV UD PRN PRN Reason: Magnesium </= 1.6 Potassium Chloride 40 meq/ (Dextrose) 520 mls @ 130 mls/hr IV UD PRN PRN Reason: Potassium < 3 Insulin Human Lispro (Insulin Lispro 1 Unit/0.01 Ml Unit) 0 unit SQ ACHS [facility]; Protocol Last Admin: 12/22/20 11:41 Dose: Not Given Documented by: Levetiracetam (Levetiracetam 500 Mg Tablet) 250 mg PO BID [facility] Last Admin: 12/22/20 08:49 Dose: 250 mg Documented by: Meclizine HCl (Meclizine 25 Mg Tablet) 25 mg PO DAILY [facility] Last Admin: 12/22/20 08:49 Dose: 25 mg Documented by: Melatonin (Melatonin 3 Mg Tablet) 3 mg PO QHS [facility] Last Admin: 12/21/20 21:19 Dose: 3 mg Documented by: Metformin HCl (Metformin 500 Mg Tab.Xl.24h) 1,000 mg PO [facility] Last Admin: 12/22/20 08:48 Dose: 1,000 mg Documented by: Methadone HCl (Methadone 5 Mg Tablet) 10 mg PO BID [facility] Last Admin: 12/22/20 08:49 Dose: 10 mg Documented by: Metoclopramide HCl (Metoclopramide 10 Mg/2 Ml Vial) 10 mg IV Q6HP PRN PRN Reason: Nausea And Vomiting Metoprolol Succinate (Metoprolol Succinate 25 Mg Tab.Xl.24h) 12.5 mg PO DAILY [facility] Last Admin: 12/22/20 08:50 Dose: 12.5 mg Documented by: Empagliflozin 25 Mg (Tablet) 1 dose PO DAILY [facility] Last Admin: 12/22/20 07:16 Dose: Not Given Documented by: Polyethylene Glycol (Polyethylene Glycol 3350 17 Gm Packet) 17 gm PO DAILYP PRN PRN Reason: Constipation Last Admin: 12/20/20 11:05 Dose: 17 gm Documented by: Potassium Chloride (Potassium Chloride 20 Meq Tablet) 40 meq PO UD PRN PRN Reason: Potssium is 3-3.5 Potassium Chloride (Potassium Chloride 20 Meq Tablet) 40 meq PO UD PRN PRN Reason: Potassium < 3 Potassium Chloride (Potassium Chloride 10 Meq Tablet) 20 meq PO [facility] Last Admin: 12/22/20 08:50 Dose: 20 meq Documented by: Pregabalin (Pregabalin 25 Mg Capsule) 50 mg PO BID [facility] Last Admin: 12/22/20 08:51 Dose: 50 mg Documented by: Senna (Sennosides 1 Tablet) 2 tab PO DAILYP PRN PRN Reason: Constipation Last Admin: 12/20/20 11:04 Dose: 2 tab Documented by: Sertraline HCl (Sertraline 50 Mg Tablet) 125 mg PO DAILY [facility] Last Admin: 12/22/20 08:51 Dose: 125 mg Documented by: Tramadol HCl (Tramadol 50 Mg Tablet) 50 mg PO Q6HP PRN; Protocol PRN Reason: Pain Last Admin: 12/20/20 11:11 Dose: 50 mg Documented by: Trazodone HCl (Trazodone Hcl 50 Mg Tablet) 25 mg PO HS [facility] Last Admin: 12/21/20 21:13 Dose: 25 mg Documented by: A/P Narrative A/P Narrative: A: *Generalized weakness/deconditioning/inability to care for self: -essentially wheelchair bound for past year *PAFib/flutter w/RVR: controlled *Hypernatremia: resolved *Dehydration/Volume depletion: improved *UTI (E.coli ESBL): treated *DM: *HTN: *LENARD: *Chronic lymphedema/venous stasis skin changes: *Anxiety/depression: *Obesity: *h/o Sz: on keppra *Recent LLE cellulitis treated at [facility]: *Neuropathy: on gabapentin/lyrica/tramadol P: Continue nutrition support/daily therapies Pre-existing medical condition management as above -Decreased dose of Metoprolol 12.5 from from 50mg and Dced Lisinopril 5mg -Decrease Xanax 0.5 from TID to BID -decrease baclofen 10 mg from 3 times daily to twice daily, DC Phenergan -Dec Lyrica to 50mg bid from TID. -cont SSRI -Cont SSI & home Metformin and Jardiance -PT/OT -Home CPAP -CM for placement -ppx: apixaban full code Time Spent With Patient Time: Total time spent is greater than 50% in coordination of care (as documented) at patient's floor/unit and/or counseling patient: QUALITY VTE Deep Vein Thrombosis/Pulmonary Embolism Present on Admission: No
[2020-12-22] MEDS: traZODone HCL 50 MG TABLET PO SCH (20:25)
[2020-12-22] MEDS: MELATONIN 3 MG TABLET PO SCH (20:26)
[2020-12-22] MEDS: ATORVASTATIN 40 MG TABLET PO SCH (20:27)
[2020-12-22] MEDS: diphenhydrAMINE 25 MG CAPSULE PO SCH (20:27)
[2020-12-23] MEDS: traMADol 50 MG TABLET PO PRN ×2 (04:48→18:30)
[2020-12-23] MEDS: metFORMIN 500 MG TAB.XL.24H PO SCH (07:39)
[2020-12-23] MEDS: POTASSIUM CHLORIDE 10 MEQ TABLET PO SCH (07:39)
[2020-12-23] MEDS: INSULIN LISPRO 1 UNIT/0.01 ML UNIT SQ SCH ×4 (07:39→21:22)
[2020-12-23] MEDS: SERTRALINE 50 MG TABLET PO SCH (08:52)
[2020-12-23] MEDS: METHADONE 5 MG TABLET PO SCH ×2 (08:52→21:23)
[2020-12-23] MEDS: APIXABAN 5 MG TABLET PO SCH ×2 (08:53→21:24)
[2020-12-23] MEDS: PREGABALIN 25 MG CAPSULE PO SCH ×2 (08:53→21:23)
[2020-12-23] MEDS: levETIRAcetam 500 MG TABLET PO SCH ×2 (08:54→21:22)
[2020-12-23] MEDS: GABAPENTIN 100 MG CAPSULE PO SCH ×2 (08:55→21:25)
[2020-12-23] MEDS: BACLOFEN 10 MG TABLET PO SCH ×2 (08:55→21:24)
[2020-12-23] MEDS: FUROSEMIDE 20 MG TABLET PO SCH (08:55)
[2020-12-23] MEDS: METOPROLOL SUCCINATE 25 MG TAB.XL.24H PO SCH (08:55)
[2020-12-23] MEDS: MECLIZINE 25 MG TABLET PO SCH (08:55)
[2020-12-23] MEDS: EMPAGLIFLOZIN 25 MG TABLET PO SCH (08:57)
[2020-12-23] MEDS: traZODone HCL 50 MG TABLET PO SCH (21:22)
[2020-12-23] MEDS: diphenhydrAMINE 25 MG CAPSULE PO SCH (21:24)
[2020-12-23] MEDS: MELATONIN 3 MG TABLET PO SCH (21:24)
[2020-12-23] MEDS: ATORVASTATIN 40 MG TABLET PO SCH (21:25)
[2020-12-24] MEDS: INSULIN LISPRO 1 UNIT/0.01 ML UNIT SQ SCH ×4 (07:46→20:32)
--- NOTE | 2020-12-24 08:32 | Internal Med Progress Note ---
SUBJECTIVE Subjective Patient information: Note initiated : 12/24/20 at 8:31 am Service Date, if different from initiated Date: [] Patient: Alexa Rai a 80 y/o F admitted on 11/14/20 for Weakness. Chief Complaint: [] Principal diagnosis: ESBL E.Coli UTI Interval history: Principal diagnosis: ESBL E.Coli UTI Interval history: History of present illness: Ms. Rai is a 80 year old F patient was recently at [facility] for cellulitis to the leg discharged the beginning of October. She was at [facility] prior to that admission but [facility] refused her and patient was discharged to [facility]. Patient says she has been at [facility] since last February. She is essentially wheelchair-bound for the past couple years she states she can ambulate a little bit with a walker. She was in the motel with her son who is homeless who will be kicked out of the motel today and he was worried about his mother because she cannot get up she just sits in her own urine she cannot take care of her self. She is unable to care for herself and her son who is homeless has no place to care for her. Patient has some nausea but no other complaints. She does have history atrial fibrillation and in the ED she did go to heart rate of 115. Gfypn-zi-ghbo sodium was 146, chemistry showed volume depletion 11/15 Patient doing well. Feels better. Urine culture with gram-negative bacillus. Heart rate improved. Electrolytes improved. Vaginal nausea but no other complaints. 11/16 No new complaints. Pending final urine culture. Placement being worked out with case management.. 11/23 Interval history: Patient is not feeling too good today. She complained of back pain. She seems comfortable. No overnight issues 11/24 No overnight event or new complaints. pt refused oral contrast for further evaluation despite multiple attempts. She admits abdomen is uncomfortable but she is not willing to let us perform work- up to adequately evaluate and treat. 11/25 Patient had a medium sized bowel movement this morning. She seems amenable to a small bowel follow-through this morning, we will attempt to obtain. 11/26 No overnight event or complaints. Had a large bowel movement yesterday after contrast study. Abdomen soft no pain. 11/27 Complains of chronic lower back pain otherwise no new complaints. Awaiting placement. 11/28 no changes. No new complaints. Awaiting placement 11/29 Discussed discharge, the patient wants to go home. She says she has a place rented. Stable, no acute medical issues. 11/30 Awaiting placement, regular diet to encourage nutritional intake. 12/01 Discussed importance of activity, awaiting placement. 12/02 More activity with sitting at the edge of the bed, removed fecal management system. 12/03 Seems more tired today, AM glucose 70. Discontinued glipizide 2.5 mg daily, not receiving insulin, continued Metformin. Awaiting placement. 12/04 Sitting at the side of bed for breakfast, overall more active the last few days. 12/05 Sleeping. No change overnight. Awaiting placement. 12/06 No changes. Patient seems to feeling well today. No new complaints. 12/07 Has chronic back pain otherwise no new complaints overnight events. 12/08 patient says she slept well and feeling well. No new complaints. States she did get a bowel movement once a week. Last one was 3 days ago does not feel the need to go the bathroom. 12/09 Seems a feeling well again today. No new complaints. 12/10/20: No active issues. No major overnight events. Patient is feeling comfortable this morning. Principal diagnosis: ESBL E.Coli UTI 12/11/20: No active issues. No major overnight events. Patient is feeling comfortable this morning. 12/12/20: No active issues. No major overnight events. Patient is feeling comfortable this morning. Principal diagnosis: ESBL E.Coli UTI 12/13/20: No active issues. No major overnight events. Patient is feeling comfortable this morning. Principal diagnosis: ESBL E.Coli UTI 12/16-patient status quo. No overnight events. No concerns per staff. Continuing pre-existing medical issues management on home medications. Ongoing therapies. Discharge planning per case management 12/17-patient doing well. No overnight events. No concerns per staff. No fever chills nausea vomiting. Doing well. Ongoing therapies. Await placement 12/18 patient status quo. No overnight events. No concerns per staff. Awaiting placement.No active issues 12/19 continues without complaints. No events, no concerns. Continue to await placement. 12/20 stable. Patient fast asleep this morning when I go to see her. Nursing without any concerns. No events. Awaiting eventual placement. 12/21 remained stable. Awake and alert this afternoon during my visit. No new complaints. No nursing concerns. 12/22 no new changes. Sleeping this morning. No new nursing concerns. it service manager assigned by the [facility], evaluation to be this . 12/23 no overnight event or new complaints. Patient stable. 12/24 No change. Awaiting placement. Review of Systems: denies headache/fever/chills/nausea/vomiting/chest or abdominal pain/cough/dyspnea/diarrhea. Otherwise see above. Constitutional Vitals: Vital Signs Temp Pulse Resp BP Pulse Ox 98.4 F 69 12 121/59 97 12/24/20 08:00 12/24/20 08:00 12/24/20 08:00 12/24/20 08:00 12/24/20 08:00 Period Temp Pulse Resp BP Sys/Jansen Pulse Ox Last 24 Hr 98.4 F-98.4 F 69-80 12-12 107-121/59-60 97-99 Intake and Output 12/23/20 12/24/20 12/24/20 21:59 05:59 13:59 Intake Total 1160 Output Total 500 402 Balance 660 -402 Weight 113.988 kg Intake & Output: Intake & Output 12/23/20 12/24/20 12/24/20 21:59 05:59 13:59 Intake Total 1160 Output Total 500 402 Balance 660 -402 Weight 113.988 kg Intake: Oral 1160 Output: Void Amount 500 400 # of times incontinent of urine 2 Other: Meal [place] Percent of Meal Consumed 100% Feeding Ability Independent Urine Appearance Clear Urine Color Dark Yellow Stool Size Large Stool Color Brown Stool Consistency Normal for Patient # Voids 2 # Bowel Movements 1 Exam: General: Awake, No acute Distress, obese Eyes/N/T: Head/Neck: neck supple, CV: irreg, No murmurs, Pulm: Clear b/l, no wheezing/rhonchi/rales Abd: soft, nontender, positive bowel sounds Ext: no clubbing/cyanosis, mild b/l LE edema Neuro: Alert, no focal deficits, moves all extremities, Skin: warm/dry OBJ DATA Labs CBC & Chem 7: 12/03/20 12:21 12/03/20 12:21 Meds: Medications Acetaminophen (Acetaminophen 325 Mg Tablet) 650 mg PO Q6HP PRN PRN Reason: PAIN/FEVER > 101 Last Admin: 11/17/20 17:22 Dose: 650 mg Documented by: Albuterol/Ipratropium (Ipratropium/Albuterol 3 Ml Ampul.Neb) 3 ml NEB Q4HP PRN PRN Reason: Shortness Of Breath Alprazolam (Alprazolam 0.5 Mg Tablet) 0.5 mg PO Q12HP PRN PRN Reason: Anxiety Apixaban (Apixaban 5 Mg Tablet) 5 mg PO BID [facility] Last Admin: 12/23/20 21:24 Dose: 5 mg Documented by: Atorvastatin Calcium (Atorvastatin 40 Mg Tablet) 40 mg PO QHS [facility] Last Admin: 12/23/20 21:25 Dose: 40 mg Documented by: Baclofen (Baclofen 10 Mg Tablet) 10 mg PO BID [facility] Last Admin: 12/23/20 21:24 Dose: 10 mg Documented by: Bisacodyl (Bisacodyl 10 Mg Supp.Rect) 10 mg [place] Q2-3DAYS PRN PRN Reason: Constipation Last Admin: 11/25/20 05:38 Dose: 10 mg Documented by: Dextrose (Dextrose 50% 50 Ml Vial) 0 ml IV UD PRN PRN Reason: Hypoglycemia Last Admin: 11/25/20 22:53 Dose: 25 ml Documented by: Diagnostic Test (Pha) (Accu-Chek 1 Each Strip) 1 each FS ACHS [facility] Last Admin: 12/24/20 07:45 Dose: 1 each Documented by: Diphenhydramine HCl (Diphenhydramine 25 Mg Capsule) 25 mg PO [facility] Last Admin: 12/23/20 21:24 Dose: 25 mg Documented by: Diphenoxylate HCl/Atropine (Diphenoxylate Hcl/Atropine 1 Tablet) 1 tab PO QIDP PRN PRN Reason: Wheezing Furosemide (Furosemide 20 Mg Tablet) 20 mg PO DAILY [facility] Last Admin: 12/23/20 08:55 Dose: 20 mg Documented by: Gabapentin (Gabapentin 100 Mg Capsule) 100 mg PO BID [facility] Last Admin: 12/23/20 21:25 Dose: 100 mg Documented by: Glucose (Dextrose 31 Gm Oral.Susp) 15 gm PO PRN PRN PRN Reason: Hypoglycemia Magnesium Sulfate (Magnesium Sulfate) 2 gm in 50 mls @ 50 mls/hr IV UD PRN PRN Reason: Magnesium </= 1.6 Potassium Chloride 40 meq/ (Dextrose) 520 mls @ 130 mls/hr IV UD PRN PRN Reason: Potassium < 3 Insulin Human Lispro (Insulin Lispro 1 Unit/0.01 Ml Unit) 0 unit SQ ACHS [facility]; Protocol Last Admin: 12/24/20 07:46 Dose: Not Given Documented by: Levetiracetam (Levetiracetam 500 Mg Tablet) 250 mg PO BID [facility] Last Admin: 12/23/20 21:22 Dose: 250 mg Documented by: Meclizine HCl (Meclizine 25 Mg Tablet) 25 mg PO DAILY [facility] Last Admin: 12/23/20 08:55 Dose: 25 mg Documented by: Melatonin (Melatonin 3 Mg Tablet) 3 mg PO QHS [facility] Last Admin: 12/23/20 21:24 Dose: 3 mg Documented by: Metformin HCl (Metformin 500 Mg Tab.Xl.24h) 1,[address] [facility] Last Admin: 12/23/20 07:39 Dose: 1,000 mg Documented by: Methadone HCl (Methadone 5 Mg Tablet) 10 mg PO BID [facility] Last Admin: 12/23/20 21:23 Dose: 10 mg Documented by: Metoclopramide HCl (Metoclopramide 10 Mg/2 Ml Vial) 10 mg IV Q6HP PRN PRN Reason: Nausea And Vomiting Metoprolol Succinate (Metoprolol Succinate 25 Mg Tab.Xl.24h) 12.5 mg PO DAILY [facility] Last Admin: 12/23/20 08:55 Dose: 12.5 mg Documented by: Empagliflozin 25 Mg (Tablet) 1 dose PO DAILY [facility] Last Admin: 12/23/20 08:57 Dose: Not Given Documented by: Polyethylene Glycol (Polyethylene Glycol 3350 17 Gm Packet) 17 gm PO DAILYP PRN PRN Reason: Constipation Last Admin: 12/20/20 11:05 Dose: 17 gm Documented by: Potassium Chloride (Potassium Chloride 20 Meq Tablet) 40 meq PO UD PRN PRN Reason: Potssium is 3-3.5 Potassium Chloride (Potassium Chloride 20 Meq Tablet) 40 meq PO UD PRN PRN Reason: Potassium < 3 Potassium Chloride (Potassium Chloride 10 Meq Tablet) [facility] Last Admin: 12/23/20 07:39 Dose: 20 meq Documented by: Pregabalin (Pregabalin 25 Mg Capsule) 50 mg PO BID [facility] Last Admin: 12/23/20 21:23 Dose: 50 mg Documented by: Senna (Sennosides 1 Tablet) 2 tab PO DAILYP PRN PRN Reason: Constipation Last Admin: 12/20/20 11:04 Dose: 2 tab Documented by: Sertraline HCl (Sertraline 50 Mg Tablet) 125 mg PO DAILY [facility] Last Admin: 12/23/20 08:52 Dose: 125 mg Documented by: Tramadol HCl (Tramadol 50 Mg Tablet) 50 mg PO Q6HP PRN; Protocol PRN Reason: Pain Last Admin: 12/23/20 18:30 Dose: 50 mg Documented by: Trazodone HCl (Trazodone Hcl 50 Mg Tablet) 25 mg PO HS [facility] Last Admin: 12/23/20 21:22 Dose: 25 mg Documented by: A/P Narrative A/P Narrative: A: *Generalized weakness/deconditioning/inability to care for self: -essentially wheelchair bound for past year *PAFib/flutter w/RVR: controlled *Hypernatremia: resolved *Dehydration/Volume depletion: improved *UTI (E.coli ESBL): treated *DM: *HTN: *LENARD: *Chronic lymphedema/venous stasis skin changes: *Anxiety/depression: *Obesity: *h/o Sz: on keppra *Recent LLE cellulitis treated at [facility]: *Neuropathy: on gabapentin/lyrica/tramadol P: Continue nutrition support/daily therapies Pre-existing medical condition management as above -Decreased dose of Metoprolol 12.5 from from 50mg and Dced Lisinopril 5mg -Decrease Xanax 0.5 from TID to BID -decrease baclofen 10 mg from 3 times daily to twice daily, DC Phenergan -Dec Lyrica to 50mg bid from TID. -cont SSRI -Cont SSI & home Metformin and Jardiance -PT/OT -Home CPAP -CM for placement -ppx: apixaban full code Time Spent With Patient Time: Total time spent is greater than 50% in coordination of care (as documented) at patient's floor/unit and/or counseling patient: QUALITY VTE Deep Vein Thrombosis/Pulmonary Embolism Present on Admission: No
[2020-12-24] MEDS: PREGABALIN 25 MG CAPSULE PO SCH ×2 (08:48→20:32)
[2020-12-24] MEDS: SERTRALINE 50 MG TABLET PO SCH (08:49)
[2020-12-24] MEDS: METOPROLOL SUCCINATE 25 MG TAB.XL.24H PO SCH (08:50)
[2020-12-24] MEDS: BACLOFEN 10 MG TABLET PO SCH ×2 (08:50→20:33)
[2020-12-24] MEDS: metFORMIN 500 MG TAB.XL.24H PO SCH (08:50)
[2020-12-24] MEDS: MECLIZINE 25 MG TABLET PO SCH (08:50)
[2020-12-24] MEDS: levETIRAcetam 500 MG TABLET PO SCH ×2 (08:51→20:34)
[2020-12-24] MEDS: GABAPENTIN 100 MG CAPSULE PO SCH ×2 (08:53→20:32)
[2020-12-24] MEDS: FUROSEMIDE 20 MG TABLET PO SCH (08:53)
[2020-12-24] MEDS: APIXABAN 5 MG TABLET PO SCH ×2 (08:53→20:35)
[2020-12-24] MEDS: POTASSIUM CHLORIDE 10 MEQ TABLET PO SCH (08:53)
[2020-12-24] MEDS: METHADONE 5 MG TABLET PO SCH ×2 (08:54→20:34)
[2020-12-24] MEDS: EMPAGLIFLOZIN 25 MG TABLET PO SCH (08:55)
[2020-12-24] MEDS: traMADol 50 MG TABLET PO PRN (20:32)
[2020-12-24] MEDS: diphenhydrAMINE 25 MG CAPSULE PO SCH (20:32)
[2020-12-24] MEDS: MELATONIN 3 MG TABLET PO SCH (20:33)
[2020-12-24] MEDS: ATORVASTATIN 40 MG TABLET PO SCH (20:33)
[2020-12-24] MEDS: traZODone HCL 50 MG TABLET PO SCH (20:33)
--- NOTE | 2020-12-25 08:20 | Internal Med Progress Note ---
SUBJECTIVE Subjective Patient information: Note initiated : 12/25/20 at 8:19 am Service Date, if different from initiated Date: [] Patient: Alexa Rai a 80 y/o F admitted on 11/14/20 for Weakness. Chief Complaint: [] Principal diagnosis: ESBL E.Coli UTI Interval history: Principal diagnosis: ESBL E.Coli UTI Interval history: History of present illness: Ms. Rai is a 80 year old F patient was recently at [facility] for cellulitis to the leg discharged the beginning of October. She was at [facility] prior to that admission but [facility] refused her and patient was discharged to [facility]. Patient says she has been at [facility] since last February. She is essentially wheelchair-bound for the past couple years she states she can ambulate a little bit with a walker. She was in the motel with her son who is homeless who will be kicked out of the motel today and he was worried about his mother because she cannot get up she just sits in her own urine she cannot take care of her self. She is unable to care for herself and her son who is homeless has no place to care for her. Patient has some nausea but no other complaints. She does have history atrial fibrillation and in the ED she did go to heart rate of 115. [id number]-kv-[id number] sodium was 146, chemistry showed volume depletion 11/15 Patient doing well. Feels better. Urine culture with gram-negative bacillus. Heart rate improved. Electrolytes improved. Vaginal nausea but no other complaints. 11/16 No new complaints. Pending final urine culture. Placement being worked out with case management.. 11/23 Interval history: Patient is not feeling too good today. She complained of back pain. She seems comfortable. No overnight issues 11/24 No overnight event or new complaints. pt refused oral contrast for further evaluation despite multiple attempts. She admits abdomen is uncomfortable but she is not willing to let us perform work- up to adequately evaluate and treat. 11/25 Patient had a medium sized bowel movement this morning. She seems amenable to a small bowel follow-through this morning, we will attempt to obtain. 11/26 No overnight event or complaints. Had a large bowel movement yesterday after contrast study. Abdomen soft no pain. 11/27 Complains of chronic lower back pain otherwise no new complaints. Awaiting placement. 11/28 no changes. No new complaints. Awaiting placement 11/29 Discussed discharge, the patient wants to go home. She says she has a place rented. Stable, no acute medical issues. 11/30 Awaiting placement, regular diet to encourage nutritional intake. 12/01 Discussed importance of activity, awaiting placement. 12/02 More activity with sitting at the edge of the bed, removed fecal management system. 12/03 Seems more tired today, AM glucose 70. Discontinued glipizide 2.5 mg daily, not receiving insulin, continued Metformin. Awaiting placement. 12/04 Sitting at the side of bed for breakfast, overall more active the last few days. 12/05 Sleeping. No change overnight. Awaiting placement. 12/06 No changes. Patient seems to feeling well today. No new complaints. 12/07 Has chronic back pain otherwise no new complaints overnight events. 12/08 patient says she slept well and feeling well. No new complaints. States she did get a bowel movement once a week. Last one was 3 days ago does not feel the need to go the bathroom. 12/09 Seems a feeling well again today. No new complaints. 12/10/20: No active issues. No major overnight events. Patient is feeling comfortable this morning. Principal diagnosis: ESBL E.Coli UTI 12/11/20: No active issues. No major overnight events. Patient is feeling comfortable this morning. 12/12/20: No active issues. No major overnight events. Patient is feeling comfortable this morning. Principal diagnosis: ESBL E.Coli UTI 12/13/20: No active issues. No major overnight events. Patient is feeling comfortable this morning. Principal diagnosis: ESBL E.Coli UTI 12/16-patient status quo. No overnight events. No concerns per staff. Continuing pre-existing medical issues management on home medications. Ongoing therapies. Discharge planning per case management 12/17-patient doing well. No overnight events. No concerns per staff. No fever chills nausea vomiting. Doing well. Ongoing therapies. Await placement 12/18 patient status quo. No overnight events. No concerns per staff. Awaiting placement.No active issues 12/19 continues without complaints. No events, no concerns. Continue to await placement. 12/20 stable. Patient fast asleep this morning when I go to see her. Nursing without any concerns. No events. Awaiting eventual placement. 12/21 remained stable. Awake and alert this afternoon during my visit. No new complaints. No nursing concerns. 12/22 no new changes. Sleeping this morning. No new nursing concerns. 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 12/23 no overnight event or new complaints. Patient stable. 12/24 No change. Awaiting placement. 12/25 Complains of chronic back pain otherwise no new complaints overnight events. Awaiting placement. Review of Systems: denies headache/fever/chills/nausea/vomiting/chest or abdominal pain/cough/dyspnea/diarrhea. Otherwise see above. Constitutional Vitals: Vital Signs Temp Pulse Resp BP Pulse Ox 98.4 F 62 16 121/62 96 12/25/20 06:59 12/25/20 06:59 12/25/20 06:59 12/25/20 06:59 12/25/20 06:59 Period Temp Pulse Resp BP Sys/Jansen Pulse Ox Last 24 Hr 98.4 F-98.6 F 62-66 16-18 118-121/60-62 96-97 Intake and Output 12/24/20 12/25/20 12/25/20 21:59 05:59 13:59 Intake Total 1020 100 Output Total 2 601 Balance 1018 -501 Weight 114.39 kg Intake & Output: Intake & Output 12/24/20 12/25/20 12/25/20 21:59 05:59 13:59 Intake Total 1020 100 Output Total 2 601 Balance 1018 -501 Weight 114.39 kg Intake: Oral 1020 100 Output: Void Amount 600 # of times incontinent of urine 2 1 Other: Meal Dinner Percent of Meal Consumed 100% Urine Appearance Clear Urine Color Bright Yellow Exam: General: Awake, No acute Distress, obese Eyes/N/T: Head/Neck: neck supple, CV: irreg, No murmurs, Pulm: Clear b/l, no wheezing/rhonchi/rales Abd: soft, nontender, positive bowel sounds Ext: no clubbing/cyanosis, mild b/l LE edema Neuro: Alert, no focal deficits, moves all extremities, Skin: warm/dry OBJ DATA Labs CBC & Chem 7: 12/03/20 12:21 12/03/20 12:21 Meds: Medications Acetaminophen (Acetaminophen 325 Mg Tablet) 650 mg PO Q6HP PRN PRN Reason: PAIN/FEVER > 101 Last Admin: 11/17/20 17:22 Dose: 650 mg Documented by: Albuterol/Ipratropium (Ipratropium/Albuterol 3 Ml Ampul.Neb) 3 ml NEB Q4HP PRN PRN Reason: Shortness Of Breath Alprazolam (Alprazolam 0.5 Mg Tablet) 0.5 mg PO Q12HP PRN PRN Reason: Anxiety Apixaban (Apixaban 5 Mg Tablet) 5 mg PO BID [facility] Last Admin: 12/24/20 20:35 Dose: 5 mg Documented by: Atorvastatin Calcium (Atorvastatin 40 Mg Tablet) 40 mg PO QHS [facility] Last Admin: 12/24/20 20:33 Dose: 40 mg Documented by: Baclofen (Baclofen 10 Mg Tablet) 10 mg PO BID [facility] Last Admin: 12/24/20 20:33 Dose: 10 mg Documented by: Bisacodyl (Bisacodyl 10 Mg Supp.Rect) 10 mg DE Q2-3DAYS PRN PRN Reason: Constipation Last Admin: 11/25/20 05:38 Dose: 10 mg Documented by: Dextrose (Dextrose 50% 50 Ml Vial) 0 ml IV UD PRN PRN Reason: Hypoglycemia Last Admin: 11/25/20 22:53 Dose: 25 ml Documented by: Diagnostic Test (Pha) (Accu-Chek 1 Each Strip) 1 each FS ACHS [facility] Last Admin: 12/24/20 20:31 Dose: 1 each Documented by: Diphenhydramine HCl (Diphenhydramine 25 Mg Capsule) 25 mg PO [facility] Last Admin: 12/24/20 20:32 Dose: 25 mg Documented by: Diphenoxylate HCl/Atropine (Diphenoxylate Hcl/Atropine 1 Tablet) 1 tab PO QIDP PRN PRN Reason: Wheezing Furosemide (Furosemide 20 Mg Tablet) 20 mg PO DAILY [facility] Last Admin: 12/24/20 08:53 Dose: 20 mg Documented by: Gabapentin (Gabapentin 100 Mg Capsule) 100 mg PO BID [facility] Last Admin: 12/24/20 20:32 Dose: 100 mg Documented by: Glucose (Dextrose 31 Gm Oral.Susp) 15 gm PO PRN PRN PRN Reason: Hypoglycemia Magnesium Sulfate (Magnesium Sulfate) 2 gm in 50 mls @ 50 mls/hr IV UD PRN PRN Reason: Magnesium </= 1.6 Potassium Chloride 40 meq/ (Dextrose) 520 mls @ 130 mls/hr IV UD PRN PRN Reason: Potassium < 3 Insulin Human Lispro (Insulin Lispro 1 Unit/0.01 Ml Unit) 0 unit SQ ACHS [facility]; Protocol Last Admin: 12/24/20 20:32 Dose: Not Given Documented by: Levetiracetam (Levetiracetam 500 Mg Tablet) 250 mg PO BID [facility] Last Admin: 12/24/20 20:34 Dose: 250 mg Documented by: Meclizine HCl (Meclizine 25 Mg Tablet) 25 mg PO DAILY [facility] Last Admin: 12/24/20 08:50 Dose: 25 mg Documented by: Melatonin (Melatonin 3 Mg Tablet) 3 mg PO QHS [facility] Last Admin: 12/24/20 20:33 Dose: 3 mg Documented by: Metformin HCl (Metformin 500 Mg Tab.Xl.24h) 1,[address] [facility] Last Admin: 12/24/20 08:50 Dose: 1,000 mg Documented by: Methadone HCl (Methadone 5 Mg Tablet) 10 mg PO BID [facility] Last Admin: 12/24/20 20:34 Dose: 10 mg Documented by: Metoclopramide HCl (Metoclopramide 10 Mg/2 Ml Vial) 10 mg IV Q6HP PRN PRN Reason: Nausea And Vomiting Metoprolol Succinate (Metoprolol Succinate 25 Mg Tab.Xl.24h) 12.5 mg PO DAILY [facility] Last Admin: 12/24/20 08:50 Dose: 12.5 mg Documented by: Empagliflozin 25 Mg (Tablet) 1 dose PO DAILY [facility] Last Admin: 12/24/20 08:55 Dose: Not Given Documented by: Polyethylene Glycol (Polyethylene Glycol 3350 17 Gm Packet) 17 gm PO DAILYP PRN PRN Reason: Constipation Last Admin: 12/20/20 11:05 Dose: 17 gm Documented by: Potassium Chloride (Potassium Chloride 20 Meq Tablet) 40 meq PO UD PRN PRN Reason: Potssium is 3-3.5 Potassium Chloride (Potassium Chloride 20 Meq Tablet) 40 meq PO UD PRN PRN Reason: Potassium < 3 Potassium Chloride (Potassium Chloride 10 Meq Tablet) [facility] Last Admin: 12/24/20 08:53 Dose: 20 meq Documented by: Pregabalin (Pregabalin 25 Mg Capsule) 50 mg PO BID [facility] Last Admin: 12/24/20 20:32 Dose: 50 mg Documented by: Senna (Sennosides 1 Tablet) 2 tab PO DAILYP PRN PRN Reason: Constipation Last Admin: 12/20/20 11:04 Dose: 2 tab Documented by: Sertraline HCl (Sertraline 50 Mg Tablet) 125 mg PO DAILY [facility] Last Admin: 12/24/20 08:49 Dose: 125 mg Documented by: Tramadol HCl (Tramadol 50 Mg Tablet) 50 mg PO Q6HP PRN; Protocol PRN Reason: Pain Last Admin: 12/24/20 20:32 Dose: 50 mg Documented by: Trazodone HCl (Trazodone Hcl 50 Mg Tablet) 25 mg PO HS [facility] Last Admin: 12/24/20 20:33 Dose: 25 mg Documented by: A/P Narrative A/P Narrative: A: *Generalized weakness/deconditioning/inability to care for self: -essentially wheelchair bound for past year *PAFib/flutter w/RVR: controlled *Hypernatremia: resolved *Dehydration/Volume depletion: improved *UTI (E.coli ESBL): treated *DM: *HTN: *LENARD: *Chronic lymphedema/venous stasis skin changes: *Anxiety/depression: *Obesity: *h/o Sz: on keppra *Recent LLE cellulitis treated at [facility]: *Neuropathy: on gabapentin/lyrica/tramadol P: Continue nutrition support/daily therapies Pre-existing medical condition management as above -Decreased dose of Metoprolol 12.5 from from 50mg and Dced Lisinopril 5mg -Decrease Xanax 0.5 from TID to BID -decrease baclofen 10 mg from 3 times daily to twice daily, DC Phenergan -Dec Lyrica to 50mg bid from TID. -cont SSRI -Cont SSI & home Metformin and Jardiance -PT/OT -Home CPAP -CM for placement -ppx: apixaban full code Time Spent With Patient Time: Total time spent is greater than 50% in coordination of care (as documented) at patient's floor/unit and/or counseling patient: QUALITY VTE Deep Vein Thrombosis/Pulmonary Embolism Present on Admission: No
[2020-12-25] MEDS: EMPAGLIFLOZIN 25 MG TABLET PO SCH (11:57)
[2020-12-25] MEDS: INSULIN LISPRO 1 UNIT/0.01 ML UNIT SQ SCH ×4 (12:03→21:56)
[2020-12-25] MEDS: levETIRAcetam 500 MG TABLET PO SCH ×2 (12:04→21:41)
[2020-12-25] MEDS: MECLIZINE 25 MG TABLET PO SCH (12:04)
[2020-12-25] MEDS: APIXABAN 5 MG TABLET PO SCH ×2 (12:05→21:40)
[2020-12-25] MEDS: METOPROLOL SUCCINATE 25 MG TAB.XL.24H PO SCH (12:05)
[2020-12-25] MEDS: PREGABALIN 25 MG CAPSULE PO SCH ×2 (12:12→21:41)
[2020-12-25] MEDS: POTASSIUM CHLORIDE 10 MEQ TABLET PO SCH (12:13)
[2020-12-25] MEDS: GABAPENTIN 100 MG CAPSULE PO SCH ×2 (12:13→21:40)
[2020-12-25] MEDS: FUROSEMIDE 20 MG TABLET PO SCH (12:13)
[2020-12-25] MEDS: BACLOFEN 10 MG TABLET PO SCH ×2 (12:14→21:41)
[2020-12-25] MEDS: SERTRALINE 50 MG TABLET PO SCH (12:14)
[2020-12-25] MEDS: metFORMIN 500 MG TAB.XL.24H PO SCH (12:15)
[2020-12-25] MEDS: METHADONE 5 MG TABLET PO SCH ×2 (12:15→21:40)
[2020-12-25] MEDS: traMADol 50 MG TABLET PO PRN (19:20)
[2020-12-25] MEDS: traZODone HCL 50 MG TABLET PO SCH (21:40)
[2020-12-25] MEDS: MELATONIN 3 MG TABLET PO SCH (21:40)
[2020-12-25] MEDS: ATORVASTATIN 40 MG TABLET PO SCH (21:40)
[2020-12-25] MEDS: diphenhydrAMINE 25 MG CAPSULE PO SCH (21:40)
[2020-12-26] MEDS: INSULIN LISPRO 1 UNIT/0.01 ML UNIT SQ SCH ×4 (07:30→21:57)
--- NOTE | 2020-12-26 07:59 | Internal Med Progress Note ---
SUBJECTIVE Subjective Patient information: Note initiated : 12/26/20 at 7:59 am Service Date, if different from initiated Date: [] Patient: Alexa Rai a 80 y/o F admitted on 11/14/20 for Weakness. Chief Complaint: [] Principal diagnosis: ESBL E.Coli UTI Interval history: Principal diagnosis: ESBL E.Coli UTI Interval history: History of present illness: Ms. Rai is a 80 year old F patient was recently at [facility] for cellulitis to the leg discharged the beginning of October. She was at [facility] prior to that admission but [facility] refused her and patient was discharged to [facility]. Patient says she has been at [facility] since last February. She is essentially wheelchair-bound for the past couple years she states she can ambulate a little bit with a walker. She was in the motel with her son who is homeless who will be kicked out of the motel today and he was worried about his mother because she cannot get up she just sits in her own urine she cannot take care of her self. She is unable to care for herself and her son who is homeless has no place to care for her. Patient has some nausea but no other complaints. She does have history atrial fibrillation and in the ED she did go to heart rate of 115. Vlxjr-ak-hack sodium was 146, chemistry showed volume depletion 11/15 Patient doing well. Feels better. Urine culture with gram-negative bacillus. Heart rate improved. Electrolytes improved. Vaginal nausea but no other complaints. 11/16 No new complaints. Pending final urine culture. Placement being worked out with case management.. 11/23 Interval history: Patient is not feeling too good today. She complained of back pain. She seems comfortable. No overnight issues 11/24 No overnight event or new complaints. pt refused oral contrast for further evaluation despite multiple attempts. She admits abdomen is uncomfortable but she is not willing to let us perform work- up to adequately evaluate and treat. 11/25 Patient had a medium sized bowel movement this morning. She seems amenable to a small bowel follow-through this morning, we will attempt to obtain. 11/26 No overnight event or complaints. Had a large bowel movement yesterday after contrast study. Abdomen soft no pain. 11/27 Complains of chronic lower back pain otherwise no new complaints. Awaiting placement. 11/28 no changes. No new complaints. Awaiting placement 11/29 Discussed discharge, the patient wants to go home. She says she has a place rented. Stable, no acute medical issues. 11/30 Awaiting placement, regular diet to encourage nutritional intake. 12/01 Discussed importance of activity, awaiting placement. 12/02 More activity with sitting at the edge of the bed, removed fecal management system. 12/03 Seems more tired today, AM glucose 70. Discontinued glipizide 2.5 mg daily, not receiving insulin, continued Metformin. Awaiting placement. 12/04 Sitting at the side of bed for breakfast, overall more active the last few days. 12/05 Sleeping. No change overnight. Awaiting placement. 12/06 No changes. Patient seems to feeling well today. No new complaints. 12/07 Has chronic back pain otherwise no new complaints overnight events. 12/08 patient says she slept well and feeling well. No new complaints. States she did get a bowel movement once a week. Last one was 3 days ago does not feel the need to go the bathroom. 12/09 Seems a feeling well again today. No new complaints. 12/10/20: No active issues. No major overnight events. Patient is feeling comfortable this morning. Principal diagnosis: ESBL E.Coli UTI 12/11/20: No active issues. No major overnight events. Patient is feeling comfortable this morning. 12/12/20: No active issues. No major overnight events. Patient is feeling comfortable this morning. Principal diagnosis: ESBL E.Coli UTI 12/13/20: No active issues. No major overnight events. Patient is feeling comfortable this morning. Principal diagnosis: ESBL E.Coli UTI 12/16-patient status quo. No overnight events. No concerns per staff. Continuing pre-existing medical issues management on home medications. Ongoing therapies. Discharge planning per case management 12/17-patient doing well. No overnight events. No concerns per staff. No fever chills nausea vomiting. Doing well. Ongoing therapies. Await placement 12/18 patient status quo. No overnight events. No concerns per staff. Awaiting placement.No active issues 12/19 continues without complaints. No events, no concerns. Continue to await placement. 12/20 stable. Patient fast asleep this morning when I go to see her. Nursing without any concerns. No events. Awaiting eventual placement. 12/21 remained stable. Awake and alert this afternoon during my visit. No new complaints. No nursing concerns. 12/22 no new changes. Sleeping this morning. No new nursing concerns. 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 12/23 no overnight event or new complaints. Patient stable. 12/24 No change. Awaiting placement. 12/25 Complains of chronic back pain otherwise no new complaints overnight events. Awaiting placement. 12/26 Patient has no new complaints. Awaiting placement. Review of Systems: denies headache/fever/chills/nausea/vomiting/chest or abdominal pain/cough/dys pnea/diarrhea. Otherwise see above. Constitutional Vitals: Vital Signs Temp Pulse Resp BP Pulse Ox 98.2 F 84 18 114/65 94 12/26/20 00:00 12/26/20 00:00 12/26/20 00:00 12/26/20 00:00 12/26/20 00:00 Period Temp Pulse Resp BP Sys/Jansen Pulse Ox Last 24 Hr 98.0 F-98.2 F 84-85 18-20 109-114/65-66 94-96 Intake and Output 12/25/20 12/26/20 12/26/20 21:59 05:59 13:59 Intake Total 800 1600 Output Total 401 600 Balance 399 1000 Weight 114.305 kg Intake & Output: Intake & Output 12/25/20 12/26/20 12/26/20 21:59 05:59 13:59 Intake Total 800 1600 Output Total 401 600 Balance 399 1000 Weight 114.305 kg Intake: Oral 800 1600 Output: Void Amount 400 600 # of times incontinent of urine 1 Other: Urine Appearance Clear Clear Urine Color Bright Yellow Bright Yellow Urine Odor Normal Normal Exam: General: Awake, No acute Distress, obese Eyes/N/T: Head/Neck: neck supple, CV: irreg, No murmurs, Pulm: mild rales left side, no wheezing/rhonchi Abd: soft, nontender, positive bowel sounds Ext: no clubbing/cyanosis, 1+ b/l LE edema Neuro: Alert, no focal deficits, moves all extremities, Skin: warm/dry OBJ DATA Labs CBC & Chem 7: 12/03/20 12:21 12/03/20 12:21 Meds: Medications Acetaminophen (Acetaminophen 325 Mg Tablet) 650 mg PO Q6HP PRN PRN Reason: PAIN/FEVER > 101 Last Admin: 11/17/20 17:22 Dose: 650 mg Documented by: Albuterol/Ipratropium (Ipratropium/Albuterol 3 Ml Ampul.Neb) 3 ml NEB Q4HP PRN PRN Reason: Shortness Of Breath Alprazolam (Alprazolam 0.5 Mg Tablet) 0.5 mg PO Q12HP PRN PRN Reason: Anxiety Apixaban (Apixaban 5 Mg Tablet) 5 mg PO BID [facility] Last Admin: 12/25/20 21:40 Dose: 5 mg Documented by: Atorvastatin Calcium (Atorvastatin 40 Mg Tablet) 40 mg PO QHS [facility] Last Admin: 12/25/20 21:40 Dose: 40 mg Documented by: Baclofen (Baclofen 10 Mg Tablet) 10 mg PO BID [facility] Last Admin: 12/25/20 21:41 Dose: 10 mg Documented by: Bisacodyl (Bisacodyl 10 Mg Supp.Rect) 10 mg [place] Q2-3DAYS PRN PRN Reason: Constipation Last Admin: 11/25/20 05:38 Dose: 10 mg Documented by: Dextrose (Dextrose 50% 50 Ml Vial) 0 ml IV UD PRN PRN Reason: Hypoglycemia Last Admin: 11/25/20 22:53 Dose: 25 ml Documented by: Diagnostic Test (Pha) (Accu-Chek 1 Each Strip) 1 each FS ACHS [facility] Last Admin: 12/25/20 21:41 Dose: 1 each Documented by: Diphenhydramine HCl (Diphenhydramine 25 Mg Capsule) 25 mg PO HS [facility] Last Admin: 12/25/20 21:40 Dose: 25 mg Documented by: Diphenoxylate HCl/Atropine (Diphenoxylate Hcl/Atropine 1 Tablet) 1 tab PO QIDP PRN PRN Reason: Wheezing Furosemide (Furosemide 20 Mg Tablet) 20 mg PO DAILY [facility] Last Admin: 12/25/20 12:13 Dose: 20 mg Documented by: Gabapentin (Gabapentin 100 Mg Capsule) 100 mg PO BID [facility] Last Admin: 12/25/20 21:40 Dose: 100 mg Documented by: Glucose (Dextrose 31 Gm Oral.Susp) 15 gm PO PRN PRN PRN Reason: Hypoglycemia Magnesium Sulfate (Magnesium Sulfate) 2 gm in 50 mls @ 50 mls/hr IV UD PRN PRN Reason: Magnesium </= 1.6 Potassium Chloride 40 meq/ (Dextrose) 520 mls @ 130 mls/hr IV UD PRN PRN Reason: Potassium < 3 Insulin Human Lispro (Insulin Lispro 1 Unit/0.01 Ml Unit) 0 unit SQ ACHS [facility]; Protocol Last Admin: 12/25/20 21:56 Dose: Not Given Documented by: Levetiracetam (Levetiracetam 500 Mg Tablet) 250 mg PO BID [facility] Last Admin: 12/25/20 21:41 Dose: 250 mg Documented by: Meclizine HCl (Meclizine 25 Mg Tablet) 25 mg PO DAILY [facility] Last Admin: 12/25/20 12:04 Dose: 25 mg Documented by: Melatonin (Melatonin 3 Mg Tablet) 3 mg PO QHS [facility] Last Admin: 12/25/20 21:40 Dose: 3 mg Documented by: Metformin HCl (Metformin 500 Mg Tab.Xl.24h) 1,000 mg PO [facility] Last Admin: 12/25/20 12:15 Dose: 1,000 mg Documented by: Methadone HCl (Methadone 5 Mg Tablet) 10 mg PO BID [facility] Last Admin: 12/25/20 21:40 Dose: 10 mg Documented by: Metoclopramide HCl (Metoclopramide 10 Mg/2 Ml Vial) 10 mg IV Q6HP PRN PRN Reason: Nausea And Vomiting Metoprolol Succinate (Metoprolol Succinate 25 Mg Tab.Xl.24h) 12.5 mg PO DAILY [facility] Last Admin: 12/25/20 12:05 Dose: 12.5 mg Documented by: Empagliflozin 25 Mg (Tablet) 1 dose PO DAILY [facility] Last Admin: 12/25/20 11:57 Dose: Not Given Documented by: Polyethylene Glycol (Polyethylene Glycol 3350 17 Gm Packet) 17 gm PO DAILYP PRN PRN Reason: Constipation Last Admin: 12/20/20 11:05 Dose: 17 gm Documented by: Potassium Chloride (Potassium Chloride 20 Meq Tablet) 40 meq PO UD PRN PRN Reason: Potssium is 3-3.5 Potassium Chloride (Potassium Chloride 20 Meq Tablet) 40 meq PO UD PRN PRN Reason: Potassium < 3 Potassium Chloride (Potassium Chloride 10 Meq Tablet) [facility] Last Admin: 12/25/20 12:13 Dose: 20 meq Documented by: Pregabalin (Pregabalin 25 Mg Capsule) 50 mg PO BID [facility] Last Admin: 12/25/20 21:41 Dose: 50 mg Documented by: Senna (Sennosides 1 Tablet) 2 tab PO DAILYP PRN PRN Reason: Constipation Last Admin: 12/20/20 11:04 Dose: 2 tab Documented by: Sertraline HCl (Sertraline 50 Mg Tablet) 125 mg PO DAILY [facility] Last Admin: 12/25/20 12:14 Dose: 125 mg Documented by: Tramadol HCl (Tramadol 50 Mg Tablet) 50 mg PO Q6HP PRN; Protocol PRN Reason: Pain Last Admin: 12/25/20 19:20 Dose: 50 mg Documented by: Trazodone HCl (Trazodone Hcl 50 Mg Tablet) 25 mg PO HS [facility] Last Admin: 12/25/20 21:40 Dose: 25 mg Documented by: A/P Narrative A/P Narrative: A: *Generalized weakness/deconditioning/inability to care for self: -essentially wheelchair bound for past year *PAFib/flutter w/RVR: controlled *Hypernatremia: resolved *Dehydration/Volume depletion: improved *UTI (E.coli ESBL): treated *DM: *HTN: *LENARD: *Chronic lymphedema/venous stasis skin changes: *Anxiety/depression: *Obesity: *h/o Sz: on keppra *Recent LLE cellulitis treated at [facility]: *Neuropathy: on gabapentin/lyrica/tramadol P: Continue nutrition support/daily therapies Pre-existing medical condition management as above -Decreased dose of Metoprolol 12.5 from from 50mg and Dced Lisinopril 5mg -Decrease Xanax 0.5 from TID to BID -decrease baclofen 10 mg from 3 times daily to twice daily, DC Phenergan -Dec Lyrica to 50mg bid from TID. -cont SSRI -Cont SSI & home Metformin and Jardiance -PT/OT -Home CPAP -CM for placement -ppx: apixaban full code Time Spent With Patient Time: Total time spent is greater than 50% in coordination of care (as documented) at patient's floor/unit and/or counseling patient: QUALITY VTE Deep Vein Thrombosis/Pulmonary Embolism Present on Admission: No
[2020-12-26] MEDS ORDERED: FUROSEMIDE 20 MG/2 ML VIAL IV ONE (08:46)
[2020-12-26] MEDS: metFORMIN 500 MG TAB.XL.24H PO SCH (09:59)
[2020-12-26] MEDS: SERTRALINE 50 MG TABLET PO SCH (09:59)
[2020-12-26] MEDS: MECLIZINE 25 MG TABLET PO SCH (09:59)
[2020-12-26] MEDS: BACLOFEN 10 MG TABLET PO SCH ×2 (09:59→21:56)
[2020-12-26] MEDS: METHADONE 5 MG TABLET PO SCH ×2 (10:00→21:57)
[2020-12-26] MEDS: levETIRAcetam 500 MG TABLET PO SCH ×2 (10:01→21:56)
[2020-12-26] MEDS: POTASSIUM CHLORIDE 10 MEQ TABLET PO SCH (10:01)
[2020-12-26] MEDS: METOPROLOL SUCCINATE 25 MG TAB.XL.24H PO SCH (10:01)
[2020-12-26] MEDS: PREGABALIN 25 MG CAPSULE PO SCH ×2 (10:01→21:56)
[2020-12-26] MEDS: APIXABAN 5 MG TABLET PO SCH ×2 (10:01→21:56)
[2020-12-26] MEDS: FUROSEMIDE 20 MG TABLET PO SCH (10:01)
[2020-12-26] MEDS: GABAPENTIN 100 MG CAPSULE PO SCH ×2 (10:02→21:57)
[2020-12-26] MEDS: EMPAGLIFLOZIN 25 MG TABLET PO SCH (10:06)
[2020-12-26] MEDS: traMADol 50 MG TABLET PO PRN (10:10)
[2020-12-26] MEDS ORDERED: FUROSEMIDE 40 MG TABLET PO STA (10:46)
[2020-12-26] MEDS: diphenhydrAMINE 25 MG CAPSULE PO SCH (21:56)
[2020-12-26] MEDS: ATORVASTATIN 40 MG TABLET PO SCH (21:56)
[2020-12-26] MEDS: traZODone HCL 50 MG TABLET PO SCH (21:56)
[2020-12-26] MEDS: MELATONIN 3 MG TABLET PO SCH (21:57)
[2020-12-27] MEDS: traMADol 50 MG TABLET PO PRN ×2 (07:35→14:56)
[2020-12-27] MEDS: metFORMIN 500 MG TAB.XL.24H PO SCH (07:35)
[2020-12-27] MEDS: INSULIN LISPRO 1 UNIT/0.01 ML UNIT SQ SCH ×4 (08:42→20:35)
[2020-12-27] MEDS: BACLOFEN 10 MG TABLET PO SCH ×2 (08:43→20:28)
[2020-12-27] MEDS: MECLIZINE 25 MG TABLET PO SCH (08:43)
[2020-12-27] MEDS: POTASSIUM CHLORIDE 10 MEQ TABLET PO SCH (08:43)
[2020-12-27] MEDS: SERTRALINE 50 MG TABLET PO SCH (08:43)
[2020-12-27] MEDS: levETIRAcetam 500 MG TABLET PO SCH ×2 (08:44→20:28)
[2020-12-27] MEDS: METHADONE 5 MG TABLET PO SCH ×2 (08:44→20:28)
[2020-12-27] MEDS: PREGABALIN 25 MG CAPSULE PO SCH ×2 (08:45→20:28)
[2020-12-27] MEDS: APIXABAN 5 MG TABLET PO SCH ×2 (08:45→20:28)
[2020-12-27] MEDS: GABAPENTIN 100 MG CAPSULE PO SCH ×2 (08:46→20:28)
[2020-12-27] MEDS: METOPROLOL SUCCINATE 25 MG TAB.XL.24H PO SCH (08:46)
[2020-12-27] MEDS: FUROSEMIDE 20 MG TABLET PO SCH (08:46)
[2020-12-27] MEDS: EMPAGLIFLOZIN 25 MG TABLET PO SCH (09:04)
[2020-12-27] MEDS ORDERED: FUROSEMIDE 20 MG TABLET PO ONE (09:20)
--- NOTE | 2020-12-27 09:20 | Internal Med Progress Note ---
SUBJECTIVE Subjective Patient information: Note initiated : 12/27/20 at 9:18 am Service Date, if different from initiated Date: [] Patient: Alexa Rai a 80 y/o F admitted on 11/14/20 for Weakness. Chief Complaint: [] Principal diagnosis: ESBL E.Coli UTI Interval history: Principal diagnosis: ESBL E.Coli UTI Interval history: History of present illness: Ms. Rai is a 80 year old F patient was recently at [facility] for cellulitis to the leg discharged the beginning of October. She was at [facility] prior to that admission but [facility] refused her and patient was discharged to [facility]. Patient says she has been at [facility] since last February. She is essentially wheelchair-bound for the past couple years she states she can ambulate a little bit with a walker. She was in the motel with her son who is homeless who will be kicked out of the motel today and he was worried about his mother because she cannot get up she just sits in her own urine she cannot take care of her self. She is unable to care for herself and her son who is homeless has no place to care for her. Patient has some nausea but no other complaints. She does have history atrial fibrillation and in the ED she did go to heart rate of 115. Mpkox-dn-hklc sodium was 146, chemistry showed volume depletion 11/15 Patient doing well. Feels better. Urine culture with gram-negative bacillus. Heart rate improved. Electrolytes improved. Vaginal nausea but no other complaints. 11/16 No new complaints. Pending final urine culture. Placement being worked out with case management.. 11/23 Interval history: Patient is not feeling too good today. She complained of back pain. She seems comfortable. No overnight issues 11/24 No overnight event or new complaints. pt refused oral contrast for further evaluation despite multiple attempts. She admits abdomen is uncomfortable but she is not willing to let us perform work- up to adequately evaluate and treat. 11/25 Patient had a medium sized bowel movement this morning. She seems amenable to a small bowel follow-through this morning, we will attempt to obtain. 11/26 No overnight event or complaints. Had a large bowel movement yesterday after contrast study. Abdomen soft no pain. 11/27 Complains of chronic lower back pain otherwise no new complaints. Awaiting placement. 11/28 no changes. No new complaints. Awaiting placement 11/29 Discussed discharge, the patient wants to go home. She says she has a place rented. Stable, no acute medical issues. 11/30 Awaiting placement, regular diet to encourage nutritional intake. 12/01 Discussed importance of activity, awaiting placement. 12/02 More activity with sitting at the edge of the bed, removed fecal management system. 12/03 Seems more tired today, AM glucose 70. Discontinued glipizide 2.5 mg daily, not receiving insulin, continued Metformin. Awaiting placement. 12/04 Sitting at the side of bed for breakfast, overall more active the last few days. 12/05 Sleeping. No change overnight. Awaiting placement. 12/06 No changes. Patient seems to feeling well today. No new complaints. 12/07 Has chronic back pain otherwise no new complaints overnight events. 12/08 patient says she slept well and feeling well. No new complaints. States she did get a bowel movement once a week. Last one was 3 days ago does not feel the need to go the bathroom. 12/09 Seems a feeling well again today. No new complaints. 12/10/20: No active issues. No major overnight events. Patient is feeling comfortable this morning. Principal diagnosis: ESBL E.Coli UTI 12/11/20: No active issues. No major overnight events. Patient is feeling comfortable this morning. 12/12/20: No active issues. No major overnight events. Patient is feeling comfortable this morning. Principal diagnosis: ESBL E.Coli UTI 12/13/20: No active issues. No major overnight events. Patient is feeling comfortable this morning. Principal diagnosis: ESBL E.Coli UTI 12/16-patient status quo. No overnight events. No concerns per staff. Continuing pre-existing medical issues management on home medications. Ongoing therapies. Discharge planning per case management 12/17-patient doing well. No overnight events. No concerns per staff. No fever chills nausea vomiting. Doing well. Ongoing therapies. Await placement 12/18 patient status quo. No overnight events. No concerns per staff. Awaiting placement.No active issues 12/19 continues without complaints. No events, no concerns. Continue to await placement. 12/20 stable. Patient fast asleep this morning when I go to see her. Nursing without any concerns. No events. Awaiting eventual placement. 12/21 remained stable. Awake and alert this afternoon during my visit. No new complaints. No nursing concerns. 12/22 no new changes. Sleeping this morning. No new nursing concerns. reconciliation manager assigned by the [facility], evaluation to be this . 12/23 no overnight event or new complaints. Patient stable. 12/24 No change. Awaiting placement. 12/25 Complains of chronic back pain otherwise no new complaints overnight events. Awaiting placement. 12/26 Patient has no new complaints. Awaiting placement. 12/27 No change. Awaiting placement. Review of Systems: denies headache/fever/chills/nausea/vomiting/chest or abdominal pain/cough/dyspnea/diarrhea. Otherwise see above. Constitutional Vitals: Vital Signs Temp Pulse Resp BP Pulse Ox 98.3 F 79 18 106/61 84 L 12/26/20 20:00 12/26/20 20:00 12/26/20 20:00 12/26/20 20:00 12/26/20 20:00 Period Temp Pulse Resp BP Sys/Jansen Pulse Ox Last 24 Hr 98.3 F 79 18 106/61 84-91 Intake and Output 12/26/20 12/27/20 12/27/20 21:59 05:59 13:59 Intake Total 1840 240 Output Total 806 1200 600 Balance 1034 -960 -600 Weight 115.076 kg Intake & Output: Intake & Output 12/26/20 12/27/20 12/27/20 21:59 05:59 13:59 Intake Total 1840 240 Output Total 806 1200 600 Balance 1034 -960 -600 Weight 115.076 kg Intake: Oral 1840 240 Output: Urine Catheter Amount 300 Void Amount 500 1200 600 # of times incontinent of urine 6 Other: Meal Nourishment/Supplement Percent of Meal Consumed 100% Feeding Ability Assist with Tray Set Up Urine Appearance Clear Clear Urine Color Bright Yellow Bright Yellow Urine Odor Normal Normal # Voids 2 Exam: General: Awake, No acute Distress, obese Eyes/N/T: Head/Neck: neck supple, CV: irreg, No murmurs, Pulm: mild rales left side, no wheezing/rhonchi Abd: soft, nontender, positive bowel sounds Ext: no clubbing/cyanosis, 1+ b/l LE edema Neuro: Alert, no focal deficits, moves all extremities, Skin: warm/dry OBJ DATA Labs CBC & Chem 7: 12/03/20 12:21 12/03/20 12:21 Meds: Medications Acetaminophen (Acetaminophen 325 Mg Tablet) 650 mg PO Q6HP PRN PRN Reason: PAIN/FEVER > 101 Last Admin: 11/17/20 17:22 Dose: 650 mg Documented by: Albuterol/Ipratropium (Ipratropium/Albuterol 3 Ml Ampul.Neb) 3 ml NEB Q4HP PRN PRN Reason: Shortness Of Breath Alprazolam (Alprazolam 0.5 Mg Tablet) 0.5 mg PO Q12HP PRN PRN Reason: Anxiety Apixaban (Apixaban 5 Mg Tablet) 5 mg PO BID [facility] Last Admin: 12/27/20 08:45 Dose: 5 mg Documented by: Atorvastatin Calcium (Atorvastatin 40 Mg Tablet) 40 mg PO QHS [facility] Last Admin: 12/26/20 21:56 Dose: 40 mg Documented by: Baclofen (Baclofen 10 Mg Tablet) 10 mg PO BID [facility] Last Admin: 12/27/20 08:43 Dose: 10 mg Documented by: Bisacodyl (Bisacodyl 10 Mg Supp.Rect) 10 mg KS Q2-3DAYS PRN PRN Reason: Constipation Last Admin: 11/25/20 05:38 Dose: 10 mg Documented by: Dextrose (Dextrose 50% 50 Ml Vial) 0 ml IV UD PRN PRN Reason: Hypoglycemia Last Admin: 11/25/20 22:53 Dose: 25 ml Documented by: Diagnostic Test (Pha) (Accu-Chek 1 Each Strip) 1 each FS ACHS [facility] Last Admin: 12/27/20 08:42 Dose: 1 each Documented by: Diphenhydramine HCl (Diphenhydramine 25 Mg Capsule) 25 mg PO HS [facility] Last Admin: 12/26/20 21:56 Dose: 25 mg Documented by: Diphenoxylate HCl/Atropine (Diphenoxylate Hcl/Atropine 1 Tablet) 1 tab PO QIDP PRN PRN Reason: Wheezing Furosemide (Furosemide 20 Mg Tablet) 20 mg PO DAILY [facility] Last Admin: 12/27/20 08:46 Dose: 20 mg Documented by: Gabapentin (Gabapentin 100 Mg Capsule) 100 mg PO BID [facility] Last Admin: 12/27/20 08:46 Dose: 100 mg Documented by: Glucose (Dextrose 31 Gm Oral.Susp) 15 gm PO PRN PRN PRN Reason: Hypoglycemia Magnesium Sulfate (Magnesium Sulfate) 2 gm in 50 mls @ 50 mls/hr IV UD PRN PRN Reason: Magnesium </= 1.6 Potassium Chloride 40 meq/ (Dextrose) 520 mls @ 130 mls/hr IV UD PRN PRN Reason: Potassium < 3 Insulin Human Lispro (Insulin Lispro 1 Unit/0.01 Ml Unit) 0 unit SQ [facility]; Protocol Last Admin: 12/27/20 08:42 Dose: Not Given Documented by: Levetiracetam (Levetiracetam 500 Mg Tablet) 250 mg PO BID [facility] Last Admin: 12/27/20 08:44 Dose: 250 mg Documented by: Meclizine HCl (Meclizine 25 Mg Tablet) 25 mg PO DAILY [facility] Last Admin: 12/27/20 08:43 Dose: 25 mg Documented by: Melatonin (Melatonin 3 Mg Tablet) 3 mg PO QHS [facility] Last Admin: 12/26/20 21:57 Dose: 3 mg Documented by: Metformin HCl (Metformin 500 Mg Tab.Xl.24h) 1,000 mg PO [facility] Last Admin: 12/27/20 07:35 Dose: 1,000 mg Documented by: Methadone HCl (Methadone 5 Mg Tablet) 10 mg PO BID [facility] Last Admin: 12/27/20 08:44 Dose: 10 mg Documented by: Metoclopramide HCl (Metoclopramide 10 Mg/2 Ml Vial) 10 mg IV Q6HP PRN PRN Reason: Nausea And Vomiting Metoprolol Succinate (Metoprolol Succinate 25 Mg Tab.Xl.24h) 12.5 mg PO DAILY [facility] Last Admin: 12/27/20 08:46 Dose: 12.5 mg Documented by: Empagliflozin 25 Mg (Tablet) 1 dose PO DAILY [facility] Last Admin: 12/27/20 09:04 Dose: Not Given Documented by: Polyethylene Glycol (Polyethylene Glycol 3350 17 Gm Packet) 17 gm PO DAILYP PRN PRN Reason: Constipation Last Admin: 12/20/20 11:05 Dose: 17 gm Documented by: Potassium Chloride (Potassium Chloride 20 Meq Tablet) 40 meq PO UD PRN PRN Reason: Potssium is 3-3.5 Potassium Chloride (Potassium Chloride 20 Meq Tablet) 40 meq PO UD PRN PRN Reason: Potassium < 3 Potassium Chloride (Potassium Chloride 10 Meq Tablet) 20 meq PO QAMCC [facility] Last Admin: 12/27/20 08:43 Dose: 20 meq Documented by: Pregabalin (Pregabalin 25 Mg Capsule) 50 mg PO BID [facility] Last Admin: 12/27/20 08:45 Dose: 50 mg Documented by: Senna (Sennosides 1 Tablet) 2 tab PO DAILYP PRN PRN Reason: Constipation Last Admin: 12/20/20 11:04 Dose: 2 tab Documented by: Sertraline HCl (Sertraline 50 Mg Tablet) 125 mg PO DAILY [facility] Last Admin: 12/27/20 08:43 Dose: 125 mg Documented by: Tramadol HCl (Tramadol 50 Mg Tablet) 50 mg PO Q6HP PRN; Protocol PRN Reason: Pain Last Admin: 12/27/20 07:35 Dose: 50 mg Documented by: Trazodone HCl (Trazodone Hcl 50 Mg Tablet) 25 mg PO [facility] Last Admin: 12/26/20 21:56 Dose: 25 mg Documented by: A/P Narrative A/P Narrative: A: *Generalized weakness/deconditioning/inability to care for self: -essentially wheelchair bound for past year *PAFib/flutter w/RVR: controlled *Hypernatremia: resolved *Dehydration/Volume depletion: improved *UTI (E.coli ESBL): treated *DM: *HTN: *LENARD: *Chronic lymphedema/venous stasis skin changes: *Anxiety/depression: *Obesity: *h/o Sz: on keppra *Recent LLE cellulitis treated at [facility]: *Neuropathy: on gabapentin/lyrica/tramadol P: -obtain updated chemistry panel Continue nutrition support/daily therapies Pre-existing medical condition management as above -Decreased dose of Metoprolol 12.5 from from 50mg and Dced Lisinopril 5mg -Decrease Xanax 0.5 from TID to BID -decrease baclofen 10 mg from 3 times daily to twice daily, DC Phenergan -Dec Lyrica to 50mg bid from TID. -cont SSRI -Cont SSI & home Metformin and Jardiance -PT/OT -Home CPAP -CM for placement -ppx: apixaban full code Time Spent With Patient Time: Total time spent is greater than 50% in coordination of care (as documented) at patient's floor/unit and/or counseling patient: QUALITY VTE Deep Vein Thrombosis/Pulmonary Embolism Present on Admission: No
[2020-12-27 10:37] LABS: ALT/SGPT 10 U/L (<40); AST/SGOT 15 U/L (<32); Albumin 2.8 gm/dL (3.2-5.2); Albumin/Globulin Ratio 0.8 (1.0-2.3); Alkaline Phosphatase 93 U/L (39-117); Bilirubin,Direct < 0.2 mg/dL (0-0.3); Bilirubin,Total 0.4 mg/dL (0.1-1.0); Blood Urea Nitrogen 17 mg/dL (8-23); Calcium 8.7 mg/dL (8.6-10.4); Carbon Dioxide 36 mmol/L (22-30); Chloride 98 mmol/L (96-108); Globulin 3.4 gm/dL (2.2-3.7); Glomerular Filtration Rate 70; Glucose 100 mg/dL (70-105); Lactate Dehydrogenase 111 U/L (135-225); Triglycerides 72 mg/dL (<150); Uric Acid 5.3 mg/dL (2.5-8.0)
[2020-12-27] MEDS: POLYETHYLENE GLYCOL 3350 17 GM PACKET PO PRN (12:21)
[2020-12-27] MEDS: ATORVASTATIN 40 MG TABLET PO SCH (20:28)
[2020-12-27] MEDS: MELATONIN 3 MG TABLET PO SCH (20:28)
[2020-12-27] MEDS: traZODone HCL 50 MG TABLET PO SCH (20:28)
[2020-12-27] MEDS: diphenhydrAMINE 25 MG CAPSULE PO SCH (20:28)
[2020-12-28] MEDS: traMADol 50 MG TABLET PO PRN (05:21)
[2020-12-28] MEDS: POLYETHYLENE GLYCOL 3350 17 GM PACKET PO PRN (05:22)
[2020-12-28] MEDS: INSULIN LISPRO 1 UNIT/0.01 ML UNIT SQ SCH ×4 (07:28→22:21)
[2020-12-28] MEDS: POTASSIUM CHLORIDE 10 MEQ TABLET PO SCH (09:59)
[2020-12-28] MEDS: SERTRALINE 50 MG TABLET PO SCH (09:59)
[2020-12-28] MEDS: MECLIZINE 25 MG TABLET PO SCH (09:59)
[2020-12-28] MEDS: metFORMIN 500 MG TAB.XL.24H PO SCH (09:59)
[2020-12-28] MEDS: FUROSEMIDE 20 MG TABLET PO SCH (09:59)
[2020-12-28] MEDS: BACLOFEN 10 MG TABLET PO SCH ×2 (09:59→21:51)
[2020-12-28] MEDS: GABAPENTIN 100 MG CAPSULE PO SCH ×2 (09:59→21:50)
[2020-12-28] MEDS: METOPROLOL SUCCINATE 25 MG TAB.XL.24H PO SCH (10:00)
[2020-12-28] MEDS: levETIRAcetam 500 MG TABLET PO SCH ×2 (10:00→21:50)
[2020-12-28] MEDS: PREGABALIN 25 MG CAPSULE PO SCH ×2 (10:00→21:50)
[2020-12-28] MEDS: METHADONE 5 MG TABLET PO SCH ×2 (10:00→21:51)
[2020-12-28] MEDS: APIXABAN 5 MG TABLET PO SCH ×2 (10:00→21:51)
[2020-12-28] MEDS: EMPAGLIFLOZIN 25 MG TABLET PO SCH (10:54)
--- NOTE | 2020-12-28 16:55 | Internal Med Progress Note ---
SUBJECTIVE Subjective Patient information: Note initiated : 12/28/20 at 4:50 pm Service Date, if different from initiated Date: [] Patient: Alexa Rai a 80 y/o F admitted on 11/14/20 for Weakness. Chief Complaint: [bowel obstruction, RAVINDER, UTI, atrial fibrillation] Interval history: History of present illness: Ms. Rai is a 80 year old F patient was recently at [facility] for cellulitis to the leg discharged the beginning of October. She was at [facility] prior to that admission but crested r efused her and patient [facility]. Patient says she has been at [facility] since last February. She is essentially wheelchair-bound for the past couple years she states she can ambulate a little bit with a walker. She was in the motel with her son who is homeless who will be kicked out of the motel today and he was worried about his mother because she cannot get up she just sits in her own urine she cannot take care of her self. She is unable to care for herself and her son who is homeless has no place to care for her. Patient has some nausea but no other complaints. She does have history atrial fibrillation and in the ED she did go to heart rate of 115. Ovezi-np-eepc sodium was 146, chemistry showed volume depletion 11/15 Patient doing well. Feels better. Urine culture with gram-negative bacillus. Heart rate improved. Electrolytes improved. Vaginal nausea but no other complaints. 11/16 No new complaints. Pending final urine culture. Placement being worked out with case management.. 11/23 Interval history: Patient is not feeling too good today. She complained of back pain. She seems comfortable. No overnight issues 11/24 No overnight event or new complaints. pt refused oral contrast for further evaluation despite multiple attempts. She admits abdomen is uncomfortable but she is not willing to let us perform work-up to adequately evaluate and treat. 11/25 Patient had a medium sized bowel movement this morning. She seems amenable to a small bowel follow-through this morning, we will attempt to obtain. 11/26 No overnight event or complaints. Had a large bowel movement yesterday after contrast study. Abdomen soft no pain. 11/27 Complains of chronic lower back pain otherwise no new complaints. Awaiting placement. 11/28 no changes. No new complaints. Awaiting placement 11/29 Discussed discharge, the patient wants to go home. She says she has a place rented. Stable, no acute medical issues. 11/30 Awaiting placement, regular diet to encourage nutritional intake. 12/01 Discussed importance of activity, awaiting placement. 12/02 More activity with sitting at the edge of the bed, removed fecal management system. 12/03 Seems more tired today, AM glucose 70. Discontinued glipizide 2.5 mg daily, not receiving insulin, continued Metformin. Awaiting placement. 12/04 Sitting at the side of bed for breakfast, overall more active the last few days. 12/05 Sleeping. No change overnight. Awaiting placement. 12/06 No changes. Patient seems to feeling well today. No new complaints. 12/07 Has chronic back pain otherwise no new complaints overnight events. 12/08 patient says she slept well and feeling well. No new complaints. States she did get a bowel movement once a week. Last one was 3 days ago does not feel the need to go the bathroom. 12/09 Seems a feeling well again today. No new complaints. 12/10/20: No active issues. No major overnight events. Patient is feeling comfortable this morning. Principal diagnosis: ESBL E.Coli UTI 12/11/20: No active issues. No major overnight events. Patient is feeling comfortable this morning. 12/12/20: No active issues. No major overnight events. Patient is feeling comfortable this morning. Principal diagnosis: ESBL E.Coli UTI 12/13/20: No active issues. No major overnight events. Patient is feeling comfortable this morning. Principal diagnosis: ESBL E.Coli UTI 12/16-patient status quo. No overnight events. No concerns per staff. Continuing pre-existing medical issues management on home medications. Ongoing therapies. Discharge planning per case management 12/17-patient doing well. No overnight events. No concerns per staff. No fever chills nausea vomiting. Doing well. Ongoing therapies. Await placement 12/18 patient status quo. No overnight events. No concerns per staff. Awaiting placement.No active issues 12/19 continues without complaints. No events, no concerns. Continue to await placement. 12/20 stable. Patient fast asleep this morning when I go to see her. Nursing without any concerns. No events. Awaiting eventual placement. 12/21 remained stable. Awake and alert this afternoon during my visit. No new complaints. No nursing concerns. 12/22 no new changes. Sleeping this morning. No new nursing concerns. 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 12/23 no overnight event or new complaints. Patient stable. 12/24 No change. Awaiting placement. 12/25 Complains of chronic back pain otherwise no new complaints overnight events. Awaiting placement. 12/26 Patient has no new complaints. Awaiting placement. 12/27 No change. Awaiting placement. 12/28: No bowel movement for 5 days. Reported by nurse that patient has rednes s/swelling of left lower leg, as well as lumps of left upper abdomen/left upper back. Currently denies any pain. Principal diagnosis: ESBL E.Coli UTI Constitutional Vitals: Vital Signs Temp Pulse Resp BP Pulse Ox 36.4 C 69 16 109/56 97 12/28/20 08:00 12/28/20 08:00 12/28/20 08:00 12/28/20 08:00 12/28/20 08:00 Period Temp Pulse Resp BP Sys/Jansen Pulse Ox Last 24 Hr 36.4 C-36.7 C 69-80 16-18 109-110/56-62 94-97 Intake and Output 12/28/20 12/28/20 12/28/20 05:59 13:59 21:59 Intake Total 800 750 560 Output Total 600 1100 200 Balance 200 -350 360 Intake & Output: Intake & Output 12/28/20 12/28/20 12/28/20 05:59 13:59 21:59 Intake Total 800 750 560 Output Total 600 1100 200 Balance 200 -350 360 Intake: Oral 800 750 560 Output: Void Amount 600 1100 200 Other: Meal Lunch Percent of Meal Consumed 50% Feeding Ability Assist with Tray Set Up Urine Appearance Clear Clear Clear Urine Color Bright Yellow Dark Yellow Dark Yellow Urine Odor Normal Strong General appearance: cooperative and no acute distress Head Head exam: Present atraumatic and normocephalic Eye Eye exam: Present EOMI and PERRL ENT ENT exam: Present mucous membranes moist, normal exam and normal external ear exam Neck Neck exam: Present normal inspection; Absent lymphadenopathy, tenderness and thyromegaly Respiratory Respiratory exam: Absent accessory muscle use, respiratory distress and wheezes Cardiovascular Cardiovascular exam: Present irregular rhythm; Absent JVD GI/Abdominal GI/Abdominal exam: Present normal bowel sounds and soft; Absent organomegaly and tenderness Additional comments: 2X2 cm palpable lump of the LUQ Extremities Exam Extremities exam: Present full ROM, normal capillary refill and normal inspection; Absent tenderness Back Exam Additional comments: 2X2cm palpable lump of the left upper back Neurological Exam Neurological exam: Present alert, CN II-XII intact and oriented X3; Absent motor sensory deficit Psychiatric Psychiatric exam: Present normal affect and normal mood; Absent anxious and depressed Skin Skin exam: Present dry and intact Additional comments: Swelling and redness of left lower leg OBJ DATA Labs CBC & Chem 7: 12/03/20 12:21 08 09:33 Labs: Abnormal Lab Results 12/27/20 09:33 Carbon Dioxide 36 H Anion Gap 6.0 L Lactate Dehydrogenase 111 L Albumin 2.8 L Albumin/Globulin Ratio 0.8 L Meds: Medications Acetaminophen (Acetaminophen 325 Mg Tablet) 650 mg PO Q6HP PRN PRN Reason: PAIN/FEVER > 101 Last Admin: 11/17/20 17:22 Dose: 650 mg Documented by: Albuterol/Ipratropium (Ipratropium/Albuterol 3 Ml Ampul.Neb) 3 ml NEB Q4HP PRN PRN Reason: Shortness Of Breath Alprazolam (Alprazolam 0.5 Mg Tablet) 0.5 mg PO Q12HP PRN PRN Reason: Anxiety Apixaban (Apixaban 5 Mg Tablet) 5 mg PO BID [facility] Last Admin: 12/28/20 10:00 Dose: 5 mg Documented by: Atorvastatin Calcium (Atorvastatin 40 Mg Tablet) 40 mg PO QHS [facility] Last Admin: 12/27/20 20:28 Dose: 40 mg Documented by: Baclofen (Baclofen 10 Mg Tablet) 10 mg PO BID [facility] Last Admin: 12/28/20 09:59 Dose: 10 mg Documented by: Bisacodyl (Bisacodyl 10 Mg Supp.Rect) 10 mg AR Q2-3DAYS PRN PRN Reason: Constipation Last Admin: 11/25/20 05:38 Dose: 10 mg Documented by: Dextrose (Dextrose 50% 50 Ml Vial) 0 ml IV UD PRN PRN Reason: Hypoglycemia Last Admin: 11/25/20 22:53 Dose: 25 ml Documented by: Diagnostic Test (Pha) (Accu-Chek 1 Each Strip) 1 each FS ACHS [facility] Last Admin: 12/28/20 16:12 Dose: 1 each Documented by: Diphenhydramine HCl (Diphenhydramine 25 Mg Capsule) 25 mg PO HS [facility] Last Admin: 12/27/20 20:28 Dose: 25 mg Documented by: Diphenoxylate HCl/Atropine (Diphenoxylate Hcl/Atropine 1 Tablet) 1 tab PO QIDP PRN PRN Reason: Wheezing Furosemide (Furosemide 20 Mg Tablet) 40 mg PO DAILY [facility] Last Admin: 12/28/20 09:59 Dose: 40 mg Documented by: Gabapentin (Gabapentin 100 Mg Capsule) 100 mg PO BID [facility] Last Admin: 12/28/20 09:59 Dose: 100 mg Documented by: Glucose (Dextrose 31 Gm Oral.Susp) 15 gm PO PRN PRN PRN Reason: Hypoglycemia Magnesium Sulfate (Magnesium Sulfate) 2 gm in 50 mls @ 50 mls/hr IV UD PRN PRN Reason: Magnesium </= 1.6 Potassium Chloride 40 meq/ (Dextrose) 520 mls @ 130 mls/hr IV UD PRN PRN Reason: Potassium < 3 Insulin Human Lispro (Insulin Lispro 1 Unit/0.01 Ml Unit) [address] [facility]; Protocol Last Admin: 12/28/20 16:25 Dose: Not Given Documented by: Levetiracetam (Levetiracetam 500 Mg Tablet) 250 mg PO BID [facility] Last Admin: 12/28/20 10:00 Dose: 250 mg Documented by: Meclizine HCl (Meclizine 25 Mg Tablet) 25 mg PO DAILY [facility] Last Admin: 12/28/20 09:59 Dose: 25 mg Documented by: Melatonin (Melatonin 3 Mg Tablet) 3 mg PO QHS [facility] Last Admin: 12/27/20 20:28 Dose: 3 mg Documented by: Metformin HCl (Metformin 500 Mg Tab.Xl.24h) [facility] Last Admin: 12/28/20 09:59 Dose: 1,000 mg Documented by: Methadone HCl (Methadone 5 Mg Tablet) 10 mg PO BID [facility] Last Admin: 12/28/20 10:00 Dose: 10 mg Documented by: Metoclopramide HCl (Metoclopramide 10 Mg/2 Ml Vial) 10 mg IV Q6HP PRN PRN Reason: Nausea And Vomiting Metoprolol Succinate (Metoprolol Succinate 25 Mg Tab.Xl.24h) 12.5 mg PO DAILY [facility] Last Admin: 12/28/20 10:00 Dose: 12.5 mg Documented by: Empagliflozin 25 Mg (Tablet) 1 dose PO DAILY [facility] Last Admin: 12/28/20 10:54 Dose: Not Given Documented by: Polyethylene Glycol (Polyethylene Glycol 3350 17 Gm Packet) 17 gm PO DAILYP PRN PRN Reason: Constipation Last Admin: 12/28/20 05:22 Dose: 17 gm Documented by: Potassium Chloride (Potassium Chloride 20 Meq Tablet) 40 meq PO UD PRN PRN Reason: Potssium is 3-3.5 Potassium Chloride (Potassium Chloride 20 Meq Tablet) 40 meq PO UD PRN PRN Reason: Potassium < 3 Potassium Chloride (Potassium Chloride 10 Meq Tablet) 20 meq PO QAMCC [facility] Last Admin: 12/28/20 09:59 Dose: 20 meq Documented by: Pregabalin (Pregabalin 25 Mg Capsule) 50 mg PO BID [facility] Last Admin: 12/28/20 10:00 Dose: 50 mg Documented by: Senna (Sennosides 1 Tablet) 2 tab PO DAILYP PRN PRN Reason: Constipation Last Admin: 12/20/20 11:04 Dose: 2 tab Documented by: Sertraline HCl (Sertraline 50 Mg Tablet) 125 mg PO DAILY [facility] Last Admin: 12/28/20 09:59 Dose: 125 mg Documented by: Tramadol HCl (Tramadol 50 Mg Tablet) 50 mg PO Q6HP PRN; Protocol PRN Reason: Pain Last Admin: 12/28/20 05:21 Dose: 50 mg Documented by: Trazodone HCl (Trazodone Hcl 50 Mg Tablet) [address] [facility] Last Admin: 12/27/20 20:28 Dose: 25 mg Documented by: A/P Assessment and plan (1) CHF (congestive heart failure): Status: Acute Qualifiers: Heart failure chronicity: chronic Heart failure type: unspecified Qualified Code(s): I50.9 - Heart failure, unspecified (2) Atrial fibrillation with rapid ventricular response: Status: Acute (3) Hypertension, essential: Status: Acute (4) Homelessness: Status: Acute (5) Inability to walk: Status: Acute (6) Type 2 diabetes mellitus: Status: Chronic (7) Acute UTI: Status: Acute Narrative A/P Narrative: Bowel obstruction: resolved UTI: resolved RAVINDER: resolved Bowel obstruction: resolved Atrial fibrillation: currently rate control. Continue Metoprolol for rate control and Eliquis as anticoagulation CHF: Lasix, Metoprolol. Currently on room air, stable T2DM: Metformin and insulin therapy Left lower leg swelling and erythema: stasis dermatitis vs cellulitis: Luis Felipe the skin territory, keep the leg elevated Chronic lumps of LUQ abdomen and left upper back: Continue to monitor over time GI ppx: not currently indicated DVT ppx: Eliquis Code status: Full Prognosis: stable Disposition: inpatient med surg; pending SNF placement Time Spent With Patient Time: Total time spent is greater than 50% in coordination of care (as documented) at patient's floor/unit and/or counseling patient: Total time spent with greater than 50% in coordination of care (as documented) at patient's floor/unit and/or counseling patient:: 15 - 24 minutes QUALITY VTE Deep Vein Thrombosis/Pulmonary Embolism Present on Admission: No
[2020-12-28] MEDS: SENNOSIDES 1 TABLET PO PRN (17:30)
[2020-12-28] MEDS: ACETAMINOPHEN 325 MG TABLET PO PRN (17:30)
[2020-12-28] MEDS: diphenhydrAMINE 25 MG CAPSULE PO SCH (21:50)
[2020-12-28] MEDS: traZODone HCL 50 MG TABLET PO SCH (21:50)
[2020-12-28] MEDS: MELATONIN 3 MG TABLET PO SCH (21:51)
[2020-12-28] MEDS: ATORVASTATIN 40 MG TABLET PO SCH (21:51)
[2020-12-29] MEDS: traMADol 50 MG TABLET PO PRN (01:23)
[2020-12-29] MEDS: INSULIN LISPRO 1 UNIT/0.01 ML UNIT SQ SCH ×4 (07:14→21:53)
[2020-12-29] MEDS: levETIRAcetam 500 MG TABLET PO SCH ×2 (08:36→21:51)
[2020-12-29] MEDS: PREGABALIN 25 MG CAPSULE PO SCH ×2 (08:37→21:51)
[2020-12-29] MEDS: SERTRALINE 50 MG TABLET PO SCH (08:37)
[2020-12-29] MEDS: metFORMIN 500 MG TAB.XL.24H PO SCH (08:38)
[2020-12-29] MEDS: METHADONE 5 MG TABLET PO SCH ×2 (08:38→21:50)
[2020-12-29] MEDS: APIXABAN 5 MG TABLET PO SCH ×2 (08:39→21:51)
[2020-12-29] MEDS: BACLOFEN 10 MG TABLET PO SCH ×2 (08:39→21:50)
[2020-12-29] MEDS: MECLIZINE 25 MG TABLET PO SCH (08:39)
[2020-12-29] MEDS: METOPROLOL SUCCINATE 25 MG TAB.XL.24H PO SCH (08:39)
[2020-12-29] MEDS: POTASSIUM CHLORIDE 10 MEQ TABLET PO SCH (08:39)
[2020-12-29] MEDS: GABAPENTIN 100 MG CAPSULE PO SCH ×2 (08:40→21:50)
[2020-12-29] MEDS: FUROSEMIDE 20 MG TABLET PO SCH (08:40)
[2020-12-29] MEDS: EMPAGLIFLOZIN 25 MG TABLET PO SCH (08:51)
--- NOTE | 2020-12-29 11:05 | Internal Med Progress Note ---
SUBJECTIVE Subjective Patient information: Note initiated : 12/29/20 at 11:03 am Service Date, if different from initiated Date: [] Patient: Alexa Rai a 80 y/o F admitted on 11/14/20 for Weakness. Chief Complaint: [bowel obstruction, RAVINDER, UTI, atrial fibrillation] Interval history: History of present illness: Ms. Rai is a 80 year old F patient was recently at [facility] for cellulitis to the leg discharged the beginning of October. She was at [facility] prior to that admission but [facility] refused her and patient was discharged to [facility]. Patient says she has been at [facility] since last February. She is essentially wheelchair-bound for the past couple years she states she can ambulate a little bit with a walker. She was in the motel with her son who is homeless who will be kicked out of the motel today and he was worried about his mother because she cannot get up she just sits in her own urine she cannot take care of her self. She is unable to care for herself and her son who is homeless has no place to care for her. Patient has some nausea but no other complaints. She does have history atrial fibrillation and in the ED she did go to heart rate of 115. [id number] sodium was 146, chemistry showed volume depletion 11/15 Patient doing well. Feels better. Urine culture with gram-negative bacillus. Heart rate improved. Electrolytes improved. Vaginal nausea but no other complaints. 11/16 No new complaints. Pending final urine culture. Placement being worked out with case management.. 11/23 Interval history: Patient is not feeling too good today. She complained of back pain. She seems comfortable. No overnight issues 11/24 No overnight event or new complaints. pt refused oral contrast for further evaluation despite multiple attempts. She admits abdomen is uncomfortable but she is not willing to let us perform work-up to adequately evaluate and treat. 11/25 Patient had a medium sized bowel movement this morning. She seems amenable to a small bowel follow-through this morning, we will attempt to obtain. 11/26 No overnight event or complaints. Had a large bowel movement yesterday after contrast study. Abdomen soft no pain. 11/27 Complains of chronic lower back pain otherwise no new complaints. Awaiting placement. 11/28 no changes. No new complaints. Awaiting placement 11/29 Discussed discharge, the patient wants to go home. She says she has a place rented. Stable, no acute medical issues. 11/30 Awaiting placement, regular diet to encourage nutritional intake. 12/01 Discussed importance of activity, awaiting placement. 12/02 More activity with sitting at the edge of the bed, removed fecal management system. 12/03 Seems more tired today, AM glucose 70. Discontinued glipizide 2.5 mg daily, not receiving insulin, continued Metformin. Awaiting placement. 12/04 Sitting at the side of bed for breakfast, overall more active the last few days. 12/05 Sleeping. No change overnight. Awaiting placement. 12/06 No changes. Patient seems to feeling well today. No new complaints. 12/07 Has chronic back pain otherwise no new complaints overnight events. 12/08 patient says she slept well and feeling well. No new complaints. States she did get a bowel movement once a week. Last one was 3 days ago does not feel the need to go the bathroom. 12/09 Seems a feeling well again today. No new complaints. 12/10/20: No active issues. No major overnight events. Patient is feeling comfortable this morning. Principal diagnosis: ESBL E.Coli UTI 12/11/20: No active issues. No major overnight events. Patient is feeling comfortable this morning. 12/12/20: No active issues. No major overnight events. Patient is feeling comfortable this morning. Principal diagnosis: ESBL E.Coli UTI 12/13/20: No active issues. No major overnight events. Patient is feeling comfortable this morning. Principal diagnosis: ESBL E.Coli UTI 12/16-patient status quo. No overnight events. No concerns per staff. Continuing pre-existing medical issues management on home medications. Ongoing therapies. Discharge planning per case management 12/17-patient doing well. No overnight events. No concerns per staff. No fever chills nausea vomiting. Doing well. Ongoing therapies. Await placement 12/18 patient status quo. No overnight events. No concerns per staff. Awaiting placement.No active issues 12/19 continues without complaints. No events, no concerns. Continue to await placement. 12/20 stable. Patient fast asleep this morning when I go to see her. Nursing without any concerns. No events. Awaiting eventual placement. 12/21 remained stable. Awake and alert this afternoon during my visit. No new complaints. No nursing concerns. 12/22 no new changes. Sleeping this morning. No new nursing concerns. 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 12/23 no overnight event or new complaints. Patient stable. 12/24 No change. Awaiting placement. 12/25 Complains of chronic back pain otherwise no new complaints overnight events. Awaiting placement. 12/26 Patient has no new complaints. Awaiting placement. 12/27 No change. Awaiting placement. 12/28: No bowel movement for 5 days. Reported by nurse that patient has rednes s/swelling of left lower leg, as well as lumps of left upper abdomen/left upper back. Currently denies any pain. 12/28: No bowel movement for 5 days. Reported by nurse that patient has redness/swelling of left lower leg, as well as lumps of left upper abdomen/left upper back. Currently denies any pain. Principal diagnosis: ESBL E.Coli UTI Constitutional Vitals: Vital Signs Temp Pulse Resp BP Pulse Ox 36.1 C L 68 16 110/68 90 12/29/20 07:12 12/29/20 07:12 12/29/20 07:12 12/29/20 07:12 12/29/20 07:12 Period Temp Pulse Resp BP Sys/Jansen Pulse Ox Last 24 Hr 36.1 C-36.7 C 68-72 16-18 110-110/61-68 90-94 Intake and Output 12/28/20 12/29/20 12/29/20 21:59 05:59 13:59 Intake Total 560 1280 Output Total 601 600 600 Balance -41 680 -600 Weight 114.804 kg Intake & Output: Intake & Output 12/28/20 12/29/20 12/29/20 21:59 05:59 13:59 Intake Total 560 1280 Output Total 601 600 600 Balance -41 680 -600 Weight 114.804 kg Intake: Oral 560 1280 Output: Void Amount 600 600 600 # of times incontinent of urine 1 Other: Meal Dinner Percent of Meal Consumed 75% Feeding Ability Assist with Tray Set Up Urine Appearance Clear Clear Clear Urine Color Bright Yellow Bright Yellow Bright Yellow Urine Odor Normal Normal Stool Size Large Stool Color Brown Stool Consistency Normal for Patient Dry and Hard Formed General appearance: cooperative and no acute distress Head Head exam: Present atraumatic and normocephalic Eye Eye exam: Present EOMI and PERRL ENT ENT exam: Present mucous membranes moist, normal exam and normal external ear exam Neck Neck exam: Present normal inspection; Absent lymphadenopathy, tenderness and thyromegaly Respiratory Respiratory exam: Absent accessory muscle use, respiratory distress and wheezes Cardiovascular Cardiovascular exam: Present irregular rhythm; Absent JVD GI/Abdominal GI/Abdominal exam: Present normal bowel sounds and soft; Absent organomegaly and tenderness Additional comments: 2X2 cm palpable lump of the LUQ Extremities Exam Extremities exam: Present full ROM, normal capillary refill and normal inspection; Absent tenderness Back Exam Additional comments: 2X2cm palpable lump of the left upper back Neurological Exam Neurological exam: Present alert, CN II-XII intact and oriented X3; Absent motor sensory deficit Psychiatric Psychiatric exam: Present normal affect and normal mood; Absent anxious and depressed Skin Skin exam: Present dry and intact Additional comments: Swelling and redness of left lower leg OBJ DATA Labs CBC & Chem 7: 12/03/20 12:21 12/27/20 09:33 Labs: Abnormal Lab Results 12/27/20 09:33 Carbon Dioxide 36 H Anion Gap 6.0 L Lactate Dehydrogenase 111 L Albumin 2.8 L Albumin/Globulin Ratio 0.8 L Meds: Medications Acetaminophen (Acetaminophen 325 Mg Tablet) 650 mg PO Q6HP PRN PRN Reason: PAIN/FEVER > 101 Last Admin: 12/28/20 17:30 Dose: 650 mg Documented by: Albuterol/Ipratropium (Ipratropium/Albuterol 3 Ml Ampul.Neb) 3 ml NEB Q4HP PRN PRN Reason: Shortness Of Breath Alprazolam (Alprazolam 0.5 Mg Tablet) 0.5 mg PO Q12HP PRN PRN Reason: Anxiety Apixaban (Apixaban 5 Mg Tablet) 5 mg PO BID [facility] Last Admin: 12/29/20 08:39 Dose: 5 mg Documented by: Atorvastatin Calcium (Atorvastatin 40 Mg Tablet) 40 mg PO QHS [facility] Last Admin: 12/28/20 21:51 Dose: 40 mg Documented by: Baclofen (Baclofen 10 Mg Tablet) 10 mg PO BID [facility] Last Admin: 12/29/20 08:39 Dose: 10 mg Documented by: Bisacodyl (Bisacodyl 10 Mg Supp.Rect) 10 mg NC Q2-3DAYS PRN PRN Reason: Constipation Last Admin: 11/25/20 05:38 Dose: 10 mg Documented by: Dextrose (Dextrose 50% 50 Ml Vial) 0 ml IV UD PRN PRN Reason: Hypoglycemia Last Admin: 11/25/20 22:53 Dose: 25 ml Documented by: Diagnostic Test (Pha) (Accu-Chek 1 Each Strip) 1 each FS [facility] Last Admin: 12/29/20 07:14 Dose: 1 each Documented by: Diphenhydramine HCl (Diphenhydramine 25 Mg Capsule) 25 mg PO [facility] Last Admin: 12/28/20 21:50 Dose: 25 mg Documented by: Diphenoxylate HCl/Atropine (Diphenoxylate Hcl/Atropine 1 Tablet) 1 tab PO QIDP PRN PRN Reason: Wheezing Furosemide (Furosemide 20 Mg Tablet) 40 mg PO DAILY [facility] Last Admin: 12/29/20 08:40 Dose: 40 mg Documented by: Gabapentin (Gabapentin 100 Mg Capsule) 100 mg PO BID [facility] Last Admin: 12/29/20 08:40 Dose: 100 mg Documented by: Glucose (Dextrose 31 Gm Oral.Susp) 15 gm PO PRN PRN PRN Reason: Hypoglycemia Magnesium Sulfate (Magnesium Sulfate) 2 gm in 50 mls @ 50 mls/hr IV UD PRN PRN Reason: Magnesium </= 1.6 Potassium Chloride 40 meq/ (Dextrose) 520 mls @ 130 mls/hr IV UD PRN PRN Reason: Potassium < 3 Insulin Human Lispro (Insulin Lispro 1 Unit/0.01 Ml Unit) 0 unit SQ [facility]; Protocol Last Admin: 12/29/20 07:14 Dose: Not Given Documented by: Levetiracetam (Levetiracetam 500 Mg Tablet) 250 mg PO BID [facility] Last Admin: 12/29/20 08:36 Dose: 250 mg Documented by: Meclizine HCl (Meclizine 25 Mg Tablet) 25 mg PO DAILY [facility] Last Admin: 12/29/20 08:39 Dose: 25 mg Documented by: Melatonin (Melatonin 3 Mg Tablet) 3 mg PO QHS [facility] Last Admin: 12/28/20 21:51 Dose: 3 mg Documented by: Metformin HCl (Metformin 500 Mg Tab.Xl.24h) 1,000 mg PO [facility] Last Admin: 12/29/20 08:38 Dose: 1,000 mg Documented by: Methadone HCl (Methadone 5 Mg Tablet) 10 mg PO BID [facility] Last Admin: 12/29/20 08:38 Dose: 10 mg Documented by: Metoclopramide HCl (Metoclopramide 10 Mg/2 Ml Vial) 10 mg IV Q6HP PRN PRN Reason: Nausea And Vomiting Metoprolol Succinate (Metoprolol Succinate 25 Mg Tab.Xl.24h) 12.5 mg PO DAILY [facility] Last Admin: 12/29/20 08:39 Dose: 12.5 mg Documented by: Empagliflozin 25 Mg (Tablet) 1 dose PO DAILY [facility] Last Admin: 12/29/20 08:51 Dose: Not Given Documented by: Polyethylene Glycol (Polyethylene Glycol 3350 17 Gm Packet) 17 gm PO DAILYP PRN PRN Reason: Constipation Last Admin: 12/28/20 05:22 Dose: 17 gm Documented by: Potassium Chloride (Potassium Chloride 20 Meq Tablet) 40 meq PO UD PRN PRN Reason: Potssium is 3-3.5 Potassium Chloride (Potassium Chloride 20 Meq Tablet) 40 meq PO UD PRN PRN Reason: Potassium < 3 Potassium Chloride (Potassium Chloride 10 Meq Tablet) 20 meq PO QAMCC [facility] Last Admin: 12/29/20 08:39 Dose: 20 meq Documented by: Pregabalin (Pregabalin 25 Mg Capsule) 50 mg PO BID [facility] Last Admin: 12/29/20 08:37 Dose: 50 mg Documented by: Senna (Sennosides 1 Tablet) 2 tab PO DAILYP PRN PRN Reason: Constipation Last Admin: 12/28/20 17:30 Dose: 2 tab Documented by: Sertraline HCl (Sertraline 50 Mg Tablet) 125 mg PO DAILY [facility] Last Admin: 12/29/20 08:37 Dose: 125 mg Documented by: Tramadol HCl (Tramadol 50 Mg Tablet) 50 mg PO Q6HP PRN; Protocol PRN Reason: Pain Last Admin: 12/29/20 01:23 Dose: 50 mg Documented by: Trazodone HCl (Trazodone Hcl 50 Mg Tablet) 25 mg PO [facility] Last Admin: 12/28/20 21:50 Dose: 25 mg Documented by: A/P Assessment and plan (1) CHF (congestive heart failure): Status: Acute Qualifiers: Heart failure chronicity: chronic Heart failure type: unspecified Qualified Code(s): I50.9 - Heart failure, unspecified (2) Atrial fibrillation with rapid ventricular response: Status: Acute (3) Hypertension, essential: Status: Acute (4) Homelessness: Status: Acute (5) Inability to walk: Status: Acute (6) Type 2 diabetes mellitus: Status: Chronic (7) Acute UTI: Status: Acute Narrative A/P Narrative: Bowel obstruction: resolved UTI: resolved RAVINDER: resolved Bowel obstruction: resolved Atrial fibrillation: currently rate control. Continue Metoprolol for rate control and Eliquis as anticoagulation CHF: Lasix, Metoprolol. Currently on room air, stable T2DM: Metformin and insulin therapy Left lower leg swelling and erythema: stasis dermatitis vs cellulitis: Luis Felipe the skin territory, keep the leg elevated Chronic lumps of LUQ abdomen and left upper back: Continue to monitor over time GI ppx: not currently indicated DVT ppx: Eliquis Code status: Full Prognosis: stable Disposition: inpatient med surg; pending SNF placement Time Spent With Patient Time: Total time spent is greater than 50% in coordination of care (as documented) at patient's floor/unit and/or counseling patient: QUALITY VTE Deep Vein Thrombosis/Pulmonary Embolism Present on Admission: No
[2020-12-29] MEDS: traZODone HCL 50 MG TABLET PO SCH (21:50)
[2020-12-29] MEDS: diphenhydrAMINE 25 MG CAPSULE PO SCH (21:50)
[2020-12-29] MEDS: ATORVASTATIN 40 MG TABLET PO SCH (21:50)
[2020-12-29] MEDS: MELATONIN 3 MG TABLET PO SCH (21:50)
[2020-12-30] MEDS: INSULIN LISPRO 1 UNIT/0.01 ML UNIT SQ SCH ×4 (10:26→22:04)
[2020-12-30] MEDS: metFORMIN 500 MG TAB.XL.24H PO SCH (11:15)
[2020-12-30] MEDS: GABAPENTIN 100 MG CAPSULE PO SCH ×2 (11:15→20:24)
[2020-12-30] MEDS: PREGABALIN 25 MG CAPSULE PO SCH ×2 (11:15→20:27)
[2020-12-30] MEDS: BACLOFEN 10 MG TABLET PO SCH ×2 (11:15→20:25)
[2020-12-30] MEDS: FUROSEMIDE 20 MG TABLET PO SCH (11:15)
[2020-12-30] MEDS: METHADONE 5 MG TABLET PO SCH ×2 (11:16→20:24)
[2020-12-30] MEDS: POTASSIUM CHLORIDE 10 MEQ TABLET PO SCH (11:16)
[2020-12-30] MEDS: METOPROLOL SUCCINATE 25 MG TAB.XL.24H PO SCH (11:16)
[2020-12-30] MEDS: SERTRALINE 50 MG TABLET PO SCH (11:17)
[2020-12-30] MEDS: traMADol 50 MG TABLET PO PRN ×2 (11:18→20:24)
[2020-12-30] MEDS: levETIRAcetam 500 MG TABLET PO SCH ×2 (11:18→20:26)
[2020-12-30] MEDS: MECLIZINE 25 MG TABLET PO SCH (11:19)
[2020-12-30] MEDS: EMPAGLIFLOZIN 25 MG TABLET PO SCH (11:19)
[2020-12-30] MEDS: APIXABAN 5 MG TABLET PO SCH ×2 (11:19→20:27)
--- NOTE | 2020-12-30 12:27 | Internal Med Progress Note ---
SUBJECTIVE Subjective Patient information: Note initiated : 12/30/20 at 12:24 pm Service Date, if different from initiated Date: [] Patient: Alexa Rai a 80 y/o F admitted on 11/14/20 for Weakness. Chief Complaint: [bowel obstruction, RAVINDER, UTI, atrial fibrillation] Interval history: History of present illness: Ms. Rai is a 80 year old F patient was recently at [facility] for cellulitis to the leg discharged the beginning of October. She was at [facility] prior to that admission but [facility] refused her and patient was discharged to [facility]. Patient says she has been at [facility] since last February. She is essentially wheelchair-bound for the past couple years she states she can ambulate a little bit with a walker. She was in the motel with her son who is homeless who will be kicked out of the motel today and he was worried about his mother because she cannot get up she just sits in her own urine she cannot take care of her self. She is unable to care for herself and her son who is homeless has no place to care for her. Patient has some nausea but no other complaints. She does have history atrial fibrillation and in the ED she did go to heart rate of 115. Sqinl-da-dfor sodium was 146, chemistry showed volume depletion 11/15 Patient doing well. Feels better. Urine culture with gram-negative bacillus. Heart rate improved. Electrolytes improved. Vaginal nausea but no other complaints. 11/16 No new complaints. Pending final urine culture. Placement being worked out with case management.. 11/23 Interval history: Patient is not feeling too good today. She complained of back pain. She seems comfortable. No overnight issues 11/24 No overnight event or new complaints. pt refused oral contrast for further evaluation despite multiple attempts. She admits abdomen is uncomfortable but she is not willing to let us perform work-up to adequately evaluate and treat. 11/25 Patient had a medium sized bowel movement this morning. She seems amenable to a small bowel follow-through this morning, we will attempt to obtain. 11/26 No overnight event or complaints. Had a large bowel movement yesterday after contrast study. Abdomen soft no pain. 11/27 Complains of chronic lower back pain otherwise no new complaints. Awaiting placement. 11/28 no changes. No new complaints. Awaiting placement 11/29 Discussed discharge, the patient wants to go home. She says she has a place rented. Stable, no acute medical issues. 11/30 Awaiting placement, regular diet to encourage nutritional intake. 12/01 Discussed importance of activity, awaiting placement. 12/02 More activity with sitting at the edge of the bed, removed fecal management system. 12/03 Seems more tired today, AM glucose 70. Discontinued glipizide 2.5 mg daily, not receiving insulin, continued Metformin. Awaiting placement. 12/04 Sitting at the side of bed for breakfast, overall more active the last few days. 12/05 Sleeping. No change overnight. Awaiting placement. 12/06 No changes. Patient seems to feeling well today. No new complaints. 12/07 Has chronic back pain otherwise no new complaints overnight events. 12/08 patient says she slept well and feeling well. No new complaints. States she did get a bowel movement once a week. Last one was 3 days ago does not feel the need to go the bathroom. 12/09 Seems a feeling well again today. No new complaints. 12/10/20: No active issues. No major overnight events. Patient is feeling comfortable this morning. Principal diagnosis: ESBL E.Coli UTI 12/11/20: No active issues. No major overnight events. Patient is feeling comfortable this morning. 12/12/20: No active issues. No major overnight events. Patient is feeling comfortable this morning. Principal diagnosis: ESBL E.Coli UTI 12/13/20: No active issues. No major overnight events. Patient is feeling comfortable this morning. Principal diagnosis: ESBL E.Coli UTI 12/16-patient status quo. No overnight events. No concerns per staff. Continuing pre-existing medical issues management on home medications. Ongoing therapies. Discharge planning per case management 12/17-patient doing well. No overnight events. No concerns per staff. No fever chills nausea vomiting. Doing well. Ongoing therapies. Await placement 12/18 patient status quo. No overnight events. No concerns per staff. Awaiting placement.No active issues 12/19 continues without complaints. No events, no concerns. Continue to await placement. 12/20 stable. Patient fast asleep this morning when I go to see her. Nursing without any concerns. No events. Awaiting eventual placement. 12/21 remained stable. Awake and alert this afternoon during my visit. No new complaints. No nursing concerns. 12/22 no new changes. Sleeping this morning. No new nursing concerns. category manager assigned by the [facility], evaluation to be this . 12/23 no overnight event or new complaints. Patient stable. 12/24 No change. Awaiting placement. 12/25 Complains of chronic back pain otherwise no new complaints overnight events. Awaiting placement. 12/26 Patient has no new complaints. Awaiting placement. 12/27 No change. Awaiting placement. 12/28: No bowel movement for 5 days. Reported by nurse that patient has rednes s/swelling of left lower leg, as well as lumps of left upper abdomen/left upper back. Currently denies any pain. 12/29: Had an episode of bowel movement. No other complaints. 12/30: Patient has no complaints. Principal diagnosis: ESBL E.Coli UTI Constitutional Vitals: Vital Signs Temp Pulse Resp BP Pulse Ox 36.6 C 82 12 116/64 91 12/30/20 08:00 12/30/20 08:00 12/30/20 08:00 12/30/20 08:00 12/30/20 08:00 Period Temp Pulse Resp BP Sys/Jansen Pulse Ox Last 24 Hr 36.1 C-36.6 C 80-82 12-12 111-116/60-64 91-91 Intake and Output 12/29/20 12/30/20 12/30/20 21:59 05:59 13:59 Intake Total 1100 0 Output Total 455 451 Balance 645 0 -451 Weight 113.171 kg Intake & Output: Intake & Output 12/29/20 12/30/20 12/30/20 21:59 05:59 13:59 Intake Total 1100 0 Output Total 455 451 Balance 645 0 -451 Weight 113.171 kg Intake: Oral 1100 0 Output: Void Amount 450 450 # of times incontinent of urine 5 1 Other: Meal Lunch Percent of Meal Consumed 75% Feeding Ability Assist with Tray Set Up Urine Appearance Clear Urine Color Bright Yellow Urine Odor Normal General appearance: cooperative and no acute distress Head Head exam: Present atraumatic and normocephalic Eye Eye exam: Present EOMI and PERRL ENT ENT exam: Present mucous membranes moist, normal exam and normal external ear exam Neck Neck exam: Present normal inspection; Absent lymphadenopathy, tenderness and thyromegaly Respiratory Respiratory exam: Absent accessory muscle use, respiratory distress and wheezes Cardiovascular Cardiovascular exam: Present irregular rhythm; Absent JVD GI/Abdominal GI/Abdominal exam: Present normal bowel sounds and soft; Absent organomegaly and tenderness Extremities Exam Extremities exam: Present full ROM, normal capillary refill and normal in spection; Absent tenderness Neurological Exam Neurological exam: Present alert, CN II-XII intact and oriented X3; Absent motor sensory deficit Psychiatric Psychiatric exam: Present normal affect and normal mood; Absent anxious and depressed Skin Skin exam: Present dry and intact Additional comments: blanchable erythematic rash of bilateral lower extremities OBJ DATA Labs CBC & Chem 7: 12/03/20 12:21 12/27/20 09:33 Meds: Medications Acetaminophen (Acetaminophen 325 Mg Tablet) 650 mg PO Q6HP PRN PRN Reason: PAIN/FEVER > 101 Last Admin: 12/28/20 17:30 Dose: 650 mg Documented by: Albuterol/Ipratropium (Ipratropium/Albuterol 3 Ml Ampul.Neb) 3 ml NEB Q4HP PRN PRN Reason: Shortness Of Breath Alprazolam (Alprazolam 0.5 Mg Tablet) 0.5 mg PO Q12HP PRN PRN Reason: Anxiety Apixaban (Apixaban 5 Mg Tablet) 5 mg PO BID [facility] Last Admin: 12/30/20 11:19 Dose: 5 mg Documented by: Atorvastatin Calcium (Atorvastatin 40 Mg Tablet) 40 mg PO QHS [facility] Last Admin: 12/29/20 21:50 Dose: 40 mg Documented by: Baclofen (Baclofen 10 Mg Tablet) 10 mg PO BID [facility] Last Admin: 12/30/20 11:15 Dose: 10 mg Documented by: Bisacodyl (Bisacodyl 10 Mg Supp.Rect) 10 mg IL Q2-3DAYS PRN PRN Reason: Constipation Last Admin: 11/25/20 05:38 Dose: 10 mg Documented by: Dextrose (Dextrose 50% 50 Ml Vial) 0 ml IV UD PRN PRN Reason: Hypoglycemia Last Admin: 11/25/20 22:53 Dose: 25 ml Documented by: Diagnostic Test (Pha) (Accu-Chek 1 Each Strip) 1 each FS ACHS [facility] Last Admin: 12/30/20 11:29 Dose: 1 each Documented by: Diphenhydramine HCl (Diphenhydramine 25 Mg Capsule) 25 mg PO HS [facility] Last Admin: 12/29/20 21:50 Dose: 25 mg Documented by: Diphenoxylate HCl/Atropine (Diphenoxylate Hcl/Atropine 1 Tablet) 1 tab PO QIDP PRN PRN Reason: Wheezing Last Admin: 12/30/20 11:17 Dose: 1 tab Documented by: Furosemide (Furosemide 20 Mg Tablet) 40 mg PO DAILY [facility] Last Admin: 12/30/20 11:15 Dose: 40 mg Documented by: Gabapentin (Gabapentin 100 Mg Capsule) 100 mg PO BID [facility] Last Admin: 12/30/20 11:15 Dose: 100 mg Documented by: Glucose (Dextrose 31 Gm Oral.Susp) 15 gm PO PRN PRN PRN Reason: Hypoglycemia Magnesium Sulfate (Magnesium Sulfate) 2 gm in 50 mls @ 50 mls/hr IV UD PRN PRN Reason: Magnesium </= 1.6 Potassium Chloride 40 meq/ (Dextrose) 520 mls @ 130 mls/hr IV UD PRN PRN Reason: Potassium < 3 Insulin Human Lispro (Insulin Lispro 1 Unit/0.01 Ml Unit) 0 unit SQ ACHS [facility]; Protocol Last Admin: 12/30/20 10:26 Dose: Not Given Documented by: Levetiracetam (Levetiracetam 500 Mg Tablet) 250 mg PO BID [facility] Last Admin: 12/30/20 11:18 Dose: 250 mg Documented by: Meclizine HCl (Meclizine 25 Mg Tablet) 25 mg PO DAILY [facility] Last Admin: 12/30/20 11:19 Dose: 25 mg Documented by: Melatonin (Melatonin 3 Mg Tablet) 3 mg PO QHS [facility] Last Admin: 12/29/20 21:50 Dose: 3 mg Documented by: Metformin HCl (Metformin 500 Mg Tab.Xl.24h) 1,000 mg PO [facility] Last Admin: 12/30/20 11:15 Dose: 1,000 mg Documented by: Methadone HCl (Methadone 5 Mg Tablet) 10 mg PO BID [facility] Last Admin: 12/30/20 11:16 Dose: 10 mg Documented by: Metoclopramide HCl (Metoclopramide 10 Mg/2 Ml Vial) 10 mg IV Q6HP PRN PRN Reason: Nausea And Vomiting Metoprolol Succinate (Metoprolol Succinate 25 Mg Tab.Xl.24h) 12.5 mg PO DAILY [facility] Last Admin: 12/30/20 11:16 Dose: 12.5 mg Documented by: Empagliflozin 25 Mg (Tablet) 1 dose PO DAILY [facility] Last Admin: 12/30/20 11:19 Dose: Not Given Documented by: Polyethylene Glycol (Polyethylene Glycol 3350 17 Gm Packet) 17 gm PO DAILYP PRN PRN Reason: Constipation Last Admin: 12/28/20 05:22 Dose: 17 gm Documented by: Potassium Chloride (Potassium Chloride 20 Meq Tablet) 40 meq PO UD PRN PRN Reason: Potssium is 3-3.5 Potassium Chloride (Potassium Chloride 20 Meq Tablet) 40 meq PO UD PRN PRN Reason: Potassium < 3 Potassium Chloride (Potassium Chloride 10 Meq Tablet) 20 meq PO QAMCC [facility] Last Admin: 12/30/20 11:16 Dose: 20 meq Documented by: Pregabalin (Pregabalin 25 Mg Capsule) 50 mg PO BID [facility] Last Admin: 12/30/20 11:15 Dose: 50 mg Documented by: Senna (Sennosides 1 Tablet) 2 tab PO DAILYP PRN PRN Reason: Constipation Last Admin: 12/28/20 17:30 Dose: 2 tab Documented by: Sertraline HCl (Sertraline 50 Mg Tablet) 125 mg PO DAILY [facility] Last Admin: 12/30/20 11:17 Dose: 125 mg Documented by: Tramadol HCl (Tramadol 50 Mg Tablet) 50 mg PO Q6HP PRN; Protocol PRN Reason: Pain Last Admin: 12/30/20 11:18 Dose: 50 mg Documented by: Trazodone HCl (Trazodone Hcl 50 Mg Tablet) 25 mg PO [facility] Last Admin: 12/29/20 21:50 Dose: 25 mg Documented by: A/P Assessment and plan (1) CHF (congestive heart failure): Status: Acute Qualifiers: Heart failure chronicity: chronic Heart failure type: unspecified Qualified Code(s): I50.9 - Heart failure, unspecified (2) Atrial fibrillation with rapid ventricular response: Status: Acute (3) Hypertension, essential: Status: Acute (4) Homelessness: Status: Acute (5) Inability to walk: Status: Acute (6) Type 2 diabetes mellitus: Status: Chronic (7) Acute UTI: Status: Acute Narrative A/P Narrative: Bowel obstruction: resolved UTI: resolved RAVINDER: resolved Bowel obstruction: resolved Atrial fibrillation: currently rate control. Continue Metoprolol for rate control and Eliquis as anticoagulation CHF: Lasix, Metoprolol. Currently on room air, stable T2DM: Metformin and insulin therapy Left lower leg swelling and erythema: stasis dermatitis vs cellulitis: Luis Felipe the skin territory, keep the leg elevated Chronic lumps of LUQ abdomen and left upper back: Continue to monitor over time GI ppx: not currently indicated DVT ppx: Eliquis Code status: Full Prognosis: stable Disposition: inpatient med surg; pending SNF placement Time Spent With Patient Time: Total time spent is greater than 50% in coordination of care (as documented) at patient's floor/unit and/or counseling patient: Total time spent with greater than 50% in coordination of care (as documented) at patient's floor/unit and/or counseling patient:: 15 - 24 minutes QUALITY VTE Deep Vein Thrombosis/Pulmonary Embolism Present on Admission: No
[2020-12-30] MEDS: diphenhydrAMINE 25 MG CAPSULE PO SCH (20:25)
[2020-12-30] MEDS: traZODone HCL 50 MG TABLET PO SCH (20:25)
[2020-12-30] MEDS: ATORVASTATIN 40 MG TABLET PO SCH (20:25)
[2020-12-30] MEDS: MELATONIN 3 MG TABLET PO SCH (22:04)
[2020-12-31] MEDS: metFORMIN 500 MG TAB.XL.24H PO SCH (07:11)
[2020-12-31] MEDS: traMADol 50 MG TABLET PO PRN ×3 (07:11→17:54)
[2020-12-31] MEDS: INSULIN LISPRO 1 UNIT/0.01 ML UNIT SQ SCH ×4 (07:14→20:57)
--- NOTE | 2020-12-31 08:25 | Internal Med Progress Note ---
SUBJECTIVE Subjective Patient information: Note initiated : 12/31/20 at 8:23 am Service Date, if different from initiated Date: [] Patient: Alexa Rai a 80 y/o F admitted on 11/14/20 for Weakness. Chief Complaint: [bowel obstruction, RAVINDER, UTI, atrial fibrillation] Interval history: History of present illness: Ms. Rai is a 80 year old F patient was recently at [facility] for cellulitis to the leg discharged the beginning of October. She was at [facility] prior to that admission but crested r efused her and patient was discharged to [facility]. Patient says she has been at [facility] since last February. She is essentially wheelchair-bound for the past couple years she states she can ambulate a little bit with a walker. She was in the motel with her son who is homeless who will be kicked out of the motel today and he was worried about his mother because she cannot get up she just sits in her own urine she cannot take care of her self. She is unable to care for herself and her son who is homeless has no place to care for her. Patient has some nausea but no other complaints. She does have history atrial fibrillation and in the ED she did go to heart rate of 115. Lzpka-hy-cpqh sodium was 146, chemistry showed volume depletion 11/15 Patient doing well. Feels better. Urine culture with gram-negative bacillus. Heart rate improved. Electrolytes improved. Vaginal nausea but no other complaints. 11/16 No new complaints. Pending final urine culture. Placement being worked out with case management.. 11/23 Interval history: Patient is not feeling too good today. She complained of back pain. She seems comfortable. No overnight issues 11/24 No overnight event or new complaints. pt refused oral contrast for further evaluation despite multiple attempts. She admits abdomen is uncomfortable but she is not willing to let us perform work-up to adequately evaluate and treat. 11/25 Patient had a medium sized bowel movement this morning. She seems amenable to a small bowel follow-through this morning, we will attempt to obtain. 11/26 No overnight event or complaints. Had a large bowel movement yesterday after contrast study. Abdomen soft no pain. 11/27 Complains of chronic lower back pain otherwise no new complaints. Awaiting placement. 11/28 no changes. No new complaints. Awaiting placement 11/29 Discussed discharge, the patient wants to go home. She says she has a place rented. Stable, no acute medical issues. 11/30 Awaiting placement, regular diet to encourage nutritional intake. 12/01 Discussed importance of activity, awaiting placement. 12/02 More activity with sitting at the edge of the bed, removed fecal management system. 12/03 Seems more tired today, AM glucose 70. Discontinued glipizide 2.5 mg daily, not receiving insulin, continued Metformin. Awaiting placement. 12/04 Sitting at the side of bed for breakfast, overall more active the last few days. 12/05 Sleeping. No change overnight. Awaiting placement. 12/06 No changes. Patient seems to feeling well today. No new complaints. 12/07 Has chronic back pain otherwise no new complaints overnight events. 12/08 patient says she slept well and feeling well. No new complaints. States she did get a bowel movement once a week. Last one was 3 days ago does not feel the need to go the bathroom. 12/09 Seems a feeling well again today. No new complaints. 12/10/20: No active issues. No major overnight events. Patient is feeling comfortable this morning. Principal diagnosis: ESBL E.Coli UTI 12/11/20: No active issues. No major overnight events. Patient is feeling comfortable this morning. 12/12/20: No active issues. No major overnight events. Patient is feeling comfortable this morning. Principal diagnosis: ESBL E.Coli UTI 12/13/20: No active issues. No major overnight events. Patient is feeling comfortable this morning. Principal diagnosis: ESBL E.Coli UTI 12/16-patient status quo. No overnight events. No concerns per staff. Continuing pre-existing medical issues management on home medications. Ongoing therapies. Discharge planning per case management 12/17-patient doing well. No overnight events. No concerns per staff. No fever chills nausea vomiting. Doing well. Ongoing therapies. Await placement 12/18 patient status quo. No overnight events. No concerns per staff. Awaiting placement.No active issues 12/19 continues without complaints. No events, no concerns. Continue to await placement. 12/20 stable. Patient fast asleep this morning when I go to see her. Nursing without any concerns. No events. Awaiting eventual placement. 12/21 remained stable. Awake and alert this afternoon during my visit. No new complaints. No nursing concerns. 12/22 no new changes. Sleeping this morning. No new nursing concerns. 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 12/23 no overnight event or new complaints. Patient stable. 12/24 No change. Awaiting placement. 12/25 Complains of chronic back pain otherwise no new complaints overnight events. Awaiting placement. 12/26 Patient has no new complaints. Awaiting placement. 12/27 No change. Awaiting placement. 12/28: No bowel movement for 5 days. Reported by nurse that patient has redness /swelling of left lower leg, as well as lumps of left upper abdomen/left upper back. Currently denies any pain. 12/29: Had an episode of bowel movement. No other complaints. 12/30: Patient has no complaints. 12/31: Patient has no complaints. Principal diagnosis: ESBL E.Coli UTI Constitutional Vitals: Vital Signs Temp Pulse Resp BP Pulse Ox 36.8 C 83 16 117/75 91 12/30/20 20:00 12/30/20 20:00 12/30/20 20:00 12/30/20 20:00 12/30/20 20:00 Period Temp Pulse Resp BP Sys/Jansen Pulse Ox Last 24 Hr 36.8 C 83 16 117/75 91 Intake and Output 12/30/20 12/31/20 12/31/20 21:59 05:59 13:59 Intake Total 840 450 Output Total 302 Balance 538 450 Weight 113.625 kg Intake & Output: Intake & Output 12/30/20 12/31/20 12/31/20 21:59 05:59 13:59 Intake Total 840 450 Output Total 302 Balance 538 450 Weight 113.625 kg Intake: Oral 840 450 Output: Void Amount 300 # of times incontinent of urine 2 Other: Meal Dinner Percent of Meal Consumed 50% General appearance: cooperative and no acute distress Head Head exam: Present atraumatic and normocephalic Eye Eye exam: Present EOMI and PERRL ENT ENT exam: Present mucous membranes moist, normal exam and normal external ear exam Neck Neck exam: Present normal inspection; Absent lymphadenopathy, tenderness and thyromegaly Respiratory Respiratory exam: Absent accessory muscle use, respiratory distress and wheezes Cardiovascular Cardiovascular exam: Present irregular rhythm; Absent JVD GI/Abdominal GI/Abdominal exam: Present normal bowel sounds and soft; Absent organomegaly and tenderness Extremities Exam Extremities exam: Present full ROM, normal capillary refill and normal inspection; Absent tenderness Neurological Exam Neurological exam: Present alert, CN II-XII intact and oriented X3; Absent motor sensory deficit Psychiatric Psychiatric exam: Present normal affect and normal mood; Absent anxious and depressed Skin Skin exam: Present dry and intact Additional comments: blanchable erythematic rash of bilateral lower extremities OBJ DATA Labs CBC & Chem 7: 12/03/20 12:21 12/27/20 09:33 Meds: Medications Acetaminophen (Acetaminophen 325 Mg Tablet) 650 mg PO Q6HP PRN PRN Reason: PAIN/FEVER > 101 Last Admin: 12/28/20 17:30 Dose: 650 mg Documented by: Albuterol/Ipratropium (Ipratropium/Albuterol 3 Ml Ampul.Neb) 3 ml NEB Q4HP PRN PRN Reason: Shortness Of Breath Alprazolam (Alprazolam 0.5 Mg Tablet) 0.5 mg PO Q12HP PRN PRN Reason: Anxiety Apixaban (Apixaban 5 Mg Tablet) 5 mg PO BID [facility] Last Admin: 12/30/20 20:27 Dose: 5 mg Documented by: Atorvastatin Calcium (Atorvastatin 40 Mg Tablet) 40 mg PO QHS [facility] Last Admin: 12/30/20 20:25 Dose: 40 mg Documented by: Baclofen (Baclofen 10 Mg Tablet) 10 mg PO BID [facility] Last Admin: 12/30/20 20:25 Dose: 10 mg Documented by: Bisacodyl (Bisacodyl 10 Mg Supp.Rect) 10 mg OR Q2-3DAYS PRN PRN Reason: Constipation Last Admin: 11/25/20 05:38 Dose: 10 mg Documented by: Dextrose (Dextrose 50% 50 Ml Vial) 0 ml IV UD PRN PRN Reason: Hypoglycemia Last Admin: 11/25/20 22:53 Dose: 25 ml Documented by: Diagnostic Test (Pha) (Accu-Chek 1 Each Strip) 1 each FS ACHS [facility] Last Admin: 12/31/20 07:14 Dose: 1 each Documented by: Diphenhydramine HCl (Diphenhydramine 25 Mg Capsule) 25 mg PO [facility] Last Admin: 12/30/20 20:25 Dose: 25 mg Documented by: Diphenoxylate HCl/Atropine (Diphenoxylate Hcl/Atropine 1 Tablet) 1 tab PO QIDP PRN PRN Reason: Wheezing Last Admin: 12/30/20 11:17 Dose: 1 tab Documented by: Furosemide (Furosemide 20 Mg Tablet) 40 mg PO DAILY [facility] Last Admin: 12/30/20 11:15 Dose: 40 mg Documented by: Gabapentin (Gabapentin 100 Mg Capsule) 100 mg PO BID [facility] Last Admin: 12/30/20 20:24 Dose: 100 mg Documented by: Glucose (Dextrose 31 Gm Oral.Susp) 15 gm PO PRN PRN PRN Reason: Hypoglycemia Magnesium Sulfate (Magnesium Sulfate) 2 gm in 50 mls @ 50 mls/hr IV UD PRN PRN Reason: Magnesium </= 1.6 Potassium Chloride 40 meq/ (Dextrose) 520 mls @ 130 mls/hr IV UD PRN PRN Reason: Potassium < 3 Insulin Human Lispro (Insulin Lispro 1 Unit/0.01 Ml Unit) 0 unit SQ ACHS [facility]; Protocol Last Admin: 12/31/20 07:14 Dose: Not Given Documented by: Levetiracetam (Levetiracetam 500 Mg Tablet) 250 mg PO BID [facility] Last Admin: 12/30/20 20:26 Dose: 250 mg Documented by: Meclizine HCl (Meclizine 25 Mg Tablet) 25 mg PO DAILY [facility] Last Admin: 12/30/20 11:19 Dose: 25 mg Documented by: Melatonin (Melatonin 3 Mg Tablet) 3 mg PO QHS [facility] Last Admin: 12/30/20 22:04 Dose: 3 mg Documented by: Metformin HCl (Metformin 500 Mg Tab.Xl.24h) 1,000 mg PO [facility] Last Admin: 12/31/20 07:11 Dose: 1,000 mg Documented by: Methadone HCl (Methadone 5 Mg Tablet) 10 mg PO BID [facility] Last Admin: 12/30/20 20:24 Dose: 10 mg Documented by: Metoclopramide HCl (Metoclopramide 10 Mg/2 Ml Vial) 10 mg IV Q6HP PRN PRN Reason: Nausea And Vomiting Metoprolol Succinate (Metoprolol Succinate 25 Mg Tab.Xl.24h) 12.5 mg PO DAILY [facility] Last Admin: 12/30/20 11:16 Dose: 12.5 mg Documented by: Empagliflozin 25 Mg (Tablet) 1 dose PO DAILY [facility] Last Admin: 12/30/20 11:19 Dose: Not Given Documented by: Polyethylene Glycol (Polyethylene Glycol 3350 17 Gm Packet) 17 gm PO DAILYP PRN PRN Reason: Constipation Last Admin: 12/28/20 05:22 Dose: 17 gm Documented by: Potassium Chloride (Potassium Chloride 20 Meq Tablet) 40 meq PO UD PRN PRN Reason: Potssium is 3-3.5 Potassium Chloride (Potassium Chloride 20 Meq Tablet) 40 meq PO UD PRN PRN Reason: Potassium < 3 Potassium Chloride (Potassium Chloride 10 Meq Tablet) 20 meq PO QAC [facility] Last Admin: 12/30/20 11:16 Dose: 20 meq Documented by: Pregabalin (Pregabalin 25 Mg Capsule) 50 mg PO BID [facility] Last Admin: 12/30/20 20:27 Dose: 50 mg Documented by: Senna (Sennosides 1 Tablet) 2 tab PO DAILYP PRN PRN Reason: Constipation Last Admin: 12/28/20 17:30 Dose: 2 tab Documented by: Sertraline HCl (Sertraline 50 Mg Tablet) 125 mg PO DAILY [facility] Last Admin: 12/30/20 11:17 Dose: 125 mg Documented by: Tramadol HCl (Tramadol 50 Mg Tablet) 50 mg PO Q6HP PRN; Protocol PRN Reason: Pain Last Admin: 12/31/20 07:11 Dose: 50 mg Documented by: Trazodone HCl (Trazodone Hcl 50 Mg Tablet) 25 mg PO [facility] Last Admin: 12/30/20 20:25 Dose: 25 mg Documented by: A/P Assessment and plan (1) CHF (congestive heart failure): Status: Acute Qualifiers: Heart failure chronicity: chronic Heart failure type: unspecified Qualified Code(s): I50.9 - Heart failure, unspecified (2) Atrial fibrillation with rapid ventricular response: Status: Acute (3) Hypertension, essential: Status: Acute (4) Homelessness: Status: Acute (5) Inability to walk: Status: Acute (6) Type 2 diabetes mellitus: Status: Chronic (7) Acute UTI: Status: Acute Narrative A/P Narrative: Bowel obstruction: resolved UTI: resolved RAVINDER: resolved Bowel obstruction: resolved Atrial fibrillation: currently rate control. Continue Metoprolol for rate control and Eliquis as anticoagulation CHF: Lasix, Metoprolol. Currently on room air, stable T2DM: Metformin and insulin therapy Left lower leg swelling and erythema: stasis dermatitis vs cellulitis: Luis Felipe the skin territory, keep the leg elevated Chronic lumps of LUQ abdomen and left upper back: Continue to monitor over time GI ppx: not currently indicated DVT ppx: Eliquis Code status: Full Prognosis: stable Disposition: inpatient med surg; pending SNF placement Time Spent With Patient Time: Total time spent is greater than 50% in coordination of care (as documented) at patient's floor/unit and/or counseling patient: QUALITY VTE Deep Vein Thrombosis/Pulmonary Embolism Present on Admission: No
[2020-12-31] MEDS: APIXABAN 5 MG TABLET PO SCH ×2 (10:24→20:56)
[2020-12-31] MEDS: levETIRAcetam 500 MG TABLET PO SCH ×2 (10:24→21:06)
[2020-12-31] MEDS: FUROSEMIDE 20 MG TABLET PO SCH (10:25)
[2020-12-31] MEDS: BACLOFEN 10 MG TABLET PO SCH ×2 (10:25→20:57)
[2020-12-31] MEDS: PREGABALIN 25 MG CAPSULE PO SCH ×2 (10:25→20:57)
[2020-12-31] MEDS: SERTRALINE 50 MG TABLET PO SCH (10:26)
[2020-12-31] MEDS: MECLIZINE 25 MG TABLET PO SCH (10:27)
[2020-12-31] MEDS: METHADONE 5 MG TABLET PO SCH ×2 (10:27→20:55)
[2020-12-31] MEDS: GABAPENTIN 100 MG CAPSULE PO SCH ×2 (10:28→20:55)
[2020-12-31] MEDS: METOPROLOL SUCCINATE 25 MG TAB.XL.24H PO SCH (10:28)
[2020-12-31] MEDS: POTASSIUM CHLORIDE 10 MEQ TABLET PO SCH (10:28)
[2020-12-31] MEDS: EMPAGLIFLOZIN 25 MG TABLET PO SCH (10:29)
[2020-12-31] MEDS: ATORVASTATIN 40 MG TABLET PO SCH (20:55)
[2020-12-31] MEDS: diphenhydrAMINE 25 MG CAPSULE PO SCH (20:56)
[2020-12-31] MEDS: MELATONIN 3 MG TABLET PO SCH (20:56)
[2020-12-31] MEDS: traZODone HCL 50 MG TABLET PO SCH (20:56)
[2021-01-01] MEDS: traMADol 50 MG TABLET PO PRN (05:37)
[2021-01-01] MEDS: levETIRAcetam 500 MG TABLET PO SCH (08:07)
[2021-01-01] MEDS: POTASSIUM CHLORIDE 10 MEQ TABLET PO SCH (08:08)
[2021-01-01] MEDS: metFORMIN 500 MG TAB.XL.24H PO SCH (08:08)
[2021-01-01] MEDS: GABAPENTIN 100 MG CAPSULE PO SCH (08:08)
[2021-01-01] MEDS: PREGABALIN 25 MG CAPSULE PO SCH (08:08)
[2021-01-01] MEDS: APIXABAN 5 MG TABLET PO SCH (08:08)
[2021-01-01] MEDS: MECLIZINE 25 MG TABLET PO SCH (08:08)
[2021-01-01] MEDS: SERTRALINE 50 MG TABLET PO SCH (08:08)
[2021-01-01] MEDS: FUROSEMIDE 20 MG TABLET PO SCH (08:09)
[2021-01-01] MEDS: BACLOFEN 10 MG TABLET PO SCH (08:09)
[2021-01-01] MEDS: METHADONE 5 MG TABLET PO SCH (08:09)
[2021-01-01] MEDS: METOPROLOL SUCCINATE 25 MG TAB.XL.24H PO SCH (08:09)
[2021-01-01] MEDS: INSULIN LISPRO 1 UNIT/0.01 ML UNIT SQ SCH (08:10)
[2021-01-01] MEDS: EMPAGLIFLOZIN 25 MG TABLET PO SCH (08:11)
--- NOTE | 2021-01-01 08:44 | Internal Med Progress Note ---
SUBJECTIVE Subjective Patient information: Note initiated : 01/01/21 at 8:42 am Service Date, if different from initiated Date: [] Patient: Alexa Rai a 80 y/o F admitted on 11/14/20 for Weakness. Chief Complaint: [bowel obstruction, RAVINDER, UTI, atrial fibrillation] Interval history: History of present illness: Ms. Rai is a 80 year old F patient was recently at [facility] for cellulitis to the leg discharged the beginning of October. She was at [facility] prior to that admission but [facility] refused her and patient was discharged to [facility]. Patient says she has been at [facility] since last February. She is essentially wheelchair-bound for the past couple years she states she can ambulate a little bit with a walker. She was in the motel with her son who is homeless who will be kicked out of the motel today and he was worried about his mother because she cannot get up she just sits in her own urine she cannot take care of her self. She is unable to care for herself and her son who is homeless has no place to care for her. Patient has some nausea but no other complaints. She does have history atrial fibrillation and in the ED she did go to heart rate of 115. Nxsoa-al-wuzu sodium was 146, chemistry showed volume depletion 11/15 Patient doing well. Feels better. Urine culture with gram-negative bacillus. Heart rate improved. Electrolytes improved. Vaginal nausea but no other complaints. 11/16 No new complaints. Pending final urine culture. Placement being worked out with case management.. 11/23 Interval history: Patient is not feeling too good today. She complained of back pain. She seems comfortable. No overnight issues 11/24 No overnight event or new complaints. pt refused oral contrast for further evaluation despite multiple attempts. She admits abdomen is uncomfortable but she is not willing to let us perform work-up to adequately evaluate and treat. 11/25 Patient had a medium sized bowel movement this morning. She seems amenable to a small bowel follow-through this morning, we will attempt to obtain. 11/26 No overnight event or complaints. Had a large bowel movement yesterday after contrast study. Abdomen soft no pain. 11/27 Complains of chronic lower back pain otherwise no new complaints. Awaiting placement. 11/28 no changes. No new complaints. Awaiting placement 11/29 Discussed discharge, the patient wants to go home. She says she has a place rented. Stable, no acute medical issues. 11/30 Awaiting placement, regular diet to encourage nutritional intake. 12/01 Discussed importance of activity, awaiting placement. 12/02 More activity with sitting at the edge of the bed, removed fecal management system. 12/03 Seems more tired today, AM glucose 70. Discontinued glipizide 2.5 mg daily, not receiving insulin, continued Metformin. Awaiting placement. 12/04 Sitting at the side of bed for breakfast, overall more active the last few days. 12/05 Sleeping. No change overnight. Awaiting placement. 12/06 No changes. Patient seems to feeling well today. No new complaints. 12/07 Has chronic back pain otherwise no new complaints overnight events. 12/08 patient says she slept well and feeling well. No new complaints. States she did get a bowel movement once a week. Last one was 3 days ago does not feel the need to go the bathroom. 12/09 Seems a feeling well again today. No new complaints. 12/10/20: No active issues. No major overnight events. Patient is feeling comfortable this morning. Principal diagnosis: ESBL E.Coli UTI 12/11/20: No active issues. No major overnight events. Patient is feeling comfortable this morning. 12/12/20: No active issues. No major overnight events. Patient is feeling comfortable this morning. Principal diagnosis: ESBL E.Coli UTI 12/13/20: No active issues. No major overnight events. Patient is feeling comfortable this morning. Principal diagnosis: ESBL E.Coli UTI 12/16-patient status quo. No overnight events. No concerns per staff. Continuing pre-existing medical issues management on home medications. Ongoing therapies. Discharge planning per case management 12/17-patient doing well. No overnight events. No concerns per staff. No fever chills nausea vomiting. Doing well. Ongoing therapies. Await placement 12/18 patient status quo. No overnight events. No concerns per staff. Awaiting placement.No active issues 12/19 continues without complaints. No events, no concerns. Continue to await placement. 12/20 stable. Patient fast asleep this morning when I go to see her. Nursing without any concerns. No events. Awaiting eventual placement. 12/21 remained stable. Awake and alert this afternoon during my visit. No new complaints. No nursing concerns. 12/22 no new changes. Sleeping this morning. No new nursing concerns. 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 12/23 no overnight event or new complaints. Patient stable. 12/24 No change. Awaiting placement. 12/25 Complains of chronic back pain otherwise no new complaints overnight events. Awaiting placement. 12/26 Patient has no new complaints. Awaiting placement. 12/27 No change. Awaiting placement. 12/28: No bowel movement for 5 days. Reported by nurse that patient has rednes s/swelling of left lower leg, as well as lumps of left upper abdomen/left upper back. Currently denies any pain. 12/29: Had an episode of bowel movement. No other complaints. 12/30: Patient has no complaints. 12/31: Patient has no complaints. 01/01: Patient has no complaints. Principal diagnosis: ESBL E.Coli UTI Constitutional Vitals: Vital Signs Temp Pulse Resp BP Pulse Ox 36.6 C 81 18 112/76 91 01/01/21 07:34 01/01/21 07:34 01/01/21 07:34 01/01/21 07:34 01/01/21 07:34 Period Temp Pulse Resp BP Sys/Jansen Pulse Ox Last 24 Hr 36.6 C-36.6 C 81-84 16-18 103-112/63-76 90-91 Intake and Output 12/31/20 01/01/21 01/01/21 21:59 05:59 13:59 Intake Total 840 200 Output Total 3 Balance 837 200 Intake & Output: Intake & Output 12/31/20 01/01/21 01/01/21 21:59 05:59 13:59 Intake Total 840 200 Output Total 3 Balance 837 200 Intake: Oral 840 200 Output: # of times incontinent of urine 3 Other: Meal Lunch Percent of Meal Consumed 75% Urine Appearance Clear Urine Color Bright Yellow # Voids 1 # Bowel Movements 0 General appearance: cooperative and no acute distress Head Head exam: Present atraumatic and normocephalic Eye Eye exam: Present EOMI and PERRL ENT ENT exam: Present mucous membranes moist, normal exam and normal external ear exam Neck Neck exam: Present normal inspection; Absent lymphadenopathy, tenderness and thyromegaly Respiratory Respiratory exam: Absent accessory muscle use, respiratory distress and wheezes Cardiovascular Cardiovascular exam: Present irregular rhythm; Absent JVD GI/Abdominal GI/Abdominal exam: Present normal bowel sounds and soft; Absent organomegaly and tenderness Extremities Exam Extremities exam: Present full ROM, normal capillary refill and normal inspection; Absent tenderness Neurological Exam Neurological exam: Present alert, CN II-XII intact and oriented X3; Absent motor sensory deficit Psychiatric Psychiatric exam: Present normal affect and normal mood; Absent anxious and depressed Skin Skin exam: Present dry and intact OBJ DATA Labs CBC & Chem 7: 12/03/20 12:21 12/27/20 09:33 Meds: Medications Acetaminophen (Acetaminophen 325 Mg Tablet) 650 mg PO Q6HP PRN PRN Reason: PAIN/FEVER > 101 Last Admin: 12/28/20 17:30 Dose: 650 mg Documented by: Albuterol/Ipratropium (Ipratropium/Albuterol 3 Ml Ampul.Neb) 3 ml NEB Q4HP PRN PRN Reason: Shortness Of Breath Alprazolam (Alprazolam 0.5 Mg Tablet) 0.5 mg PO Q12HP PRN PRN Reason: Anxiety Apixaban (Apixaban 5 Mg Tablet) 5 mg PO BID [facility] Last Admin: 01/01/21 08:08 Dose: 5 mg Documented by: Atorvastatin Calcium (Atorvastatin 40 Mg Tablet) 40 mg PO QHS [facility] Last Admin: 12/31/20 20:55 Dose: 40 mg Documented by: Baclofen (Baclofen 10 Mg Tablet) 10 mg PO BID [facility] Last Admin: 01/01/21 08:09 Dose: 10 mg Documented by: Bisacodyl (Bisacodyl 10 Mg Supp.Rect) 10 mg AK Q2-3DAYS PRN PRN Reason: Constipation Last Admin: 11/25/20 05:38 Dose: 10 mg Documented by: Dextrose (Dextrose 50% 50 Ml Vial) 0 ml IV UD PRN PRN Reason: Hypoglycemia Last Admin: 11/25/20 22:53 Dose: 25 ml Documented by: Diagnostic Test (Pha) (Accu-Chek 1 Each Strip) 1 each FS ACHS [facility] Last Admin: 01/01/21 08:10 Dose: 1 each Documented by: Diphenhydramine HCl (Diphenhydramine 25 Mg Capsule) 25 mg PO HS [facility] Last Admin: 12/31/20 20:56 Dose: 25 mg Documented by: Diphenoxylate HCl/Atropine (Diphenoxylate Hcl/Atropine 1 Tablet) 1 tab PO QIDP PRN PRN Reason: Wheezing Last Admin: 12/30/20 11:17 Dose: 1 tab Documented by: Furosemide (Furosemide 20 Mg Tablet) 40 mg PO DAILY [facility] Last Admin: 01/01/21 08:09 Dose: 40 mg Documented by: Gabapentin (Gabapentin 100 Mg Capsule) 100 mg PO BID [facility] Last Admin: 01/01/21 08:08 Dose: 100 mg Documented by: Glucose (Dextrose 31 Gm Oral.Susp) 15 gm PO PRN PRN PRN Reason: Hypoglycemia Magnesium Sulfate (Magnesium Sulfate) 2 gm in 50 mls @ 50 mls/hr IV UD PRN PRN Reason: Magnesium </= 1.6 Potassium Chloride 40 meq/ (Dextrose) 520 mls @ 130 mls/hr IV UD PRN PRN Reason: Potassium < 3 Insulin Human Lispro (Insulin Lispro 1 Unit/0.01 Ml Unit) 0 unit SQ ACHS [facility]; Protocol Last Admin: 01/01/21 08:10 Dose: Not Given Documented by: Levetiracetam (Levetiracetam 500 Mg Tablet) 250 mg PO BID [facility] Last Admin: 01/01/21 08:07 Dose: 250 mg Documented by: Meclizine HCl (Meclizine 25 Mg Tablet) 25 mg PO DAILY [facility] Last Admin: 01/01/21 08:08 Dose: 25 mg Documented by: Melatonin (Melatonin 3 Mg Tablet) 3 mg PO QHS [facility] Last Admin: 12/31/20 20:56 Dose: 3 mg Documented by: Metformin HCl (Metformin 500 Mg Tab.Xl.24h) 1,000 mg PO [facility] Last Admin: 01/01/21 08:08 Dose: 1,000 mg Documented by: Methadone HCl (Methadone 5 Mg Tablet) 10 mg PO BID [facility] Last Admin: 01/01/21 08:09 Dose: 10 mg Documented by: Metoclopramide HCl (Metoclopramide 10 Mg/2 Ml Vial) 10 mg IV Q6HP PRN PRN Reason: Nausea And Vomiting Metoprolol Succinate (Metoprolol Succinate 25 Mg Tab.Xl.24h) 12.5 mg PO DAILY [facility] Last Admin: 01/01/21 08:09 Dose: 12.5 mg Documented by: Empagliflozin 25 Mg (Tablet) 1 dose PO DAILY [facility] Last Admin: 01/01/21 08:11 Dose: Not Given Documented by: Polyethylene Glycol (Polyethylene Glycol 3350 17 Gm Packet) 17 gm PO DAILYP PRN PRN Reason: Constipation Last Admin: 12/28/20 05:22 Dose: 17 gm Documented by: Potassium Chloride (Potassium Chloride 20 Meq Tablet) 40 meq PO UD PRN PRN Reason: Potssium is 3-3.5 Potassium Chloride (Potassium Chloride 20 Meq Tablet) 40 meq PO UD PRN PRN Reason: Potassium < 3 Potassium Chloride (Potassium Chloride 10 Meq Tablet) 20 meq PO QAMCC [facility] Last Admin: 01/01/21 08:08 Dose: 20 meq Documented by: Pregabalin (Pregabalin 25 Mg Capsule) 50 mg PO BID [facility] Last Admin: 01/01/21 08:08 Dose: 50 mg Documented by: Senna (Sennosides 1 Tablet) 2 tab PO DAILYP PRN PRN Reason: Constipation Last Admin: 12/28/20 17:30 Dose: 2 tab Documented by: Sertraline HCl (Sertraline 50 Mg Tablet) 125 mg PO DAILY [facility] Last Admin: 01/01/21 08:08 Dose: 125 mg Documented by: Tramadol HCl (Tramadol 50 Mg Tablet) 50 mg PO Q6HP PRN; Protocol PRN Reason: Pain Last Admin: 01/01/21 05:37 Dose: 50 mg Documented by: Trazodone HCl (Trazodone Hcl 50 Mg Tablet) 25 mg PO [facility] Last Admin: 12/31/20 20:56 Dose: 25 mg Documented by: A/P Assessment and plan (1) CHF (congestive heart failure): Status: Acute Qualifiers: Heart failure chronicity: chronic Heart failure type: unspecified Qualified Code(s): I50.9 - Heart failure, unspecified (2) Atrial fibrillation with rapid ventricular response: Status: Acute (3) Hypertension, essential: Status: Acute (4) Homelessness: Status: Acute (5) Inability to walk: Status: Acute (6) Type 2 diabetes mellitus: Status: Chronic (7) Acute UTI: Status: Acute Narrative A/P Narrative: Bowel obstruction: resolved UTI: resolved RAVINDER: resolved Bowel obstruction: resolved Atrial fibrillation: currently rate control. Continue Metoprolol for rate contro l and Eliquis as anticoagulation CHF: Lasix, Metoprolol. Currently on room air, stable T2DM: Metformin and insulin therapy Left lower leg swelling and erythema: stasis dermatitis vs cellulitis: Luis Felipe the skin territory, keep the leg elevated Chronic lumps of LUQ abdomen and left upper back: Continue to monitor over time GI ppx: not currently indicated DVT ppx: Eliquis Code status: Full Prognosis: stable Disposition: inpatient med surg; pending SNF placement Time Spent With Patient Time: Total time spent is greater than 50% in coordination of care (as documented) at patient's floor/unit and/or counseling patient: QUALITY VTE Deep Vein Thrombosis/Pulmonary Embolism Present on Admission: No
--- NOTE | 2021-01-01 10:26 | Discharge Summary ---
Discharge Provider Provider Patient information: Note initiated : 01/01/21 at 10:25 am Service Date, if different from initiated Date: [] Patient: Alexa Rai 80 y/o F admitted on 11/14/20 for Weakness. Chief Complaint: [cellulitis, UTI, RAVINDER, bowel obstruction] Date of admission: 11/14/20 12:58 Discharge date: 01/01/21 Primary care physician: Cindy Quiroz PA-C Consults: 11/14/20 Consult to Physician [CONS] Stat Comment: weakness, inability to walk Consulting Provider: Jarod Rapp Reason For Exam: Physician to Consult 11/15/20 12:19 Consult to Physician [CONS] Routine Comment: Consulting Provider: Asael Barnes Reason For Exam: Physician to Consult 11/18/20 11:00 Consult to Physician [CONS] Routine Comment: Consulting Provider: [facility] Reason For Exam: Physician to Consult 12/10/20 13:28 Consult to Physician [CONS] Routine Comment: diabetic nail care Consulting Provider: Gerry Meeks Reason For Exam: Physician to Consult 12/16/20 10:53 Consult to Physician [CONS] Routine Comment: Possible Placement Consulting Provider: Kimberly Sanon Reason For Exam: Physician to Consult Discharge Meds Discharge Medications Home Medications atorvastatin 40 mg tablet 40 mg PO QHS 10/02/19 [History Confirmed 11/14/20 Last Taken Unknown] gabapentin 100 mg capsule 100 mg PO BID 10/02/19 [History Confirmed 11/14/20 Last Taken Unknown] glipizide 5 mg tablet 5 mg PO QDAY 10/02/19 [History Confirmed 11/14/20 Last Taken Unknown] insulin lispro 100 unit/mL subcutaneous solution 10 unit SUB-Q .COMPLEX 10/02/19 [History Confirmed 11/14/20 Last Taken Unknown] ipratropium 0.5 mg-albuterol 3 mg (2.5 mg base)/3 mL nebulization soln 3 ml INHALATION Q6H PRN 10/02/19 [History Confirmed 11/14/20 Last Taken Unknown] melatonin 3 mg tablet 3 mg PO HS PRN 10/02/19 [History Confirmed 11/14/20 Last Taken Unknown] metformin 1,000 mg tablet,extended release 24hr 1,000 mg PO QDAY 10/02/19 [History Confirmed 11/14/20 Last Taken Unknown] potassium chloride 10 mEq capsule,extended release 20 meq PO BID 10/02/19 [History Confirmed 11/14/20 Last Taken Unknown] loperamide 2 mg tablet See Rx Instructions PO .COMPLEX PRN 10/08/19 [History Confirmed 11/14/20 Last Taken Unknown] methadone 10 mg tablet See Rx Instructions PO Q6H 10/08/19 [History Confirmed 11/14/20 Last Taken Unknown] multivitamin 1 tab PO DAILY 10/08/19 [History Confirmed 11/14/20 Last Taken Unkn own] naloxone 4 mg/actuation nasal spray See Rx Instructions INTRANASAL Q2M 10/08/19 [History Confirmed 11/14/20 Last Taken Unknown] oxygen 1 dose NOTAPPLIC PRN PRN 10/08/19 [History Confirmed 11/14/20 Last Taken Unknown] Jardiance 10 mg PO DAILY 10/30/19 [History Confirmed 11/14/20 Last Taken Unknown] docusate sodium 100 mg PO DAILY 10/30/19 [History Confirmed 11/14/20 Last Taken Unknown] acetaminophen 500 mg tablet 650 mg PO Q6HP PRN 01/22/20 [History Confirmed 11/14/20 Last Taken Unknown] aspirin 81 mg tablet,delayed release 81 mg PO QDAY 01/22/20 [History Confirmed 11/14/20 Last Taken Unknown] baclofen 10 mg tablet 10 mg PO TID tab 01/22/20 [History Confirmed 11/14/20 Last Taken Unknown] diphenoxylate-atropine 2.5 mg-0.025 mg tablet See Rx Instructions PO QID PRN 01/22/20 [History Confirmed 11/14/20 Last Taken Unknown] furosemide 40 mg tablet 40 mg PO QDAY 01/22/20 [History Confirmed 11/14/20 Last Taken Unknown] apixaban 5 mg PO BID #60 tab 02/20/20 [Rx Confirmed 11/14/20 Last Taken Unknown] acetaminophen-codeine 1 tab PO Q4H PRN 05/16/20 [History Confirmed 11/14/20 Last Taken Unknown] empagliflozin 25 mg PO QAM 05/16/20 [History Confirmed 11/14/20 Last Taken Unknown] levetiracetam [Keppra] 250 mg PO BID #30 tab 05/16/20 [Rx Confirmed 11/14/20 Last Taken Unknown] ondansetron HCl [Zofran] 8 mg PO Q6H PRN 05/16/20 [History Confirmed 11/14/20 Last Taken Unknown] pregabalin 50 mg PO TID 05/16/20 [History Confirmed 11/14/20 Last Taken Unknown] sertraline 125 mg PO QDAY 05/16/20 [History Confirmed 11/14/20 Last Taken Unknown] meclizine 25 mg PO DAILY 11/14/20 [History Confirmed 11/14/20 Last Taken Unknown] polyethylene glycol 3350 [Miralax] 17 g PO QDAY 11/14/20 [History Confirmed 11/14/20 Last Taken Unknown] tramadol 50 mg PO QDAY 11/14/20 [History Confirmed 11/14/20 Last Taken Unknown] trazodone 25 mg PO HS 11/14/20 [History Confirmed 11/14/20 Last Taken Unknown] alprazolam 0.5 mg PO TIDP PRN #1 tab 11/15/20 [Rx Last Taken Unknown] lisinopril 5 mg PO DAILY #1 tab 11/15/20 [Rx Last Taken Unknown] metoprolol succinate 50 mg PO DAILY #30 tab 11/15/20 [Rx Last Taken Unknown] COURSE Hospital Course Hospital course: Interval history: History of present illness: Ms. Rai is a 80 year old F patient was recently at [facility] for cellulitis to the leg discharged the beginning of October. She was at [facility] prior to that admission but [facility] refused her and [facility] was [facility]. Patient says she has been at [facility] since last February. She is essentially wheelchair-bound for the past couple years she states she can ambulate a little bit with a walker. She was in the motel with her son who is homeless who will be kicked out of the motel today and he was worried about his mother because she cannot get up she just sits in her own urine she cannot take care of her self. She is unable to care for herself and her son who is homeless has no place to care for her. Patient has some nausea but no other complaints. She does have history atrial fibrillation and in the ED she did go to heart rate of 115. Rjbsn-nh-[id number] sodium was 146, chemistry showed volume depletion 11/15 Patient doing well. Feels better. Urine culture with gram-negative bacillus. Heart rate improved. Electrolytes improved. Vaginal nausea but no other complaints. 11/16 No new complaints. Pending final urine culture. Placement being worked out with case management.. 11/23 Interval history: Patient is not feeling too good today. She complained of back pain. She seems comfortable. No overnight issues 11/24 No overnight event or new complaints. pt refused oral contrast for further evaluation despite multiple attempts. She admits abdomen is uncomfortable but she is not willing to let us perform work-up to adequately evaluate and treat. 11/25 Patient had a medium sized bowel movement this morning. She seems amenable to a small bowel follow-through this morning, we will attempt to obtain. 11/26 No overnight event or complaints. Had a large bowel movement yesterday after contrast study. Abdomen soft no pain. 11/27 Complains of chronic lower back pain otherwise no new complaints. Awaiting placement. 11/28 no changes. No new complaints. Awaiting placement 11/29 Discussed discharge, the patient wants to go home. She says she has a place rented. Stable, no acute medical issues. 11/30 Awaiting placement, regular diet to encourage nutritional intake. 12/01 Discussed importance of activity, awaiting placement. 12/02 More activity with sitting at the edge of the bed, removed fecal management system. 12/03 Seems more tired today, AM glucose 70. Discontinued glipizide 2.5 mg daily, not receiving insulin, continued Metformin. Awaiting placement. 12/04 Sitting at the side of bed for breakfast, overall more active the last few days. 12/05 Sleeping. No change overnight. Awaiting placement. 12/06 No changes. Patient seems to feeling well today. No new complaints. 12/07 Has chronic back pain otherwise no new complaints overnight events. 12/08 patient says she slept well and feeling well. No new complaints. States she did get a bowel movement once a week. Last one was 3 days ago does not feel the need to go the bathroom. 12/09 Seems a feeling well again today. No new complaints. 12/10/20: No active issues. No major overnight events. Patient is feeling comfortable this morning. Principal diagnosis: ESBL E.Coli UTI 12/11/20: No active issues. No major overnight events. Patient is feeling comfortable this morning. 12/12/20: No active issues. No major overnight events. Patient is feeling comfortable this morning. Principal diagnosis: ESBL E.Coli UTI 12/13/20: No active issues. No major overnight events. Patient is feeling comfortable this morning. Principal diagnosis: ESBL E.Coli UTI 12/16-patient status quo. No overnight events. No concerns per staff. Continuing pre-existing medical issues management on home medications. Ongoing therapies. Discharge planning per case management 12/17-patient doing well. No overnight events. No concerns per staff. No fever chills nausea vomiting. Doing well. Ongoing therapies. Await placement 12/18 patient status quo. No overnight events. No concerns per staff. Awaiting placement.No active issues 12/19 continues without complaints. No events, no concerns. Continue to await placement. 12/20 stable. Patient fast asleep this morning when I go to see her. Nursing without any concerns. No events. Awaiting eventual placement. 12/21 remained stable. Awake and alert this afternoon during my visit. No new complaints. No nursing concerns. 12/22 no new changes. Sleeping this morning. No new nursing concerns. division service manager assigned by the [facility], evaluation to be this . 12/23 no overnight event or new complaints. Patient stable. 12/24 No change. Awaiting placement. 12/25 Complains of chronic back pain otherwise no new complaints overnight events. Awaiting placement. 12/26 Patient has no new complaints. Awaiting placement. 12/27 No change. Awaiting placement. 12/28: No bowel movement for 5 days. Reported by nurse that patient has redness/swelling of left lower leg, as well as lumps of left upper abdomen/left upper back. Currently denies any pain. 12/29: Had an episode of bowel movement. No other complaints. 12/30: Patient has no complaints. 12/31: Patient has no complaints. 01/01: Patient has no complaints. Discharge diagnosis: bowel obstruction, RAVINDER, UTI, cellulitis Time Spent with Patient Time attestation: Total time spent providing and/or coordinating discharge services: Interval history: History of present illness: Ms. Rai is a 80 year old F patient was recently at [facility] for cellulitis to the leg discharged the beginning of October. She was at [facility] prior to that admission but [facility] her and [facility]. Patient says she has been at [facility] since last February. She is essentially wheelchair-bound for the past couple years she states she can ambulate a little bit with a walker. She was in the motel with her son who is homeless who will be kicked out of the motel today and he was worried about his mother because she cannot get up she just sits in her own urine she cannot take care of her self. She is unable to care for herself and her son who is homeless has no place to care for her. Patient has some nausea but no other complaints. She does have history atrial fibrillation and in the ED she did go to heart rate of 115. Zcpgm-xe-yhyd sodium was 146, chemistry showed volume depletion 11/15 Patient doing well. Feels better. Urine culture with gram-negative bacillus. Heart rate improved. Electrolytes improved. Vaginal nausea but no other complaints. 11/16 No new complaints. Pending final urine culture. Placement being worked out with case management.. 11/23 Interval history: Patient is not feeling too good today. She complained of back pain. She seems comfortable. No overnight issues 11/24 No overnight event or new complaints. pt refused oral contrast for further evaluation despite multiple attempts. She admits abdomen is uncomfortable but she is not willing to let us perform work-up to adequately evaluate and treat. 11/25 Patient had a medium sized bowel movement this morning. She seems amenable to a small bowel follow-through this morning, we will attempt to obtain. 11/26 No overnight event or complaints. Had a large bowel movement yesterday after contrast study. Abdomen soft no pain. 11/27 Complains of chronic lower back pain otherwise no new complaints. Awaiting placement. 11/28 no changes. No new complaints. Awaiting placement 11/29 Discussed discharge, the patient wants to go home. She says she has a place rented. Stable, no acute medical issues. 11/30 Awaiting placement, regular diet to encourage nutritional intake. 12/01 Discussed importance of activity, awaiting placement. 12/02 More activity with sitting at the edge of the bed, removed fecal management system. 12/03 Seems more tired today, AM glucose 70. Discontinued glipizide 2.5 mg daily, not receiving insulin, continued Metformin. Awaiting placement. 12/04 Sitting at the side of bed for breakfast, overall more active the last few days. 12/05 Sleeping. No change overnight. Awaiting placement. 12/06 No changes. Patient seems to feeling well today. No new complaints. 12/07 Has chronic back pain otherwise no new complaints overnight events. 12/08 patient says she slept well and feeling well. No new complaints. States she did get a bowel movement once a week. Last one was 3 days ago does not feel the need to go the bathroom. 12/09 Seems a feeling well again today. No new complaints. 12/10/20: No active issues. No major overnight events. Patient is feeling comfortable this morning. Principal diagnosis: ESBL E.Coli UTI 12/11/20: No active issues. No major overnight events. Patient is feeling comfortable this morning. 12/12/20: No active issues. No major overnight events. Patient is feeling comfortable this morning. Principal diagnosis: ESBL E.Coli UTI 12/13/20: No active issues. No major overnight events. Patient is feeling comfortable this morning. Principal diagnosis: ESBL E.Coli UTI 12/16-patient status quo. No overnight events. No concerns per staff. Continuing pre-existing medical issues management on home medications. Ongoing therapies. Discharge planning per case management 12/17-patient doing well. No overnight events. No concerns per staff. No fever chills nausea vomiting. Doing well. Ongoing therapies. Await placement 12/18 patient status quo. No overnight events. No concerns per staff. Awaiting placement.No active issues 12/19 continues without complaints. No events, no concerns. Continue to await placement. 12/20 stable. Patient fast asleep this morning when I go to see her. Nursing without any concerns. No events. Awaiting eventual placement. 12/21 remained stable. Awake and alert this afternoon during my visit. No new complaints. No nursing concerns. 12/22 no new changes. Sleeping this morning. No new nursing concerns. division service manager assigned by the [facility], evaluation to be this . 12/23 no overnight event or new complaints. Patient stable. 12/24 No change. Awaiting placement. 12/25 Complains of chronic back pain otherwise no new complaints overnight events. Awaiting placement. 12/26 Patient has no new complaints. Awaiting placement. 12/27 No change. Awaiting placement. 12/28: No bowel movement for 5 days. Reported by nurse that patient has redness/swelling of left lower leg, as well as lumps of left upper abdomen/left upper back. Currently denies any pain. 12/29: Had an episode of bowel movement. No other complaints. 12/30: Patient has no complaints. 12/31: Patient has no complaints. 01/01: Patient has no complaints. EXAM Constitutional Vitals: Temp Pulse Resp BP Pulse Ox 36.6 C 81 18 112/76 91 01/01/21 07:34 01/01/21 07:34 01/01/21 07:34 01/01/21 07:34 01/01/21 07:34 General appearance: cooperative and no acute distress Head Head exam: Present atraumatic and normocephalic Eye Eye exam: Present EOMI and PERRL ENT ENT exam: Present mucous membranes moist, normal exam and normal external ear exam Neck Neck exam: Present normal inspection; Absent lymphadenopathy, tenderness and thyromegaly Respiratory Respiratory exam: Absent accessory muscle use, respiratory distress and wheezes Cardiovascular Cardiovascular exam: Present irregular rhythm; Absent JVD GI/Abdominal GI/Abdominal exam: Present normal bowel sounds and soft; Absent organomegaly and tenderness Extremities Exam Extremities exam: Present full ROM, normal capillary refill and normal inspection; Absent tenderness Neurological Exam Neurological exam: Present alert, CN II-XII intact and oriented X3; Absent motor sensory deficit Psychiatric Psychiatric exam: Present normal affect and normal mood; Absent anxious and depressed Skin Skin exam: Present dry, intact and rash Discharge Plan Patient/Caregiver Discharge Instructions Activity: increase activity as tolerated Diet: Consistent Carbohydrate Prescriptions: New metoprolol succinate 50 mg Tablet Extended Release 24 Hr 50 mg PO DAILY Qty: 30 RF: 0 lisinopril 5 mg Tablet 5 mg PO DAILY Qty: 1 RF: 0 Continued atorvastatin 40 mg tablet 40 mg PO QHS RF: 0 gabapentin 100 mg capsule 100 mg PO BID RF: 0 glipizide 5 mg tablet 5 mg PO QDAY RF: 0 ipratropium-albuterol 0.5 mg-3 mg(2.5 mg base)/3 mL solution for nebulization 3 ml INHALATION Q6H PRN (Reason: shortness of breath) RF: 0 melatonin 3 mg tablet 3 mg PO HS PRN (Reason: Sleep) RF: 0 metformin 1,000 mg tablet extended release 24hr 1,000 mg PO QDAY RF: 0 potassium chloride 10 mEq capsule, extended release 20 meq PO BID RF: 0 insulin lispro [Humalog U-100 Insulin] 100 unit/mL solution 10 unit SUB-Q .COMPLEX RF: 0 furosemide 40 mg tablet 40 mg PO QDAY RF: 0 loperamide 2 mg tablet See Rx Instructions PO .COMPLEX PRN (Reason: Diarrhea) RF: 0 methadone 10 mg tablet See Rx Instructions PO Q6H RF: 0 multivitamin Tablet 1 tab PO DAILY RF: 0 Narcan 4 mg/actuation spray,non-aerosol See Rx Instructions INTRANASAL Q2M RF: 0 oxygen 1 dose NOTAPPLIC PRN PRN (Reason: Shortness Of Breath) RF: 0 baclofen 10 mg tablet 10 mg PO TID RF: 0 aspirin [Ecotrin Low Strength] 81 mg tablet,delayed release (DR/EC) 81 mg PO QDAY RF: 0 diphenoxylate-atropine [Lomotil] 2.5-0.025 mg tablet See Rx Instructions PO QID PRN (Reason: Wheezing) RF: 0 acetaminophen [Tylenol Extra Strength] 500 mg tablet 650 mg PO Q6HP PRN (Reason: Pain) RF: 0 Jardiance 10 mg PO DAILY RF: 0 docusate sodium 100 MG capsule 100 mg PO DAILY RF: 0 apixaban 5 mg tablet 5 mg PO BID Qty: 60 RF: 0 sertraline 100 mg Tablet 125 mg PO QDAY RF: 0 ondansetron HCl [Zofran] 4 mg Tablet 8 mg PO Q6H PRN (Reason: Nausea) RF: 0 acetaminophen-codeine 300-60 mg Tablet 1 tab PO Q4H PRN (Reason: Pain) RF: 0 pregabalin 50 mg Capsule 50 mg PO TID RF: 0 empagliflozin 25 mg Tablet 25 mg PO QAM RF: 0 levetiracetam [Keppra] 250 mg tablet 250 mg PO BID Qty: 30 RF: 0 polyethylene glycol 3350 [Miralax] 17 gram Powder In Packet 17 g PO QDAY RF: 0 trazodone 50 mg tablet 25 mg PO HS RF: 0 meclizine 25 mg tablet 25 mg PO DAILY RF: 0 tramadol 50 mg Tablet 50 mg PO QDAY RF: 0 Changed alprazolam 0.5 mg tablet 0.5 mg PO TIDP PRN (Reason: anxiety) Qty: 1 RF: 0 Discontinued lisinopril 10 mg tablet 10 mg PO QDAY RF: 0 methadone 10 mg tablet 10 mg PO BID RF: 0 diphenhydramine HCl 25 mg capsule See Rx Instructions PO .COMPLEX RF: 0 glipizide 10 mg tablet extended release 24hr See Rx Instructions PO .COMPLEX RF: 0 alprazolam 0.5 MG tablet 0.5 mg PO BIDP PRN (Reason: Anxiety) Qty: 20 RF: 0 nitrofurantoin monohyd/m-cryst [Macrobid] 100 mg capsule 100 mg PO BID Qty: 14 RF: 0 metoprolol succinate 25 mg Capsule,Sprinkle,Er 24hr 25 mg PO QDAY RF: 0 Follow Up Plan Follow up with: Cindy Quiroz PA-C [Primary Care Provider] - Patient Disposition: Xfer SNF Prognosis: Undetermined Rehab Potential: Fair I certify that the patient requires SNF services: Yes Overall status at discharge: patient is progressing back to baseline Discharge Orders: Discharge Order (Routine); Ordered 01/01/21 Ordered By: Shan GARCIA VTE Deep Vein Thrombosis/Pulmonary Embolism Present on Admission: No
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
== END 2021-01-01 13:25 | DRG 388 ==
LOC: ED 22:28 → ICU 11-14 12:58 → MEDSUR 11-19 15:32
PROVIDERS: ADMIT Internal Medicine; ATTEND Internal Medicine